=== PATIENT | male | born 1945 | race Caucasian/White ===

== ENCOUNTER 2016-06-29 09:06 | Emergency (ER) | payer OTHER ==
--- NOTE | 2016-06-29 09:14 | PDOC ---
History of Present Illness - General History Source: Patient Exam Limitations: No Limitations - History of Present Illness Initial Comments: 06/29/16 09:36 The patient is an 80 year old male with a significant past medical history of DM and hypertension, who presents to the ER s/p syncope earlier today. Patient reports he was at [employer] today and passed out. EMS was alerted at that time. As per EMS, patients glucose level was 55. Patient was given oral glucose and D10 55 cc. At the time of arrival to the ER, patient had a glucose level of 134. On interview, patient reports he is feeling better and would like to go home. Denies head or neck trauma Denies nausea, vomiting, diarrhea Denies fever, chills, or cough. <Karyn Britt - Last Filed: 06/29/16 09:54> <Eris Samaniego - Last Filed: 06/29/16 10:30> - General Stated Complaint: LOW BLOOD SUGAR Time Seen by Provider: 06/29/16 09:13 Past History <Karyn Britt - Last Filed: 06/29/16 09:54> - Past Medical History Diabetes: Yes HTN: Yes - Psycho/Social/Smoking Cessation Hx Anxiety: No Suicidal Ideation: No Smoking History: Never smoked Have you smoked in the past 12 months: No Hx Alcohol Use: No Drug/Substance Use Hx: No Substance Use Type: None <Eris Samaniego - Last Filed: 06/29/16 10:30> - Past Medical History Allergies/Adverse Reactions: Allergies Allergy/AdvReac Type Severity Reaction Status Date / Time Sulfa (Sulfonamide AdvReac Severe Vomiting Verified 06/29/16 09:25 Antibiotics) Home Medications: Ambulatory Orders Amlodipine/Valsartan [Amlodipine-Valsartan 5-160 mg] 1 tab PO DAILY 08/30/15 Atorvastatin Ca [Lipitor] 40 mg PO HS 08/30/15 Exenatide Microspheres [Bydureon Pen] 2 mg SQ WEEKLY 08/30/15 Insulin Aspart Prot/Insuln Asp [Novolog Mix 70-30 Vial] 26 unit SQ BID 08/30/15 Review of Systems - Review of Systems Able to Perform ROS?: Yes Comments:: 06/29/16 09:36 GENERAL/CONSTITUTIONAL: No fever or chills. No weakness. HEAD, EYES, EARS, NOSE AND THROAT: No change in vision. No ear pain or discharge. No sore throat. CARDIOVASCULAR: No chest pain or shortness of breath. RESPIRATORY: No cough, wheezing, or hemoptysis. GASTROINTESTINAL: No nausea, vomiting, diarrhea or constipation. GENITOURINARY: No dysuria, frequency, or change in urination. MUSCULOSKELETAL: No joint or muscle swelling or pain. No neck or back pain. SKIN: No rash NEUROLOGIC: No headache, vertigo, loss of consciousness, or change in strength/ sensation. ENDOCRINE: No increased thirst. No abnormal weight change. HEMATOLOGIC/LYMPHATIC: No anemia, easy bleeding, or history of blood clots. ALLERGIC/IMMUNOLOGIC: No hives or skin allergy. <Karyn Britt - Last Filed: 06/29/16 09:54> *Physical Exam - Vital Signs Last Vital Signs Temp Pulse Resp BP Pulse Ox 97.7 F 77 20 151/63 99 06/29/16 09:26 06/29/16 09:26 06/29/16 09:26 06/29/16 09:26 06/29/16 09:26 - Physical Exam Comments: GENERAL: Awake, alert, and fully oriented, in no acute distress HEAD: No signs of trauma EYES: PERRLA, EOMI, sclera anicteric, conjunctiva clear ENT: Auricles normal inspection, hearing grossly normal, nares patent, oropharynx clear without exudates. Moist mucosa NECK: Normal ROM, supple, no lymphadenopathy, JVD, or masses LUNGS: Breath sounds equal, clear to auscultation bilaterally. No wheezes, and no crackles HEART: Regular rate and rhythm, normal S1 and S2, no murmurs, rubs or gallops ABDOMEN: Soft, nontender, normoactive bowel sounds. No guarding, no rebound. No masses EXTREMITIES: Normal range of motion, no edema. No clubbing or cyanosis. No cords, erythema, or tenderness NEUROLOGICAL: Cranial nerves II through XII grossly intact. Normal speech, normal gait SKIN: Warm, Dry, normal turgor, no rashes or lesions noted. <Karyn Britt - Last Filed: 06/29/16 09:54> *DC/Admit/Observation/Transfer - Attestations Scribe Attestion: 06/29/16 09:37 Documentation prepared by Karyn Britt, acting as site medical director for Eris Samaniego DO. <ConnieKaryn waters - Last Filed: 06/29/16 09:54> - Discharge Dispostion Admit: No - Attestations Physician Attestion: 06/29/16 09:14 I, Dr. Eris Samaniego, attest that this document has been prepared under my direction and personally reviewed by me in its entirety. I further attest, that it accurately reflects all work, treatment, procedures and medical decision -making performed by me. <Eris Samaniego - Last Filed: 06/29/16 10:30> Diagnosis at time of Disposition: Hypoglycemia associated with diabetes, Syncope and collapse - Discharge Dispostion Disposition: HOME Condition at time of disposition: Good - Patient Instructions Printed Discharge Instructions: DI for Syncope in Adults (Fainting) Additional Instructions: Mr Elders- Please take good care. Follow up with your doctor this week. Return to us if any problems- Best- Dr. Eris Samaniego
[2016-06-29 09:29] VITALS: TEMP 97.7; BMI 28.1
[2016-06-29 10:36] VITALS: BP 120/68; PULSE 82
== END 2016-06-29 10:36 | disposition home or self-care (01) ==
LOC: JER 09:06
DX: E11.65 Type 2 diabetes mellitus with hyperglycemia (principal); E16.2 Hypoglycemia, unspecified; I10 Essential (primary) hypertension
CPT/HCPCS: 99284-25

== ENCOUNTER 2016-11-24 13:53 | Emergency (ER) | payer OTHER ==
[2016-11-24 14:02] VITALS: BP 136/74; PULSE 86; TEMP 97.5; BMI 28.8
--- NOTE | 2016-11-24 14:31 | PDOC ---
History of Present Illness - General History Source: Patient Exam Limitations: No Limitations - History of Present Illness Initial Comments: 11/24/16 15:42 The patient is a 71 year old male, with a significant past medical history of hypertension, hyperlipidemia, and IDDM, who presents to the emergency department complaining of RLQ pain for approximately 2 days. The patient reports his pain began after he ate peanuts 4 days ago. Patient reports the pain is constant and radiates to his right side. Patient reports associated chills, but denies any fever, headache, or dizziness. Patient reports his pain is exacerbated with movement or when bending over. He denies any nausea, vomiting, diarrhea, or constipation, melena, or hematochezia. Patient admits his diabetes is poorly controlled. He reports increased urinary frequency, but reports denies any difficulty starting a urinary stream, dysuria, hematuria, or urgency. Patient reports presenting to his PCP Dr. Farris earlier today, who suspects the patient has a possible appendicitis. Patient reports increased weight gain over the past couple of months. Patient denies any recent trauma, strenuous activity, recent travel, or sick contacts. Allergies: Sulfa Past Surgical History: None reported. Social History: Non smoker. No ETOH or recreational drug use. PCP: Dr. Farris <Edelmira Crandall - Last Filed: 11/24/16 19:19> <Lily Salgado - Last Filed: 11/24/16 19:49> - General Chief Complaint: Pain Stated Complaint: PAIN (PCP SENT) Past History <Edelmira Crandall - Last Filed: 11/24/16 19:19> - Past Medical History Diabetes: Yes HTN: Yes Hypercholesterolemia: Yes - Psycho/Social/Smoking Cessation Hx Anxiety: No Suicidal Ideation: No Smoking History: Never smoked Have you smoked in the past 12 months: No Information on smoking cessation initiated: No Hx Alcohol Use: No Drug/Substance Use Hx: No Substance Use Type: None <Lily Salgado - Last Filed: 11/24/16 19:49> - Past Medical History Allergies/Adverse Reactions: Allergies Allergy/AdvReac Type Severity Reaction Status Date / Time Sulfa (Sulfonamide AdvReac Severe Vomiting Verified 11/24/16 14:02 Antibiotics) Home Medications: Ambulatory Orders Amlodipine/Valsartan [Amlodipine-Valsartan 5-160 mg] 1 tab PO DAILY 08/30/15 Atorvastatin Ca [Lipitor] 40 mg PO HS 08/30/15 Insulin Glargine,Hum.rec.anlog [Lantus (nf)] 32 units SQ HS 11/24/16 Levofloxacin [Levaquin] 750 mg PO DAILY #7 tab 11/24/16 Sitagliptin Phos/Metformin HCl [Janumet 50-1,000 mg Tablet] 1 each PO DAILY 01/30 Review of Systems - Review of Systems Able to Perform ROS?: Yes Comments:: 11/24/16 15:42 GENERAL/CONSTITUTIONAL: Yes: +chills. No fever. No weakness. HEAD, EYES, EARS, NOSE AND THROAT: No change in vision. No ear pain or discharge. No sore throat. CARDIOVASCULAR: No chest pain or shortness of breath. RESPIRATORY: No cough, wheezing, or hemoptysis. GASTROINTESTINAL: Yes: +RLQ abdominal pain radiating to his right side. No nausea, vomiting, diarrhea or constipation. GENITOURINARY: Yes: +frequency. No dysuria or change in urination. MUSCULOSKELETAL: No joint or muscle swelling or pain. No neck or back pain. SKIN: No rash NEUROLOGIC: No headache, vertigo, loss of consciousness, or change in strength/ sensation. ENDOCRINE: No increased thirst. No abnormal weight change. HEMATOLOGIC/LYMPHATIC: No anemia, easy bleeding, or history of blood clots. ALLERGIC/IMMUNOLOGIC: No hives or skin allergy. <Edelmira Crandall - Last Filed: 11/24/16 19:19> *Physical Exam - Vital Signs Last Vital Signs Temp Pulse Resp BP Pulse Ox 97.5 F L 86 18 136/74 100 11/24/16 13:59 11/24/16 13:59 11/24/16 13:59 11/24/16 13:59 11/24/16 13:59 - Physical Exam Comments: 11/24/16 15:43 GENERAL: Awake, alert, and fully oriented, in no acute distress HEAD: No signs of trauma EYES: PERRLA, EOMI, sclera anicteric, conjunctiva clear ENT: Auricles normal inspection, hearing grossly normal, nares patent, oropharynx clear without exudates. Moist mucosa NECK: Normal ROM, supple, no lymphadenopathy, JVD, or masses LUNGS: Breath sounds equal, clear to auscultation bilaterally. No wheezes, and no crackles HEART: Regular rate and rhythm, normal S1 and S2, no murmurs, rubs or gallops ABDOMEN: Soft, nontender, normoactive bowel sounds. No guarding, no rebound. No masses EXTREMITIES: RLQ and right sided tenderness to palpation, but no guarding or rebound. Normal range of motion, no edema. No clubbing or cyanosis. No cords, erythema, or tenderness BACK: No CVA tenderness. NEUROLOGICAL: Cranial nerves II through XII grossly intact. Normal speech, normal gait SKIN: Warm, Dry, normal turgor, no rashes or lesions noted. <Edelmira Crandall - Last Filed: 11/24/16 19:19> - Vital Signs Last Vital Signs Temp Pulse Resp BP Pulse Ox 97.5 F L 86 18 136/74 100 11/24/16 13:59 11/24/16 13:59 11/24/16 13:59 11/24/16 13:59 11/24/16 13:59 <Lily Salgado - Last Filed: 11/24/16 19:49> ED Treatment Course - LABORATORY CBC & Chemistry Diagram: 11/24/16 15:40 11/24/16 15:40 - RADIOLOGY Radiograph Interpretation: 11/24/16 19:19 EXAM: CT Abdomen and Pelvis INTERPRETED BY: Dr. Tanner REVIEWED BY: Dr. Salgado IMPRESSION: No definite CT findings of acute pathology are identified with additional attention to the appendix. Slightly increased mesenteric density is noted centrally in association with several mildly prominent mesenteric lymph nodes. While this appearance is most commonly of no clinical significance correlation with 3 month follow-up CT or MRI is essential to document stability and lack of developing pathology. - Medications Given in the ED: ED Medications Discontinued Medications Generic Name Dose Route Start Last Admin Trade Name Freq PRN Reason Stop Dose Admin Morphine Sulfate 4 mg 11/24/16 15:06 11/24/16 15:39 Morphine Injection - IVPUSH 11/24/16 15:07 4 mg ONCE ONE Administration Sodium Chloride 1,000 ml 11/24/16 15:06 11/24/16 15:39 Normal Saline - IV 11/24/16 15:07 1,000 ml ONCE ONE Administration <Edelmira Crandall - Last Filed: 11/24/16 19:19> - LABORATORY CBC & Chemistry Diagram: 11/24/16 15:40 11/24/16 15:40 <Lily Salgado - Last Filed: 11/24/16 19:49> Medical Decision Making - Medical Decision Making 11/24/16 19:42 a/p: 71yo male with RLQ pain -concern for poss uti - dysuria and urinary freq -concern for poss appendicitis -will check labs, ct abd/pelvis -ivf hydration -pain control 11/24/16 19:43 discussed imaging results with the patient and ct results -pt requesting to eat -pt states pain improved. 11/24/16 19:46 case discussed with PMD who requests levaquin for UTI. will change abx. <Lily Salgado - Last Filed: 11/24/16 19:49> *DC/Admit/Observation/Transfer - Attestations Scribe Attestion: 11/24/16 15:44 Documentation prepared by Edelmira Crandall, acting as medical collections specialist for Lily Salgado DO. <Edelmira Crandall - Last Filed: 11/24/16 19:19> - Discharge Dispostion Admit: No - Attestations Physician Attestion: 11/24/16 19:42 I, Dr. Lily Salgado DO, attest that this document has been prepared under my direction and personally reviewed by me in its entirety. I further attest, that it accurately reflects all work, treatment, procedures and medical decision -making performed by me. <Lily Salgado - Last Filed: 11/24/16 19:49> Diagnosis at time of Disposition: Abdominal pain, UTI (urinary tract infection) - Discharge Dispostion Disposition: HOME Condition at time of disposition: Stable - Prescriptions Prescriptions: Levofloxacin [Levaquin] 750 mg PO DAILY #7 tab - Patient Instructions Printed Discharge Instructions: DI for Urinary Tract Infection (UTI), DI for Abdominal Pain-Adult Additional Instructions: Please take all meds as prescribed. Please follow up with your PMD in 2-3 days. Please return to the ED with any further concerns.
[2016-11-24] MEDS ORDERED: SODIUM CHLORIDE 0.9% 1000 ML INFUS.BAG IV ONE (15:06)
[2016-11-24] MEDS ORDERED: morphine CARPU-JECT 4 MG/1 ML DISP.SYRIN IVPUSH ONE (15:06)
[2016-11-24] MEDS ORDERED: morphine CARPU-JECT 4 MG/1 ML DISP.SYRIN ONE (15:24)
[2016-11-24 15:56] LABS: BASOPHIL 0.7 % (0-2.0); MCH 30.8 pg (25.7-33.7); MCHC 34.5 g/dl (32.0-35.9); MEAN CELL VOLUME 89.1 fl (80-96); MEAN PLT VOLUME 9.3 fl (7.5-11.1); NEUTROPHILS 68.6 % (42.8-82.8); PLATELET COUNT 232 K/MM3 (134-434); RDW 12.8 % (11.9-15.9); URINE APPEARANCE SLCLOUDY; URINE BILIRUBIN NEGATIVE (NEGATIVE); URINE BLOOD NEGATIVE (NEGATIVE); URINE COLOR YELLOW; URINE GLUCOSE (UA) 3+ (NEGATIVE); URINE KETONE NEGATIVE (NEGATIVE); URINE NITRITE POSITIVE (NEGATIVE); URINE PROTEIN NEGATIVE (NEGATIVE); URINE UROBILINOGEN NEGATIVE mg/dL (0.2-1.0); WHITE BLOOD COUNT 10.4 K/mm3 (4.0-10.0)
[2016-11-24 16:00] LABS: URINE HYALINE CAST 1 /lpf; URINE MUCUS RARE; URINE RBC 2 /hpf (0-3); URINE WBC 7 /hpf (3-5)
[2016-11-24 16:07] LABS: ALBUMIN 3.9 g/dl (3.4-5.0); ALK PHOS 102 U/L (45-117); ANION GAP 9 (8-16); BILIRUBIN,TOTAL 0.5 mg/dL (0.2-1.0); CALCIUM 9.4 mg/dL (8.5-10.1); CO2 27 mmol/L (21-32); CREATININE 1.4 mg/dL (0.7-1.3); GLUCOSE,RANDOM 291 mg/dL (74-106); MAGNESIUM 2.1 mg/dL (1.8-2.4); SGOT/AST 12 U/L (15-37); SGPT/ALT 15 U/L (12-78); TOT PROT 7.3 g/dl (6.4-8.2)
[2016-11-24 16:25] LABS: INR 0.95 (0.82-1.09); PROTHROMBIN TIME (PATIENT) 10.4 SEC (9.98-11.88)
[2016-11-24 16:28] LABS: ACTIVATED PTT 28.2 SECONDS (26.9-34.4)
[2016-11-24] MEDS ORDERED: cefTRIAXone 1 GM/50 ML BAG (PRE-DOCKED) IVPB ONE (19:20)
[2016-11-24] MEDS ORDERED: CEFTRIAXONE 50 ML ONE (19:25)
== END 2016-11-24 20:07 | disposition home or self-care (01) ==
LOC: JER 13:53
PROC: 3E03329 Introduction of Other Anti-infective into Peripheral Vein, Percutaneous Approach (ICD-10-PCS; principal; 2016-11-24)
PROC: 3E033NZ Introduction of Analgesics, Hypnotics, Sedatives into Peripheral Vein, Percutaneous Approach (ICD-10-PCS; 2016-11-24)
DX: N39.0 Urinary tract infection, site not specified (principal); I10 Essential (primary) hypertension; E78.00 Pure hypercholesterolemia, unspecified; E11.9 Type 2 diabetes mellitus without complications; Z79.4 Long term (current) use of insulin; Z79.84 Long term (current) use of oral hypoglycemic drugs
CPT/HCPCS: 36415; 74176-TC; 80053; 81003; 81015; 83690; 83735; 85025; 85610; 85730; 96374; 96375; 99284-25

== ENCOUNTER 2017-06-08 13:10 | Inpatient (IN) | payer OTHER ==
[2017-06-08 13:16] VITALS: BMI 30.4
--- NOTE | 2017-06-08 17:26 | PDOC ---
Attending Attestation - Resident Resident Name: Henrry Moreira - ED Attending Attestation I have performed the following: I have examined & evaluated the patient, The case was reviewed & discussed with the resident, I agree w/resident's findings & plan, Exceptions are as noted - HPI HPI: 06/08/17 17:25 71 yo male sent in by his foundation director for admission for right big toe infection. PCP is Dr Jenn Farris , Dr Meng Greene is his foundation director - Physicial Exam PE: 06/08/17 17:26 71 yo male p/w infected rt big toe. He stubbed it in the shower head ncat eyes nathaly eomi neck no bruits,supple lungs cta b/l cvs [id number] abd nontender,soft ext right big toe erythematous, tender with minimal purulence neuro -axox3, ambulatory skin - moist mucus membranes,no cellulitis psych -appropriate affect 06/08/17 17:50 - Medical Decision Making 06/09/17 01:52 pt admitted to med.surg for IV antibiotics vanco and zosyn for infected diabetic toe
[2017-06-08] MEDS ORDERED: VANCOMYCIN 1,000 MG in DEXTROSE 5%-WATER - 250 ML IVPB ONE (17:56)
[2017-06-08] MEDS ORDERED: PIPERACIL/TAZOB 3.375 GM 3.375 GM/50 ML PREMIX IVPB ONE (17:57)
[2017-06-08 18:15] LABS: BASO % 0.5 % (0-2.0); EOS % 1.2 % (0-4.5); HEMATOCRIT 41.5 % (35.4-49); HEMOGLOBIN 14.2 GM/dL (11.7-16.9); LYMPH % 17.2 % (8-40); MCH 30.6 pg (25.7-33.7); MCHC 34.1 g/dl (32.0-35.9); MEAN CELL VOLUME 89.7 fl (80-96); MEAN PLT VOLUME 8.6 fl (7.5-11.1); NEUT % 72.1 % (42.8-82.8); PLATELET COUNT 259 K/MM3 (134-434); RBC 4.63 M/mm3 (4.00-5.60); RDW 13.9 % (11.9-15.9); WHITE BLOOD COUNT 8.4 K/mm3 (4.0-10.0)
--- NOTE | 2017-06-08 18:17 | PDOC ---
History of Present Illness - General Chief Complaint: Wound Stated Complaint: ADMISSION PCP SENT Time Seen by Provider: 06/08/17 17:25 History Source: Patient Exam Limitations: No Limitations - History of Present Illness Initial Comments: 06/08/17 18:15 Patient is a 71M with history of HTN, HLD, IDDM here today complaining of a wound to his right great toe worsening over the past two weeks. He states that he saw a quality assurance/r&d lab technician Dr Greene who referred him for admission for IV antibiotics. He denies fevers, chills, nausea, vomiting. He denies chest pain, shortness of breath. He states his wound after hitting his toe twice in the bathroom. Past History - Past Medical History Allergies/Adverse Reactions: Allergies Allergy/AdvReac Type Severity Reaction Status Date / Time Sulfa (Sulfonamide AdvReac Severe Vomiting Verified 06/08/17 13:13 Antibiotics) Home Medications: Ambulatory Orders Atorvastatin Ca [Lipitor] 20 mg PO HS 08/30/15 Sitagliptin Phos/Metformin HCl [Janumet 50-1,000 mg Tablet] 1 each PO DAILY 01/30 Amlodipine/Valsartan/Hcthiazid [Ikazv-Kvmof-Oilr 10-160-12.5MG] 1 each PO DAILY 06/08/17 Insulin Aspart [Novolog] 0 unit SQ ASDIR 06/08/17 Tramadol HCl 50 mg PO BID 06/08/17 COPD: No Diabetes: Yes HTN: Yes Hypercholesterolemia: Yes - Suicide/Smoking/Psychosocial Hx Smoking History: Never smoked Have you smoked in the past 12 months: No Information on smoking cessation initiated: No Hx Alcohol Use: No Drug/Substance Use Hx: No Substance Use Type: None Review of Systems - Review of Systems Comments:: 06/08/17 19:09 GENERAL/CONSTITUTIONAL: No fever or chills. No weakness. HEAD, EYES, EARS, NOSE AND THROAT: No change in vision. No sore throat. CARDIOVASCULAR: No chest pain or shortness of breath RESPIRATORY: No cough, wheezing, or hemoptysis. GASTROINTESTINAL: No nausea, vomiting, diarrhea or constipation. GENITOURINARY: No dysuria, frequency, or change in urination. MUSCULOSKELETAL: Positive for pain in right great toe. No neck or back pain. SKIN: No rash NEUROLOGIC: No headache, vertigo, loss of consciousness, or change in strength/ sensation. ENDOCRINE: No increased thirst. No abnormal weight change HEMATOLOGIC/LYMPHATIC: No anemia, easy bleeding, or history of blood clots. ALLERGIC/IMMUNOLOGIC: No hives or skin allergy. *Physical Exam - Vital Signs Last Vital Signs Temp Pulse Resp BP Pulse Ox 97.9 F 82 18 138/66 100 06/08/17 13:13 06/08/17 13:13 06/08/17 13:13 06/08/17 13:13 06/08/17 13:13 - Physical Exam Comments: 06/08/17 19:09 GENERAL: Awake, alert, and fully oriented, in no acute distress R FOOT: Swelling and erythema with pus discharge along anterior aspect of great toe. No streaking cellulitis. HEAD: No signs of trauma, normocephalic, atraumatic EYES: PERRLA, EOMI, sclera anicteric, conjunctiva clear ENT: Auricles normal inspection, hearing grossly normal, nares patent, oropharynx clear without exudates. Moist mucosa NECK: Normal ROM, supple, no lymphadenopathy, JVD, or masses LUNGS: No distress, speaks full sentences, clear to auscultation bilaterally HEART: Regular rate and rhythm, normal S1 and S2, no murmurs, rubs or gallops, peripheral pulses normal and equal bilaterally. ABDOMEN: Soft, nontender, normoactive bowel sounds. No guarding, no rebound. No masses EXTREMITIES: Normal inspection, Normal range of motion, no edema. No clubbing or cyanosis. NEUROLOGICAL: Cranial nerves II through XII grossly intact. Normal speech, no focal sensorimotor deficits SKIN: Warm, Dry, normal turgor, no rashes or lesions noted. ED Treatment Course - LABORATORY CBC & Chemistry Diagram: 06/08/17 17:40 06/08/17 17:40 - RADIOLOGY Radiology Studies Ordered: Category Date Time Status TOE(S) RIGHT [RAD] Stat Radiology 06/08/17 17:27 Ordered Medical Decision Making - Medical Decision Making 06/08/17 19:10 71M here today with diabetic wound. Vital signs stable and normal. Will draw cbc , cmp, blood culture, pt/inr, esr, crp. Will evaluate with x-ray. Differential diagonsis includes osteomyelitis, cellulitis. 06/08/17 23:29 Laboratory Tests 06/08/17 06/08/17 17:40 17:40 WBC 8.4 Hgb 14.2 Hct 41.5 Plt Count 259 ESR 28 H Random Glucose 302 H* C-Reactive Protein 1.5 H CBC normal. ESR/CRP elevated. X-ray shows possible osteomyelitis. Admitted to hospitalist. *DC/Admit/Observation/Transfer Diagnosis at time of Disposition: Osteomyelitis - Discharge Dispostion Condition at time of disposition: Stable Admit: Yes - Referrals - Patient Instructions - Post Discharge Activity
[2017-06-08 18:25] LABS: INR 0.97 (0.82-1.09)
[2017-06-08] MEDS ORDERED: VANCOMYCIN 1 GRAM (PRE-DOCKED) 1,000 MG/250 ML BAG IVPB ONE (18:25)
[2017-06-08] MEDS ORDERED: PIPERACILLIN/TAZOB 3.375 GM 3.375 GM/50 ML BAG IVPB ONE (18:26)
[2017-06-08 19:19] LABS: ERYTHROCYTE SEDIMENTATION RATE 28 mm/hr (0-20)
[2017-06-08 20:22] LABS: ALBUMIN 3.8 g/dl (3.4-5.0); ANION GAP 10 (8-16); BILIRUBIN,TOTAL 0.4 mg/dL (0.2-1.0); BLOOD UREA NITROGEN 27 mg/dL (7-18); CALCIUM 9.3 mg/dL (8.5-10.1); CHLORIDE 102 mmol/L (98-107); CO2 27 mmol/L (21-32); CREATININE 1.3 mg/dL (0.7-1.3); SGOT/AST 14 U/L (15-37); SGPT/ALT 22 U/L (12-78); SODIUM 139 mmol/L (136-145); TOT PROT 7.4 g/dl (6.4-8.2)
[2017-06-08 20:23] LABS: ALK PHOS 118 U/L (45-117)
[2017-06-08 20:27] LABS: GLUCOSE,RANDOM 302 mg/dL (74-106)
--- NOTE | 2017-06-08 21:54 | HP ---
Admitting History and Physical - Primary Care Physician PCP: Shaun Taylor - Admission Chief Complaint: R toe infection History of Present Illness: 71M with history of HTN, HLD, IDDM here today complaining of a wound to his right great toe worsening over the past two weeks. He states that he saw a network architect manager Dr Greene who referred him for admission for IV antibiotics. He denies fevers, chills, nausea, vomiting. He denies chest pain, shortness of breath. He states his wound after hitting his toe twice in the bathroom. - Past Medical History Cardiovascular: Yes: HTN, Hyperlipdemia Endocrine: Yes: Diabetes Mellitus - Smoking History Smoking history: Never smoked Have you smoked in the past 12 months: No - Alcohol/Substance Use Hx Alcohol Use: No Home Medications - Allergies Allergies/Adverse Reactions: Allergies Allergy/AdvReac Type Severity Reaction Status Date / Time Sulfa (Sulfonamide AdvReac Severe Vomiting Verified 06/08/17 13:13 Antibiotics) - Home Medications Home Medications: Ambulatory Orders Atorvastatin Ca [Lipitor] 20 mg PO HS 08/30/15 Sitagliptin Phos/Metformin HCl [Janumet 50-1,000 mg Tablet] 1 each PO DAILY 01/30 Amlodipine/Valsartan/Hcthiazid [Rtvaz-Jbxkj-Mopv 10-160-12.5MG] 1 each PO DAILY 06/08/17 Insulin Aspart [Novolog] 0 unit SQ ASDIR 06/08/17 Tramadol HCl 50 mg PO BID 06/08/17 Physical Examination Vital Signs: Vital Signs Temperature 98.0 F 06/08/17 18:00 Pulse Rate 81 06/08/17 18:57 Respiratory Rate 18 06/08/17 18:57 Blood Pressure 149/76 06/08/17 18:57 O2 Sat by Pulse Oximetry (%) 100 06/08/17 18:57 Constitutional: Yes: No Distress HENT: Yes: Atraumatic Neck: Yes: Supple Cardiovascular: Yes: Regular Rate and Rhythm Respiratory: Yes: Rhonchi Gastrointestinal: Yes: Normal Bowel Sounds Extremities: Yes: Other (R toe lacerated/cellulitis?) Neurological: Yes: Alert, Oriented Labs: CBC, BMP 06/08/17 17:40 06/08/17 17:40 Problem List - Problems (1) Cellulitis Assessment/Plan: on iv abx Code(s): L03.90 - CELLULITIS, UNSPECIFIED (2) Diabetes Assessment/Plan: bgms oral meds insulin coverage prn Code(s): E11.9 - TYPE 2 DIABETES MELLITUS WITHOUT COMPLICATIONS (3) Laceration of toe, right Assessment/Plan: will get podiatry involve Code(s): S91.119A - LACERATION W/O FB OF UNSP TOE W/O DAMAGE TO NAIL, INIT (4) HTN (hypertension) Assessment/Plan: on meds stable Code(s): I10 - ESSENTIAL (PRIMARY) HYPERTENSION Assessment/Plan Laboratory Tests 06/08/17 06/08/17 06/08/17 17:40 17:40 17:40 WBC 8.4 RBC 4.63 Hgb 14.2 Hct 41.5 MCV 89.7 MCH 30.6 MCHC 34.1 RDW 13.9 Plt Count 259 MPV 8.6 Neutrophils % 72.1 Lymphocytes % 17.2 Monocytes % 9.0 Eosinophils % 1.2 Basophils % 0.5 ESR 28 H PT with INR 11.00 INR 0.97 Sodium 139 Potassium 5.0 Chloride 102 Carbon Dioxide 27 Anion Gap 10 BUN 27 H Creatinine 1.3 Creat Clearance w eGFR 54.42 POC Glucometer Random Glucose 302 H* Calcium 9.3 Total Bilirubin 0.4 AST 14 L ALT 22 D Alkaline Phosphatase 118 H C-Reactive Protein 1.5 H Total Protein 7.4 Albumin 3.8 06/08/17 06/09/17 06/09/17 23:19 06:10 06:10 WBC 14.2 H D RBC 4.74 Hgb 14.2 Hct 42.6 MCV 89.7 MCH 29.9 MCHC 33.3 RDW 13.8 Plt Count 274 MPV 8.9 Neutrophils % 78.5 Lymphocytes % 13.5 D Monocytes % 6.7 Eosinophils % 0.8 Basophils % 0.5 ESR PT with INR INR Sodium 139 Potassium 4.5 Chloride 104 Carbon Dioxide 27 Anion Gap 8 BUN 26 H Creatinine 1.2 Creat Clearance w eGFR 59.68 POC Glucometer [id number] Random Glucose 117 H D Calcium 9.1 Total Bilirubin 0.4 AST 14 L ALT 20 Alkaline Phosphatase 119 H C-Reactive Protein Total Protein 7.4 Albumin 3.6 06/09/17 06/09/17 07:31 10:41 WBC RBC Hgb Hct MCV MCH MCHC RDW Plt Count MPV Neutrophils % Lymphocytes % Monocytes % Eosinophils % Basophils % ESR PT with INR INR Sodium Potassium Chloride Carbon Dioxide Anion Gap BUN Creatinine Creat Clearance w eGFR POC Glucometer 142.78112 [phone] Random Glucose Calcium Total Bilirubin AST ALT Alkaline Phosphatase C-Reactive Protein Total Protein Albumin Active Medications Generic Name Dose Route Start Last Admin Trade Name Lebronq PRN Reason Stop Dose Admin Amlodipine Besylate 10 mg 06/09/17 10:00 06/09/17 10:32 Norvasc - PO 10 mg DAILY JASMINE Administration Atorvastatin Calcium 20 mg 06/08/17 22:00 06/08/17 23:21 Lipitor - PO 20 mg HS JASMINE Administration Heparin Sodium (Porcine) 5,000 unit 06/08/17 22:00 06/09/17 10:32 Heparin - SQ 5,000 unit BID JASMINE Administration Hydrochlorothiazide 12.5 mg 06/09/17 10:00 06/09/17 10:32 Hctz - PO 12.5 mg DAILY JASMINE Administration Ampicillin Sodium/Sulbactam 100 mls @ 200 mls/hr 06/09/17 02:00 06/09/17 10: 32 Sodium 3 gm/ Sodium Chloride IVPB 200 mls/hr Q8H-IV JASMINE Administration Vancomycin HCl 1,250 mg/ 250 mls @ 166.667 mls/hr 06/09/17 16:00 Dextrose IVPB DAILY@1600 [facility] Protocol Insulin Aspart 1 vial 06/08/17 22:00 06/09/17 11:35 Novolog Vial Sliding Scale - SQ Not Given ACHS [facility] Protocol Metformin HCl 1,000 mg 06/09/17 07:00 06/09/17 07:42 Glucophage - PO 1,000 mg ACBK JASMINE Administration Sitagliptin Phosphate 50 mg 06/09/17 07:00 06/09/17 07:42 Januvia - PO 50 mg DAILY@0700 JASMINE Administration Tramadol HCl 50 mg 06/08/17 22:00 06/09/17 10:47 Ultram - PO 50 mg BID JASMINE Administration Valsartan 160 mg 06/09/17 10:00 06/09/17 10:32 Diovan - PO 160 mg DAILY JASMINE Administration
[2017-06-08] MEDS ORDERED: HEPARIN NA (PORCINE) 5,000 UNITS/ML 1ML VIAL ONE (23:04)
[2017-06-08] MEDS ORDERED: ATORVASTATIN CA 40 MG TABLET (FP) ONE (23:04)
[2017-06-08] MEDS ORDERED: traMADol HCL 50 MG TABLET ONE (23:04)
[2017-06-08] MEDS: traMADol HCL 50 MG TABLET PO SCH (23:21)
[2017-06-08] MEDS: HEPARIN NA (PORCINE) 5,000 UNITS/ML 1ML VIAL SQ SCH (23:21)
[2017-06-08] MEDS: ATORVASTATIN CA 20 MG TABLET (FP) PO SCH (23:21)
[2017-06-08] MEDS ORDERED: INSULIN (NOVOLOG) ASPART 100 UNITS/ML 10ML VIAL ONE (23:45)
[2017-06-08] MEDS: INSULIN SLIDING SCALE (NOVOLOG) 1 VIAL SQ SCH (23:50)
[2017-06-09] MEDS: AMPICILLIN NA/SULBACTAM NA 3 GM in SODIUM CHLORIDE 100 ML IVPB SCH ×3 (02:33→18:48)
[2017-06-09 07:30] LABS: BASO % 0.5 % (0-2.0); EOS % 0.8 % (0-4.5); HEMATOCRIT 42.6 % (35.4-49); HEMOGLOBIN 14.2 GM/dL (11.7-16.9); LYMPH % 13.5 % (8-40); MCH 29.9 pg (25.7-33.7); MCHC 33.3 g/dl (32.0-35.9); MEAN CELL VOLUME 89.7 fl (80-96); MEAN PLT VOLUME 8.9 fl (7.5-11.1); MONO % 6.7 % (3.8-10.2); NEUT % 78.5 % (42.8-82.8); PLATELET COUNT 274 K/MM3 (134-434); RBC 4.74 M/mm3 (4.00-5.60); RDW 13.8 % (11.9-15.9); WHITE BLOOD COUNT 14.2 K/mm3 (4.0-10.0)
[2017-06-09] MEDS: sitaGLIPtin PHOSPHATE 50 MG TABLET PO SCH (07:42)
[2017-06-09] MEDS: metFORMIN HCL 500 MG TABLET (FP) PO SCH (07:42)
[2017-06-09] MEDS: INSULIN SLIDING SCALE (NOVOLOG) 1 VIAL SQ SCH ×4 (07:43→21:44)
[2017-06-09 07:54] LABS: CHLORIDE 104 mmol/L (98-107); POTASSIUM 4.5 mmol/L (3.5-5.1); SODIUM 139 mmol/L (136-145)
[2017-06-09 08:03] LABS: ALBUMIN 3.6 g/dl (3.4-5.0); ALK PHOS 119 U/L (45-117); ANION GAP 8 (8-16); BILIRUBIN,TOTAL 0.4 mg/dL (0.2-1.0); BLOOD UREA NITROGEN 26 mg/dL (7-18); CALCIUM 9.1 mg/dL (8.5-10.1); CO2 27 mmol/L (21-32); CREATININE 1.2 mg/dL (0.7-1.3); GLUCOSE,RANDOM 117 mg/dL (74-106); SGOT/AST 14 U/L (15-37); SGPT/ALT 20 U/L (12-78); TOT PROT 7.4 g/dl (6.4-8.2)
[2017-06-09] MEDS ORDERED: PATIENT'S OWN MEDICATION (NON-FORMULARY) (Amlodipine/Valsartan/Hcthiazid [Amlod-Valsa-Hctz PO SCH (10:00)
[2017-06-09] MEDS ORDERED: PATIENT'S OWN MEDICATION (NON-FORMULARY) (Sitagliptin Phos/Metformin Hcl [Janumet 50-1,000 PO SCH (10:00)
[2017-06-09] MEDS: HYDROCHLOROTHIAZIDE 12.5 MG CAPSULE (FP) PO SCH (10:32)
[2017-06-09] MEDS: HEPARIN NA (PORCINE) 5,000 UNITS/ML 1ML VIAL SQ SCH ×2 (10:32→21:45)
[2017-06-09] MEDS: amLODIPine BESYLATE 10 MG TABLET (FP) PO SCH (10:32)
[2017-06-09] MEDS: VALSARTAN 160 MG TABLET (UD) PO SCH (10:32)
[2017-06-09] MEDS ORDERED: HEPARIN NA (PORCINE) 5,000 UNITS/ML 1ML VIAL ONE (10:33)
[2017-06-09] MEDS ORDERED: traMADol HCL 50 MG TABLET ONE (10:33)
[2017-06-09] MEDS: traMADol HCL 50 MG TABLET PO SCH ×2 (10:47→21:45)
--- NOTE | 2017-06-09 14:46 | CON.ID ---
Consult Consult Specialty:: infectious diseases Reason for Consultation:: cellulitits of the rt toe - History of Present Illness Chief Complaint: injury to the rt toe. cellulitis of the toe History of Present Illness: 71M with history of HTN, HLD, IDDM here today complaining of a wound to his right great toe worsening over the past two weeks. He states that he saw a auto body repairman Dr Greene who referred him for admission for IV antibiotics. He denies fevers, chills, nausea, vomiting. He denies chest pain, shortness of breath. He states his wound after hitting his toe twice in the bathroom. patient mentions that his toe got hit after taking the shower currently looking at the toe it looks like it is split at the nail bed and i think the injury has gone upto the bone patient is no acute distress and no active bleeding noted patient is a diabetic - History Source History Provided By: Patient Limitations to Obtaining History: No Limitations - Past Medical History Cardio/Vascular: Yes: HTN, Hyperlipdemia Endocrine: Yes: Diabetes Mellitus - Alcohol/Substance Use Hx Alcohol Use: No - Smoking History Smoking history: Never smoked Have you smoked in the past 12 months: No Home Medications - Allergies Allergies/Adverse Reactions: Allergies Allergy/AdvReac Type Severity Reaction Status Date / Time Sulfa (Sulfonamide AdvReac Severe Vomiting Verified 06/08/17 13:13 Antibiotics) - Home Medications Home Medications: Ambulatory Orders Atorvastatin Ca [Lipitor] 20 mg PO HS 08/30/15 Sitagliptin Phos/Metformin HCl [Janumet 50-1,000 mg Tablet] 1 each PO DAILY 01/30 Amlodipine/Valsartan/Hcthiazid [Hclug-Vjcoe-Lcxn 10-160-12.5MG] 1 each PO DAILY 06/08/17 Insulin Aspart [Novolog] 0 unit SQ ASDIR 06/08/17 Tramadol HCl 50 mg PO BID 06/08/17 Review of Systems - Review of Systems Constitutional: reports: No Symptoms Eyes: reports: No Symptoms HENT: reports: No Symptoms Neck: reports: No Symptoms Cardiovascular: reports: No Symptoms Respiratory: reports: No Symptoms Gastrointestinal: reports: No Symptoms Genitourinary: reports: No Symptoms Musculoskeletal: reports: No Symptoms Integumentary: reports: Erythema, Lesions, Wound Neurological: reports: No Symptoms Endocrine: reports: No Symptoms Hematology/Lymphatic: reports: No Symptoms Psychiatric: reports: No Symptoms Physical Exam Vital Signs: Vital Signs Temperature 98.2 F 06/09/17 07:45 Pulse Rate 70 06/09/17 07:45 Respiratory Rate 18 06/09/17 07:45 Blood Pressure 138/79 06/09/17 07:45 O2 Sat by Pulse Oximetry (%) 99 06/09/17 07:50 Constitutional: Yes: Well Nourished, No Distress, Calm HENT: Yes: Atraumatic, Normocephalic Neck: Yes: Supple Cardiovascular: Yes: Regular Rate and Rhythm Respiratory: Yes: Regular, CTA Bilaterally Gastrointestinal: Yes: Normal Bowel Sounds, Soft Musculoskeletal: Yes: WNL Extremities: Yes: Erythema, Other Integumentary: Yes: Erythema Wound/Incision: Yes: Clean/Dry, Other (patient has split from his rt nail bed) Neurological: Yes: Alert, Oriented Psychiatric: Yes: Alert, Oriented Labs: CBC, BMP 06/09/17 06:10 06/09/17 06:10 Imaging - Results Chest X-ray: Report Reviewed, Image Reviewed X-ray: Report Reviewed, Image Reviewed Assessment/Plan after looking at the xray and the wound and the depth of the wound i am concerned about osteo and also i am concerned if the toe can be saved spoke with podiatry who is going to ahve look at the patient osteo of the rt toe split injury of the toe from the nail bed rt cellulittis of the foot uncontrolled dm plan broad spectrum abx probably will need surgery from podiatry await for podiatry to make final decision rest as per primary team
--- NOTE | 2017-06-09 17:02 | EKG ---
Test Reason : Blood Pressure : / mmHG Vent. Rate : 075 BPM Atrial Rate : 075 BPM P-R Int : 148 ms QRS Dur : 096 ms QT Int : 378 ms P-R-T Axes : 019 -55 032 degrees QTc Int : 422 ms NORMAL SINUS RHYTHM LEFT AXIS DEVIATION ABNORMAL ECG WHEN COMPARED WITH ECG OF 30-AUG-2015 12:41, NO SIGNIFICANT CHANGE WAS FOUND Confirmed by MD Fall Edward ([id number]) on 06/09/2017 5:02:28 PM Referred By: Confirmed By:Phil Fall MD
--- NOTE | 2017-06-09 17:14 | CONSULT ---
Consult - text type - Consultation Consultation Note: Patient seen in bed. Lacerated right big toe apparently. Was being treated outpatient. Then re-injured area 3 days ago. Sent to ER by POD. nvsgi, +cellulitis, -drainge, -mal odor, +bone visible through wound, +om on xray, +dislocated IPJ on xray, wbc=14.2 lacerated toe right om? MRI. Will follow. Possible debridement re-attachment in OR will continue to evaluate.
--- NOTE | 2017-06-09 17:21 | PN ---
Progress Note, Physician History of Present Illness: doing well - Current Medication List Current Medications: Active Medications Amlodipine Besylate (Norvasc -) 10 mg PO DAILY [facility] Last Admin: 06/09/17 10:32 Dose: 10 mg Atorvastatin Calcium (Lipitor -) 20 mg PO HS [facility] Last Admin: 06/08/17 23:21 Dose: 20 mg Heparin Sodium (Porcine) (Heparin -) 5,000 unit SQ BID [facility] Last Admin: 06/09/17 10:32 Dose: 5,000 unit Hydrochlorothiazide (Hctz -) 12.5 mg PO DAILY [facility] Last Admin: 06/09/17 10:32 Dose: 12.5 mg Ampicillin Sodium/Sulbactam (Sodium 3 gm/ Sodium Chloride) 100 mls @ 200 mls/ hr IVPB Q8H-IV [facility] Last Admin: 06/09/17 10:32 Dose: 200 mls/hr Vancomycin HCl 1,250 mg/ (Dextrose) 250 mls @ 166.667 mls/hr IVPB DAILY@1600 [facility] PRN Reason: Protocol Insulin Aspart (Novolog Vial Sliding Scale -) 1 vial SQ ACHS [facility] PRN Reason: Protocol Last Admin: 06/09/17 11:35 Dose: Not Given Metformin HCl (Glucophage -) 1,000 mg PO ACBK [facility] Last Admin: 06/09/17 07:42 Dose: 1,000 mg Sitagliptin Phosphate (Januvia -) 50 mg PO DAILY@0700 [facility] Last Admin: 06/09/17 07:42 Dose: 50 mg Tramadol HCl (Ultram -) 50 mg PO BID [facility] Last Admin: 06/09/17 10:47 Dose: 50 mg Valsartan (Diovan -) 160 mg PO DAILY [facility] Last Admin: 06/09/17 10:32 Dose: 160 mg - Objective Vital Signs: Vital Signs Temperature 98.2 F 06/09/17 07:45 Pulse Rate 70 06/09/17 07:45 Respiratory Rate 18 06/09/17 07:45 Blood Pressure 138/79 06/09/17 07:45 O2 Sat by Pulse Oximetry (%) 99 06/09/17 07:50 Constitutional: Yes: No Distress HENT: Yes: Atraumatic Neck: Yes: Supple Cardiovascular: Yes: Regular Rate and Rhythm Respiratory: Yes: CTA Bilaterally Gastrointestinal: Yes: Normal Bowel Sounds Extremities: Yes: Other (R foot in dressing) Edema: Yes Edema: RLE: Trace (R foot) Peripheral Pulses WNL: Yes Neurological: Yes: Alert, Oriented Labs: CBC, BMP 06/09/17 06:10 06/09/17 06:10 INR, PTT INR 0.97 (0.82-1.09) 06/08/17 17:40 Problem List - Problems (1) Cellulitis Assessment/Plan: on iv abx id on board Code(s): L03.90 - CELLULITIS, UNSPECIFIED (2) Diabetes Assessment/Plan: bgms oral meds insulin coverage prn Code(s): E11.9 - TYPE 2 DIABETES MELLITUS WITHOUT COMPLICATIONS (3) HTN (hypertension) Assessment/Plan: on meds stable Code(s): I10 - ESSENTIAL (PRIMARY) HYPERTENSION (4) Laceration of toe, right Assessment/Plan: will get podiatry involve Code(s): S91.119A - LACERATION W/O FB OF UNSP TOE W/O DAMAGE TO NAIL, INIT
[2017-06-09] MEDS: VANCOMYCIN 1,250 MG in DEXTROSE 5%-WATER - 250 ML IVPB SCH (19:32)
[2017-06-09] MEDS ORDERED: INSULIN (NOVOLOG) ASPART 100 UNITS/ML 10ML VIAL ONE (21:29)
[2017-06-09] MEDS: ATORVASTATIN CA 20 MG TABLET (FP) PO SCH (21:45)
[2017-06-10] MEDS ORDERED: PT OWN MED DRAWER 7, Y5N ONE ×5 (01:59→17:48)
[2017-06-10] MEDS: AMPICILLIN NA/SULBACTAM NA 3 GM in SODIUM CHLORIDE 100 ML IVPB SCH ×3 (02:02→17:51)
[2017-06-10] MEDS: INSULIN SLIDING SCALE (NOVOLOG) 1 VIAL SQ SCH ×4 (06:14→22:46)
[2017-06-10] MEDS: metFORMIN HCL 500 MG TABLET (FP) PO SCH (06:15)
[2017-06-10] MEDS: sitaGLIPtin PHOSPHATE 50 MG TABLET PO SCH (06:15)
[2017-06-10] MEDS: traMADol HCL 50 MG TABLET PO SCH ×2 (10:33→22:47)
[2017-06-10] MEDS: HEPARIN NA (PORCINE) 5,000 UNITS/ML 1ML VIAL SQ SCH ×2 (10:34→22:47)
[2017-06-10] MEDS: HYDROCHLOROTHIAZIDE 12.5 MG CAPSULE (FP) PO SCH (10:34)
[2017-06-10] MEDS: VALSARTAN 160 MG TABLET (UD) PO SCH (10:34)
[2017-06-10] MEDS: amLODIPine BESYLATE 10 MG TABLET (FP) PO SCH (10:35)
--- NOTE | 2017-06-10 11:58 | PN ---
Progress Note, Physician History of Present Illness: patient stable doing well no issues podiatry note noted - Current Medication List Current Medications: Active Medications Amlodipine Besylate (Norvasc -) 10 mg PO DAILY [facility] Last Admin: 06/10/17 10:35 Dose: 10 mg Atorvastatin Calcium (Lipitor -) 20 mg PO HS [facility] Last Admin: 06/09/17 21:45 Dose: 20 mg Heparin Sodium (Porcine) (Heparin -) 5,000 unit SQ BID [facility] Last Admin: 06/10/17 10:34 Dose: 5,000 unit Hydrochlorothiazide (Hctz -) 12.5 mg PO DAILY [facility] Last Admin: 06/10/17 10:34 Dose: 12.5 mg Ampicillin Sodium/Sulbactam (Sodium 3 gm/ Sodium Chloride) 100 mls @ 200 mls/ hr IVPB Q8H-IV [facility] Last Admin: 06/10/17 10:56 Dose: 200 mls/hr Vancomycin HCl 1,250 mg/ (Dextrose) 250 mls @ 166.667 mls/hr IVPB DAILY@1600 [facility] PRN Reason: Protocol Last Admin: 06/09/17 19:32 Dose: 166.667 mls/hr Insulin Aspart (Novolog Vial Sliding Scale -) 1 vial SQ ACHS [facility] PRN Reason: Protocol Last Admin: 06/10/17 06:14 Dose: 6 units Metformin HCl (Glucophage -) 1,000 mg PO ACBK [facility] Last Admin: 06/10/17 06:15 Dose: 1,000 mg Sitagliptin Phosphate (Januvia -) 50 mg PO DAILY@0700 [facility] Last Admin: 06/10/17 06:15 Dose: 50 mg Tramadol HCl (Ultram -) 50 mg PO BID [facility] Last Admin: 06/10/17 10:33 Dose: 50 mg Valsartan (Diovan -) 160 mg PO DAILY [facility] Last Admin: 06/10/17 10:34 Dose: 160 mg - Objective Vital Signs: Vital Signs Temperature 98.1 F 06/10/17 06:00 Pulse Rate 71 06/10/17 06:00 Respiratory Rate 18 06/10/17 06:00 Blood Pressure 124/71 06/10/17 06:00 O2 Sat by Pulse Oximetry (%) 96 06/09/17 21:00 Constitutional: Yes: No Distress, Calm Cardiovascular: Yes: Regular Rate and Rhythm Respiratory: Yes: Regular, CTA Bilaterally Gastrointestinal: Yes: Normal Bowel Sounds, Soft Musculoskeletal: Yes: WNL Extremities: Yes: Other Wound/Incision: Yes: Dressing Dry and Intact Neurological: Yes: Alert, Oriented Psychiatric: Yes: Alert, Oriented Labs: CBC, BMP 06/09/17 06:10 06/09/17 06:10 INR, PTT INR 0.97 (0.82-1.09) 06/08/17 17:40 Assessment/Plan after looking at the xray and the wound and the depth of the wound i am concerned about osteo and also i am concerned if the toe can be saved spoke with podiatry who is going to have look at the patient osteo of the rt toe split injury of the toe from the nail bed rt cellulittis of the foot uncontrolled dm plan broad spectrum abx awaiting for all cx report patient to get mri continue wound care rest as per primary team
--- NOTE | 2017-06-10 15:30 | PN ---
Progress Note, Physician History of Present Illness: doing well - Current Medication List Current Medications: Active Medications Amlodipine Besylate (Norvasc -) 10 mg PO DAILY [facility] Last Admin: 06/10/17 10:35 Dose: 10 mg Atorvastatin Calcium (Lipitor -) 20 mg PO HS [facility] Last Admin: 06/09/17 21:45 Dose: 20 mg Heparin Sodium (Porcine) (Heparin -) 5,000 unit SQ BID [facility] Last Admin: 06/10/17 10:34 Dose: 5,000 unit Hydrochlorothiazide (Hctz -) 12.5 mg PO DAILY [facility] Last Admin: 06/10/17 10:34 Dose: 12.5 mg Ampicillin Sodium/Sulbactam (Sodium 3 gm/ Sodium Chloride) 100 mls @ 200 mls/ hr IVPB Q8H-IV [facility] Last Admin: 06/10/17 10:56 Dose: 200 mls/hr Vancomycin HCl 1,250 mg/ (Dextrose) 250 mls @ 166.667 mls/hr IVPB DAILY@1600 [facility] PRN Reason: Protocol Last Admin: 06/09/17 19:32 Dose: 166.667 mls/hr Insulin Aspart (Novolog Vial Sliding Scale -) 1 vial SQ ACHS [facility] PRN Reason: Protocol Last Admin: 06/10/17 12:15 Dose: 4 units Metformin HCl (Glucophage -) 1,000 mg PO ACBK [facility] Last Admin: 06/10/17 06:15 Dose: 1,000 mg Sitagliptin Phosphate (Januvia -) 50 mg PO DAILY@0700 [facility] Last Admin: 06/10/17 06:15 Dose: 50 mg Tramadol HCl (Ultram -) 50 mg PO BID [facility] Last Admin: 06/10/17 10:33 Dose: 50 mg Valsartan (Diovan -) 160 mg PO DAILY [facility] Last Admin: 06/10/17 10:34 Dose: 160 mg - Objective Vital Signs: Vital Signs Temperature 98.1 F 06/10/17 14:16 Pulse Rate 69 06/10/17 14:16 Respiratory Rate 20 06/10/17 14:16 Blood Pressure 118/61 06/10/17 14:16 O2 Sat by Pulse Oximetry (%) 96 06/09/17 21:00 Constitutional: Yes: No Distress HENT: Yes: Atraumatic Neck: Yes: Supple Cardiovascular: Yes: Regular Rate and Rhythm Respiratory: Yes: CTA Bilaterally Gastrointestinal: Yes: Normal Bowel Sounds Extremities: Yes: Other (R foot in dressing) Edema: RLE: 1+ (foot) Peripheral Pulses WNL: Yes Neurological: Yes: Alert, Oriented Labs: CBC, BMP 06/09/17 06:10 06/09/17 06:10 INR, PTT INR 0.97 (0.82-1.09) 06/08/17 17:40 Problem List - Problems (1) Cellulitis Assessment/Plan: on iv abx id on board Code(s): L03.90 - CELLULITIS, UNSPECIFIED (2) Diabetes Assessment/Plan: bgms oral meds insulin coverage prn Code(s): E11.9 - TYPE 2 DIABETES MELLITUS WITHOUT COMPLICATIONS (3) Laceration of toe, right Assessment/Plan: will get podiatry involvefor foot mri Code(s): S91.119A - LACERATION W/O FB OF UNSP TOE W/O DAMAGE TO NAIL, INIT (4) HTN (hypertension) Assessment/Plan: on meds stable Code(s): I10 - ESSENTIAL (PRIMARY) HYPERTENSION
[2017-06-10] MEDS: VANCOMYCIN 1,250 MG in DEXTROSE 5%-WATER - 250 ML IVPB SCH (15:54)
[2017-06-10] MEDS: ATORVASTATIN CA 20 MG TABLET (FP) PO SCH (22:47)
--- NOTE | 2017-06-10 23:35 | PN ---
Progress Note (short form) - Note Progress Note: Patient seen in bed this morning. FUV right big toe. nvsgi, dressing intact, awaiting mri result, wbc=14.2 yesterday lacerated toe right om? MRI. Will follow. Possible debridement re-attachment in OR will continue to evaluate. kelsi sandoval consult. cbc with diff in am. [id number]. continue betadine dressing change.
[2017-06-11] MEDS ORDERED: PT OWN MED DRAWER 7, Y5N ONE ×4 (01:12→17:54)
[2017-06-11] MEDS: AMPICILLIN NA/SULBACTAM NA 3 GM in SODIUM CHLORIDE 100 ML IVPB SCH ×3 (02:07→18:04)
[2017-06-11] MEDS: sitaGLIPtin PHOSPHATE 50 MG TABLET PO SCH (06:24)
[2017-06-11] MEDS: metFORMIN HCL 500 MG TABLET (FP) PO SCH (06:24)
[2017-06-11] MEDS: INSULIN SLIDING SCALE (NOVOLOG) 1 VIAL SQ SCH ×4 (06:25→21:17)
[2017-06-11 07:48] LABS: BASO % 0.6 % (0-2.0); EOS % 1.7 % (0-4.5); HEMATOCRIT 40.8 % (35.4-49); HEMOGLOBIN 13.8 GM/dL (11.7-16.9); LYMPH % 22.1 % (8-40); MCHC 33.7 g/dl (32.0-35.9); MEAN CELL VOLUME 88.9 fl (80-96); MEAN PLT VOLUME 8.6 fl (7.5-11.1); MONO % 8.3 % (3.8-10.2); NEUT % 67.3 % (42.8-82.8); PLATELET COUNT 264 K/MM3 (134-434); RBC 4.59 M/mm3 (4.00-5.60); RDW 13.7 % (11.9-15.9); WHITE BLOOD COUNT 9.5 K/mm3 (4.0-10.0)
[2017-06-11] MEDS: amLODIPine BESYLATE 10 MG TABLET (FP) PO SCH (09:28)
[2017-06-11] MEDS: traMADol HCL 50 MG TABLET PO SCH ×2 (09:28→21:18)
[2017-06-11] MEDS: HYDROCHLOROTHIAZIDE 12.5 MG CAPSULE (FP) PO SCH (09:28)
[2017-06-11] MEDS: VALSARTAN 160 MG TABLET (UD) PO SCH (09:28)
[2017-06-11] MEDS: HEPARIN NA (PORCINE) 5,000 UNITS/ML 1ML VIAL SQ SCH ×2 (09:29→21:17)
--- NOTE | 2017-06-11 11:59 | PN ---
Progress Note (short form) - Note Progress Note: Patient seen in bed this morning. FUV right big toe. nvsgi, dressing intact, awaiting mri result, wbc=9.5 lacerated toe right om? MRI done result pending. Will follow. Possible debridement re-attachment in OR will continue to evaluate. continue betadine dressing change. Canot close with infected wound. Recommend home IVABX follow up in wound care if OM confirmed.
[2017-06-11] MEDS ORDERED: INSULIN (NOVOLOG) ASPART 100 UNITS/ML 10ML VIAL ONE (12:14)
--- NOTE | 2017-06-11 14:46 | PN ---
Progress Note, Physician History of Present Illness: patient stable doing well no issues podiatry note noted plan from podiatry is to wait couple of weeks for the toe to put together - Current Medication List Current Medications: Active Medications Amlodipine Besylate (Norvasc -) 10 mg PO DAILY [facility] Last Admin: 06/11/17 09:28 Dose: 10 mg Atorvastatin Calcium (Lipitor -) 20 mg PO HS [facility] Last Admin: 06/10/17 22:47 Dose: 20 mg Heparin Sodium (Porcine) (Heparin -) 5,000 unit SQ BID [facility] Last Admin: 06/11/17 09:29 Dose: 5,000 unit Hydrochlorothiazide (Hctz -) 12.5 mg PO DAILY [facility] Last Admin: 06/11/17 09:28 Dose: 12.5 mg Ampicillin Sodium/Sulbactam (Sodium 3 gm/ Sodium Chloride) 100 mls @ 200 mls/ hr IVPB Q8H-IV [facility] Last Admin: 06/11/17 11:57 Dose: 200 mls/hr Vancomycin HCl 1,250 mg/ (Dextrose) 250 mls @ 166.667 mls/hr IVPB DAILY@1600 [facility] PRN Reason: Protocol Last Admin: 06/10/17 15:54 Dose: 166.667 mls/hr Insulin Aspart (Novolog Vial Sliding Scale -) 1 vial SQ ACHS [facility] PRN Reason: Protocol Last Admin: 06/11/17 12:29 Dose: 4 units Metformin HCl (Glucophage -) 1,000 mg PO ACBK [facility] Last Admin: 06/11/17 06:24 Dose: 1,000 mg Sitagliptin Phosphate (Januvia -) 50 mg PO DAILY@0700 [facility] Last Admin: 06/11/17 06:24 Dose: 50 mg Tramadol HCl (Ultram -) 50 mg PO BID [facility] Last Admin: 06/11/17 09:28 Dose: 50 mg Valsartan (Diovan -) 160 mg PO DAILY [facility] Last Admin: 06/11/17 09:28 Dose: 160 mg - Objective Vital Signs: Vital Signs Temperature 97.3 F L 06/11/17 09:00 Pulse Rate 72 06/11/17 09:00 Respiratory Rate 18 06/11/17 09:00 Blood Pressure 132/59 06/11/17 09:00 O2 Sat by Pulse Oximetry (%) 97 03/29/18 09:00 Constitutional: Yes: No Distress, Calm Cardiovascular: Yes: Regular Rate and Rhythm Respiratory: Yes: Regular, CTA Bilaterally Gastrointestinal: Yes: Normal Bowel Sounds, Soft Musculoskeletal: Yes: WNL Extremities: Yes: Other Integumentary: Yes: Other Wound/Incision: Yes: Dressing Dry and Intact Neurological: Yes: Alert, Oriented Psychiatric: Yes: Alert, Oriented Labs: CBC, BMP 06/11/17 07:25 06/09/17 06:10 INR, PTT INR 0.97 (0.82-1.09) 06/08/17 17:40 Assessment/Plan osteo of the rt toe split injury of the toe from the nail bed rt cellulittis of the foot uncontrolled dm plan cx result noted mri result noted mri seen osteo will continue abx will have to make decision about abx
--- NOTE | 2017-06-11 15:36 | PN ---
Progress Note (short form) - Note Progress Note: Vascular Surgery Pt seen and examined. Wound on right great toe. Pt has palpable pulses -- DP and PT MRI is done. In the setting of a infectious process, pt could have osteo. Podiatry and ID on the case . From a vascular standpoint, no need for any intervention. Circulation is intact. Ander Ramirez DO
[2017-06-11] MEDS: VANCOMYCIN 1,250 MG in DEXTROSE 5%-WATER - 250 ML IVPB SCH (15:55)
[2017-06-11] MEDS ORDERED: PICC LINE 8 ML FLUSH PROTOCOL IVPUSH PRN (18:14)
--- NOTE | 2017-06-11 18:17 | PN ---
Progress Note, Physician History of Present Illness: doing well - Current Medication List Current Medications: Active Medications Amlodipine Besylate (Norvasc -) 10 mg PO DAILY [facility] Last Admin: 06/11/17 09:28 Dose: 10 mg Atorvastatin Calcium (Lipitor -) 20 mg PO HS [facility] Last Admin: 06/10/17 22:47 Dose: 20 mg Heparin Sodium (Porcine) (Heparin -) 5,000 unit SQ BID [facility] Last Admin: 06/11/17 09:29 Dose: 5,000 unit Hydrochlorothiazide (Hctz -) 12.5 mg PO DAILY [facility] Last Admin: 06/11/17 09:28 Dose: 12.5 mg IV Flush (Picc Line Flush) 8 ml IVPUSH PRN PRN PRN Reason: Protocol Ampicillin Sodium/Sulbactam (Sodium 3 gm/ Sodium Chloride) 100 mls @ 200 mls/ hr IVPB Q8H-IV [facility] Last Admin: 06/11/17 18:04 Dose: 200 mls/hr Vancomycin HCl 1,250 mg/ (Dextrose) 250 mls @ 166.667 mls/hr IVPB DAILY@1600 [facility] PRN Reason: Protocol Last Admin: 06/11/17 15:55 Dose: 166.667 mls/hr Insulin Aspart (Novolog Vial Sliding Scale -) 1 vial SQ ACHS [facility] PRN Reason: Protocol Last Admin: 06/11/17 16:02 Dose: 6 units Metformin HCl (Glucophage -) 1,000 mg PO ACBK [facility] Last Admin: 06/11/17 06:24 Dose: 1,000 mg Sitagliptin Phosphate (Januvia -) 50 mg PO DAILY@0700 [facility] Last Admin: 06/11/17 06:24 Dose: 50 mg Tramadol HCl (Ultram -) 50 mg PO BID [facility] Last Admin: 06/11/17 09:28 Dose: 50 mg Valsartan (Diovan -) 160 mg PO DAILY [facility] Last Admin: 06/11/17 09:28 Dose: 160 mg - Objective Vital Signs: Vital Signs Temperature 98.1 F 06/11/17 14:35 Pulse Rate 69 06/11/17 14:35 Respiratory Rate 20 06/11/17 14:35 Blood Pressure 130/71 06/11/17 14:35 O2 Sat by Pulse Oximetry (%) 97 06/11/17 09:00 Constitutional: Yes: No Distress HENT: Yes: Atraumatic Neck: Yes: Supple Cardiovascular: Yes: Regular Rate and Rhythm Respiratory: Yes: CTA Bilaterally Extremities: Yes: Other (R foot/toe in dressing) Edema: Yes Peripheral Pulses WNL: Yes Neurological: Yes: Alert, Oriented Labs: CBC, BMP 06/11/17 07:25 06/09/17 06:10 INR, PTT INR 0.97 (0.82-1.09) 06/08/17 17:40 Problem List - Problems (1) Cellulitis Assessment/Plan: on iv abx will put a picc line in id to decide on abx based on cx report Code(s): L03.90 - CELLULITIS, UNSPECIFIED (2) Diabetes Assessment/Plan: bgms oral meds insulin coverage prn Code(s): E11.9 - TYPE 2 DIABETES MELLITUS WITHOUT COMPLICATIONS (3) Laceration of toe, right Code(s): S91.119A - LACERATION W/O FB OF UNSP TOE W/O DAMAGE TO NAIL, INIT (4) HTN (hypertension) Code(s): I10 - ESSENTIAL (PRIMARY) HYPERTENSION
[2017-06-11] MEDS: ATORVASTATIN CA 20 MG TABLET (FP) PO SCH (21:17)
[2017-06-12] MEDS: AMPICILLIN NA/SULBACTAM NA 3 GM in SODIUM CHLORIDE 100 ML IVPB SCH ×2 (01:41→11:08)
[2017-06-12] MEDS: INSULIN SLIDING SCALE (NOVOLOG) 1 VIAL SQ SCH ×3 (06:27→17:08)
[2017-06-12] MEDS: sitaGLIPtin PHOSPHATE 50 MG TABLET PO SCH (06:28)
[2017-06-12] MEDS: metFORMIN HCL 500 MG TABLET (FP) PO SCH (06:32)
[2017-06-12 07:57] LABS: BASO % 0.5 % (0-2.0); EOS % 1.3 % (0-4.5); HEMOGLOBIN 14.4 GM/dL (11.7-16.9); MCH 30.1 pg (25.7-33.7); MCHC 33.5 g/dl (32.0-35.9); MEAN CELL VOLUME 89.8 fl (80-96); MEAN PLT VOLUME 9.2 fl (7.5-11.1); MONO % 8.6 % (3.8-10.2); NEUT % 68.6 % (42.8-82.8); PLATELET COUNT 287 K/MM3 (134-434); RBC 4.79 M/mm3 (4.00-5.60); RDW 13.7 % (11.9-15.9)
[2017-06-12 08:22] LABS: ALBUMIN 3.5 g/dl (3.4-5.0); ALK PHOS 120 U/L (45-117); ANION GAP 5 (8-16); BILIRUBIN,TOTAL 0.4 mg/dL (0.2-1.0); BLOOD UREA NITROGEN 28 mg/dL (7-18); CALCIUM 8.9 mg/dL (8.5-10.1); CHLORIDE 104 mmol/L (98-107); CO2 29 mmol/L (21-32); CREATININE 1.2 mg/dL (0.7-1.3); GLUCOSE,RANDOM 159 mg/dL (74-106); POTASSIUM 4.9 mmol/L (3.5-5.1); SGOT/AST 15 U/L (15-37); SGPT/ALT 19 U/L (12-78); SODIUM 138 mmol/L (136-145); TOT PROT 7.2 g/dl (6.4-8.2)
[2017-06-12] MEDS: traMADol HCL 50 MG TABLET PO SCH (10:00)
[2017-06-12] MEDS: HYDROCHLOROTHIAZIDE 12.5 MG CAPSULE (FP) PO SCH (10:00)
[2017-06-12] MEDS: amLODIPine BESYLATE 10 MG TABLET (FP) PO SCH (10:00)
[2017-06-12] MEDS: VALSARTAN 160 MG TABLET (UD) PO SCH (10:03)
[2017-06-12] MEDS: HEPARIN NA (PORCINE) 5,000 UNITS/ML 1ML VIAL SQ SCH (11:00)
--- NOTE | 2017-06-12 14:11 | PN ---
Progress Note, Physician History of Present Illness: doing well no issues decision to treat osteo initially before podiatry puts the toe together - Current Medication List Current Medications: Active Medications Amlodipine Besylate (Norvasc -) 10 mg PO DAILY [facility] Last Admin: 06/12/17 10:00 Dose: 10 mg Atorvastatin Calcium (Lipitor -) 20 mg PO HS [facility] Last Admin: 06/11/17 21:17 Dose: 20 mg Heparin Sodium (Porcine) (Heparin -) 5,000 unit SQ BID [facility] Last Admin: 06/12/17 11:00 Dose: Not Given Hydrochlorothiazide (Hctz -) 12.5 mg PO DAILY [facility] Last Admin: 06/12/17 10:00 Dose: 12.5 mg IV Flush (Picc Line Flush) 8 ml IVPUSH PRN PRN PRN Reason: Protocol Insulin Aspart (Novolog Vial Sliding Scale -) 1 vial SQ ACHS [facility] PRN Reason: Protocol Last Admin: 06/12/17 12:23 Dose: 4 units Metformin HCl (Glucophage -) 1,000 mg PO ACBK [facility] Last Admin: 06/12/17 06:32 Dose: 1,000 mg Sitagliptin Phosphate (Januvia -) 50 mg PO DAILY@0700 [facility] Last Admin: 06/12/17 06:28 Dose: 50 mg Tramadol HCl (Ultram -) 50 mg PO BID [facility] Last Admin: 06/12/17 10:00 Dose: 50 mg Valsartan (Diovan -) 160 mg PO DAILY [facility] Last Admin: 06/12/17 10:03 Dose: 160 mg - Objective Vital Signs: Vital Signs Temperature 97.8 F 06/12/17 10:00 Pulse Rate 66 06/12/17 10:00 Respiratory Rate 20 06/12/17 10:00 Blood Pressure 127/68 06/12/17 10:00 O2 Sat by Pulse Oximetry (%) 94 L 06/12/17 09:00 Constitutional: Yes: No Distress, Calm Cardiovascular: Yes: Regular Rate and Rhythm Respiratory: Yes: Regular, CTA Bilaterally Gastrointestinal: Yes: Normal Bowel Sounds, Soft Musculoskeletal: Yes: WNL Extremities: Yes: Other Wound/Incision: Yes: Dressing Dry and Intact Neurological: Yes: Alert, Oriented Psychiatric: Yes: Alert, Oriented Labs: CBC, BMP 06/12/17 07:00 06/12/17 07:00 INR, PTT INR 0.97 (0.82-1.09) 06/08/17 17:40 Assessment/Plan osteo of the rt toe split injury of the toe from the nail bed rt cellulittis of the foot uncontrolled dm after looking at the complete picture plan zosyn 3.375 every 8 hourly follow cbc bmp esr crp weekly wound care rest as per podiatry
--- NOTE | 2017-06-12 15:35 | DS ---
Physical Examination Vital Signs: Vital Signs Temperature 98.0 F 06/12/17 15:21 Pulse Rate 70 06/12/17 15:21 Respiratory Rate 20 06/12/17 15:21 Blood Pressure 137/61 06/12/17 15:21 O2 Sat by Pulse Oximetry (%) 94 L 06/12/17 09:00 Constitutional: Yes: No Distress HENT: Yes: Atraumatic Neck: Yes: Supple Cardiovascular: Yes: Regular Rate and Rhythm Respiratory: Yes: CTA Bilaterally Gastrointestinal: Yes: Normal Bowel Sounds Extremities: Yes: Other (R toe cellulitis) Edema: RLE: 1+ (r foot) Peripheral Pulses WNL: Yes Neurological: Yes: Alert, Oriented Labs: CBC, BMP 06/12/17 07:00 06/12/17 07:00 Discharge Summary Reason For Visit: OSTEOMYELITITS Current Active Problems Cellulitis (Acute) Diabetes (Acute) HTN (hypertension) (Acute) Laceration of toe, right (Acute) Osteomyelitis (Acute) Condition: Stable - Instructions Referrals: Jenn Farris MD [Primary Care Provider] - - Home Medications Comprehensive Discharge Medication List: Ambulatory Orders Atorvastatin Ca [Lipitor] 20 mg PO HS 08/30/15 Sitagliptin Phos/Metformin HCl [Janumet 50-1,000 mg Tablet] 1 each PO DAILY 01/30 Amlodipine/Valsartan/Hcthiazid [Bbdhg-Auile-Xpnh 10-160-12.5MG] 1 each PO DAILY 06/08/17 Insulin Aspart [Novolog] 0 unit SQ ASDIR 06/08/17 Tramadol HCl 50 mg PO BID 06/08/17 dc home on iv [id number] d/w id see id note
[2017-06-12] MEDS ORDERED: VANCOMYCIN 1,250 MG in DEXTROSE 5%-WATER - 250 ML IVPB ONE (16:00)
[2017-06-12] MEDS ORDERED: PIPERACILLIN/TAZOB 3.375 GM 3.375 GM in DEXTROSE 5%-WATER - 50 ML IVPB SCH (18:00)
[2017-06-12 19:14] VITALS: BP 147/75; PULSE 68; TEMP 97.8
[2017-06-13] MEDS ORDERED: PIPERACILLIN/TAZOB 3.375 GM 3.375 GM in DEXTROSE 5%-WATER - 50 ML IVPB SCH (02:00)
== END 2017-06-12 19:50 | disposition home or self-care (01) | DRG 638 ==
LOC: JER 13:10 → JERBED 20:32 → J5S 06-09 15:42
PROVIDERS: ADMIT Internal Medicine; ATTEND Internal Medicine
PROC: 02HV33Z Insertion of Infusion Device into Superior Vena Cava, Percutaneous Approach (ICD-10-PCS; principal; 2017-06-12)
PROC: B518ZZA Fluoroscopy of Superior Vena Cava, Guidance (ICD-10-PCS; 2017-06-12)
DX: E11.621 Type 2 diabetes mellitus with foot ulcer (principal); M86.9 Osteomyelitis, unspecified; L03.115 Cellulitis of right lower limb; E11.65 Type 2 diabetes mellitus with hyperglycemia; S91.211A Laceration without foreign body of right great toe with damage to nail, initial encounter; E11.69 Type 2 diabetes mellitus with other specified complication; I10 Essential (primary) hypertension; Z79.4 Long term (current) use of insulin; E78.00 Pure hypercholesterolemia, unspecified; W22.09XA Striking against other stationary object, initial encounter; Y93.E1 Activity, personal bathing and showering; Y92.012 Bathroom of single-family (private) house as the place of occurrence of the external cause; Y99.8 Other external cause status; Z79.84 Long term (current) use of oral hypoglycemic drugs
CPT/HCPCS: 36415; 36569; 71046-TC-FY; 73660-TC-FY; 73721-RT-TC; 77001-TC-FY; 80053; 82962; 83036; 85025; 85610; 85651; 86140; 87040; 87070; 87186; 87205; 93005; 93010; 99285-25; C1751; J1644

== ENCOUNTER 2017-07-07 16:00 | Observation (INO) | payer OTHER ==
[2017-07-07 16:33] LABS: URINE APPEARANCE CLEAR; URINE BILIRUBIN NEGATIVE (<2.0 mg/dL); URINE BLOOD 1+ (NEGATIVE); URINE COLOR LTYELLOW; URINE GLUCOSE (UA) 3+ (NEGATIVE); URINE KETONE NEGATIVE (NEGATIVE); URINE LEUK ESTERASE NEGATIVE (NEGATIVE); URINE NITRITE NEGATIVE (NEGATIVE)
[2017-07-07 16:36] LABS: URINE PROTEIN 1+ (NEGATIVE)
[2017-07-07 17:02] LABS: BASO % 0.3 % (0-2.0); HEMATOCRIT 36.2 % (35.4-49); HEMOGLOBIN 12.5 GM/dL (11.7-16.9); LYMPH % 5.8 % (8-40); MCH 30.5 pg (25.7-33.7); MCHC 34.6 g/dl (32.0-35.9); MEAN CELL VOLUME 88.1 fl (80-96); MEAN PLT VOLUME 9.5 fl (7.5-11.1); MONO % 7.9 % (3.8-10.2); PLATELET COUNT 179 K/MM3 (134-434); RBC 4.11 M/mm3 (4.00-5.60); RDW 13.9 % (11.9-15.9); WHITE BLOOD COUNT 5.5 K/mm3 (4.0-10.0)
[2017-07-07 17:20] LABS: URINE MUCUS RARE
--- NOTE | 2017-07-07 17:21 | PDOC ---
History of Present Illness - General Chief Complaint: Altered Mental Status Stated Complaint: HYPERTENSIVE Time Seen by Provider: 07/07/17 16:31 - History of Present Illness Initial Comments: 71M with history of HTN, HLD, IDDM, currently being treated via PICC line for right first toe osteomyelitis (with IV Zosyn Q8H started 06/12/17) here today after an episode of altered mental stats earlier in the day in the setting of elevated blood glucose to 600. Patient states he ate a piece of chocolate cake around noon and around 14:00 felt a little disoriented when his picc nurse was visiting and actually fell over toward her but did not lose consciousness, fall , or hit his head. He states he recalls the events and feels a little bit better now but gets very dizzy when he stands up. He did not take any coverage insulin because he states he was very busy at the time. He is upset that he is in the hospital because is birthday is tomorrow. He denies fevers, chills, nausea, vomiting. He denies chest pain, shortness of breath. 07/07/17 17:41 Past History - Past Medical History Allergies/Adverse Reactions: Allergies Allergy/AdvReac Type Severity Reaction Status Date / Time Sulfa (Sulfonamide AdvReac Severe Vomiting Verified 06/08/17 13:13 Antibiotics) Home Medications: Ambulatory Orders Atorvastatin Ca [Lipitor] 20 mg PO HS 08/30/15 Sitagliptin Phos/Metformin HCl [Janumet 50-1,000 mg Tablet] 1 each PO DAILY 01/30 Insulin Aspart [Novolog] 0 unit SQ ASDIR 06/08/17 Tramadol HCl 50 mg PO BID 06/08/17 Amlodipine Besylate [Norvasc -] 10 mg PO DAILY #30 tablet 06/12/17 Hydrochlorothiazide [Hctz -] 12.5 mg PO DAILY #30 cap 06/12/17 Piperacillin/Tazob 3.375 gm [Zosyn -] 3.375 gm IVPB Q8H-IV vial 06/12/17 Valsartan [Diovan] 160 mg PO DAILY #30 tablet 06/12/17 metFORMIN HCL [Glucophage -] 1,000 mg PO ACBK #60 tablet 06/12/17 COPD: No Diabetes: Yes HTN: Yes Hypercholesterolemia: Yes - Suicide/Smoking/Psychosocial Hx Smoking History: Never smoked Have you smoked in the past 12 months: No Hx Alcohol Use: No Drug/Substance Use Hx: No Substance Use Type: None Hx Substance Use Treatment: No Review of Systems - Review of Systems Constitutional: No: Chills, Diaphoresis, Fever HEENTM: No: Blurred Vision, Tearing Respiratory: No: Cough, Orthopnea, Shortness of Breath Cardiac (ROS): No: Chest Pain, Edema, Irregular Heart Rate ABD/GI: No: Constipated, Diarrhea, Nausea, Poor Appetite, Vomiting : No: Dysuria, Discharge, Incontinence Musculoskeletal: Yes: Joint Pain, Muscle Weakness. No: Muscle Pain Integumentary: Yes: Erythema, Lesions, Lumps. No: Bruising, Rash Neurological: No: Headache, Numbness, Paresthesia Psychiatric: No: Anxiety, Depression Hematologic/Lymphatic: No: Anemia, Blood Clots, Easy Bleeding *Physical Exam - Vital Signs Last Vital Signs Temp Pulse Resp BP Pulse Ox 100.2 F H 81 20 152/78 96 07/07/17 16:07 07/07/17 16:07 07/07/17 16:07 07/07/17 16:07 07/07/17 16:07 - Physical Exam General Appearance: Yes: Nourished, Appropriately Dressed. No: Apparent Distress HEENT: positive: EOMI, ELEUTERIO, Normal ENT Inspection, Normal Voice Neck: positive: Trachea midline, Normal Thyroid, Supple. negative: Tender, Rigid Respiratory/Chest: positive: Lungs Clear, Normal Breath Sounds, Accessory Muscle Use. negative: Chest Tender, Respiratory Distress Cardiovascular: positive: Regular Rhythm, Regular Rate Gastrointestinal/Abdominal: positive: Normal Bowel Sounds, Flat, Soft, Hernia ( large reducible ventral hernia). negative: Tender Musculoskeletal: negative: Normal Inspection (RIght first tow swollen but appears to be healign well without obvious drianage.), CVA Tenderness Extremity: positive: Normal Capillary Refill, Normal Inspection, Normal Range of Motion. negative: Tender Integumentary: positive: Dry, Warm. negative: Normal Color (Light non pruritic patechial rash in bilateral lower extremities) Neurologic: positive: Fully Oriented, Alert, Normal Mood/Affect, Normal Response , Motor Strength 5/5, Other (Slightly ataxic gait) ED Treatment Course - LABORATORY CBC & Chemistry Diagram: 07/07/17 16:20 07/07/17 16:20 - ADDITIONAL ORDERS Additional order review: Laboratory Results 07/07/17 16:20 Urine Color Ltyellow Urine Appearance Clear Urine pH 5.0 Ur Specific [place] 1.027 Urine Protein 1+ H Urine Glucose (UA) 3+ H Urine Ketones Negative Urine Blood 1+ H Urine Nitrite Negative Urine Bilirubin Negative Urine Urobilinogen 2.0 Ur Leukocyte Esterase Negative Urine WBC (Auto) <1 Urine RBC (Auto) 2 Urine Mucus Rare 07/07/17 16:20 RBC 4.11 MCV 88.1 MCHC 34.6 RDW 13.9 MPV 9.5 Neutrophils % 81.0 Lymphocytes % 5.8 L D Monocytes % 7.9 Eosinophils % 5.0 H D Basophils % 0.3 Medical Decision Making - Medical Decision Making 71 year old male being treated for osteomyletis presenting with an episode of altered mental status in the setting of hyperglycemia and slight fever. Head CT negative. Given 10 units regular insulin. UA non infected and CXR non infected. Blood cultures drawn and pending 07/07/17 19:04 Will admit to med surg under Dr. Perez for further workup. Gave [address] Gama and cultures will be drawn off of the PICC line. 07/07/17 19:44 *DC/Admit/Observation/Transfer Diagnosis at time of Disposition: Altered mental status, unspecified Qualifiers: Altered mental status type: delirium Qualified Code(s): R41.0 - Disorientation , unspecified - Discharge Dispostion Condition at time of disposition: Stable Admit: Yes - Referrals - Patient Instructions - Post Discharge Activity
[2017-07-07 17:32] LABS: ANION GAP 5 (8-16); BLOOD UREA NITROGEN 29 mg/dL (7-18); CALCIUM 8.4 mg/dL (8.5-10.1); CHLORIDE 96 mmol/L (98-107); CO2 29 mmol/L (21-32); POTASSIUM 4.1 mmol/L (3.5-5.1); SGOT/AST 43 U/L (15-37); SGPT/ALT 47 U/L (12-78); SODIUM 130 mmol/L (136-145)
[2017-07-07 17:39] LABS: ALK PHOS 448 U/L (45-117); BILIRUBIN,TOTAL 0.7 mg/dL (0.2-1.0); CREATININE 1.5 mg/dL (0.7-1.3); TOT PROT 6.5 g/dl (6.4-8.2)
[2017-07-07 17:45] LABS: GLUCOSE,RANDOM 500 mg/dL (74-106)
[2017-07-07] MEDS ORDERED: INSULIN REGULAR HUMAN 100 UNITS/ML *VIAL SQ ONE (17:48)
[2017-07-07] MEDS ORDERED: SODIUM CHLORIDE 0.9% 500 ML INFUS.BAG IV ONE (17:50)
--- NOTE | 2017-07-07 17:51 | PDOC ---
Attending Attestation - Resident Resident Name: Veto Adames - ED Attending Attestation I have performed the following: I have examined & evaluated the patient, The case was reviewed & discussed with the resident, I agree w/resident's findings & plan, Exceptions are as noted - HPI HPI: 07/07/17 17:49 71-year-old male had an episode of nonsensical speech earlier this afternoon. He is insulin-dependent diabetic admits to not taking his insulin but eating cake Past medical history significant of osteomyelitis and he has a PICC line for his IV antibiotic administration - Physicial Exam PE: 07/07/17 18:09 wnwd 71 yo male head ncat neck supple cvs [id number] lungs cta b/l Right arm has a intact PICC line Abdomen soft, no rebound or guarding Extremities he is moving all extremities with some mild assistance he walked to the bathroom. . - Medical Decision Making 07/07/17 18:16 acetone NEGATIVE, ct scan head pending- plan admit TIA
[2017-07-07] MEDS ORDERED: INSULIN REGULAR HUMAN 100 UNITS/ML *VIAL ONE (18:18)
--- NOTE | 2017-07-07 19:05 | PN ---
Teaching Attending Note Name of Resident: Miriam Storm ATTENDING PHYSICIAN STATEMENT I saw and evaluated the patient. I reviewed the resident's note and discussed the case with the resident. I agree with the resident's findings and plan as documented. SUBJECTIVE: 71 M with hx. of Osteomyelitis (IV Zosyn), HTN, IDDM, who presents with AMS. States he ate a piece of chocolate cake and was disoriented. States he fell forward. Notes he did not loose consciousness. States he did not take his Insulin. States when he fell as he was standing he had dizziness. No chest pain or pressure. No shortness of breath. No N, V, D. States he is not good about taking his insulin bc he is "too busy." OBJECTIVE: Physical: VS: Vital Signs Period Temp Pulse Resp BP Sys/Ferreira Pulse Ox Last 24 Hr 100.2 F 81 20 152/78 96 GEN: NAD, Resting in bed, AA0X3 HEENT: NCAT, PERRL, Throat without erythema or exudates CARD: RRR S1, S2 RESP: CTAB ABD: BSx4, NTD to palpation EXT: - C/C/E CBCD WBC 5.5 K/mm3 (4.0-10.0) D 07/07/17 16:20 RBC 4.11 M/mm3 (4.00-5.60) 07/07/17 16:20 Hgb 12.5 GM/dL (11.7-16.9) D 07/07/17 16:20 Hct 36.2 % (35.4-49) D 07/07/17 16:20 MCV 88.1 fl (80-96) 07/07/17 16:20 MCHC 34.6 g/dl (32.0-35.9) 07/07/17 16:20 RDW 13.9 % (11.9-15.9) 07/07/17 16:20 Plt Count 179 K/MM3 (134-434) D 07/07/17 16:20 MPV 9.5 fl (7.5-11.1) 07/07/17 16:20 CMP Sodium 130 mmol/L (136-145) L 07/07/17 16:20 Potassium 4.1 mmol/L (3.5-5.1) 07/07/17 16:20 Chloride 96 mmol/L (98-107) L 07/07/17 16:20 Carbon Dioxide 29 mmol/L (21-32) 07/07/17 16:20 Anion Gap 5 (8-16) L 07/07/17 16:20 BUN 29 mg/dL (7-18) H 07/07/17 16:20 Creatinine 1.5 mg/dL (0.7-1.3) H D 07/07/17 16:20 Creat Clearance w eGFR 46.13 (>60) 07/07/17 16:20 Random Glucose 500 mg/dL (74-106) H* D 07/07/17 16:20 Calcium 8.4 mg/dL (8.5-10.1) L 07/07/17 16:20 Total Bilirubin 0.7 mg/dL (0.2-1.0) D 07/07/17 16:20 AST 43 U/L (15-37) H D 07/07/17 16:20 ALT 47 U/L (12-78) D 07/07/17 16:20 Alkaline Phosphatase 448 U/L (45-117) H D 07/07/17 16:20 Total Protein 6.5 g/dl (6.4-8.2) 07/07/17 16:20 Albumin 3.0 g/dl (3.4-5.0) L 07/07/17 16:20 CT HEAD: Moderate Atrophy Urine Test Results Urine Color Ltyellow 07/07/17 16:20 Urine Appearance Clear 07/07/17 16:20 Urine pH 5.0 (5.0-8.0) 07/07/17 16:20 Ur Specific [place] 1.027 (1.001-1.035) 07/07/17 16:20 Urine Protein 1+ (NEGATIVE) H 07/07/17 16:20 Urine Glucose (UA) 3+ (NEGATIVE) H 07/07/17 16:20 Urine Ketones Negative (NEGATIVE) 07/07/17 16:20 Urine Blood 1+ (NEGATIVE) H 07/07/17 16:20 Urine Nitrite Negative (NEGATIVE) 07/07/17 16:20 Urine Bilirubin Negative (<2.0 mg/dL) 07/07/17 16:20 Ur Leukocyte Esterase Negative (NEGATIVE) 07/07/17 16:20 Urine Mucus Rare 07/07/17 16:20 CXR: No Acute Process Home Medications Medication Instructions Recorded Atorvastatin Ca [Lipitor] 20 mg PO HS 08/30/15 Sitagliptin Phos/Metformin HCl 1 each PO DAILY 11/24/16 [Janumet 50-1,000 mg Tablet] Insulin Aspart [Novolog] 0 unit SQ ASDIR 06/08/17 Tramadol HCl 50 mg PO BID 06/08/17 Amlodipine Besylate [Norvasc -] 10 mg PO DAILY #30 tablet 06/12/17 Hydrochlorothiazide [Hctz -] 12.5 mg PO DAILY #30 cap 06/12/17 Piperacillin/Tazob 3.375 gm [Zosyn 3.375 gm IVPB Q8H-IV vial 06/12/17 -] Valsartan [Diovan] 160 mg PO DAILY #30 tablet 06/12/17 metFORMIN HCL [Glucophage -] 1,000 mg PO ACBK #60 tablet 06/12/17 ASSESSMENT AND PLAN: 71 M with hx. of Osteomyelitis (IV Zosyn), HTN, IDDM, who presents with AMS, found to be hyperglycemic 1.) Pre-Syncope - Orthostatic VS - Echo/Carotid - CT HEAD negative - Check Lipid Panel - TSh 2.) Uncontrolled DM - Fs - RAISS - HgbA1c - Hold Metformin 3.) Osteomyelitis - Zosyn 4.) Hyponatremia - Check urine osm/S Osm 5.) HTN - Hold ARB 6.) ARF on CKD - U lytes - Hold Arb - UA, Ucx 7.) Dvt Ppx - SCDS
[2017-07-07] MEDS ORDERED: VANCOMYCIN 1,000 MG in DEXTROSE 5%-WATER - 250 ML IVPB ONE (19:34)
[2017-07-07] MEDS ORDERED: VANCOMYCIN 1 GRAM (PRE-DOCKED) 1,000 MG/250 ML BAG IVPB ONE (19:49)
--- NOTE | 2017-07-07 20:04 | MSN ---
Admitting History and Physical - Primary Care Physician PCP: Dr. Jenn Farris - Admission Chief Complaint: fall History of Present Illness: Esteban Albarran is a 71 year old male with a PMHx of IDDM, and recently diagnosed osteomyelitis in the R toe which the patient is being treated for with Zosyn through a PICC line who presented to the ED after a witnessed fall. The patient had picked up a chocolate cake for a democrat and was given a large slice and had not taken insulin that day. The patient then had his home nurse who administers the antibiotic have the patient stand up and noted that the patient was weak and unsteady on his feet and had fallen on top of the home nurse hitting his head on a wall on the way down. The nurse had then checked his blood sugars and noted that they were >600 and that the patient had elevated blood pressures. Patient stated that he felt that he was dizzy and that this is a chronic issue that he has. Patient denied chest pain, palpitations, blurry vision, focal weakness before he fell. The nurse had then told the patient to go to the ED. In the ED, the patient was noted to have blood sugars at 500, elevated BUN and CRE from baseline, temp 100.2. The patient was given 10 units of Novolog and IV saline. Repeat fingerstick showed blood sugar 262. Head CT scan negative for any acute intracranial pathology. Patient was seen and examined at the bedside. Currently the patient denies cp, sob, abd pain, headache, n/v/c/d, dizziness, weakness, numbness, tingling, headache, toe pain. History Source: Patient Limitations to Obtaining History: No Limitations - Past Medical History Cardiovascular: Yes: HTN, Hyperlipdemia Endocrine: Yes: Diabetes Mellitus - Smoking History Smoking history: Never smoked Have you smoked in the past 12 months: No - Alcohol/Substance Use Hx Alcohol Use: No Home Medications - Allergies Allergies/Adverse Reactions: Allergies Allergy/AdvReac Type Severity Reaction Status Date / Time Sulfa (Sulfonamide Allergy Severe Vomiting Verified 07/07/17 20:17 Antibiotics) - Home Medications Home Medications: Ambulatory Orders Atorvastatin Ca [Lipitor] 20 mg PO HS 08/30/15 Sitagliptin Phos/Metformin HCl [Janumet 50-1,000 mg Tablet] 1 each PO DAILY 01/30 Insulin Aspart [Novolog] 0 unit SQ ASDIR 06/08/17 Amlodipine Besylate [Norvasc -] 10 mg PO DAILY #30 tablet 06/12/17 Piperacillin/Tazob 3.375 gm [Zosyn -] 3.375 gm IVPB Q8H-IV vial 06/12/17 Valsartan [Diovan] 160 mg PO DAILY #30 tablet 06/12/17 Review of Systems - Review of Systems Constitutional: reports: No Symptoms Eyes: reports: No Symptoms HENT: reports: No Symptoms Neck: reports: No Symptoms Cardiovascular: reports: No Symptoms Respiratory: reports: No Symptoms Gastrointestinal: reports: No Symptoms Genitourinary: reports: No Symptoms Musculoskeletal: reports: No Symptoms Integumentary: reports: No Symptoms Neurological: reports: No Symptoms Endocrine: reports: No Symptoms Hematology/Lymphatic: reports: No Symptoms Psychiatric: reports: No Symptoms Physical Examination Vital Signs: Vital Signs Temperature 100.2 F H 07/07/17 16:07 Pulse Rate 81 07/07/17 16:07 Respiratory Rate 20 07/07/17 16:07 Blood Pressure 152/78 07/07/17 16:07 O2 Sat by Pulse Oximetry (%) 96 07/07/17 16:07 Constitutional: Yes: Well Nourished, Mild Distress (wants to go home) Eyes: Yes: WNL, Conjunctiva Clear, EOM Intact, PERRL HENT: Yes: WNL, Atraumatic, Normocephalic Neck: Yes: WNL, Supple, Trachea Midline Cardiovascular: Yes: WNL, Regular Rate and Rhythm, S1, S2 Respiratory: Yes: WNL, Regular, CTA Bilaterally Gastrointestinal: Yes: WNL, Normal Bowel Sounds, Soft. No: Tenderness Musculoskeletal: Yes: WNL Extremities: Yes: WNL Edema: No Peripheral Pulses WNL: Yes Peripheral Pulses: Left Radial: 2+, Right Radial: 2+, Left Doralis Pedis: 2+, Right Dorsalis Pedis: 2+ Integumentary: Yes: Petechiae (bilaterally) Wound/Incision: Yes: Clean/Dry, Well Approximated Neurological: Yes: WNL, Alert, Oriented (AOx3), Cran Nerves II-XII Intact. No: Facial Droop, Loss of Sensation, Numbness, Tingling ...Motor Strength: WNL (5/5 muscle strength bilaterally upper and lower extremeties) Psychiatric: Yes: WNL, Alert, Oriented Labs: CBC, BMP 07/07/17 16:20 07/07/17 16:20 Imaging - Results Cat Scan: Report Reviewed, Image Reviewed Problem List - Problems (1) Diabetes Code(s): E11.9 - TYPE 2 DIABETES MELLITUS WITHOUT COMPLICATIONS (2) HTN (hypertension) Code(s): I10 - ESSENTIAL (PRIMARY) HYPERTENSION (3) Osteomyelitis Code(s): M86.9 - OSTEOMYELITIS, UNSPECIFIED (4) Syncope Code(s): R55 - SYNCOPE AND COLLAPSE Qualifiers: Syncope type: unspecified Qualified Code(s): R55 - Syncope and collapse Assessment/Plan Patient is a 71y/o male with a PMHx of IDDM, HTN, HLD, recently diagnosed osteomyeltitis currently treated with Zosyn who presented after a fall and was discovered with hyperglycemia. Pre-syncope - likely secondary to hyperglycemia vs. chronic vertigo-like symptoms - CT scan negative for any acute pathology - Blood sugar 500, patient given Novolog 10 units, repeat blood sugar 262 - Echo and carotids - pre-syncope workup/orthostatics - neuro checks q2h - TSH, Vit B12, folate, magnesium, phosphorus - f/u BMP, CBC - IV NS at 100cc/hr Osteomyelitis - patient with PICC line receives Zosyn tid - temp 100.2, continue to monitor temp. No acute signs of infection - continue Zosyn - addition of vancomycin 1g - ESR/CRP/lactic acid - ID Consult, Dr. Gama, recs appreciated Bilateral petechiae - possible reaction to Zosyn - platelet count within normal limits - patient not bothered, will not work up IDDM - ISS - finger sticks HTN - amlodipine 10mg daily - HCTZ 12.5mg daily HLD - Lipitor 10mg daily F/E/N - diabetic diet - IV NS at 100cc/hr - electrolytes within normal limits - replete as necessary DVT PPx - heparin 5000 subq tid Disposition - observation admission
--- NOTE | 2017-07-07 20:10 | HP ---
CHIEF COMPLAINT: Pre-syncope PCP: Jenn Farris MD HISTORY OF PRESENT ILLNESS: 71yo M with PMHx of Uncontrolled IDDM, recent osteo (on Zosyn via PICC) presented to the ER after a pre-syncopal episode. During the day, the patient did not take his insulin, and ate many sweets for his upcoming birthday. When his infusion nurse came to administer his antibiotics, she found his BGM elevated to 600s. He then arose from chair, felt dizzy, fell and hit his head. He did not lose conscious. This dizziness upon positional changes is chronic, but infusion nurse was worried about it in setting of high sugars, so she sent him to the ER. He denies headache, focal neuro deficits, fevers, chills, CP, SOB. In the ER, the patient was stable, found to have Tm 100.2. Labs were notable for glucose of 500 w/o gap. Head CT was wnl. Novolog 10u was given which brought down sugar to 262. Recent Travel: Denies PAST MEDICAL HISTORY: IDDM, HTN, HLD Ostoemyelitis PAST SURGICAL HISTORY: Not endorsed Social History: Smoking: Denies Alcohol: Denies Drugs: Denies Allergies: Sulfa (Sulfonamide Antibiotics) Adverse Reaction (Severe, Verified 19:59) Vomiting HOME MEDICATIONS: Home Medications Medication Instructions Recorded Atorvastatin Ca [Lipitor] 20 mg PO HS 08/30/15 Sitagliptin Phos/Metformin HCl 1 each PO DAILY 11/24/16 [Janumet 50-1,000 mg Tablet] Insulin Aspart [Novolog] 0 unit SQ ASDIR 06/08/17 Tramadol HCl 50 mg PO BID 06/08/17 Amlodipine Besylate [Norvasc -] 10 mg PO DAILY #30 tablet 06/12/17 Hydrochlorothiazide [Hctz -] 12.5 mg PO DAILY #30 cap 06/12/17 Piperacillin/Tazob 3.375 gm [Zosyn 3.375 gm IVPB Q8H-IV vial 06/12/17 -] Valsartan [Diovan] 160 mg PO DAILY #30 tablet 06/12/17 metFORMIN HCL [Glucophage -] 1,000 mg PO ACBK #60 tablet 06/12/17 REVIEW OF SYSTEMS CONSTITUTIONAL: Absent: fever, chills, diaphoresis, generalized weakness, malaise, loss of appetite, weight change HEENT: Absent: rhinorrhea, nasal congestion, throat pain, throat swelling, difficulty swallowing, mouth swelling, ear pain, eye pain, visual changes CARDIOVASCULAR: Absent: chest pain, syncope, palpitations, irregular heart rate , lightheadedness, peripheral edema RESPIRATORY: Absent: cough, shortness of breath, dyspnea with exertion, orthopnea, wheezing, stridor, hemoptysis GASTROINTESTINAL:Absent: abdominal pain, abdominal distension, nausea, vomiting , diarrhea, constipation, melena, hematochezia GENITOURINARY: Absent: dysuria, frequency, urgency, hesitancy, hematuria, flank pain, genital pain MUSCULOSKELETAL: Absent: myalgia, arthralgia, joint swelling, back pain, neck pain SKIN: Absent: rash, itching, pallor HEMATOLOGIC/IMMUNOLOGIC: Absent: easy bleeding, easy bruising, lymphadenopathy, frequent infections ENDOCRINE:Absent: unexplained weight gain, unexplained weight loss, heat intolerance, cold intolerance NEUROLOGIC: Absent: headache, focal weakness or paresthesias, dizziness, unsteady gait, seizure, mental status changes, bladder or bowel incontinence PSYCHIATRIC: Absent: anxiety, depression, suicidal or homicidal ideation, hallucinations. PHYSICAL EXAMINATION Vital Signs Period Temp Pulse Resp BP Sys/Ferreira Pulse Ox Last 24 Hr 100.2 F 81 20 152/78 96 GEN: Alert and oriented to person, place, time, but not to preside, NAD, Lying comfortably HEENT: PERRLA, EOMi, no JVD CV: S1, S2, RRR LUNG: CTABL ABD: Soft, NT, ND MSK: No edema, bilateral small non-blanching petechiae. R big toe does not appear infected, minimal erythema, nontender NEURO: Full neurological exam performed. CN 2-12 intact, no msk or sensation deicits, no cerebellar deficits, no facial droop ASSESSMENT/PLAN: 71yo M with PMHx of Uncontrolled IDDM, recent osteo (on Zosyn via PICC) presented to the ER after a pre-syncopal episode. # Pre-syncope -- Likely secondary to dehydration vs hyperglycemia in the setting of uncontrolled DM. Pt is noncompliant w/ insulin. Obtain orthostatics. Will start IVNS 100cc/hr. Due to risk factors, will order pre-syncopal/TIA workup protocol including carotid u/s, echo, tsh, folate, b12. # Elevated Cr -- Could be from gradually progressive diabetic nephropathy, but will hold ARB and hydrate incase this is acute rise. Will monitor. # Elevated temp -- Tm 100.2. No signs of infection. Toe and PICC site look c/d/i. Will get Bcx, Ucx, and lactic acid. Obtain culture from PICC line. Dr. Gama consulted in the ER, added Vanc to regimen # Uncontrolled IDDM -- Hyperglycemic on arrival w/o gap. Improved w/ novolog. Noncompliant with insulin due to busy life. Counseled on importance of sugar control. Last A1C was around 9. Will order A1c for tmrw. Continue BGMs and ISS ACHS. Hold PO meds # BLLE Petechiae -- Could be a reaction to Zosyn. PLT count wnl. Patient not bothered by it. Will not workup # Elevated ALP -- Isolated, LFTs are otherwise unremarkable. Trend but will not workup further # Hx of Osteo -- E. faecalis, on Zosyn via PICC. Added Vanc as per Dr Gama reccs # Hx of HTN -- Slightly elevated likely from medication noncompliance. Continue home meds. 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 - New Patient This patient is new to me today: Yes Date on this admission: 07/08/17 - Critical Care Critical Care patient: No Hospitalist Screening - Colonoscopy Questionnaire Colonoscopy Questionnaire: Colonoscopy Questionnaire - Patient: 50 - 75 years old and never had a screening colonoscopy: Unknown History of colon or rectal polyps, or CA: Unknown History of IBD, Crohn's disease or UC: Unknown History of abdominal radiation therapy as a child: Unknown - Relative: 1 with colon or rectal CA, or polyps at age 60 or younger: Unknown Colon or rectal CA diagnosed at age 45 or younger: Unknown Multiple relatives with colon or rectal CA: Unknown - Outcome: Screening Result: Negative Screen
[2017-07-07] MEDS: SODIUM CHLORIDE 1,000 ML IV SCH (20:46)
[2017-07-07] MEDS ORDERED: ATORVASTATIN CA 40 MG TABLET (FP) ONE (23:27)
[2017-07-07] MEDS: ATORVASTATIN CA 20 MG TABLET (FP) PO SCH (23:33)
[2017-07-07] MEDS ORDERED: INSULIN (NOVOLOG) ASPART 100 UNITS/ML 10ML VIAL ONE (23:35)
[2017-07-07] MEDS: INSULIN SLIDING SCALE (NOVOLOG) 1 VIAL SQ SCH (23:39)
[2017-07-08] MEDS ORDERED: PIPERACILLIN/TAZOB 3.375 GM 3.375 GM in DEXTROSE 5%-WATER - 50 ML IVPB ONE (02:00)
[2017-07-08] MEDS ORDERED: [UNRECOGNIZED DRUG - OTHER] IVPB SCH (02:00)
[2017-07-08] MEDS ORDERED: PIPERACILLIN/TAZOBACTAM 3.375 GM VIAL IVPB SCH (02:00)
[2017-07-08] MEDS ORDERED: DEXTROSE 5%-WATER - 50 ML IVPB ONE (02:42)
[2017-07-08] MEDS ORDERED: PIPERACILLIN/TAZOBACTAM 3.375 GM VIAL IVPB ONE (02:42)
[2017-07-08 03:09] VITALS: BMI 29.2
[2017-07-08] MEDS: NYSTATIN POWDER 100,000 UNITS/GM - 15 GM TOPICAL POWDER TP SCH ×2 (04:30→10:46)
[2017-07-08] MEDS ORDERED: HEPARIN NA (PORCINE) 5,000 UNITS/ML 1ML VIAL SQ SCH (06:00)
[2017-07-08] MEDS: INSULIN SLIDING SCALE (NOVOLOG) 1 VIAL SQ SCH ×4 (06:33→21:17)
[2017-07-08 06:34] LABS: HEMATOCRIT 36.6 % (35.4-49); HEMOGLOBIN 12.7 GM/dL (11.7-16.9); MCH 30.6 pg (25.7-33.7); MCHC 34.8 g/dl (32.0-35.9); MEAN CELL VOLUME 88.1 fl (80-96); MEAN PLT VOLUME 9.3 fl (7.5-11.1); PLATELET COUNT 191 K/MM3 (134-434); RBC 4.15 M/mm3 (4.00-5.60); RDW 14.2 % (11.9-15.9); WHITE BLOOD COUNT 6.4 K/mm3 (4.0-10.0)
[2017-07-08 06:57] LABS: ANION GAP 5 (8-16); BLOOD UREA NITROGEN 24 mg/dL (7-18); CALCIUM 8.2 mg/dL (8.5-10.1); CHLORIDE 102 mmol/L (98-107); CO2 30 mmol/L (21-32); CREATININE 1.3 mg/dL (0.7-1.3); GLUCOSE,RANDOM 241 mg/dL (74-106); MAGNESIUM 2.2 mg/dL (1.8-2.4); PHOSPHOROUS 3.3 mg/dL (2.5-4.9); POTASSIUM 4.1 mmol/L (3.5-5.1); SODIUM 137 mmol/L (136-145)
--- NOTE | 2017-07-08 07:56 | PN ---
Teaching Attending Note Name of Resident: Nohelia Veloz ATTENDING PHYSICIAN STATEMENT I saw and evaluated the patient. I reviewed the resident's note and discussed the case with the resident. I agree with the resident's findings and plan as documented with exceptions below. SUBJECTIVE: patient seen and examined. no complaints. No new left foot pain, fevers or chills. OBJECTIVE: Vital Signs Period Temp Pulse Resp BP Sys/Ferreira Pulse Ox Last 24 Hr 98 F-100.2 F 60-81 18-22 129-152/60-78 95-98 Intake & Output 07/05/17 07/06/17 07/07/17 07/08/17 23:59 23:59 23:59 23:59 Intake Total 506 Output Total 300 Balance 206 Weight 190 lb 192 lb 8 oz General: sitting in chair in no acute distress Chest: CTAB, no rales or wheezing Abdomen: Soft, NT, ND, positive bowel sounds Extremities: left great toe with smooth indurated swelling with minimal overlying erythema and clean healing, no bleeding or discharge noted Home Medication List Medication Instructions Recorded Confirmed Type Atorvastatin Ca [Lipitor] 20 mg PO HS 08/30/15 07/07/17 History Sitagliptin Phos/Metformin HCl 1 each PO DAILY 11/24/16 07/07/17 History [Janumet 50-1,000 mg Tablet] Insulin Aspart [Novolog] 0 unit SQ ASDIR 06/08/17 07/07/17 History Active Medications Generic Name Dose Route Start Last Admin Trade Name Freq PRN Reason Stop Dose Admin Amlodipine Besylate 10 mg 07/08/17 10:00 Norvasc - PO DAILY JASMINE Atorvastatin Calcium 20 mg 07/07/17 22:00 07/07/17 23:33 Lipitor - PO 20 mg HS JASMINE Administration Hydrochlorothiazide 12.5 mg 07/08/17 10:00 Hctz - PO DAILY JASMINE Vancomycin HCl 1,000 mg/ 250 mls @ 200 mls/hr 07/08/17 10:00 Dextrose IVPB Q24H JASMINE Protocol Sodium Chloride 1,000 mls @ 100 mls/hr 07/07/17 20:30 07/07/17 20:46 Normal Saline - IV 100 mls/hr ASDIR JASMINE Administration Insulin Aspart 1 vial 07/07/17 22:00 07/08/17 06:33 Novolog Vial Sliding Scale - SQ 4 unit ACHS JASMINE Administration Protocol Nystatin 1 applic 04/25/18 04:00 07/08/17 04:30 Nystop Powder - TP 1 applic DAILY JASMINE Administration Piperacillin Sod/Tazobactam Sod 3.375 gm 07/08/17 02:00 Zosyn - IVPB Q8H-IV JASMINE ASSESSMENT AND PLAN: 71 yom with pMHx of uncontrolled DM (?non compliance). recent Right first toe osteomyelitis discharged on 06/12/2017 on 5 weeks of zosyn admitted with severe hyperglycemia in the setting of dietary and likely medication non compliance. -Severe hyperglycemia, liekly dietary and medication non compliance, r/o worsening infectious process given low grade temp and higher CRP. -Right first toe Osteomyelitis, wound cx with E. fecalis -Hyponatremia, likely combination of pseudohyponatremia and hypovolumia from osmotic diuresis -Dizziness/presyncope suspect from severe hyperglycemia with dehydration, with underlying diabetic neuropathy Plan: Blood sugars improved. Dietary/medication compliance counseling. Zosyn. ID consulted, vancomycin added, follow up recs. Blood cx sent, neg so far. Na improved. Continue gentle hydration. Carotid duplex noted, outpatient monitoring. Follow up 2D echo. Episode not suspicious for cardiac or neuro etiology. Confirm home meds, reports premeal Novolog TID, resume accordingly. Reports well controlled prior to admission, with non compliance yesterday as was stressed, also with his birthday approaching ate chocolate cake with no insulin , likely etiology of his hyperglycemia. DVTPPX dispo in 24 hours pending improvement in blood sugars, ID input and clinical course. Plan discussed with patient in detail, all questions answered.
[2017-07-08] MEDS ORDERED: VANCOMYCIN 1,000 MG in DEXTROSE 5%-WATER - 250 ML IVPB SCH (10:00)
[2017-07-08] MEDS: HYDROCHLOROTHIAZIDE 12.5 MG CAPSULE (FP) PO SCH (10:44)
[2017-07-08] MEDS: amLODIPine BESYLATE 10 MG TABLET (FP) PO SCH (10:44)
--- NOTE | 2017-07-08 12:07 | EKG ---
Test Reason : Blood Pressure : / mmHG Vent. Rate : 079 BPM Atrial Rate : 079 BPM P-R Int : 136 ms QRS Dur : 088 ms QT Int : 370 ms P-R-T Axes : 013 -57 018 degrees QTc Int : 424 ms NORMAL SINUS RHYTHM LEFT AXIS DEVIATION ABNORMAL ECG WHEN COMPARED WITH ECG OF 08-JUN-2017 16:47, NO SIGNIFICANT CHANGE WAS FOUND Confirmed by TIA FITCH MD ([id number]) on 07/08/2017 12:06:32 PM Referred By: Confirmed By:TIA FITCH MD
--- NOTE | 2017-07-08 14:59 | CON.ID ---
Consult Consult Specialty:: infectious diseases Reason for Consultation:: fever,sepsis, - History of Present Illness Chief Complaint: weakness lethargy History of Present Illness: 71 M with hx. of Osteomyelitis (IV Zosyn), HTN, IDDM, who is known to me admitted to the hospital because the patient presented with AMS. According to the patient he was non compliant with his medications and was eating sweet cake and then became disoriented. States he fell forward.knew he was falling and had no loos of consciousness. States he did not take his Insulin. has no other symptoms currently he feels very groggy and very weak and says that he has no strength at all awake but some slurred speech when patient came to the hospital he was having very high blood sugars patient also spiked a fever and all his cx have been send he is already on zosyn and was given one dose of vanco - History Source History Provided By: Patient, Medical Record Limitations to Obtaining History: Poor Historian - Past Medical History Cardio/Vascular: Yes: HTN, Hyperlipdemia Endocrine: Yes: Diabetes Mellitus - Alcohol/Substance Use Hx Alcohol Use: No - Smoking History Smoking history: Never smoked Have you smoked in the past 12 months: No Home Medications - Allergies Allergies/Adverse Reactions: Allergies Allergy/AdvReac Type Severity Reaction Status Date / Time Sulfa (Sulfonamide Allergy Severe Vomiting Verified 07/07/17 20:17 Antibiotics) - Home Medications Home Medications: Ambulatory Orders Atorvastatin Ca [Lipitor] 20 mg PO HS 08/30/15 Sitagliptin Phos/Metformin HCl [Janumet 50-1,000 mg Tablet] 1 each PO DAILY 01/30 Insulin Aspart [Novolog] 0 unit SQ ASDIR 06/08/17 Amlodipine Besylate [Norvasc -] 10 mg PO DAILY #30 tablet 06/12/17 Piperacillin/Tazob 3.375 gm [Zosyn -] 3.375 gm IVPB Q8H-IV vial 06/12/17 Valsartan [Diovan] 160 mg PO DAILY #30 tablet 06/12/17 Glipizide [Glipizide ER] 5 mg PO TID 07/08/17 Hydrochlorothiazide [Hctz -] 12.5 mg PO DAILY 07/08/17 Review of Systems - Review of Systems Constitutional: reports: Weakness, Other Eyes: reports: No Symptoms HENT: reports: No Symptoms Neck: reports: No Symptoms Cardiovascular: reports: No Symptoms Respiratory: reports: No Symptoms Gastrointestinal: reports: No Symptoms Genitourinary: reports: No Symptoms Musculoskeletal: reports: No Symptoms Integumentary: reports: No Symptoms Neurological: reports: Dizziness, Unsteady Gait, Other (ams) Endocrine: reports: No Symptoms Psychiatric: reports: No Symptoms Physical Exam Vital Signs: Vital Signs Temperature 99.6 F 07/08/17 13:53 Pulse Rate 76 07/08/17 13:53 Respiratory Rate 18 07/08/17 13:53 Blood Pressure 129/58 07/08/17 13:53 O2 Sat by Pulse Oximetry (%) 98 07/08/17 09:00 Constitutional: Yes: No Distress, Calm Eyes: Yes: Conjunctiva Clear Cardiovascular: Yes: Regular Rate and Rhythm Respiratory: Yes: Regular, CTA Bilaterally Gastrointestinal: Yes: Normal Bowel Sounds, Soft Musculoskeletal: Yes: Other Extremities: Yes: Other (patients wound is healing well) Integumentary: Yes: Other (toe healing well) Wound/Incision: Yes: Open to air, Other (healing still gap is present between the nail bed) Neurological: Yes: Alert, Oriented Psychiatric: Yes: Alert, Oriented Labs: CBC, BMP 07/08/17 05:55 07/08/17 05:55 Imaging - Results Chest X-ray: Report Reviewed, Image Reviewed Ultrasound: Report Reviewed, Image Reviewed Assessment/Plan patient still very weak and drowsy lab work and reports noted all his cx are pending less likely that patient could have infection but cannot say with certainty as he is very immunocompromised fever uncontrolled dm osteo of the foot weakness plan no vanco continue zosyn await for cx report if the cx are negative patient can go back with zosyn for the amount of duration he needs to ahve it
--- NOTE | 2017-07-08 15:29 | PN ---
Physical Exam: SUBJECTIVE: Patient seen and examined. No fever, chills, n/v. No foot pain. OBJECTIVE: Vital Signs Period Temp Pulse Resp BP Sys/Ferreira Pulse Ox Last 24 Hr 98 F-100.2 F 60-81 18-22 126-152/31-78 95-98 General: sitting in chair, nad, aaox3 Lungs: CTAB Heart: RRR, normal s1/s2 Abd: soft, ntnd, +bowel sounds Extr: R great toe with minimal swelling and erythema, no ttp, no discharge CBC, BMP 07/08/17 05:55 07/08/17 05:55 Hepatic Panel Total Bilirubin 0.7 mg/dL (0.2-1.0) D 07/07/17 16:20 AST 43 U/L (15-37) H D 07/07/17 16:20 ALT 47 U/L (12-78) D 07/07/17 16:20 Alkaline Phosphatase 448 U/L (45-117) H D 07/07/17 16:20 Albumin 3.0 g/dl (3.4-5.0) L 07/07/17 16:20 07/07/17 07/07/17 07/08/17 20:59 20:59 05:55 ESR 34 H Hemoglobin A1c % 9.4 H D C-Reactive Protein 2.3 H Microbiology 07/07/17 17:45 Blood - Peripheral Venous Blood Culture - Preliminary NO GROWTH OBTAINED AFTER 24 HOURS, INCUBATION TO CONTINUE FOR 4 DAYS. 07/07/17 18:25 Blood - Peripheral Venous Blood Culture - Preliminary NO GROWTH OBTAINED AFTER 24 HOURS, INCUBATION TO CONTINUE FOR 4 DAYS. Active Medications Amlodipine Besylate (Norvasc -) 10 mg PO DAILY [facility] Last Admin: 07/08/17 10:44 Dose: 10 mg Atorvastatin Calcium (Lipitor -) 20 mg PO HS [facility] Last Admin: 07/07/17 23:33 Dose: 20 mg Hydrochlorothiazide (Hctz -) 12.5 mg PO DAILY [facility] Last Admin: 07/08/17 10:44 Dose: 12.5 mg Vancomycin HCl 1,000 mg/ (Dextrose) 250 mls @ 200 mls/hr IVPB Q24H [facility] PRN Reason: Protocol Sodium Chloride (Normal Saline -) 1,000 mls @ 100 mls/hr IV ASDIR [facility] Last Admin: 07/07/17 20:46 Dose: 100 mls/hr Insulin Aspart (Novolog Vial Sliding Scale -) 1 vial SQ ACHS JASMINE PRN Reason: Protocol Last Admin: 07/08/17 17:37 Dose: 8 unit Insulin Aspart (Novolog) 10 units SQ TIDAC [facility] Last Admin: 07/08/17 17:37 Dose: 10 units Nystatin (Nystop Powder -) 1 applic TP DAILY [facility] Last Admin: 07/08/17 10:46 Dose: Not Given Piperacillin Sod/Tazobactam Sod (Zosyn -) 3.375 gm IVPB Q8H-IV JASMINE ASSESSMENT/PLAN: 71yo M with PMHx of poorly controlled IDDM, HTN, HLD, and recently diagnosed osteomyelitis (on Zosyn via PICC) who presented to ED after a pre-syncopal episode. #Pre-syncope likely 2/2 volume depletion worsened by hyperglycemia -pre-syncopal/TIA: carotid showed possibly hemodynamically significant stenosis ; pt to f/u as OP; ECHO completed, pending interpretation #hyperglycemia likely 2/2 eating birthday cake/non-compliance with insulin -BGM/ISS ACHS + premeal Novolog 10U TIDAC -Alc 9/4% #HTN - c/w home Norvasc/HCTZ #HLD - Continue statin # FEN/PPX NS 100cc/hr diabetic diet SCDs # Dispo - m/s observation, anticipate d/c tomorrow pending blood cultures/ clinical course FULL code Visit type - Emergency Visit Emergency Visit: No - New Patient This patient is new to me today: Yes Date on this admission: 07/08/17 - Critical Care Critical Care patient: No
[2017-07-08] MEDS ORDERED: Insulin (LOG) Aspart 100 UNITS/ML VIAL SQ SCH (16:30)
[2017-07-08] MEDS: SODIUM CHLORIDE 1,000 ML IV SCH (21:15)
[2017-07-08] MEDS: ATORVASTATIN CA 20 MG TABLET (FP) PO SCH (21:17)
[2017-07-09 06:29] LABS: BASO % 0.4 % (0-2.0); EOS % 9.8 % (0-4.5); HEMATOCRIT 34.5 % (35.4-49); HEMOGLOBIN 12.2 GM/dL (11.7-16.9); LYMPH % 15.9 % (8-40); MCH 31.3 pg (25.7-33.7); MCHC 35.4 g/dl (32.0-35.9); MEAN CELL VOLUME 88.5 fl (80-96); MEAN PLT VOLUME 9.5 fl (7.5-11.1); MONO % 12.6 % (3.8-10.2); NEUT % 61.3 % (42.8-82.8); PLATELET COUNT 223 K/MM3 (134-434); RBC 3.91 M/mm3 (4.00-5.60); RDW 14.1 % (11.9-15.9); WHITE BLOOD COUNT 5.9 K/mm3 (4.0-10.0)
[2017-07-09 06:48] LABS: ANION GAP 6 (8-16); BLOOD UREA NITROGEN 20 mg/dL (7-18); CALCIUM 7.8 mg/dL (8.5-10.1); CHLORIDE 106 mmol/L (98-107); CO2 29 mmol/L (21-32); GLUCOSE,RANDOM 216 mg/dL (74-106); POTASSIUM 4.6 mmol/L (3.5-5.1); SODIUM 141 mmol/L (136-145)
[2017-07-09] MEDS: INSULIN SLIDING SCALE (NOVOLOG) 1 VIAL SQ SCH ×2 (06:51→12:04)
[2017-07-09] MEDS: INSULIN (NOVOLOG) ASPART 100 UNITS/ML 10ML VIAL SQ SCH ×2 (06:54→12:04)
[2017-07-09 07:40] VITALS: TEMP 98.1
--- NOTE | 2017-07-09 08:13 | PN ---
Teaching Attending Note Name of Resident: Nohelia Veloz ATTENDING PHYSICIAN STATEMENT I saw and evaluated the patient. I reviewed the resident's note and discussed the case with the resident. I agree with the resident's findings and plan as documented with exceptions below. SUBJECTIVE: Patient seen and examined. diarrhea last night, none since AM. NO no other complaints. Denies fevers, chills or new foot symptoms. OBJECTIVE: Vital Signs Period Temp Pulse Resp BP Sys/Ferreira Pulse Ox Last 24 Hr 98.1 F-99.8 F 66-76 18-20 126-152/31-97 98-100 Intake & Output 07/06/17 07/07/17 07/08/17 07/09/17 23:59 23:59 23:59 23:59 Intake Total 2346 1200 Output Total 1650 300 Balance 696 900 Weight 190 lb 192 lb 8 oz General: sitting in chair in no acute distress Home Medication List Medication Instructions Recorded Confirmed Type Atorvastatin Ca [Lipitor] 20 mg PO HS 08/30/15 07/07/17 History Sitagliptin Phos/Metformin HCl 1 each PO DAILY 11/24/16 07/07/17 History [Janumet 50-1,000 mg Tablet] Insulin Aspart [Novolog] 0 unit SQ ASDIR 06/08/17 07/07/17 History Glipizide [Glipizide ER] 5 mg PO TID 07/08/17 07/08/17 History Hydrochlorothiazide [Hctz -] 12.5 mg PO DAILY 07/08/17 07/08/17 History Active Medications Generic Name Dose Route Start Last Admin Trade Name Freq PRN Reason Stop Dose Admin Amlodipine Besylate 10 mg 07/08/17 10:00 07/08/17 10:44 Norvasc - PO 10 mg DAILY JASMINE Administration Atorvastatin Calcium 20 mg 07/07/17 22:00 07/08/17 21:17 Lipitor - PO 20 mg HS JASMINE Administration Hydrochlorothiazide 12.5 mg 07/08/17 10:00 07/08/17 10:44 Hctz - PO 12.5 mg DAILY JASMINE Administration Vancomycin HCl 1,000 mg/ 250 mls @ 200 mls/hr 07/08/17 10:00 Dextrose IVPB Q24H JASMINE Protocol Sodium Chloride 1,000 mls @ 100 mls/hr 07/07/17 20:30 07/08/17 21:15 Normal Saline - IV 100 mls/hr ASDIR JASMINE Administration Insulin Aspart 1 vial 07/07/17 22:00 07/09/17 06:51 Novolog Vial Sliding Scale - SQ 4 unit ACHS JASMINE Administration Protocol Insulin Aspart 10 units 07/09/17 07:00 07/09/17 06:54 Novolog Vial SQ 10 units TIDAC JASMINE Administration Nystatin 1 applic 07/08/17 04:00 07/08/17 10:46 Nystop Powder - TP Not Given [facility]ILY [facility] Piperacillin Sod/Tazobactam Sod 3.375 gm 07/08/17 02:00 Zosyn - IVPB Q8H-IV JASMINE Laboratory Results - last 24 hr 07/08/17 07/09/17 07/09/17 05:55 05:45 05:45 WBC 5.9 RBC 3.91 L Hgb 12.2 Hct 34.5 L MCV 88.5 MCH 31.3 MCHC 35.4 RDW 14.1 Plt Count 223 MPV 9.5 Neutrophils % 61.3 D Lymphocytes % 15.9 D Monocytes % 12.6 H Eosinophils % 9.8 H D Basophils % 0.4 Sodium 141 Potassium 4.6 Chloride 106 Carbon Dioxide 29 Anion Gap 6 L BUN 20 H Creatinine 1.0 D Random Glucose 216 H Hemoglobin A1c % 9.4 H D Calcium 7.8 L Microbiology 07/07/17 20:59 Blood - Picc Line Blood Culture - Preliminary NO GROWTH OBTAINED AFTER 24 HOURS, INCUBATION TO CONTINUE FOR 4 DAYS. 07/07/17 20:59 Blood - Picc Line Blood Culture - Preliminary NO GROWTH OBTAINED AFTER 24 HOURS, INCUBATION TO CONTINUE FOR 4 DAYS. 07/07/17 17:45 Blood - Peripheral Venous Blood Culture - Preliminary NO GROWTH OBTAINED AFTER 24 HOURS, INCUBATION TO CONTINUE FOR 4 DAYS. 07/07/17 18:25 Blood - Peripheral Venous Blood Culture - Preliminary NO GROWTH OBTAINED AFTER 24 HOURS, INCUBATION TO CONTINUE FOR 4 DAYS. ASSESSMENT AND PLAN: 71 yom with pMHx of uncontrolled DM (?non compliance). recent Right first toe osteomyelitis discharged on 06/12/2017 on 5 weeks of zosyn admitted with severe hyperglycemia in the setting of dietary and likely medication non compliance. -Severe hyperglycemia, liekly dietary and medication non compliance, r/o worsening infectious process given low grade temp and higher CRP. -Right first toe Osteomyelitis, wound cx with E. fecalis -Hyponatremia, likely combination of pseudohyponatremia and hypovolumia from osmotic diuresis -Dizziness/presyncope suspect from severe hyperglycemia with dehydration, with underlying diabetic neuropathy -Diarrhea Plan: Blood sugars improved. Dietary/medication compliance counseling. ID input noted, blood cultures from Periphery/PICC neg so far, outpatient wound care/ID follow up. Diarrhea with self improvement, low suspicion for C difficile, however given on antibiotics, check Stool c difficile if more episodes. Nutriton consult for dietary education. Na improved. Carotid duplex noted, outpatient monitoring. 2D echo results reivewed.. Episode not suspicious for cardiac or neuro etiology. Stressed on continuing with home novolog regimen. Has appt with endocrine outpatient, encourage compliance. DVTPPX dispo d/c home in 24 hours pending improvement in diarrhea with outpatient ID, wound care and endocrine follow up. Plan discussed with patient in detail, all questions answered.
[2017-07-09 08:28] VITALS: PULSE 62
[2017-07-09] MEDS: amLODIPine BESYLATE 10 MG TABLET (FP) PO SCH (11:12)
[2017-07-09] MEDS: HYDROCHLOROTHIAZIDE 12.5 MG CAPSULE (FP) PO SCH (11:13)
[2017-07-09] MEDS: SODIUM CHLORIDE 1,000 ML IV SCH (11:28)
[2017-07-09] MEDS ORDERED: SODIUM CHLORIDE 1,000 ML IV SCH (14:05)
--- NOTE | 2017-07-09 14:32 | DS ---
Physical Exam: SUBJECTIVE: Patient seen and examined. non-bloody watery diarrhea last night. No fever, chills, abdominal pain, CP. No pain in R toe. Eating and voiding well. OBJECTIVE: Vital Signs Period Temp Pulse Resp BP Sys/Ferreira Pulse Ox Last 24 Hr 98.1 F-99.2 F 62-76 18-22 129-152/42-97 96-100 General: sitting in chair, nad, aaox3 Lungs: CTAB Heart: RRR, normal s1/s2 Abd: soft, ntnd, +bowel sounds Extr: R great toe with minimal swelling and erythema, no ttp, no discharge CBC, BMP 07/09/17 05:45 07/09/17 05:45 07/07/17 07/07/17 07/08/17 20:59 20:59 05:55 ESR 34 H Hemoglobin A1c % 9.4 H D C-Reactive Protein 2.3 H Microbiology 07/09/17 11:15 Stool Clostridium difficile Antigen (PRINCESS) - NEG 07/09/17 11:15 Stool Clostridium difficile Toxin Assay - NEG 07/07/17 20:59 Blood - Picc Line Blood Culture - Preliminary NO GROWTH OBTAINED AFTER 24 HOURS, INCUBATION TO CONTINUE FOR 4 DAYS. 07/07/17 20:59 Blood - Picc Line Blood Culture - Preliminary NO GROWTH OBTAINED AFTER 24 HOURS, INCUBATION TO CONTINUE FOR 4 DAYS. 07/07/17 17:45 Blood - Peripheral Venous Blood Culture - Preliminary NO GROWTH OBTAINED AFTER 24 HOURS, INCUBATION TO CONTINUE FOR 4 DAYS. 07/07/17 18:25 Blood - Peripheral Venous Blood Culture - Preliminary NO GROWTH OBTAINED AFTER 24 HOURS, INCUBATION TO CONTINUE FOR 4 DAYS. Active Medications Amlodipine Besylate (Norvasc -) 10 mg PO DAILY [facility] Atorvastatin Calcium (Lipitor -) 20 mg PO HS [facility] Hydrochlorothiazide (Hctz -) 12.5 mg PO DAILY [facility] Sodium Chloride (Normal Saline -) 1,000 mls @ 100 mls/hr IV ASDIR JASMINE Vancomycin HCl 1,000 mg/ (Dextrose) 250 mls @ 200 mls/hr IVPB Q24H JASMINE PRN Reason: Protocol Insulin Aspart (Novolog Vial) 10 units SQ TIDAC JASMINE Last Admin: 07/09/17 12:04 Dose: 10 units Insulin Aspart (Novolog Vial Sliding Scale -) 1 vial SQ ACHS JASIMNE PRN Reason: Protocol Nystatin (Nystop Powder -) 1 applic TP DAILY [facility] Piperacillin Sod/Tazobactam Sod (Zosyn -) 3.375 gm IVPB Q8H-IV JASMINE HOSPITAL COURSE: Date of Admission:07/07/17 Date of Discharge: 07/09/17 Pre-Hospital Course: 71yo M with PMHx of poorly controlled IDDM, recent osteomyelitis (on Zosyn via PICC) who presented to the ED after a pre-syncopal episode. During the day, the patient did not take his insulin, and ate many sweets for his upcoming birthday. When his infusion nurse came to administer his antibiotics, she found his BGM elevated to 600s. He then arose from chair, felt dizzy, fell and hit his head. He did not lose conscious. This dizziness upon positional changes is chronic, but infusion nurse was worried about it in the setting of high sugars, and she sent him to the ED. He denies headache, focal neuro deficits, fevers, chills, CP, SOB. In the ED, the patient was hemodynamically stable, and found to have Tmax 100.2. Labs were notable for glucose of 500 w/o anion gap. Head CT was wnl. Novolog 10u was given which brought down sugar to 262. 1x dose of Vancomycin was given. Subsequent Hospital Course: The patient was observed overnight to monitor for any further signs of infection given low grade temperature on admission and elevated CRP/ESR. ID was consulted (Dr. Gama). Zosyn IV treatment for R great toe Osteomyelitis was continued (06/08 wound culture E. faecalis). Blood cultures drawn peripherally and from PICC were NGx24H. Patient remained afebrile with no signs/symptoms of new infectious process. Patient had non-bloody, watery diarrhea last night. C diff studies were sent, and were negative. The patient's severe hyperglycemia was likely due to dietary and medication non- compliance (Hgb A1c 9.4%). His blood sugars improved with ISS ACHS and premeal 10U Novolog. Dietary and medication compliance counseling were provided. Patient was seen by Supervisor [employer] Testing to review diabetic diet and education pamphlet with sample diet and snacks was also provided. Patient's dizziness and presyncope symptoms likely due to severe hyperglycemia and secondary dehydration. Low suspicion for cardiac or neurological etiology of event. 2D ECHO (07/08/17) was performed that showed: poor LV compliance, normal LV size/function/LVEF, no WMA, mild MR/TR/AR. Carotid duplex revealed bilateral intimal thickening with small plaques with borderline hemodynamically significant stenosis. Patient counseled and agreed to out patient follow-up. Patient's blood pressure was well-controlled on home regiment. Consults: ID: Dr. Gama IMAGING: EXAM#: TYPE/EXAM: RESULT: [id number] RAD/CHEST X-RAY PORTABLE* Chest portable one view CLINICAL INFORMATION: dyspnea No discrete infiltrate or pleural effusion is noted. There is no evidence of pneumothorax. The heart, carlene and mediastinum demonstrate no obvious abnormality. In comparison to a prior radiographic study of 06/08/2017 there as interval insertion of a right upper extremity PICC line with the catheter tip within the expected location of the mid to lower superior vena cava. IMPRESSION: No radiographic evidence of acute pathology. EXAM#: TYPE/EXAM: RESULT: [id number] CT/HEAD CT (STROKE) Unresponsive CT scan of the brain. A noncontrast CT scan of the brain was performed. Compared to prior CT scan of the head dated 2015 There is moderate volume loss and ventricular dilatation. Moderate chronic microvascular ischemic changes are present No mass lesion, gross acute infarct or intracranial hemorrhage are identified. Visualized paranasal sinuses and mastoid air cells are well aerated. Calcification of the cavernous carotid arteries are noted. The calvarium is intact . Impression: Moderate atrophy. No gross evidence of a focal intracranial lesion or hemorrhage is seen. Correlate clinically to determine further evaluation and follow-up. EXAM#: TYPE/EXAM: RESULT: [id number] US/CAROTID COLOR FLOW DOPP US Rule out carotid stenosis Bilateral carotid Doppler ultrasound Grayscale, pulsed Doppler and color Doppler interrogation of both carotid and both vertebral arteries was performed. The right common carotid, internal and external external carotid artery were identified with a peak systolic velocity of 103, 133 and 114 cm/sec , respectively. The left common carotid, internal and external carotid artery were identified with a peak systolic velocity of 94, 130 and 108 cm/sec, respectively. Flow in the physiologic direction was documented in both vertebral arteries. Impression: Intimal thickening in the distal right common carotid artery and multiple small plaques at the bifurcation and bulb with borderline hemodynamically significant stenosis. There is also intimal thickening and small plaques in the left bulb/proximal internal carotid artery with borderline hemodynamically significant stenosis. Correlate clinically and correlation with MRA of the neck would be helpful for further evaluation. Minutes to complete discharge: 45 Discharge Summary Reason For Visit: ALTERED MANTAL STATUS Current Active Problems Altered mental status, unspecified (Acute) Condition: Stable - Instructions Diet, Activity, Other Instructions: You were observed in the hospital after hitting your head and having high blood sugars. Imaging of your head showed no bleed or fracture. Ultrasound of your carotid arteries showed some narrowing, and it is important that you follow-up with your primary care physician to discuss this finding. You were having diarrhea so we tested your stool for an infection called C. difficile, which you do NOT have. However you are at risk for the same and advise to follow up with your doctor or come to ED if diarrhea continues or worsens. Drink plenty of fluids Recommendations: -Follow a low carbohydrate and low sugar diet. You were seen by a Supervisor Paper Testing to help you with suggestions on what to eat. You were also given handouts on foods to eat. -Continue caring for your PICC line as previously directed. Visiting Nurse services will continue coming to your home. Medications: -No new medications were started. Continue taking your regular home medications , including Zosyn IV antibiotic, as directed. Continue your home insulin regimen as prior and check blood sugars before meals and at bedtime and maintain a diary. Call your doctor if > 75 or persistently > 200 or any reading > 350 noted. Follow-ups: -Make an appointment to see your primary care physician in 1 week for post- hospitalization evaluation. Discuss with your doctor the narrowing of your carotid arteries. Your doctor may need to have additional imaging of your arteries called an MRA and a referral to a Vascular surgeon. -It is important that you see an Sodium Methylate Operator. A referral to Dr. Jackson is provided. Make an appointment to see him in 1-2 weeks to discuss control of your sugars and help with your diet. -Make an appointment to see Dr. Gama, your Infectious Disease doctor, in 1 week. -Continue to see your rehab tech at [facility] weekly. -Your blood cultures were sent from PICC line and regular. Results are negative at 48 hours, however the results are finalized till 5 days. Please follow up with your doctor Dr. Gama early next week to discuss. You will be notified of abnormal findings and please ensure that we have a reachable phone number and contact information on you. Please return to the Emergency Department if you have fever, chills, worsening pain in your toe, blood sugar above 400, or any new or concerning symptoms. Referrals: Ibrahima Gama MD [Staff Physician] - Jenn Farris MD [Primary Care Provider] - 1 Week Ravindra Jackson MD [Staff Physician] - 1 Week Disposition: VNS/HOME HEALTH CARE - Home Medications Comprehensive Discharge Medication List: Ambulatory Orders Atorvastatin Ca [Lipitor] 20 mg PO HS 08/30/15 Insulin Aspart [Novolog] 0 unit SQ ASDIR 06/08/17 Amlodipine Besylate [Norvasc -] 10 mg PO DAILY #30 tablet 06/12/17 Piperacillin/Tazob 3.375 gm [Zosyn -] 3.375 gm IVPB Q8H-IV vial 06/12/17 Valsartan [Diovan] 160 mg PO DAILY #30 tablet 06/12/17 Hydrochlorothiazide [Hctz -] 12.5 mg PO DAILY 07/08/17 This patient is new to me today: No Emergency Visit: No Critical Care patient: No - Discharge Referral Referred to [facility] No
--- NOTE | 2017-07-09 15:14 | PN ---
Progress Note, Physician History of Present Illness: patient doing well no complaints says he is feeling much better - Current Medication List Current Medications: Active Medications Amlodipine Besylate (Norvasc -) 10 mg PO DAILY JASMINE Atorvastatin Calcium (Lipitor -) 20 mg PO HS JASMINE Hydrochlorothiazide (Hctz -) 12.5 mg PO DAILY [facility]INE Sodium Chloride (Normal Saline -) 1,000 mls @ 100 mls/hr IV ASDIR JASMINE Vancomycin HCl 1,000 mg/ (Dextrose) 250 mls @ 200 mls/hr IVPB Q24H JASMINE PRN Reason: Protocol Insulin Aspart (Novolog Vial) 10 units SQ TIDAC JASMINE Last Admin: 07/09/17 12:04 Dose: 10 units Insulin Aspart (Novolog Vial Sliding Scale -) 1 vial SQ ACHS JASMINE PRN Reason: Protocol Nystatin (Nystop Powder -) 1 applic TP DAILY [facility]INE Piperacillin Sod/Tazobactam Sod (Zosyn -) 3.375 gm IVPB Q8H-IV JASMINE - Objective Vital Signs: Vital Signs Temperature 98.1 F 07/09/17 06:00 Pulse Rate 62 07/09/17 08:27 Respiratory Rate 22 07/09/17 08:27 Blood Pressure 143/71 07/09/17 08:27 O2 Sat by Pulse Oximetry (%) 96 07/09/17 08:28 Constitutional: Yes: No Distress, Calm Cardiovascular: Yes: Regular Rate and Rhythm Respiratory: Yes: Regular, CTA Bilaterally Gastrointestinal: Yes: Normal Bowel Sounds, Soft Musculoskeletal: Yes: WNL Extremities: Yes: Other Wound/Incision: Yes: Clean/Dry Neurological: Yes: Alert, Oriented Psychiatric: Yes: Alert, Oriented Labs: CBC, BMP 07/09/17 05:45 07/09/17 05:45 Assessment/Plan fever uncontrolled dm osteo of the foot weakness all cx reports noted negative plan continue current mgmt rest as per the team
[2017-07-09] MEDS ORDERED: INSULIN SLIDING SCALE (NOVOLOG) 1 VIAL SQ SCH (16:30)
[2017-07-09 17:07] VITALS: BP 126/84
[2017-07-09] MEDS ORDERED: PIPERACILLIN/TAZOBACTAM 3.375 GM VIAL IVPB SCH (18:00)
[2017-07-09] MEDS ORDERED: ATORVASTATIN CA 20 MG TABLET (FP) PO SCH (22:00)
[2017-07-10] MEDS ORDERED: NYSTATIN POWDER 100,000 UNITS/GM - 15 GM TOPICAL POWDER TP SCH (10:00)
[2017-07-10] MEDS ORDERED: VANCOMYCIN 1,000 MG in DEXTROSE 5%-WATER - 250 ML IVPB SCH (10:00)
[2017-07-10] MEDS ORDERED: amLODIPine BESYLATE 10 MG TABLET (FP) PO SCH (10:00)
[2017-07-10] MEDS ORDERED: HYDROCHLOROTHIAZIDE 12.5 MG CAPSULE (FP) PO SCH (10:00)
== END 2017-07-09 17:11 | disposition home health service (06) ==
LOC: JER 16:00 → JERBED 20:11 → J2W 07-08 02:35
PROVIDERS: ADMIT Internal Medicine; ATTEND Hospitalist
PROC: 3E03329 Introduction of Other Anti-infective into Peripheral Vein, Percutaneous Approach (ICD-10-PCS; principal; 2017-07-07)
PROC: 3E0337Z Introduction of Electrolytic and Water Balance Substance into Peripheral Vein, Percutaneous Approach (ICD-10-PCS; 2017-07-07)
PROC: 3E013VG Introduction of Insulin into Subcutaneous Tissue, Percutaneous Approach (ICD-10-PCS; 2017-07-07)
DX: R41.82 Altered mental status, unspecified (principal); R55 Syncope and collapse; I10 Essential (primary) hypertension; E78.5 Hyperlipidemia, unspecified; E11.65 Type 2 diabetes mellitus with hyperglycemia; M86.9 Osteomyelitis, unspecified; E87.1 Hypo-osmolality and hyponatremia; R79.89 Other specified abnormal findings of blood chemistry; R50.9 Fever, unspecified; R23.3 Spontaneous ecchymoses; R74.8 Abnormal levels of other serum enzymes; Z79.4 Long term (current) use of insulin; Z88.2 Allergy status to sulfonamides; Z79.84 Long term (current) use of oral hypoglycemic drugs; Z95.828 Presence of other vascular implants and grafts
CPT/HCPCS: 36415; 70450-TC; 71045-TC-FY; 80048; 80053; 81003; 81015; 82009; 82436; 82570; 82607; 82746; 82962; 83036; 83605; 83735; 83930; 83935; 84100; 84133; 84300; 84443; 85025; 85027; 85651; 86140; 87040; 87324; 87449; 93005; 93010; 93306-TC; 93880-TC; 96365; 96367; 96372; 99282-25; G0378; J7030

== ENCOUNTER 2017-07-10 15:15 | Inpatient (IN) | payer OTHER ==
--- NOTE | 2017-07-10 15:54 | PDOC ---
History of Present Illness - General Chief Complaint: SIRS, Suspected/Possible Stated Complaint: Diarrhea Time Seen by Provider: 07/10/17 15:52 History Source: Patient - History of Present Illness Initial Comments: 07/10/17 16:13 Patient is a 72 year old male with a PMH of IDDM, HTN and osteomyelitis ( discharged from our facility yesterday 07/09) presents to our ED with c/o diarrhea. Hina notes 5 episodes of NB stools since discharge from our facility yesterday. Denies abdominal pain, dysuria/hematuria. Patient tolerating PO intake and notes last BM immediately prior to admission. Notes he has been celebrating his birthday today and yesterday with consumption of sugary foods. Patient denies chest pain, headache or dizziness. Patient denies fever, chills, abdominal pain, nausea or vomiting. Patient denies increased urinary frequency, urgency. Patient denies sick contacts or recent travel. As per EMR patient discharged from our facility yesterday (07/09) with a diagnosis of osteomyelitis and is recieving broad spectrum abx coverage (Zoysyn + Vanc) through his PICC line. Past History - Past Medical History Allergies/Adverse Reactions: Allergies Allergy/AdvReac Type Severity Reaction Status Date / Time Sulfa (Sulfonamide Allergy Severe Vomiting Verified 07/10/17 15:43 Antibiotics) piperacillin [From Zosyn] Allergy Intermediate Itching Verified 07/11/17 00:36 tazobactam [From Zosyn] Allergy Intermediate Itching Verified 07/11/17 00:36 Home Medications: Ambulatory Orders Atorvastatin Ca [Lipitor] 20 mg PO HS 08/30/15 Insulin Aspart [Novolog] 0 unit SQ ASDIR 06/08/17 Amlodipine Besylate [Norvasc -] 10 mg PO DAILY #30 tablet 06/12/17 Piperacillin/Tazob 3.375 gm [Zosyn -] 3.375 gm IVPB Q8H-IV vial 06/12/17 Valsartan [Diovan] 160 mg PO DAILY #30 tablet 06/12/17 Hydrochlorothiazide [Hctz -] 12.5 mg PO DAILY 07/08/17 Sitagliptin Phos/Metformin HCl [Janumet 50-1,000 mg Tablet] 1 each PO AM COPD: No Diabetes: Yes HTN: Yes Hypercholesterolemia: Yes - Suicide/Smoking/Psychosocial Hx Smoking History: Never smoked Have you smoked in the past 12 months: No Information on smoking cessation initiated: No Hx Alcohol Use: No Drug/Substance Use Hx: No Substance Use Type: None Hx Substance Use Treatment: No Review of Systems - Review of Systems Constitutional: Yes: Fever. No: Chills Respiratory: No: Shortness of Breath, Wheezing Cardiac (ROS): No: Chest Pain, Lightheadedness, Palpitations, Syncope ABD/GI: Yes: Diarrhea. No: Constipated, Nausea, Vomiting : No: Burning, Dysuria *Physical Exam - Vital Signs Last Vital Signs Temp Pulse Resp BP Pulse Ox 101.1 F H 58 L 18 139/64 94 L 07/10/17 15:38 07/10/17 15:38 07/10/17 15:38 07/10/17 15:38 07/10/17 15:38 - Physical Exam Comments: 07/11/17 21:02 General: alert, moving all 4 extremities HEENT: EOMI, PEERLA, no pharyngeal/tonsilar erythema Eyes: Pupils equal reactive round, extraocular movement intact Cardiac: Regular rate and rhythm, no murmurs, no rubs, no gallops Lungs: Clear to auscultation bilateral, good air movement bilaterally Abdomen: Soft, normal bowel sounds, nontender to palpation Extremities: +RUE PICC line in place- C/D/I; 2+ dorsalis pedis pulses ED Treatment Course - LABORATORY CBC & Chemistry Diagram: 07/11/17 06:30 07/11/17 06:30 Medical Decision Making - Medical Decision Making 07/10/17 16:22 72 year old male with a PMH of poorly controlled IDDM and current treatment for osteomyelitis presents with fever + diarrhea. As patient febrile (101.3) + hypoxic @ presentation, sepsis protocol initiated. Will also CT abdomen as patient has equivocal abdominal exam and given patient's poorly controlled DM, unreliable abdominal exam. CBC significant for WBC 11.3 Redose Zoysn x1 c/w current osteomyelitis abx regimen. Patient admitted to hospitalist medicine service for further evaluation - CT abdomen pending. Will continue to monitor while in ED. *DC/Admit/Observation/Transfer Diagnosis at time of Disposition: Diarrhea - Referrals - Patient Instructions - Post Discharge Activity
[2017-07-10] MEDS ORDERED: ACETAMINOPHEN 1000 MG/100 ML VIAL (NON FORMULARY) IVPB ONE ×2 (16:04→17:16)
[2017-07-10] MEDS ORDERED: SODIUM CHLORIDE 0.9% 500 ML INFUS.BAG IV ONE (16:04)
[2017-07-10] MEDS ORDERED: ACETAMINOPHEN 325 MG TABLET (FP) ONE (16:52)
[2017-07-10] MEDS: SODIUM CHLORIDE 0.9% 1000 ML INFUS.BAG IV ONE ×2 (17:21→20:16)
[2017-07-10 17:23] LABS: BASO % 0.4 % (0-2.0); EOS % 3.6 % (0-4.5); HEMATOCRIT 36.7 % (35.4-49); HEMOGLOBIN 12.5 GM/dL (11.7-16.9); LYMPH % 1.2 % (8-40); MCH 30.3 pg (25.7-33.7); MEAN PLT VOLUME 8.7 fl (7.5-11.1); MONO % 6.9 % (3.8-10.2); NEUT % 87.9 % (42.8-82.8); PLATELET COUNT 271 K/MM3 (134-434); RBC 4.13 M/mm3 (4.00-5.60); RDW 13.9 % (11.9-15.9); WHITE BLOOD COUNT 11.3 K/mm3 (4.0-10.0)
[2017-07-10 17:39] LABS: VENOUS PC02 48.7 mmHg (38-52); VENOUS PH 7.32 (7.32-7.42); VENOUS PO2 25.2 mmHg (28-48)
--- NOTE | 2017-07-10 17:52 | PDOC ---
Attending Attestation - HPI HPI: 07/10/17 18:28 The patient is a 72 year old male with history of hypertension, DM, right toe osteomyelitis with PICC line in place on Zosyn and Vancomycin, recently admitted to [facility] for hyperglycemia, discharged yesterday, who returns to the hospital today for new complaints of fever, right sided abdominal pain, and diarrhea. No vomiting. No chest pain or shortness of breath. No urinary complaints. - Physicial Exam PE: 07/10/17 18:33 Vitals: Triage vital signs reviewed General Appearance: No acute distress, well nourished, well developed Head: Atraumatic Eyes: Pupils equal reactive round, extraocular movement intact Neck: Supple; No nuchal rigidity Chest Wall: Nontender Cardiac: Regular rate and rhythm, no murmurs, no rubs, no gallops Lungs: Clear to auscultation bilateral, good air movement bilaterally Abdomen: +Diffuse right sided abdominal tenderness to palpation. Soft, normal bowel sounds, nontender to palpation Extremities: +RUE PICC line in place. Full range of motion to all extremities, no cyanosis, clubbing, or edema Skin: Warm and dry, no rashes or lesions, no rash, no petechiae Psych: Normal mood, normal affect - Medical Decision Making 07/10/17 18:34 Documentation prepared by Ida Heath, acting as medical claims specialist for Lencho Laurent MD. <Ida Heath - Last Filed: 07/10/17 19:06> - Resident Resident Name: DonnyYuli - ED Attending Attestation I have performed the following: I have examined & evaluated the patient, The case was reviewed & discussed with the resident, I agree w/resident's findings & plan, Exceptions are as noted - Medical Decision Making Patient discharged from hospital yesterday. Returns today with new fever or new right-sided abdominal pain Also complaining of diarrhea. Given recent antibiotics C. difficile cultures ordered low suspicion given that his cultures yesterday were negative but given symptomatology we'll try to send again Labs notable for elevated white blood cell count elevated creatinine and slightly elevated lactic. IV fluids have been ordered Patient already on vancomycin and Zosyn for osteomyelitis. Will Redose zosyn Now. CT abdomen and Xray pending. Hospitalist to F/U results. Will admit to medicine for further management <Lencho Laurent - Last Filed: 07/10/17 19:59> Heart Score/ECG Review - ECG Impressions Comment:: EKG performed at 1750 5 PM. Demonstrates sinus rhythm at 87 bpm. Pardeep axis deviation. No ST elevations. No T-wave inversions. Interpreted by me. <Lencho Laurent - Last Filed: 07/10/17 19:59>
[2017-07-10 17:58] LABS: INR 1.04 (0.82-1.09); PROTHROMBIN TIME (PATIENT) 11.8 SEC (9.7-13.0)
[2017-07-10 18:01] LABS: ACTIVATED PTT 25.9 SECONDS (26.9-34.4)
[2017-07-10 18:26] LABS: ANION GAP 11 (8-16); BLOOD UREA NITROGEN 27 mg/dL (7-18); CALCIUM 8.7 mg/dL (8.5-10.1); CHLORIDE 105 mmol/L (98-107); CO2 24 mmol/L (21-32); CREATININE 1.4 mg/dL (0.7-1.3); GLUCOSE,RANDOM 198 mg/dL (74-106); POTASSIUM 4.7 mmol/L (3.5-5.1); SODIUM 140 mmol/L (136-145); TOT PROT 6.4 g/dl (6.4-8.2)
[2017-07-10 18:27] LABS: ALBUMIN 3.1 g/dl (3.4-5.0); ALK PHOS 393 U/L (45-117); BILIRUBIN,TOTAL 0.8 mg/dL (0.2-1.0); SGOT/AST 27 U/L (15-37); SGPT/ALT 34 U/L (12-78)
[2017-07-10] MEDS ORDERED: PIPERACILLIN/TAZOB 3.375 GM 3.375 GM in DEXTROSE 5%-WATER - 50 ML IVPB ONE (19:08)
--- NOTE | 2017-07-10 19:20 | HP ---
CHIEF COMPLAINT: " Diarrhoea and vomiting " PCP: Jenn Farris MD HISTORY OF PRESENT ILLNESS: Patient is a 71-year-old male presented to the ED with the chief complaint of " Diarrhoea and vomiting " x 1 day. Patient was discharged from [facility] on 07/09/17 after being treated for pre-syncope, Right great toe osteo (06/08 wound culture E. faecalis) (Has a PICC line, getting Zosyn since 06/12/17). He mentions that he felt well after leaving the hospital but started having loose watery stool since today, 2 episodes, non bloody associated with 2 episodes of NBNB vomiting. His son got worried, called 911 and brought to the ED for further evaluation. Denies chest pain, sob, cough, palpitation, abdominal pain, headache, loc, trauma. Bladder habit normal. Sleep/Appetite normal yesterday. ER course was notable for: (1) Temp: 101.3F; Leukocytosis 11.3; Lactic acid 2.7; creatinine 1.4 (Baseline 1 ) (2) Abdomen/pelvis CT: pending read (3) IV Nacl 1L; Tylenol Recent Travel: None PAST MEDICAL HISTORY: IDDM, HTN, HLD, Right great toe Ostoemyelitis (currently being treated with zosyn thro a PICC line) PAST SURGICAL HISTORY: None Social History: Smoking: Denies Alcohol: Denies Drugs: Denies Family History: Non contributory Allergies Sulfa (Sulfonamide Antibiotics) Allergy (Severe, Verified 07/10/17 15:43) Vomiting HOME MEDICATIONS: Home Medications Medication Instructions Recorded Atorvastatin Ca [Lipitor] 20 mg PO HS 08/30/15 Insulin Aspart [Novolog] 0 unit SQ ASDIR 06/08/17 Amlodipine Besylate [Norvasc -] 10 mg PO DAILY #30 tablet 06/12/17 Piperacillin/Tazob 3.375 gm [Zosyn 3.375 gm IVPB Q8H-IV vial 06/12/17 -] Valsartan [Diovan] 160 mg PO DAILY #30 tablet 06/12/17 Hydrochlorothiazide [Hctz -] 12.5 mg PO DAILY 07/08/17 REVIEW OF SYSTEMS CONSTITUTIONAL: Absent: fever, chills, diaphoresis, generalized weakness, malaise, loss of appetite, weight change HEENT: Absent: rhinorrhea, nasal congestion, throat pain, throat swelling, difficulty swallowing, mouth swelling, ear pain, eye pain, visual changes CARDIOVASCULAR: Absent: chest pain, syncope, palpitations, irregular heart rate, lightheadedness , peripheral edema RESPIRATORY: Absent: cough, shortness of breath, dyspnea with exertion, orthopnea, wheezing, stridor, hemoptysis GASTROINTESTINAL: Present: nausea, vomiting, diarrhea Absent: abdominal pain, abdominal distension, constipation, melena, hematochezia GENITOURINARY: Absent: dysuria, frequency, urgency, hesitancy, hematuria, flank pain, genital pain MUSCULOSKELETAL: Absent: myalgia, arthralgia, joint swelling, back pain, neck pain SKIN: Absent: rash, itching, pallor HEMATOLOGIC/IMMUNOLOGIC: Absent: easy bleeding, easy bruising, lymphadenopathy, frequent infections ENDOCRINE: Absent: unexplained weight gain, unexplained weight loss, heat intolerance, cold intolerance NEUROLOGIC: Absent: headache, focal weakness or paresthesias, dizziness, unsteady gait, seizure, mental status changes, bladder or bowel incontinence PSYCHIATRIC: Absent: anxiety, depression, suicidal or homicidal ideation, hallucinations. PHYSICAL EXAMINATION Vital Signs - 24 hr 07/10/17 07/10/17 15:38 17:26 Temperature 101.1 F H 101.3 F H Pulse Rate 58 L 76 Respiratory 18 20 Rate Blood Pressure 139/64 118/57 O2 Sat by Pulse 94 L 97 Oximetry (%) GENERAL: Elderly patient, lying comfortably in bed, Awake, alert, and fully oriented, in no acute distress. HEAD: Normal with no signs of trauma. EYES: EOM intact, no pallor or icterus. EARS, NOSE, THROAT: Ears normal. Moist mucous membranes. NECK: Supple. LUNGS: B/L Breath sounds equal, clear to auscultation bilaterally. No wheezes, and no crackles. No accessory muscle use. HEART: Regular rate and rhythm, normal S1 and S2 without murmur. ABDOMEN: Soft, tenderness in the LLQ , not distended, normoactive bowel sounds, no guarding, no rebound, no masses. No hepatomegaly or splenomegaly. MUSCULOSKELETAL: Normal range of motion at all joints. No bony deformities or tenderness. No CVA tenderness. UPPER EXTREMITIES: 2+ pulses, warm, well-perfused. No cyanosis. No clubbing. No peripheral edema. LEFT LOWER EXTREMITY: 2+ pulses, warm, well-perfused. No calf tenderness. No peripheral edema. RIGHT LOWER EXTREMITY: Right toe- swollen, tender, erythema +, 2+ pulses, warm , well-perfused. No calf tenderness. No peripheral edema. NEUROLOGICAL: No facial droop, Power 5/5 in all extremities, Normal speech. Normal gait. PSYCHIATRIC: Cooperative. Good eye contact. Appropriate mood and affect. SKIN: Warm, dry, normal turgor, no rashes or lesions noted, normal capillary refill. Laboratory Results - last 24 hr 07/10/17 07/10/17 07/10/17 16:45 16:45 16:45 WBC 11.3 H D RBC 4.13 Hgb 12.5 Hct 36.7 MCV 89.0 MCH 30.3 MCHC 34.0 RDW 13.9 Plt Count 271 D MPV 8.7 Neutrophils % 87.9 H D Lymphocytes % 1.2 L D Monocytes % 6.9 Eosinophils % 3.6 Basophils % 0.4 PT with INR 11.80 INR 1.04 PTT (Actin FS) 25.9 L VBG pH 7.32 POC VBG pCO2 48.7 POC VBG pO2 25.2 L Mixed VBG HCO3 24.2 Sodium Potassium Chloride Carbon Dioxide Anion Gap BUN Creatinine Creat Clearance w eGFR Random Glucose Lactic Acid Calcium Total Bilirubin AST ALT Alkaline Phosphatase Troponin I Total Protein Albumin 07/10/17 07/10/17 07/10/17 16:45 16:45 16:45 WBC RBC Hgb Hct MCV MCH MCHC RDW Plt Count MPV Neutrophils % Lymphocytes % Monocytes % Eosinophils % Basophils % PT with INR INR PTT (Actin FS) VBG pH POC VBG pCO2 POC VBG pO2 Mixed VBG HCO3 Sodium 140 Potassium 4.7 Chloride 105 Carbon Dioxide 24 Anion Gap 11 BUN 27 H D Creatinine 1.4 H D Creat Clearance w eGFR 49.82 Random Glucose 198 H Lactic Acid 2.7 H* Calcium 8.7 Total Bilirubin 0.8 AST 27 D ALT 34 D Alkaline Phosphatase 393 H Troponin I < 0.02 Total Protein 6.4 Albumin 3.1 L ASSESSMENT/PLAN: Patient is a 71-year-old male presented to the ED with the chief complaint of Diarrhoea. # Sepsis likely from osteomyelitis (06/08 wound culture E. faecalis) vs questionable C. diff c/o diarrhoea x 1 day, still has diarrhoea: loose watery, fowl smelling stool. C. diff 07/09/17 was negative On admission, patient had Temp: 101.3F; Leukocytosis 11.3; Lactic acid 2.7 Admit in Med-Surg/Inpatient Continue IV Zosyn 3.75 mg Q8H through PICC line Dr. Gama consult placed Since patient was on abx, will resend C. diff and other stool studies. Will trend Lactic acid # Acute Kidney Injury likey secondary to dehydration creatinine 1.4 (Baseline 1) IV NS @ 100mls/hr Avoid nephrotoxic drugs Will send Urine electrolytes # Uncontrolled DM A1c: 9.4 (07/01) Continue ISS, monitor Finger stick glucose If it is not controlled with ISS, will add novolog 5 U TID Diabetic diet # Hypertension-controlled Continue Amlodipine 10 mg PO Daily; Valsartan 160 mg PO Daily; HCTZ 12.5 mg PO Daily # Hyperlipidemia Continue Atorvastatin 20mg PO HS # FEN Continue IV NS @ 75 mls/hr Electrolytes: Creat-1.4; Lactic acid 2.7 Diabetic diet # Prophylaxis FoR DVT: On Heparin 5000 IU sq TID For GI: Not indicated # Code Status: Full Code # Dispo: Admitted in Med-Surg/Inpatient. Duration of stay unknown. Illness, Investigation and Plan of care explained to the patient. He verbalized understanding. Case seen and discussed with Dr. Cristina. Visit type - Emergency Visit Emergency Visit: Yes ED Registration Date: 07/10/17 Care time: The patient presented to the Emergency Department on the above date and was hospitalized for further evaluation of their emergent condition. - New Patient This patient is new to me today: Yes Date on this admission: 07/10/17 - Critical Care Critical Care patient: No Hospitalist Screening - Colonoscopy Questionnaire Colonoscopy Questionnaire: Colonoscopy Questionnaire - Patient: 50 - 75 years old and never had a screening colonoscopy: Unknown History of colon or rectal polyps, or CA: Unknown History of IBD, Crohn's disease or UC: Unknown History of abdominal radiation therapy as a child: Unknown - Relative: 1 with colon or rectal CA, or polyps at age 60 or younger: Unknown Colon or rectal CA diagnosed at age 45 or younger: Unknown Multiple relatives with colon or rectal CA: Unknown - Outcome: Screening Result: Negative Screen
[2017-07-10] MEDS ORDERED: PIPERACILLIN/TAZOB 3.375 GM 3.375 GM/50 ML BAG IVPB ONE (20:23)
--- NOTE | 2017-07-10 20:49 | PN ---
Teaching Attending Note Name of Resident: Belia York ATTENDING PHYSICIAN STATEMENT I saw and evaluated the patient. I reviewed the resident's note and discussed the case with the resident. I agree with the resident's findings and plan as documented. SUBJECTIVE: PAtient return to hospital c/o diarrhea and abdominal pain after discharge. Patient was admitted and treated for osteomyelitis and sent home on Zosyn with PICC line, patient states that he had some prickly sensation while taking the medication at home but denied having rash or pruiritus. Stool described as wattery. OBJECTIVE: GEN: moderate distress, restless HEENT: NC, PERRLA, EOMI, MMM LUNGS: CTA ABD: soft, NT, BS+ Ext: right arm picc line, nl rom, no edema Skin: neck, upper thighs and arms with erythema, no wheals CBCD WBC 11.3 K/mm3 (4.0-10.0) H D 07/10/17 16:45 RBC 4.13 M/mm3 (4.00-5.60) 07/10/17 16:45 Hgb 12.5 GM/dL (11.7-16.9) 07/10/17 16:45 Hct 36.7 % (35.4-49) 07/10/17 16:45 MCV 89.0 fl (80-96) 07/10/17 16:45 MCHC 34.0 g/dl (32.0-35.9) 07/10/17 16:45 RDW 13.9 % (11.9-15.9) 07/10/17 16:45 Plt Count 271 K/MM3 (134-434) D 07/10/17 16:45 MPV 8.7 fl (7.5-11.1) 07/10/17 16:45 CMP Sodium 140 mmol/L (136-145) 07/10/17 16:45 Potassium 4.7 mmol/L (3.5-5.1) 07/10/17 16:45 Chloride 105 mmol/L (98-107) 07/10/17 16:45 Carbon Dioxide 24 mmol/L (21-32) 07/10/17 16:45 Anion Gap 11 (8-16) 07/10/17 16:45 BUN 27 mg/dL (7-18) H D 07/10/17 16:45 Creatinine 1.4 mg/dL (0.7-1.3) H D 07/10/17 16:45 Creat Clearance w eGFR 49.82 (>60) 07/10/17 16:45 Random Glucose 198 mg/dL (74-106) H 07/10/17 16:45 Calcium 8.7 mg/dL (8.5-10.1) 07/10/17 16:45 Total Bilirubin 0.8 mg/dL (0.2-1.0) 07/10/17 16:45 AST 27 U/L (15-37) D 07/10/17 16:45 ALT 34 U/L (12-78) D 07/10/17 16:45 Alkaline Phosphatase 393 U/L (45-117) H 07/10/17 16:45 Total Protein 6.4 g/dl (6.4-8.2) 07/10/17 16:45 Albumin 3.1 g/dl (3.4-5.0) L 07/10/17 16:45 CARDIAC ENZYMES Troponin I < 0.02 ng/ml (0.00-0.05) 07/10/17 16:45 ASSESSMENT AND PLAN: Diarrhea most likely secondary to antibiotic use, c diff unlikely as patient only had 2 bowel movements and was recently evaluated for C Diff and ruled out 2 days prior. Follow stool studies. No contact isolation deemed necessary at this time. Osteomyelitis continue zosyn but then stopped for allergic reaction and treated with solumedrol, benadryl and calamine lotion . PICC line flushed and separate IV line started. ID consult for antibiotic recommendations. AMBER stage 1 IVF and repeat BMP in am. Patient give ativan for restlessness.
[2017-07-10] MEDS: INSULIN SLIDING SCALE (NOVOLOG) 1 VIAL SQ SCH (23:50)
[2017-07-10] MEDS: ATORVASTATIN CA 40 MG TABLET (FP) PO SCH (23:50)
[2017-07-10] MEDS: SODIUM CHLORIDE 1,000 ML IV SCH (23:51)
--- NOTE | 2017-07-11 00:16 | HOSP ---
Subjective - Review of Symptoms Subjective: Was paged to the bedside by the nurse for patient itching and development of a rash. On arrival, the patient appeared to be extremely fidgety, complaining of itching "all over my body." The patient's vitals at this time were stable: BP 139/55 HR 97 saturation 100%. No stridor, no shortness of breath, no tongue swelling, no face swelling. There was a diffuse, erythematous, maculopapular rash over the patients arms, legs and the back of his neck. -25mg Benadryl administered without relief -60mg solu-medrol and 150mg zantac administered. 00:56: patient continues to itch. BP in 150's. No wheezing no stridor. Gave additional 25mg benadryl 01:15: itching subsiding, but patient continues to complain of "pins and needles " as well as restlessness 02:00: itching resumes patient still restless. Pt assessed at bedside w/ Dr. Cristina. Patient agitated, restless. -ordered another 50mg bendryl IV -ordered topical calamine lotion -ordered 1mg IV lorazapam Physical Examination Vital Signs: Vital Signs Temperature 98.1 F 07/10/17 20:36 Pulse Rate 62 07/10/17 20:36 Respiratory Rate 20 07/10/17 20:36 Blood Pressure 120/60 07/10/17 20:36 O2 Sat by Pulse Oximetry (%) 100 07/10/17 20:36 Constitutional: Yes: Well Nourished, Anxious HENT: Yes: Atraumatic, Normocephalic Cardiovascular: Yes: Regular Rate and Rhythm, S1, S2 Respiratory: Yes: Regular, CTA Bilaterally Gastrointestinal: Yes: Normal Bowel Sounds, Soft Integumentary: Yes: Rash (erythematous, maculopapular rash over all 4 extermities, the trunk and the back of the patient's neck) Labs: CBC, BMP 07/10/17 16:45 07/10/17 16:45 Visit type - Emergency Visit Emergency Visit: Yes ED Registration Date: 07/10/17 Care time: The patient presented to the Emergency Department on the above date and was hospitalized for further evaluation of their emergent condition. - New Patient This patient is new to me today: Yes Date on this admission: 07/11/17 - Critical Care Critical Care patient: No
[2017-07-11] MEDS ORDERED: methylPREDNISolone NA SUCC 125 MG/2 ML VIAL ONE (00:20)
[2017-07-11] MEDS ORDERED: RANITIDINE HCL 150 MG TABLET (FP) PO ONE (00:25)
[2017-07-11] MEDS ORDERED: predniSONE 20 MG TABLET (UD) PO ONE (00:25)
[2017-07-11] MEDS ORDERED: methylPREDNISolone NA SUCC 40 MG/1 ML VIAL IVPUSH ONE (00:30)
[2017-07-11] MEDS ORDERED: CALAMINE 8% TOPICAL LOTION 177 ML BOTTLE TP PRN (02:06)
[2017-07-11] MEDS ORDERED: PIPERACILLIN/TAZOB 3.375 GM 3.375 GM in DEXTROSE 5%-WATER - 50 ML IVPB ONE (03:00)
[2017-07-11 04:34] VITALS: BMI 29.5
[2017-07-11] MEDS: HEPARIN NA (PORCINE) 5,000 UNITS/ML 1ML VIAL SQ SCH ×3 (06:26→21:03)
[2017-07-11] MEDS: INSULIN SLIDING SCALE (NOVOLOG) 1 VIAL SQ SCH ×4 (06:26→21:03)
[2017-07-11 07:30] LABS: BASO % 0.3 % (0-2.0); EOS % 1.3 % (0-4.5); HEMATOCRIT 34.1 % (35.4-49); HEMOGLOBIN 11.7 GM/dL (11.7-16.9); LYMPH % 4.3 % (8-40); MCH 30.5 pg (25.7-33.7); MCHC 34.2 g/dl (32.0-35.9); MEAN CELL VOLUME 89.3 fl (80-96); MEAN PLT VOLUME 9.2 fl (7.5-11.1); MONO % 2.6 % (3.8-10.2); NEUT % 91.5 % (42.8-82.8); PLATELET COUNT 287 K/MM3 (134-434); RBC 3.83 M/mm3 (4.00-5.60); RDW 14.1 % (11.9-15.9); WHITE BLOOD COUNT 9.7 K/mm3 (4.0-10.0)
--- NOTE | 2017-07-11 07:56 | PN ---
Physical Exam: 24H Events: O/N: Rash during Zosyn infusion last night with puritic rash s/p Benadryl 25mg IVP x2 + Solumedrol 60mg IV + Ativan 1mg IVP SUBJECTIVE: Patient seen and examined. Denies any current itching, tongue swelling; no abdominal pain, denies fever, chills, n/v, CP, GAFFNEY, dizziness. 1xBM loose BM yesterday. OBJECTIVE: Vital Signs Period Temp Pulse Resp BP Sys/Ferreira Pulse Ox Last 24 Hr 97.3 F-101.3 F 58-76 18-20 118-139/57-65 94-100 General: groggy, but aaox3, nad HEENT: sclera anicteric, conjuctiva clear, mmm Heart: rrr, normal s1/s2 Lungs: CTAB Abd: soft, obese, ntnd Ext: b/l petechial rash over lower extremities and anterior trunk, unchanged from prior admission; L toe healing well; no erythema or ttp CBC, BMP 07/11/17 06:30 07/11/17 06:30 Hepatic Panel Total Bilirubin 0.6 mg/dL (0.2-1.0) D 07/11/17 06:30 AST 20 U/L (15-37) D 07/11/17 06:30 ALT 27 U/L (12-78) D 07/11/17 06:30 Alkaline Phosphatase 313 U/L (45-117) H D 07/11/17 06:30 Albumin 2.8 g/dl (3.4-5.0) L 07/11/17 06:30 Microbiology 07/10/17 23:25 Stool Clostridium difficile Antigen (PRINCESS) - NEG 07/10/17 23:25 Stool Clostridium difficile Toxin Assay - NEG 07/09/17 11:15 Stool Clostridium difficile Antigen (PRINCESS) - NEG 07/09/17 11:15 Stool Clostridium difficile Toxin Assay - NEG 07/07/17 20:59 Blood - Picc Line Blood Culture - Preliminary NO GROWTH OBTAINED AFTER 72 HOURS, INCUBATION TO CONTINUE FOR 2 DAYS. 07/07/17 20:59 Blood - Picc Line Blood Culture - Preliminary NO GROWTH OBTAINED AFTER 72 HOURS, INCUBATION TO CONTINUE FOR 2 DAYS. 07/07/17 18:25 Blood - Peripheral Venous Blood Culture - Preliminary NO GROWTH OBTAINED AFTER 72 HOURS, INCUBATION TO CONTINUE FOR 2 DAYS. 07/07/17 17:45 Blood - Peripheral Venous Blood Culture - Preliminary NO GROWTH OBTAINED AFTER 72 HOURS, INCUBATION TO CONTINUE FOR 2 DAYS. Active Medications Amlodipine Besylate (Norvasc -) 10 mg PO DAILY [facility] Last Admin: 07/11/17 09:50 Dose: 10 mg Atorvastatin Calcium (Lipitor -) 20 mg PO HS [facility] Last Admin: 07/10/17 23:50 Dose: 20 mg Calamine (Calamine 8% Topical Lotion -) 1 applic TP TID PRN PRN Reason: FOR ITCHING Diphenhydramine HCl (Benadryl Injection -) 50 mg IVPB Q6H PRN PRN Reason: FOR ITCHING Heparin Sodium (Porcine) (Heparin -) 5,000 unit SQ TID [facility] Last Admin: 07/11/17 06:26 Dose: 5,000 unit Sodium Chloride (Normal Saline -) 1,000 mls @ 75 mls/hr IV ASDIR [facility] Last Admin: 07/10/17 23:51 Dose: 75 mls/hr Insulin Aspart (Novolog Vial Sliding Scale -) 1 vial SQ ACHS [facility] PRN Reason: Protocol Last Admin: 07/11/17 06:26 Dose: 4 units Insulin Aspart (Novolog Vial) 10 units SQ TIDAC [facility] PRN Reason: Protocol ASSESSMENT/PLAN: 71yo man with PMH of poorly controlled IDDM (A1c 9.4%), HTN, HLD, and recently diagnosed with osteomyelitis (wound cx E. faecalis), on Zosyn via PICC who was last here for elevated BGM and temperature from 07/07- who presents again with Tmax 101.3 and watery, non-bloody diarrhea and overnight event of possible Zosyn allergic reaction. #watery, non-bloody diarrhea with fever (Tmax 101.3), C diff neg (07/09 and 07/10) , toe healing well, Blood and PICC cultures NGTD, symptomatology may be non- infectious ? 2/2 Zosyn allergic reaction -will hold Zosyn for now and d/w ID -f/u stool studies sent #AMBER, likely 2/2 dehydration (Cr 1.4 today) -Hold Valsartan 160 mg PO Daily and HCTZ 12.5 mg PO -IVF NS@75cc/hr -f/u Urine lytes to calculate FeNa #IDDM - BGM/ISS + Levemir 10U TIDAC #HTN- c/w home amlodipine 10 mg PO Daily; hold valsartan/hctz #HLD - c/w lipitor 20mg PO HS #FEN NS@75cc lytes wnl DM diet #PPX DVT: Hep TID #DISPO: M/S FULL code d/w Dr. Kirsten Veloz MD PGY1 - Internal Medicine Visit type - Emergency Visit Emergency Visit: No - New Patient This patient is new to me today: Yes Date on this admission: 07/11/17 - Critical Care Critical Care patient: No
[2017-07-11 08:51] LABS: CHLORIDE 105 mmol/L (98-107); POTASSIUM 4.8 mmol/L (3.5-5.1); SODIUM 139 mmol/L (136-145)
[2017-07-11 09:18] LABS: ALBUMIN 2.8 g/dl (3.4-5.0); ALK PHOS 313 U/L (45-117); ANION GAP 12 (8-16); BILIRUBIN,TOTAL 0.6 mg/dL (0.2-1.0); BLOOD UREA NITROGEN 29 mg/dL (7-18); CALCIUM 8.4 mg/dL (8.5-10.1); CO2 22 mmol/L (21-32); CREATININE 1.4 mg/dL (0.7-1.3); GLUCOSE,RANDOM 291 mg/dL (74-106); MAGNESIUM 2.1 mg/dL (1.8-2.4); PHOSPHOROUS 3.4 mg/dL (2.5-4.9); SGOT/AST 20 U/L (15-37); SGPT/ALT 27 U/L (12-78); TOT PROT 5.8 g/dl (6.4-8.2)
[2017-07-11] MEDS: amLODIPine BESYLATE 10 MG TABLET (FP) PO SCH (09:50)
[2017-07-11] MEDS ORDERED: HYDROCHLOROTHIAZIDE 12.5 MG CAPSULE (FP) PO SCH (10:00)
[2017-07-11] MEDS ORDERED: VALSARTAN 160 MG TABLET (UD) PO SCH (10:00)
--- NOTE | 2017-07-11 11:23 | PN ---
Teaching Attending Note Name of Resident: Nohelia Veloz ATTENDING PHYSICIAN STATEMENT I saw and evaluated the patient. I reviewed the resident's note and discussed the case with the resident. I agree with the resident's findings and plan as documented with exceptions below. SUBJECTIVE: Patient seen and examined. denies any itching, rash much better. No nausea, vomiting or abdominal pain. Denies diarrhea this AM. OBJECTIVE: Vital Signs Period Temp Pulse Resp BP Sys/Ferreira Pulse Ox Last 24 Hr 97.3 F-101.3 F 58-76 18-20 118-139/57-65 94-100 Intake & Output 07/08/17 07/09/17 07/10/17 07/11/17 23:59 23:59 23:59 23:59 Intake Total 1000 450 Balance 1000 450 Weight 194 lb 6.4 oz General: lying in bed in no acute distress Skin: mild petechial rash generalized over extremities/trunck, no erythema or maculopapular character noted on exam, non pruritic currently (much improved per patient) Abdomen: soft, NT, ND, positive bowel sounds Extremities: no edema, left toe healing well, findings unchanged from recent exam Home Medication List Medication Instructions Recorded Confirmed Type Atorvastatin Ca [Lipitor] 20 mg PO HS 08/30/15 07/11/17 History Insulin Aspart [Novolog] 0 unit SQ ASDIR 06/08/17 07/11/17 History Hydrochlorothiazide [Hctz -] 12.5 mg PO DAILY 07/08/17 07/11/17 History Sitagliptin Phos/Metformin HCl 1 each PO AM 07/11/17 07/11/17 History [Janumet 50-1,000 mg Tablet] Active Medications Generic Name Dose Route Start Last Admin Trade Name Freq PRN Reason Stop Dose Admin Amlodipine Besylate 10 mg 07/11/17 10:00 07/11/17 09:50 Norvasc - PO 10 mg DAILY JASMINE Administration Atorvastatin Calcium 20 mg 07/10/17 22:00 07/10/17 23:50 Lipitor - PO 20 mg HS JASMINE Administration Calamine 1 applic 07/11/17 02:06 Calamine 8% Topical Lotion - TP TID PRN FOR ITCHING Diphenhydramine HCl 50 mg 07/11/17 02:05 Benadryl Injection - IVPB Q6H PRN FOR ITCHING Heparin Sodium (Porcine) 5,000 unit 07/11/17 06:00 07/11/17 06:26 Heparin - SQ 5,000 unit TID JASMINE Administration Hydrochlorothiazide 12.5 mg 07/11/17 10:00 07/11/17 09:50 Hctz - PO 12.5 mg DAILY JASMINE Administration Sodium Chloride 1,000 mls @ 75 mls/hr 07/10/17 19:30 07/10/17 23:51 Normal Saline - IV 75 mls/hr ASDIR JASMINE Administration Insulin Aspart 1 vial 07/10/17 22:00 07/11/17 06:26 Novolog Vial Sliding Scale - SQ 4 units ACHS JASMINE Administration Protocol Insulin Aspart 10 units 07/11/17 11:15 Novolog Vial SQ TIDAC [facility] Protocol Valsartan 160 mg 07/11/17 10:00 07/11/17 09:50 Diovan - PO 160 mg DAILY JASMINE Administration Laboratory Results - last 24 hr 07/10/17 07/10/17 07/10/17 16:45 16:45 16:45 WBC 11.3 H D RBC 4.13 Hgb 12.5 Hct 36.7 MCV 89.0 MCH 30.3 MCHC 34.0 RDW 13.9 Plt Count 271 D MPV 8.7 Neutrophils % 87.9 H D Lymphocytes % 1.2 L D Monocytes % 6.9 Eosinophils % 3.6 Basophils % 0.4 PT with INR 11.80 INR 1.04 PTT (Actin FS) 25.9 L VBG pH 7.32 POC VBG pCO2 48.7 POC VBG pO2 25.2 L Mixed VBG HCO3 24.2 Sodium Potassium Chloride Carbon Dioxide Anion Gap BUN Creatinine Creat Clearance w eGFR POC Glucometer Random Glucose Lactic Acid Calcium Phosphorus Magnesium Total Bilirubin AST ALT Alkaline Phosphatase Troponin I Total Protein Albumin Acetone, Qual 07/10/17 07/10/17 07/10/17 16:45 16:45 16:45 WBC RBC Hgb Hct MCV MCH MCHC RDW Plt Count MPV Neutrophils % Lymphocytes % Monocytes % Eosinophils % Basophils % PT with INR INR PTT (Actin FS) VBG pH POC VBG pCO2 POC VBG pO2 Mixed VBG HCO3 Sodium 140 Potassium 4.7 Chloride 105 Carbon Dioxide 24 Anion Gap 11 BUN 27 H D Creatinine 1.4 H D Creat Clearance w eGFR 49.82 POC Glucometer Random Glucose 198 H Lactic Acid 2.7 H* Calcium 8.7 Phosphorus Magnesium Total Bilirubin 0.8 AST 27 D ALT 34 D Alkaline Phosphatase 393 H Troponin I < 0.02 Total Protein 6.4 Albumin 3.1 L Acetone, Qual 07/10/17 07/10/17 07/10/17 16:45 20:30 23:36 WBC RBC Hgb Hct MCV MCH MCHC RDW Plt Count MPV Neutrophils % Lymphocytes % Monocytes % Eosinophils % Basophils % PT with INR INR PTT (Actin FS) VBG pH POC VBG pCO2 POC VBG pO2 Mixed VBG HCO3 Sodium Potassium Chloride Carbon Dioxide Anion Gap BUN Creatinine Creat Clearance w eGFR POC Glucometer 269 Random Glucose Lactic Acid 1.4 Calcium Phosphorus Magnesium Total Bilirubin AST ALT Alkaline Phosphatase Troponin I Total Protein Albumin Acetone, Qual Positive small 1+ 07/11/17 07/11/17 07/11/17 05:45 06:30 06:30 WBC 9.7 RBC 3.83 L Hgb 11.7 Hct 34.1 L MCV 89.3 MCH 30.5 MCHC 34.2 RDW 14.1 Plt Count 287 MPV 9.2 Neutrophils % 91.5 H Lymphocytes % 4.3 L D Monocytes % 2.6 L Eosinophils % 1.3 Basophils % 0.3 PT with INR INR PTT (Actin FS) VBG pH POC VBG pCO2 POC VBG pO2 Mixed VBG HCO3 Sodium 139 Potassium 4.8 Chloride 105 Carbon Dioxide 22 Anion Gap 12 BUN 29 H Creatinine 1.4 H Creat Clearance w eGFR 49.82 POC Glucometer 244 Random Glucose 291 H D Lactic Acid Calcium 8.4 L Phosphorus 3.4 Magnesium 2.1 Total Bilirubin 0.6 D AST 20 D ALT 27 D Alkaline Phosphatase 313 H D Troponin I Total Protein 5.8 L Albumin 2.8 L Acetone, Qual 07/11/17 10:40 WBC RBC Hgb Hct MCV MCH MCHC RDW Plt Count MPV Neutrophils % Lymphocytes % Monocytes % Eosinophils % Basophils % PT with INR INR PTT (Actin FS) VBG pH POC VBG pCO2 POC VBG pO2 Mixed VBG HCO3 Sodium Potassium Chloride Carbon Dioxide Anion Gap BUN Creatinine Creat Clearance w eGFR POC Glucometer 377 Random Glucose Lactic Acid Calcium Phosphorus Magnesium Total Bilirubin AST ALT Alkaline Phosphatase Troponin I Total Protein Albumin Acetone, Qual Microbiology 07/10/17 23:25 Stool Clostridium difficile Antigen (PRINCESS) - Final 07/10/17 23:25 Stool Clostridium difficile Toxin Assay - Final CT A/P results reviewed ASSESSMENT AND PLAN: 72 yom with PMHx of IDDM, left toe osteomyelitis on zosyn, (d/twan on 5 weeks course on 06/11/2017), recently admitted with hyperglycemia/diarrhea, neg Stool C difficile readmitted with ongoing diarrhea, found with fevers, also overnight concerns of ?allergic reaction to zosyn. -SIRS, ?drug reaction, vs diarrhea from viral gastroenteritis -?Allergic reaction to zosyn. -Left great toe osteomylitis s/p PICC -IDDM PLan: Discussed with Dr. Kaufman, will follow up for antibiotics recs, ?Daptomycin. No further high grade fevers. blood cx from 07/11 and from 07/07 (PICC and periphery) neg so far. No new wound concerns. CT A/P non concerning. Stool C difficile recently neg, no concerning diarrhea to give sample, making it less likely. PO as tolerated. Hold off on additional antibiotics for now. Resume premeal novolog at 10 units TID, ISS, diabetic diet. Diabetic education provided on recent admit. Dispo planning in 24-48 hours pending ID input, clinical improvement. Plan discussed with patient in detail, all questions answered.
--- NOTE | 2017-07-11 11:32 | EKG ---
Test Reason : Blood Pressure : / mmHG Vent. Rate : 087 BPM Atrial Rate : 087 BPM P-R Int : 136 ms QRS Dur : 090 ms QT Int : 352 ms P-R-T Axes : 052 -59 015 degrees QTc Int : 423 ms SINUS RHYTHM WITH PREMATURE ATRIAL COMPLEXES LEFT AXIS DEVIATION INFERIOR INFARCT , AGE UNDETERMINED ABNORMAL ECG WHEN COMPARED WITH ECG OF 07-JUL-2017 16:17, PREMATURE ATRIAL COMPLEXES ARE NOW PRESENT INFERIOR INFARCT IS NOW PRESENT Confirmed by MARTÍN CONNER MD ([id number]) on 07/11/2017 11:31:39 AM Referred By: Confirmed By:MARTÍN CONNER MD
[2017-07-11] MEDS: INSULIN (NOVOLOG) ASPART 100 UNITS/ML 10ML VIAL SQ SCH ×2 (12:16→17:18)
--- NOTE | 2017-07-11 12:28 | CON.ID ---
Consult - History of Present Illness History of Present Illness: Asked to evaluate this 72 y.o. male with PMH of HTN, uncontrolled IDDM who was diagnosed with Rt 1st toe OM and discharged on Zosyn on previous admission. Pt now presents with c/o diarrhea (multiple loose stools) without abdominal pain and noted to have fever of 101.3F and elevated lactate level. Given dose of Zosyn in ER but developed a generalized erythematous rash with pruritis last night. Pt currently without c/o diarrhea or abd pain. Has no other specific complaints. Denies dysuria, shortness of breath/cough, chest pain, foot pain. - History Source History Provided By: Patient Limitations to Obtaining History: No Limitations - Past Medical History Cardio/Vascular: Yes: HTN, Hyperlipdemia Infectious Disease: Yes: Other (Rt toe OM) Endocrine: Yes: Diabetes Mellitus - Alcohol/Substance Use Hx Alcohol Use: No - Smoking History Smoking history: Never smoked Have you smoked in the past 12 months: No Home Medications - Allergies Allergies/Adverse Reactions: Allergies Allergy/AdvReac Type Severity Reaction Status Date / Time Sulfa (Sulfonamide Allergy Severe Vomiting Verified 07/10/17 15:43 Antibiotics) piperacillin [From Zosyn] Allergy Intermediate Itching Verified 07/11/17 00:36 tazobactam [From Zosyn] Allergy Intermediate Itching Verified 07/11/17 00:36 - Home Medications Home Medications: Ambulatory Orders Atorvastatin Ca [Lipitor] 20 mg PO HS 08/30/15 Insulin Aspart [Novolog] 0 unit SQ ASDIR 06/08/17 Amlodipine Besylate [Norvasc -] 10 mg PO DAILY #30 tablet 06/12/17 Piperacillin/Tazob 3.375 gm [Zosyn -] 3.375 gm IVPB Q8H-IV vial 06/12/17 Valsartan [Diovan] 160 mg PO DAILY #30 tablet 06/12/17 Hydrochlorothiazide [Hctz -] 12.5 mg PO DAILY 07/08/17 Sitagliptin Phos/Metformin HCl [Janumet 50-1,000 mg Tablet] 1 each PO AM Review of Systems - Review of Systems Constitutional: denies: No Symptoms, Chills, Diaphoresis, Fever, Lethargy, Loss of Appetite, Malaise, Night Sweats, Unintentional Wgt. Loss, Weakness, Other Eyes: denies: No Symptoms, Blind Spots, Blurred Vision, Double Vision, Eye Pain , Floaters, Photophobia, Recent Change in Vision, Other HENT: denies: No Symptoms, Difficult Swallowing, Ear Discharge, Ear Pain, Epistaxis, Gingival Bleeding, Hearing Loss, Mouth Swelling, Nasal Congestion, Ocular Prosthesis, Throat Pain, Toothache, Ringing in Ears, Other Neck: denies: No Symptoms, Decreased ROM, Lumps, Pain on Movement, Stiffness, Swollen Glands, Tenderness, Other Cardiovascular: denies: No Symptoms, Chest Pain, Edema, Palpitations, Shortness of Breath, Other Respiratory: denies: No Symptoms, Cough, Exercise Intolerance, Hemoptysis, Orthopnea, PND, Snoring, SOB, SOB on Exertion, Wheezing, Other Gastrointestinal: reports: Diarrhea (no loose stools today) Genitourinary: reports: No Symptoms Musculoskeletal: reports: No Symptoms. denies: Back Pain, Crepitus, Decreased ROM, Extremity Pain, Joint Pain, Joint Swelling, Muscle Pain, Muscle Cramps, Muscle Weakness, Other Integumentary: reports: No Symptoms, Rash (generalized erythematous maculopapular - faint currently) Neurological: reports: No Symptoms. denies: Change in LOC, Change in Speech, Confusion, Dizziness, Headache, Incoordination, Numbness, Parasthesia, Pre- Existing Deficit, Seizure, Syncope, Tremors, Unsteady Gait, Weakness, Other Endocrine: reports: No Symptoms. denies: Excessive Sweating, Flushing, Increased Hunger, Increased Thirst, Intolerance to Cold, Intolerance to Heat, Unexplained Weight Gain, Unexplained Weight Loss, Other Hematology/Lymphatic: reports: No Symptoms. denies: Easily Bruised, Excessive Bleeding, Swollen Glands, Other Psychiatric: denies: No Symptoms, Altered Sleep Pattern, Anxiety, Depression, Hallucinations, Panic, Paranoia, Suicidal, Other Physical Exam Vital Signs: Vital Signs Temperature 97.5 F L 07/11/17 06:00 Pulse Rate 69 07/11/17 06:00 Respiratory Rate 20 07/11/17 06:00 Blood Pressure 128/65 07/11/17 06:00 O2 Sat by Pulse Oximetry (%) 97 07/10/17 23:15 Constitutional: Yes: No Distress, Calm HENT: Yes: Atraumatic Neck: Yes: WNL Cardiovascular: Yes: Regular Rate and Rhythm Respiratory: Yes: CTA Bilaterally Gastrointestinal: Yes: Normal Bowel Sounds, Soft Renal/: Yes: WNL Musculoskeletal: Yes: Other (Rt 1st toe erythema, mild edema, no tenderness, no fluctuance/drainage) Edema: Yes Integumentary: Yes: Rash (mild generalized erythema) Neurological: Yes: Alert, Oriented Psychiatric: Yes: Alert Labs: CBC, BMP 07/11/17 06:30 07/11/17 06:30 Microbiology 07/10/17 23:25 Stool Clostridium difficile Antigen (PRINCESS) - Final 07/10/17 23:25 Stool Clostridium difficile Toxin Assay - Final Blood/ urine cultures pending Lactate: 2.7 --> 1.4 Imaging - Results Cat Scan: Report Reviewed Problem List - Problems (1) Diarrhea Code(s): R19.7 - DIARRHEA, UNSPECIFIED (2) Diabetes Code(s): E11.9 - TYPE 2 DIABETES MELLITUS WITHOUT COMPLICATIONS (3) HTN (hypertension) Code(s): I10 - ESSENTIAL (PRIMARY) HYPERTENSION (4) Osteomyelitis Code(s): M86.9 - OSTEOMYELITIS, UNSPECIFIED Assessment/Plan 72 y.o. male with history of uncontrolled IDDM, HTN, and Rt 1st toe OM receiving Zosyn at home presenting with c/o diarrhea, fever, elevated lactate. Developed generalized rash last night Rt 1st Toe OM (enterococcus isolated on previous admission) -- Vancomycin PRINCESS high Rash - possible delayed reaction to Zosyn, improving Diarrhea - resolved, CDT (-) Fever - resolved, wbc now normal Uncontrolled IDDM suggest Daptomycin IV for now, will clarify duration of tx needed check ck level f/u blood/urine culture results needs tight glycemic control continue monitor temps/vitals Thank you
[2017-07-11 14:24] LABS: URINE APPEARANCE CLEAR; URINE BILIRUBIN NEGATIVE (<2.0 mg/dL); URINE COLOR LTYELLOW; URINE GLUCOSE (UA) 3+ (NEGATIVE); URINE KETONE 1+ (NEGATIVE); URINE LEUK ESTERASE NEGATIVE (NEGATIVE); URINE NITRITE NEGATIVE (NEGATIVE); URINE PROTEIN NEGATIVE (NEGATIVE); URINE UROBILINOGEN NEGATIVE mg/dL (0.2-1.0)
[2017-07-11] MEDS: DAPTOMYCIN 500 MG in SODIUM CHLORIDE 50 ML IVPB SCH (17:12)
[2017-07-11] MEDS ORDERED: INSULIN (NOVOLOG) ASPART 100 UNITS/ML 10ML VIAL ONE ×2 (17:50→20:38)
[2017-07-11] MEDS ORDERED: PT OWN MED DRAWER 7, Y5N ONE (17:50)
[2017-07-11] MEDS: MAG HYDROX/AL HYDROX/SIMETH 30 ML UNIT-DOSE CUP PO PRN (18:03)
[2017-07-11] MEDS: ATORVASTATIN CA 40 MG TABLET (FP) PO SCH (21:03)
[2017-07-11] MEDS: SODIUM CHLORIDE 1,000 ML IV SCH (21:03)
[2017-07-11] MEDS: HYDROCORTISONE 1% TOPICAL CREAM 30 GM TUBE TP PRN (21:06)
[2017-07-11] MEDS ORDERED: MELATONIN 5 MG TABLETS PO ONE (21:29)
[2017-07-12] MEDS: INSULIN (NOVOLOG) ASPART 100 UNITS/ML 10ML VIAL SQ SCH ×3 (06:31→18:19)
[2017-07-12] MEDS: INSULIN SLIDING SCALE (NOVOLOG) 1 VIAL SQ SCH ×4 (06:31→21:44)
[2017-07-12] MEDS: HEPARIN NA (PORCINE) 5,000 UNITS/ML 1ML VIAL SQ SCH ×3 (06:31→21:36)
[2017-07-12 07:47] LABS: BASO % 0.3 % (0-2.0); EOS % 3.5 % (0-4.5); HEMATOCRIT 32.3 % (35.4-49); HEMOGLOBIN 11.1 GM/dL (11.7-16.9); LYMPH % 13.9 % (8-40); MCH 30.6 pg (25.7-33.7); MCHC 34.3 g/dl (32.0-35.9); MEAN CELL VOLUME 89.1 fl (80-96); MEAN PLT VOLUME 9.1 fl (7.5-11.1); MONO % 12.7 % (3.8-10.2); NEUT % 69.6 % (42.8-82.8); PLATELET COUNT 313 K/MM3 (134-434); RBC 3.63 M/mm3 (4.00-5.60); RDW 14.2 % (11.9-15.9); WHITE BLOOD COUNT 9.8 K/mm3 (4.0-10.0)
[2017-07-12 08:37] LABS: CHLORIDE 108 mmol/L (98-107); POTASSIUM 4.7 mmol/L (3.5-5.1); SODIUM 140 mmol/L (136-145)
[2017-07-12 08:47] LABS: ANION GAP 7 (8-16); BLOOD UREA NITROGEN 28 mg/dL (7-18); CO2 25 mmol/L (21-32); CREATININE 1.3 mg/dL (0.7-1.3); GLUCOSE,RANDOM 265 mg/dL (74-106)
[2017-07-12] MEDS ORDERED: PT OWN MED DRAWER 7, Y5N ONE (09:49)
[2017-07-12] MEDS: amLODIPine BESYLATE 10 MG TABLET (FP) PO SCH (10:11)
[2017-07-12] MEDS: DAPTOMYCIN 500 MG in SODIUM CHLORIDE 50 ML IVPB SCH (11:00)
--- NOTE | 2017-07-12 13:48 | PN ---
Teaching Attending Note Name of Resident: Comfort Curtis SUBJECTIVE: patient seen and examined. No complaints, diarrhea improved. No new itching or rash, fevers or chills. OBJECTIVE: Vital Signs Period Temp Pulse Resp BP Sys/Ferreira Pulse Ox Last 24 Hr 97.5 F-98.4 F 64-78 18-20 130-142/58-72 98-98 Intake & Output 07/09/17 07/10/17 07/11/17 07/12/17 23:59 23:59 23:59 23:59 Intake Total 1000 930 525 Output Total 800 Balance 1000 930 -275 Weight 194 lb 6.4 oz General: lying in bed in no acute distress Chest: CTAB, no rales or wheezing abdomen:soft, NT throughout, ND Extremities: no edema or rash, faint petechiae, non pruritic, unchanged, right great toe with swelling over distal half, non warm, non tender, no active bleed or discharge Home Medication List Medication Instructions Recorded Confirmed Type Atorvastatin Ca [Lipitor] 20 mg PO HS 08/30/15 07/11/17 History Insulin Aspart [Novolog] 0 unit SQ ASDIR 06/08/17 07/11/17 History Hydrochlorothiazide [Hctz -] 12.5 mg PO DAILY 07/08/17 07/11/17 History Sitagliptin Phos/Metformin HCl 1 each PO AM 07/11/17 07/11/17 History [Janumet 50-1,000 mg Tablet] Active Medications Generic Name Dose Route Start Last Admin Trade Name Freq PRN Reason Stop Dose Admin Al Hydroxide/Mg Hydroxide 30 ml 07/11/17 17:55 07/11/17 18:03 Mylanta Oral Suspension - PO 30 ml Q6H PRN Administration DYSPEPSIA Amlodipine Besylate 10 mg 07/11/17 10:00 07/12/17 10:11 Norvasc - PO 10 mg DAILY JASMINE Administration Atorvastatin Calcium 20 mg 07/10/17 22:00 07/11/17 21:03 Lipitor - PO 20 mg HS JASMINE Administration Calamine 1 applic 07/11/17 02:06 Calamine 8% Topical Lotion - TP TID PRN FOR ITCHING Diphenhydramine HCl 50 mg 07/11/17 02:05 Benadryl Injection - IVPB Q6H PRN FOR ITCHING Heparin Sodium (Porcine) 5,000 unit 07/11/17 06:00 07/12/17 06:31 Heparin - SQ 5,000 unit TID JASMINE Administration Hydrocortisone 1 applic 07/11/17 17:56 07/11/17 21:06 Hytone 1% Cream - TP 1 applic DAILY PRN Administration FOR ITCHING Sodium Chloride 1,000 mls @ 75 mls/hr 07/10/17 19:30 07/11/17 21:03 Normal Saline - IV 75 mls/hr ASDIR JASMINE Administration Daptomycin 500 mg/ Sodium 50 mls @ 50 mls/hr 07/11/17 12:45 07/12/17 11:00 Chloride IVPB 50 mls/hr DAILY JASMINE Administration Protocol Insulin Aspart 1 vial 07/10/17 22:00 07/12/17 12:00 Novolog Vial Sliding Scale - SQ 6 units ACHS COUNT INCLUDES THE [facility] Administration Protocol Insulin Aspart 10 units 07/11/17 11:15 07/12/17 12:00 Novolog Vial SQ 10 units TIDAC COUNT INCLUDES THE [facility] Administration Protocol Laboratory Results - last 24 hr 07/11/17 07/11/17 07/11/17 13:25 13:25 13:25 WBC RBC Hgb Hct MCV MCH MCHC RDW Plt Count MPV Neutrophils % Lymphocytes % Monocytes % Eosinophils % Basophils % Sodium Potassium Chloride Carbon Dioxide Anion Gap BUN Creatinine POC Glucometer Random Glucose Calcium Creatine Kinase Urine Color Ltyellow Urine Appearance Clear Urine pH 5.0 Ur Specific [place] 1.022 Urine Protein Negative Urine Glucose (UA) 3+ H Urine Ketones 1+ H Urine Blood Negative Urine Nitrite Negative Urine Bilirubin Negative Urine Urobilinogen Negative Ur Leukocyte Esterase Negative Ur Random Sodium 58 Ur Random Potassium 20.9 Ur Random Chloride 55 Urine Creatinine 69.4 07/11/17 07/11/17 07/12/17 17:02 20:36 06:08 WBC RBC Hgb Hct MCV MCH MCHC RDW Plt Count MPV Neutrophils % Lymphocytes % Monocytes % Eosinophils % Basophils % Sodium Potassium Chloride Carbon Dioxide Anion Gap BUN Creatinine POC Glucometer 389 212 262 Random Glucose Calcium Creatine Kinase Urine Color Urine Appearance Urine pH Ur Specific [place] Urine Protein Urine Glucose (UA) Urine Ketones Urine Blood Urine Nitrite Urine Bilirubin Urine Urobilinogen Ur Leukocyte Esterase Ur Random Sodium Ur Random Potassium Ur Random Chloride Urine Creatinine 07/12/17 07/12/17 07/12/17 06:25 06:25 06:25 WBC 9.8 RBC 3.63 L Hgb 11.1 L Hct 32.3 L MCV 89.1 MCH 30.6 MCHC 34.3 RDW 14.2 Plt Count 313 MPV 9.1 Neutrophils % 69.6 D Lymphocytes % 13.9 D Monocytes % 12.7 H D Eosinophils % 3.5 D Basophils % 0.3 Sodium 140 Potassium 4.7 Chloride 108 H Carbon Dioxide 25 Anion Gap 7 L BUN 28 H Creatinine 1.3 POC Glucometer Random Glucose 265 H Calcium 8.0 L Creatine Kinase 72 Cancelled Urine Color Urine Appearance Urine pH Ur Specific [place] Urine Protein Urine Glucose (UA) Urine Ketones Urine Blood Urine Nitrite Urine Bilirubin Urine Urobilinogen Ur Leukocyte Esterase Ur Random Sodium Ur Random Potassium Ur Random Chloride Urine Creatinine 07/12/17 12:20 WBC RBC Hgb Hct MCV MCH MCHC RDW Plt Count MPV Neutrophils % Lymphocytes % Monocytes % Eosinophils % Basophils % Sodium Potassium Chloride Carbon Dioxide Anion Gap BUN Creatinine POC Glucometer 282 Random Glucose Calcium Creatine Kinase Urine Color Urine Appearance Urine pH Ur Specific [place] Urine Protein Urine Glucose (UA) Urine Ketones Urine Blood Urine Nitrite Urine Bilirubin Urine Urobilinogen Ur Leukocyte Esterase Ur Random Sodium Ur Random Potassium Ur Random Chloride Urine Creatinine Microbiology 07/10/17 16:45 Blood - Peripheral Venous Blood Culture - Preliminary NO GROWTH OBTAINED AFTER 24 HOURS, INCUBATION TO CONTINUE FOR 4 DAYS. 07/10/17 16:45 Blood - Peripheral Venous Blood Culture - Preliminary NO GROWTH OBTAINED AFTER 24 HOURS, INCUBATION TO CONTINUE FOR 4 DAYS. 07/10/17 23:25 Stool Clostridium difficile Antigen (PRINCESS) - Final 07/10/17 23:25 Stool Clostridium difficile Toxin Assay - Final ASSESSMENT AND PLAN: 72 yom with PMHx of IDDM, left toe osteomyelitis on zosyn, (d/twan on 5 weeks course on 06/11/2017), recently admitted with hyperglycemia/diarrhea, neg Stool C difficile readmitted with ongoing diarrhea, found with fevers, also overnight concerns of ?allergic reaction to zosyn. -SIRS, ?drug reaction, vs diarrhea from viral gastroenteritis -?Allergic reaction to zosyn. -Left great toe osteomylitis s/p PICC -IDDM PLan: Daptomycin day 2, Plan for 5 weeks of antibiotics from 06/11 per ID notes from recent admission. CPK WNL. Hold statin while on daptomycin. No further high grade fevers. blood cx from 07/11 and from 07/07 (PICC and periphery) neg so far. No new wound concerns. CT A/P non concerning. Stool C difficile recently neg, no concerning diarrhea to give sample, making it less likely. PO as tolerated. Hold off on additional antibiotics for now. Increase premeal novolog to 12 units TID, ISS, diabetic diet. Diabetic education provided on recent admit. Dispo planning in 24 hours on IV daptomycin, disposition arrangements. Discuss with CM in AM Plan discussed with patient in detail, all questions answered.
--- NOTE | 2017-07-12 14:09 | PN ---
Progress Note, Physician History of Present Illness: Pt states he feels better today. Had one soft BM this am but no abd pain/n/v. Mild LE rash but no pruritis. No new complaints. - Current Medication List Current Medications: Active Medications Al Hydroxide/Mg Hydroxide (Mylanta Oral Suspension -) 30 ml PO Q6H PRN PRN Reason: DYSPEPSIA Last Admin: 07/11/17 18:03 Dose: 30 ml Amlodipine Besylate (Norvasc -) 10 mg PO DAILY JASMINE Last Admin: 07/12/17 10:11 Dose: 10 mg Atorvastatin Calcium (Lipitor -) 20 mg PO HS JASMINE Last Admin: 07/11/17 21:03 Dose: 20 mg Calamine (Calamine 8% Topical Lotion -) 1 applic TP TID PRN PRN Reason: FOR ITCHING Diphenhydramine HCl (Benadryl Injection -) 50 mg IVPB Q6H PRN PRN Reason: FOR ITCHING Heparin Sodium (Porcine) (Heparin -) 5,000 unit SQ TID JASMINE Last Admin: 07/12/17 06:31 Dose: 5,000 unit Hydrocortisone (Hytone 1% Cream -) 1 applic TP DAILY PRN PRN Reason: FOR ITCHING Last Admin: 07/11/17 21:06 Dose: 1 applic Sodium Chloride (Normal Saline -) 1,000 mls @ 75 mls/hr IV ASDIR JASMINE Last Admin: 07/11/17 21:03 Dose: 75 mls/hr Daptomycin 500 mg/ Sodium (Chloride) 50 mls @ 50 mls/hr IVPB DAILY JASMINE PRN Reason: Protocol Last Admin: 07/12/17 11:00 Dose: 50 mls/hr Insulin Aspart (Novolog Vial Sliding Scale -) 1 vial SQ ACHS JASMINE PRN Reason: Protocol Last Admin: 07/12/17 12:00 Dose: 6 units Insulin Aspart (Novolog Vial) 12 units SQ TIDAC JASMINE PRN Reason: Protocol - Objective Vital Signs: Vital Signs Temperature 98 F 07/12/17 09:12 Pulse Rate 64 07/12/17 09:12 Respiratory Rate 20 07/12/17 09:12 Blood Pressure 130/59 07/12/17 09:12 O2 Sat by Pulse Oximetry (%) 98 07/12/17 09:00 Constitutional: Yes: No Distress, Calm Cardiovascular: Yes: Regular Rate and Rhythm Respiratory: Yes: Regular Gastrointestinal: Yes: Normal Bowel Sounds, Soft Genitourinary: Yes: WNL Extremities: Yes: Erythema (Rt 1st toe erythema, no open/draining ulcer) Neurological: Yes: Alert, Oriented Labs: CBC, BMP 07/12/17 06:25 07/12/17 06:25 INR, PTT INR 1.04 (0.82-1.09) 07/10/17 16:45 Problem List - Problems (1) Diarrhea Code(s): R19.7 - DIARRHEA, UNSPECIFIED (2) Diabetes Code(s): E11.9 - TYPE 2 DIABETES MELLITUS WITHOUT COMPLICATIONS (3) HTN (hypertension) Code(s): I10 - ESSENTIAL (PRIMARY) HYPERTENSION (4) Osteomyelitis Code(s): M86.9 - OSTEOMYELITIS, UNSPECIFIED Assessment/Plan 72 y.o. male with history of uncontrolled IDDM, HTN, and Rt 1st toe OM receiving Zosyn who presented with c/o diarrhea, fever, elevated lactate. Developed generalized rash last night in ER. Rt 1st Toe OM (enterococcus isolated on previous admission) Rash -? reaction to Zosyn, improving Diarrhea - resolved, CDT (-) Fever - resolved Leukocytosis - resolved Uncontrolled IDDM suggest Daptomycin IV for now ck level normal blood culture no growth so far needs tight glycemic control continue monitor temps/vitals
[2017-07-12] MEDS: MAG HYDROX/AL HYDROX/SIMETH 30 ML UNIT-DOSE CUP PO PRN (18:18)
[2017-07-12] MEDS: PANTOPRAZOLE 40 MG TABLET (FP) PO SCH (18:19)
[2017-07-12] MEDS ORDERED: MELATONIN 5 MG TABLETS PO ONE (20:29)
[2017-07-12] MEDS: ATORVASTATIN CA 40 MG TABLET (FP) PO SCH (21:36)
[2017-07-12] MEDS: SODIUM CHLORIDE 1,000 ML IV SCH (21:37)
[2017-07-13] MEDS: HYDROCORTISONE 1% TOPICAL CREAM 30 GM TUBE TP PRN (02:09)
[2017-07-13] MEDS: MAG HYDROX/AL HYDROX/SIMETH 30 ML UNIT-DOSE CUP PO PRN (02:09)
[2017-07-13] MEDS: INSULIN (NOVOLOG) ASPART 100 UNITS/ML 10ML VIAL SQ SCH ×3 (06:41→16:53)
[2017-07-13] MEDS: INSULIN SLIDING SCALE (NOVOLOG) 1 VIAL SQ SCH ×4 (06:42→22:04)
[2017-07-13] MEDS: HEPARIN NA (PORCINE) 5,000 UNITS/ML 1ML VIAL SQ SCH ×3 (06:42→22:03)
[2017-07-13 07:18] LABS: ANION GAP 5 (8-16); BLOOD UREA NITROGEN 25 mg/dL (7-18); CALCIUM 7.9 mg/dL (8.5-10.1); CHLORIDE 108 mmol/L (98-107); CO2 28 mmol/L (21-32); CREATININE 1.1 mg/dL (0.7-1.3); GLUCOSE,RANDOM 235 mg/dL (74-106); POTASSIUM 5.2 mmol/L (3.5-5.1); SODIUM 141 mmol/L (136-145)
[2017-07-13] MEDS ORDERED: SODIUM CHLORIDE 500 ML IV STA (07:25)
--- NOTE | 2017-07-13 08:03 | PN ---
Teaching Attending Note Name of Resident: Nohelia Veloz ATTENDING PHYSICIAN STATEMENT I saw and evaluated the patient. I reviewed the resident's note and discussed the case with the resident. I agree with the resident's findings and plan as documented with exceptions below. SUBJECTIVE: patient seen and examined. diarrhea pressent, but improving. no new fevers/ chills, nausea, vomiting or abdominal pain. tolerating diet well. OBJECTIVE: Vital Signs Period Temp Pulse Resp BP Sys/Ferreira Pulse Ox Last 24 Hr 98 F-98.4 F 64-71 18-20 130-152/59-80 98-98 Intake & Output 07/10/17 07/11/17 07/12/17 07/13/17 23:59 23:59 23:59 23:59 Intake Total 7237 191 7748 Output Total 1350 Balance 1000 930 -320 Weight 194 lb 6.4 oz General: sitting in chair in no acute distress Abdomen; soft, NT throughout, ND, positive bowel sounds extremities: great toe findings unchanged, no new concerns Home Medication List Medication Instructions Recorded Confirmed Type Atorvastatin Ca [Lipitor] 20 mg PO HS 08/30/15 07/11/17 History Insulin Aspart [Novolog] 0 unit SQ ASDIR 06/08/17 07/11/17 History Hydrochlorothiazide [Hctz -] 12.5 mg PO DAILY 07/08/17 07/11/17 History Sitagliptin Phos/Metformin HCl 1 each PO AM 07/11/17 07/11/17 History [Janumet 50-1,000 mg Tablet] Active Medications Generic Name Dose Route Start Last Admin Trade Name Freq PRN Reason Stop Dose Admin Al Hydroxide/Mg Hydroxide 30 ml 07/11/17 17:55 07/13/17 02:09 Mylanta Oral Suspension - PO 30 ml Q6H PRN Administration DYSPEPSIA Amlodipine Besylate 10 mg 07/11/17 10:00 07/12/17 10:11 Norvasc - PO 10 mg DAILY JASMINE Administration Atorvastatin Calcium 20 mg 07/10/17 22:00 07/12/17 21:36 Lipitor - PO 20 mg HS JASMINE Administration Calamine 1 applic 07/11/17 02:06 Calamine 8% Topical Lotion - TP TID PRN FOR ITCHING Diphenhydramine HCl 50 mg 07/11/17 02:05 Benadryl Injection - IVPB Q6H PRN FOR ITCHING Heparin Sodium (Porcine) 5,000 unit 07/11/17 06:00 07/13/17 06:42 Heparin - SQ 5,000 unit TID JASMINE Administration Hydrocortisone 1 applic 07/11/17 17:56 07/13/17 02:09 Hytone 1% Cream - TP 1 applic DAILY PRN Administration FOR ITCHING Sodium Chloride 1,000 mls @ 75 mls/hr 07/10/17 19:30 07/12/17 21:37 Normal Saline - IV 75 mls/hr ASDIR JASMINE Administration Daptomycin 500 mg/ Sodium 50 mls @ 50 mls/hr 07/11/17 12:45 07/12/17 11:00 Chloride IVPB 50 mls/hr DAILY JASMINE Administration Protocol Sodium Chloride 500 mls @ 500 mls/hr 07/13/17 07:25 Normal Saline - IV 07/13/17 08:24 ASDIR STA Insulin Aspart 1 vial 07/10/17 22:00 07/13/17 06:42 Novolog Vial Sliding Scale - SQ 4 units ACHS [facility] Administration Protocol Insulin Aspart 12 units 07/12/17 13:48 07/13/17 06:41 Novolog Vial SQ 12 units TIDAC [facility] Administration Protocol Pantoprazole Sodium 40 mg 07/12/17 17:00 07/12/17 18:19 Protonix - PO Not Given DAILY [facility] Laboratory Results - last 24 hr 07/12/17 07/12/17 07/12/17 06:25 06:25 06:25 WBC 9.8 RBC 3.63 L Hgb 11.1 L Hct 32.3 L MCV 89.1 MCH 30.6 MCHC 34.3 RDW 14.2 Plt Count 313 MPV 9.1 Neutrophils % 69.6 D Lymphocytes % 13.9 D Monocytes % 12.7 H D Eosinophils % 3.5 D Basophils % 0.3 Sodium 140 Potassium 4.7 Chloride 108 H Carbon Dioxide 25 Anion Gap 7 L BUN 28 H Creatinine 1.3 POC Glucometer Random Glucose 265 H Calcium 8.0 L Creatine Kinase 72 Cancelled 07/12/17 07/12/17 07/12/17 12:20 16:32 21:40 WBC RBC Hgb Hct MCV MCH MCHC RDW Plt Count MPV Neutrophils % Lymphocytes % Monocytes % Eosinophils % Basophils % Sodium Potassium Chloride Carbon Dioxide Anion Gap BUN Creatinine POC Glucometer 282 213 229 Random Glucose Calcium Creatine Kinase 07/13/17 07/13/17 06:02 06:26 WBC RBC Hgb Hct MCV MCH MCHC RDW Plt Count MPV Neutrophils % Lymphocytes % Monocytes % Eosinophils % Basophils % Sodium 141 Potassium 5.2 H Chloride 108 H Carbon Dioxide 28 Anion Gap 5 L BUN 25 H Creatinine 1.1 POC Glucometer 221 Random Glucose 235 H Calcium 7.9 L Creatine Kinase Microbiology 07/10/17 16:45 Blood - Peripheral Venous Blood Culture - Preliminary NO GROWTH OBTAINED AFTER 48 HOURS, INCUBATION TO CONTINUE FOR 3 DAYS. 07/10/17 16:45 Blood - Peripheral Venous Blood Culture - Preliminary NO GROWTH OBTAINED AFTER 48 HOURS, INCUBATION TO CONTINUE FOR 3 DAYS. 07/10/17 23:25 Stool Clostridium difficile Antigen (PRINCESS) - Final 07/10/17 23:25 Stool Clostridium difficile Toxin Assay - Final ASSESSMENT AND PLAN: 72 yom with PMHx of IDDM, left toe osteomyelitis on zosyn, (d/twan on 5 weeks course on 06/11/2017), recently admitted with hyperglycemia/diarrhea, neg Stool C difficile readmitted with ongoing diarrhea, found with fevers, also overnight concerns of ?allergic reaction to zosyn. -SIRS, ?drug reaction, vs diarrhea from viral gastroenteritis -?Delayed Allergic reaction to zosyn. -Mild Hyperkalemia -Left great toe osteomylitis s/p PICC -IDDM PLan: Daptomycin day 4, Plan for total 5 weeks of antibiotics, last day 07/16. Discuss with social work for approval for Dapto on d/c. Stool Salmonella/Shigella cultures positive, follow up final results. However fever/symptoms have improved, discussed with Dr. Gama, unlikely to need additional antibiotics. No further high grade fevers. blood cx from 07/11 and from 07/07 (PICC and periphery) neg so far. No new wound concerns. CT A/P non concerning. Stool C difficile recently neg, no concerning diarrhea to give sample, making it less likely. PO as tolerated. IVF 500 ml x 1, low k diet. Repeat K normal, Aggressively treat blood sugars, incease levemir to 15 units TID, resume home regimen on dc ISS, diabetic diet. Diabetic education provided on recent admit. Dispo planning in 24 hours on IV daptomycin pending stool cultures and ID input Plan discussed with patient in detail, all questions answered.
--- NOTE | 2017-07-13 08:36 | PN ---
Physical Exam: SUBJECTIVE: Patient seen and examined. 1x large volume non-bloody, watery diarrhea; denies fever, chills, abdominal pain/cramps, nausea or vomiting. Eating and voiding well. OBJECTIVE: Vital Signs Period Temp Pulse Resp BP Sys/Ferreira Pulse Ox Last 24 Hr 98 F-98.4 F 64-71 18-20 130-152/59-80 98-98 General: sitting in chair, nad HEENT: sclera anicteric, conjuctiva clear, mmm Heart: rrr, normal s1/s2 Lungs: CTAB Abd: soft, ntnd, +positive bowel sounds, no rebound tenderness or guarding Ext: b/l petechial rash over lower extremities and anterior trunk, unchanged from prior admission; L toe healing well; no erythema or ttp 07/12/17 06:25 07/13/17 11:19 Sodium 141 mmol/L (136-145) 07/13/17 06:26 Potassium 4.9 mmol/L (3.5-5.1) 07/13/17 11:19 Chloride 108 mmol/L (98-107) H 07/13/17 06:26 Carbon Dioxide 28 mmol/L (21-32) 07/13/17 06:26 Anion Gap 5 (8-16) L 07/13/17 06:26 BUN 25 mg/dL (7-18) H 07/13/17 06:26 Creatinine 1.1 mg/dL (0.7-1.3) 07/13/17 06:26 Creat Clearance w eGFR 49.82 (>60) 07/11/17 06:30 POC Glucometer 262 UNITS (80-120) 07/13/17 11:44 Random Glucose 235 mg/dL (74-106) H 07/13/17 06:26 Lactic Acid 1.4 mmol/L (0.0-2.0) 07/10/17 20:30 Calcium 7.9 mg/dL (8.5-10.1) L 07/13/17 06:26 Phosphorus 3.4 mg/dL (2.5-4.9) 07/11/17 06:30 Magnesium 2.1 mg/dL (1.8-2.4) 07/11/17 06:30 Total Bilirubin 0.6 mg/dL (0.2-1.0) D 07/11/17 06:30 AST 20 U/L (15-37) D 07/11/17 06:30 ALT 27 U/L (12-78) D 07/11/17 06:30 Alkaline Phosphatase 313 U/L (45-117) H D 07/11/17 06:30 Creatine Kinase 72 IU/L (39-308) 07/12/17 06:25 Troponin I < 0.02 ng/ml (0.00-0.05) 07/10/17 16:45 Total Protein 5.8 g/dl (6.4-8.2) L 07/11/17 06:30 Albumin 2.8 g/dl (3.4-5.0) L 07/11/17 06:30 Microbiology 07/12/17 08:00 Stool Salmonella/Shigella Culture - Preliminary Pending Organism 07/12/17 08:00 Stool Yersinia Culture - Preliminary NO ENTERIC PATHOGENS, 24 HOURS, ON PRIMARY PLATES 07/12/17 08:00 Stool Vibrio Culture - Final NO GROWTH OF VIBRIO SPECIES OBTAINED 07/12/17 08:00 Stool Escherichia coli 0157 Culture - Final NO GROWTH OF E COLI 0157 OBTAINED 07/10/17 16:45 Blood - Peripheral Venous Blood Culture - Preliminary NO GROWTH OBTAINED AFTER 48 HOURS, INCUBATION TO CONTINUE FOR 3 DAYS. 07/10/17 16:45 Blood - Peripheral Venous Blood Culture - Preliminary NO GROWTH OBTAINED AFTER 48 HOURS, INCUBATION TO CONTINUE FOR 3 DAYS. 07/10/17 23:25 Stool Clostridium difficile Antigen (PRINCESS) - NEG 07/10/17 23:25 Stool Clostridium difficile Toxin Assay - NEG Active Medications Al Hydroxide/Mg Hydroxide (Mylanta Oral Suspension -) 30 ml PO Q6H PRN PRN Reason: DYSPEPSIA Last Admin: 07/13/17 02:09 Dose: 30 ml Amlodipine Besylate (Norvasc -) 10 mg PO DAILY [facility] Last Admin: 07/13/17 10:23 Dose: 10 mg Atorvastatin Calcium (Lipitor -) 20 mg PO HS [facility] Last Admin: 07/12/17 21:36 Dose: 20 mg Calamine (Calamine 8% Topical Lotion -) 1 applic TP TID PRN PRN Reason: FOR ITCHING Diphenhydramine HCl (Benadryl Injection -) 50 mg IVPB Q6H PRN PRN Reason: FOR ITCHING Heparin Sodium (Porcine) (Heparin -) 5,000 unit SQ TID [facility] Last Admin: 07/13/17 14:01 Dose: 5,000 unit Hydrocortisone (Hytone 1% Cream -) 1 applic TP DAILY PRN PRN Reason: FOR ITCHING Last Admin: 07/13/17 02:09 Dose: 1 applic Sodium Chloride (Normal Saline -) 1,000 mls @ 75 mls/hr IV ASDIR [facility] Last Admin: 07/12/17 21:37 Dose: 75 mls/hr Daptomycin 500 mg/ Sodium (Chloride) 50 mls @ 50 mls/hr IVPB DAILY [facility] PRN Reason: Protocol Last Admin: 07/13/17 10:24 Dose: 50 mls/hr Insulin Aspart (Novolog Vial Sliding Scale -) 1 vial SQ ACHS JASMINE PRN Reason: Protocol Last Admin: 07/13/17 12:05 Dose: 6 units Insulin Aspart (Novolog Vial) 15 units SQ TIDAC [facility] PRN Reason: Protocol Pantoprazole Sodium (Protonix -) 40 mg PO DAILY [facility] Last Admin: 07/13/17 10:23 Dose: 40 mg ASSESSMENT/PLAN: 71yo man with PMH of poorly controlled IDDM (A1c 9.4%), HTN, HLD, and recently diagnosed with osteomyelitis (wound cx E. faecalis), on Zosyn via PICC x 5weeks (to be completed 07/17), who was last here for elevated BGM and temperature from 07/07- who presents again with Tmax 101.3 and watery, non-bloody diarrhea and overnight event of possible Zosyn allergic reaction. #watery, non-bloody diarrhea with fever (Tmax 101.3), C diff neg (07/09 and 07/10) , Blood and PICC cultures NGTD -Stool studies 07/12 -> Preliminary [place]/Shigella Positive -will d/w ID, consider levaquin treatment? #R toe osteomyelitis, toe healing well, 06/08 wound culture E. Faecalis, s/p Zosyn 06/12 - 07/10 -Zosyn d/c due to allergic reaction -Per ID, started on Daptomycin IV, Day 3/7; (5wks IV abx completed on 07/17) #IDDM -BGM/ISS ACHS -Increase pre-prandial Novolog to 15U TIDAC #HTN- c/w home amlodipine 10 mg PO Daily, Valsartan 160mg daily, HCTZ 12.5mg daily #HLD - HOLD home lipitor 20mg PO HS while on Daptomycin #FEN NS@75cc Repeat K wnl DM and Low K diet #PPX DVT: Hep TID #DISPO: M/S FULL code d/w Dr. Kirsten Veloz MD PGY1 - Internal Medicine Visit type - Emergency Visit Emergency Visit: No - New Patient This patient is new to me today: No - Critical Care Critical Care patient: No
[2017-07-13] MEDS ORDERED: PT OWN MED DRAWER 7, Y5N ONE (08:52)
[2017-07-13] MEDS: PANTOPRAZOLE 40 MG TABLET (FP) PO SCH (10:23)
[2017-07-13] MEDS: amLODIPine BESYLATE 10 MG TABLET (FP) PO SCH (10:23)
[2017-07-13] MEDS: DAPTOMYCIN 500 MG in SODIUM CHLORIDE 50 ML IVPB SCH (10:24)
[2017-07-13] MEDS ORDERED: INSULIN (NOVOLOG) ASPART 100 UNITS/ML 10ML VIAL ONE ×2 (12:01→18:09)
--- NOTE | 2017-07-13 13:49 | PN ---
Progress Note, Physician History of Present Illness: feeling better no complaints - Current Medication List Current Medications: Active Medications Al Hydroxide/Mg Hydroxide (Mylanta Oral Suspension -) 30 ml PO Q6H PRN PRN Reason: DYSPEPSIA Last Admin: 07/13/17 02:09 Dose: 30 ml Amlodipine Besylate (Norvasc -) 10 mg PO DAILY [facility] Last Admin: 07/13/17 10:23 Dose: 10 mg Atorvastatin Calcium (Lipitor -) 20 mg PO HS [facility] Last Admin: 07/12/17 21:36 Dose: 20 mg Calamine (Calamine 8% Topical Lotion -) 1 applic TP TID PRN PRN Reason: FOR ITCHING Diphenhydramine HCl (Benadryl Injection -) 50 mg IVPB Q6H PRN PRN Reason: FOR ITCHING Heparin Sodium (Porcine) (Heparin -) 5,000 unit SQ TID [facility] Last Admin: 07/13/17 06:42 Dose: 5,000 unit Hydrocortisone (Hytone 1% Cream -) 1 applic TP DAILY PRN PRN Reason: FOR ITCHING Last Admin: 07/13/17 02:09 Dose: 1 applic Sodium Chloride (Normal Saline -) 1,000 mls @ 75 mls/hr IV ASDIR [facility] Last Admin: 07/12/17 21:37 Dose: 75 mls/hr Daptomycin 500 mg/ Sodium (Chloride) 50 mls @ 50 mls/hr IVPB DAILY [facility] PRN Reason: Protocol Last Admin: 07/13/17 10:24 Dose: 50 mls/hr Insulin Aspart (Novolog Vial Sliding Scale -) 1 vial SQ ACHS [facility] PRN Reason: Protocol Last Admin: 07/13/17 12:05 Dose: 6 units Insulin Aspart (Novolog Vial) 15 units SQ TIDAC [facility] PRN Reason: Protocol Pantoprazole Sodium (Protonix -) 40 mg PO DAILY [facility] Last Admin: 07/13/17 10:23 Dose: 40 mg - Objective Vital Signs: Vital Signs Temperature 98.6 F 07/13/17 10:00 Pulse Rate 78 07/13/17 10:00 Respiratory Rate 20 07/13/17 10:00 Blood Pressure 144/70 07/13/17 10:00 O2 Sat by Pulse Oximetry (%) 97 07/13/17 09:00 Constitutional: Yes: No Distress, Calm Cardiovascular: Yes: Regular Rate and Rhythm Respiratory: Yes: Regular, CTA Bilaterally Gastrointestinal: Yes: Normal Bowel Sounds, Soft Musculoskeletal: Yes: WNL Extremities: Yes: Other Wound/Incision: Yes: Clean/Dry, Other (wound healing well) Neurological: Yes: Alert, Oriented Psychiatric: Yes: Alert, Oriented Labs: CBC, BMP 07/12/17 06:25 07/13/17 11:19 INR, PTT INR 1.04 (0.82-1.09) 07/10/17 16:45 Assessment/Plan Problem List - Problems (1) Diarrhea Code(s): R19.7 - DIARRHEA, UNSPECIFIED (2) Diabetes Code(s): E11.9 - TYPE 2 DIABETES MELLITUS WITHOUT COMPLICATIONS (3) HTN (hypertension) Code(s): I10 - ESSENTIAL (PRIMARY) HYPERTENSION (4) Osteomyelitis Code(s): M86.9 - OSTEOMYELITIS, UNSPECIFIED patient has nearly completed his abx course he needs 3 more days of abx to complete the course plan continue current mgmt patient close to completing his treatment make sure he completes the treatment wound healing well
[2017-07-13] MEDS ORDERED: MELATONIN 5 MG TABLETS PO PRN (16:59)
[2017-07-13] MEDS: SODIUM CHLORIDE 1,000 ML IV SCH (20:00)
[2017-07-14] MEDS: SODIUM CHLORIDE 1,000 ML IV SCH (00:07)
[2017-07-14] MEDS: INSULIN (NOVOLOG) ASPART 100 UNITS/ML 10ML VIAL SQ SCH ×2 (06:36→11:09)
[2017-07-14] MEDS: INSULIN SLIDING SCALE (NOVOLOG) 1 VIAL SQ SCH ×3 (06:36→17:01)
[2017-07-14] MEDS: HEPARIN NA (PORCINE) 5,000 UNITS/ML 1ML VIAL SQ SCH ×2 (06:37→15:26)
--- NOTE | 2017-07-14 07:31 | PN ---
Physical Exam: SUBJECTIVE: Patient seen and examined. Feels well, eager to go home. No episodes of fever or diarrhea x 24H. Denies any n/v/abdominal pain/CP. Eating and voiding well. OBJECTIVE: Vital Signs Period Temp Pulse Resp BP Sys/Ferreira Pulse Ox Last 24 Hr 97.6 F-98.6 F 63-78 16-20 141-153/60-72 97-98 General: sitting in chair, nad HEENT: sclera anicteric, conjuctiva clear, mmm Heart: rrr, normal s1/s2 Lungs: CTAB Abd: soft, ntnd, +positive bowel sounds, no rebound tenderness or guarding Ext: b/l petechial rash over lower extremities: unchanged, L toe healing well, no erythema or ttp CBC, BMP 07/14/17 06:00 07/14/17 06:00 Hepatic Panel Total Bilirubin 0.6 mg/dL (0.2-1.0) 07/14/17 06:00 AST 15 U/L (15-37) D 07/14/17 06:00 ALT 26 U/L (12-78) 07/14/17 06:00 Alkaline Phosphatase 283 U/L (45-117) H 07/14/17 06:00 Albumin 3.0 g/dl (3.4-5.0) L 07/14/17 06:00 Microbiology 07/10/17 16:45 Blood - Peripheral Venous Blood Culture - Preliminary NO GROWTH OBTAINED AFTER 72 HOURS, INCUBATION TO CONTINUE FOR 2 DAYS. 07/10/17 16:45 Blood - Peripheral Venous Blood Culture - Preliminary NO GROWTH OBTAINED AFTER 72 HOURS, INCUBATION TO CONTINUE FOR 2 DAYS. 07/12/17 08:00 Stool Salmonella/Shigella Culture - Preliminary Pending Organism 07/12/17 08:00 Stool Yersinia Culture - Preliminary NO ENTERIC PATHOGENS, 24 HOURS, ON PRIMARY PLATES 07/12/17 08:00 Stool Vibrio Culture - Final NO GROWTH OF VIBRIO SPECIES OBTAINED 07/12/17 08:00 Stool Escherichia coli 0157 Culture - Final NO GROWTH OF E COLI 0157 OBTAINED 07/10/17 23:25 Stool Clostridium difficile Antigen (PRINCESS) - Final 07/10/17 23:25 Stool Clostridium difficile Toxin Assay - Final Active Medications Al Hydroxide/Mg Hydroxide (Mylanta Oral Suspension -) 30 ml PO Q6H PRN PRN Reason: DYSPEPSIA Last Admin: 07/13/17 02:09 Dose: 30 ml Amlodipine Besylate (Norvasc -) 10 mg PO DAILY [facility] Last Admin: 07/14/17 09:34 Dose: 10 mg Calamine (Calamine 8% Topical Lotion -) 1 applic TP TID PRN PRN Reason: FOR ITCHING Diphenhydramine HCl (Benadryl Injection -) 50 mg IVPB Q6H PRN PRN Reason: FOR ITCHING Heparin Sodium (Porcine) (Heparin -) 5,000 unit SQ TID [facility] Last Admin: 07/14/17 06:37 Dose: 5,000 unit Hydrochlorothiazide (Hctz -) 12.5 mg PO DAILY [facility] [place] Last Admin: 07/14/17 09:34 Dose: 12.5 mg Hydrocortisone (Hytone 1% Cream -) 1 applic TP DAILY PRN PRN Reason: FOR ITCHING Last Admin: 07/13/17 02:09 Dose: 1 applic Sodium Chloride (Normal Saline -) 1,000 mls @ 75 mls/hr IV ASDIR [facility] [place] Last Admin: 07/14/17 00:07 Dose: 75 mls/hr Daptomycin 500 mg/ Sodium (Chloride) 50 mls @ 50 mls/hr IVPB DAILY [facility] PRN Reason: Protocol Last Admin: 07/14/17 11:03 Dose: 50 mls/hr Insulin Aspart (Novolog Vial Sliding Scale -) 1 vial SQ ACHS JASMINE PRN Reason: Protocol Last Admin: 07/14/17 11:09 Dose: 2 units Insulin Aspart (Novolog Vial) 15 units SQ TIDAC [facility] PRN Reason: Protocol Last Admin: 07/14/17 11:09 Dose: 15 units Melatonin (Melatonin) 5 mg PO HS PRN PRN Reason: INSOMNIA Pantoprazole Sodium (Protonix -) 40 mg PO DAILY [facility] [place] Last Admin: 07/14/17 09:34 Dose: 40 mg Valsartan (Diovan -) 160 mg PO DAILY [facility] [place] Last Admin: 07/14/17 09:34 Dose: 160 mg ASSESSMENT/PLAN: 71yo man with PMH of poorly controlled IDDM (A1c 9.4%), HTN, HLD, and recently diagnosed with osteomyelitis (wound cx E. faecalis), on Zosyn via PICC x 5weeks (to be completed 07/17), who was last here for elevated BGM and temperature from 07/07- who presents again with Tmax 101.3 and watery, non-bloody diarrhea and overnight event of possible Zosyn allergic reaction. #watery, non-bloody diarrhea with fever (Tmax 101.3), C diff neg (07/09 and 07/10) , Blood and PICC cultures NGTD -Stool studies 07/12 -> pending Shigella r/o and Campylobacter; per Micro final cx results tomorrow -will d/w ID, consider levaquin treatment? #R toe osteomyelitis, toe healing well, 06/08 wound culture E. Faecalis, s/p Zosyn 06/12 - 07/10 -Zosyn d/c due to allergic reaction -Per ID, started on Daptomycin IV, Day 06/20; (5wks IV abx completed on 07/17) #IDDM -BGM/ISS ACHS -Increase pre-prandial Novolog to 20U TIDAC #HTN- c/w home amlodipine 10 mg PO Daily, Valsartan 160mg daily, HCTZ 12.5mg daily #HLD - HOLD home lipitor 20mg PO HS while on Daptomycin #FEN NS@75cc/hr hyperKalemia noted DM and Low K diet #PPX DVT: Hep TID #DISPO: M/S, discharge home, currently has PICC, may need additional days of IV Abx FULL code d/w Dr. Rajinder Veloz MD PGY1 - Internal Medicine
[2017-07-14 07:38] LABS: BASO % 0.5 % (0-2.0); HEMATOCRIT 34.8 % (35.4-49); HEMOGLOBIN 11.8 GM/dL (11.7-16.9); LYMPH % 19.5 % (8-40); MCH 30.2 pg (25.7-33.7); MCHC 33.9 g/dl (32.0-35.9); MEAN CELL VOLUME 89.3 fl (80-96); MONO % 13.7 % (3.8-10.2); NEUT % 56.3 % (42.8-82.8); PLATELET COUNT 426 K/MM3 (134-434); RDW 14.2 % (11.9-15.9); WHITE BLOOD COUNT 8.8 K/mm3 (4.0-10.0)
[2017-07-14 07:47] LABS: ANION GAP 8 (8-16); BLOOD UREA NITROGEN 18 mg/dL (7-18); CALCIUM 8.9 mg/dL (8.5-10.1); CHLORIDE 106 mmol/L (98-107); CO2 26 mmol/L (21-32); CREATININE 1.1 mg/dL (0.7-1.3); GLUCOSE,RANDOM 233 mg/dL (74-106); POTASSIUM 5.4 mmol/L (3.5-5.1); SGOT/AST 15 U/L (15-37); SGPT/ALT 26 U/L (12-78); SODIUM 140 mmol/L (136-145)
[2017-07-14 07:49] LABS: ALK PHOS 283 U/L (45-117); BILIRUBIN,TOTAL 0.6 mg/dL (0.2-1.0); TOT PROT 6.1 g/dl (6.4-8.2)
[2017-07-14] MEDS: PANTOPRAZOLE 40 MG TABLET (FP) PO SCH (09:34)
[2017-07-14] MEDS: amLODIPine BESYLATE 10 MG TABLET (FP) PO SCH (09:34)
[2017-07-14] MEDS: DAPTOMYCIN 500 MG in SODIUM CHLORIDE 50 ML IVPB SCH ×2 (09:35→11:03)
[2017-07-14] MEDS ORDERED: HYDROCHLOROTHIAZIDE 12.5 MG CAPSULE (FP) PO SCH (10:00)
[2017-07-14] MEDS ORDERED: VALSARTAN 160 MG TABLET (UD) PO SCH (10:00)
[2017-07-14] MEDS ORDERED: SODIUM CHLORIDE 0.9% 500 ML INFUS.BAG IV ONE (11:21)
[2017-07-14] MEDS ORDERED: INSULIN (NOVOLOG) ASPART 100 UNITS/ML 10ML VIAL SQ SCH (11:22)
[2017-07-14 15:14] VITALS: BP 138/60; PULSE 94; TEMP 98.4
--- NOTE | 2017-07-14 15:47 | PN ---
Teaching Attending Note Name of Resident: Nohelia Veloz ATTENDING PHYSICIAN STATEMENT I saw and evaluated the patient. I reviewed the resident's note and discussed the case with the resident. I agree with the resident's findings and plan as documented. SUBJECTIVE: Patient has no complaints. Diarrhea has resolved. He wants to go home. OBJECTIVE: Vital Signs Period Temp Pulse Resp BP Sys/Ferreira Pulse Ox Last 24 Hr 97.6 F-98.6 F 61-94 16-19 138-155/59-72 98-98 HEART: S1S2, RRR LUNGS: Clear ABDOMEN: Soft, non-tender, non-distended, normal BS EXTREMITIES: No edema Laboratory Results - last 24 hr 07/13/17 07/13/17 07/14/17 16:23 22:03 06:00 WBC 8.8 RBC 3.90 L Hgb 11.8 Hct 34.8 L MCV 89.3 MCH 30.2 MCHC 33.9 RDW 14.2 Plt Count 426 D MPV 9.0 Neutrophils % 56.3 Lymphocytes % 19.5 D Monocytes % 13.7 H Eosinophils % 10.0 H D Basophils % 0.5 Sodium Potassium Chloride Carbon Dioxide Anion Gap BUN Creatinine Creat Clearance w eGFR POC Glucometer 229 186 Random Glucose Calcium Total Bilirubin AST ALT Alkaline Phosphatase Total Protein Albumin 07/14/17 07/14/17 07/14/17 06:00 06:03 11:06 WBC RBC Hgb Hct MCV MCH MCHC RDW Plt Count MPV Neutrophils % Lymphocytes % Monocytes % Eosinophils % Basophils % Sodium 140 Potassium 5.4 H Chloride 106 Carbon Dioxide 26 Anion Gap 8 BUN 18 D Creatinine 1.1 Creat Clearance w eGFR > 60 POC Glucometer 204 190 Random Glucose 233 H Calcium 8.9 Total Bilirubin 0.6 AST 15 D ALT 26 Alkaline Phosphatase 283 H Total Protein 6.1 L Albumin 3.0 L Current Medications Generic Name Dose Route Start Last Admin Trade Name Freq PRN Reason Stop Dose Admin Al Hydroxide/Mg Hydroxide 30 ml 07/11/17 17:55 07/13/17 02:09 Mylanta Oral Suspension - PO 30 ml Q6H PRN Administration DYSPEPSIA Amlodipine Besylate 10 mg 07/11/17 10:00 07/14/17 09:34 Norvasc - PO 10 mg DAILY JASMINE Administration Calamine 1 applic 07/11/17 02:06 Calamine 8% Topical Lotion - TP TID PRN FOR ITCHING Diphenhydramine HCl 50 mg 07/11/17 02:05 Benadryl Injection - IVPB Q6H PRN FOR ITCHING Heparin Sodium (Porcine) 5,000 unit 07/11/17 06:00 07/14/17 15:26 Heparin - SQ 5,000 unit TID JASMINE Administration Hydrochlorothiazide 12.5 mg 07/14/17 10:00 07/14/17 09:34 Hctz - PO 12.5 mg DAILY JASMINE Administration Hydrocortisone 1 applic 07/11/17 17:56 07/13/17 02:09 Hytone 1% Cream - TP 1 applic DAILY PRN Administration FOR ITCHING Sodium Chloride 1,000 mls @ 75 mls/hr 07/10/17 19:30 07/14/17 00:07 Normal Saline - IV 75 mls/hr ASDIR JASMINE Administration Daptomycin 500 mg/ Sodium 50 mls @ 50 mls/hr 07/11/17 12:45 07/14/17 11:03 Chloride IVPB 50 mls/hr DAILY JASMINE Administration Protocol Insulin Aspart 1 vial 07/10/17 22:00 07/14/17 11:09 Novolog Vial Sliding Scale - SQ 2 units ACHS JASMINE Administration Protocol Insulin Aspart 20 units 07/14/17 11:22 Novolog Vial SQ TIDAC JASMINE Protocol Melatonin 5 mg 07/13/17 16:59 Melatonin PO HS PRN INSOMNIA Pantoprazole Sodium 40 mg 07/12/17 17:00 07/14/17 09:34 Protonix - PO 40 mg DAILY JASMINE Administration Valsartan 160 mg 07/14/17 10:00 07/14/17 09:34 Diovan - PO 160 mg DAILY JASMINE Administration ASSESSMENT AND PLAN: This is a 72 year old man with a history of HTN, hyperlipidemia, IDDM, osteomyelitis who presented to the ED with diarrhea. 1. Osteomyelitis of left 1st toe - Currently on Daptomycin after allergic reaction to Zosyn - Complete 5 weeks total of antibiotics 2. Diarrhea - Resolved - Stool negative for C. difficile - Stool culture negative 3. Hyperkalemia - IV fluid - Monitor electrolytes 4. IDDM - Continue pre-meal Novolog + sliding scale 5. HTN - Continue Norvasc, Diovan, HCTZ 6. Hyperlipidemia 7. Disposition - Ok for discharge home to complete Daptomycin via PICC once authorization obtained
--- NOTE | 2017-07-14 15:58 | PN ---
Progress Note, Physician History of Present Illness: patient stable no new issues wants to go home - Current Medication List Current Medications: Active Medications Al Hydroxide/Mg Hydroxide (Mylanta Oral Suspension -) 30 ml PO Q6H PRN PRN Reason: DYSPEPSIA Last Admin: 07/13/17 02:09 Dose: 30 ml Amlodipine Besylate (Norvasc -) 10 mg PO DAILY [facility] Last Admin: 07/14/17 09:34 Dose: 10 mg Calamine (Calamine 8% Topical Lotion -) 1 applic TP TID PRN PRN Reason: FOR ITCHING Diphenhydramine HCl (Benadryl Injection -) 50 mg IVPB Q6H PRN PRN Reason: FOR ITCHING Heparin Sodium (Porcine) (Heparin -) 5,000 unit SQ TID [facility] Last Admin: 07/14/17 15:26 Dose: 5,000 unit Hydrochlorothiazide (Hctz -) 12.5 mg PO DAILY [facility] Last Admin: 07/14/17 09:34 Dose: 12.5 mg Hydrocortisone (Hytone 1% Cream -) 1 applic TP DAILY PRN PRN Reason: FOR ITCHING Last Admin: 07/13/17 02:09 Dose: 1 applic Sodium Chloride (Normal Saline -) 1,000 mls @ 75 mls/hr IV ASDIR [facility] Last Admin: 07/14/17 00:07 Dose: 75 mls/hr Daptomycin 500 mg/ Sodium (Chloride) 50 mls @ 50 mls/hr IVPB DAILY [facility] PRN Reason: Protocol Last Admin: 07/14/17 11:03 Dose: 50 mls/hr Insulin Aspart (Novolog Vial Sliding Scale -) 1 vial SQ ACHS [facility] PRN Reason: Protocol Last Admin: 07/14/17 11:09 Dose: 2 units Insulin Aspart (Novolog Vial) 20 units SQ TIDAC [facility] PRN Reason: Protocol Melatonin (Melatonin) 5 mg PO HS PRN PRN Reason: INSOMNIA Pantoprazole Sodium (Protonix -) 40 mg PO DAILY [facility] Last Admin: 07/14/17 09:34 Dose: 40 mg Valsartan (Diovan -) 160 mg PO DAILY [facility] Last Admin: 07/14/17 09:34 Dose: 160 mg - Objective Vital Signs: Vital Signs Temperature 98.4 F 07/14/17 15:13 Pulse Rate 94 H 07/14/17 15:13 Respiratory Rate 18 05/01/18 15:13 Blood Pressure 138/60 07/14/17 15:13 O2 Sat by Pulse Oximetry (%) 98 07/14/17 08:36 Constitutional: Yes: No Distress, Calm Cardiovascular: Yes: Regular Rate and Rhythm Respiratory: Yes: Regular, CTA Bilaterally Gastrointestinal: Yes: Normal Bowel Sounds, Soft Musculoskeletal: Yes: WNL Extremities: Yes: Other Neurological: Yes: Alert, Oriented Psychiatric: Yes: Alert, Oriented Labs: CBC, BMP 07/14/17 06:00 INR, PTT INR 1.04 (0.82-1.09) 07/10/17 16:45 Assessment/Plan Problem List - Problems (1) Diarrhea Code(s): R19.7 - DIARRHEA, UNSPECIFIED (2) Diabetes Code(s): E11.9 - TYPE 2 DIABETES MELLITUS WITHOUT COMPLICATIONS (3) HTN (hypertension) Code(s): I10 - ESSENTIAL (PRIMARY) HYPERTENSION (4) Osteomyelitis Code(s): M86.9 - OSTEOMYELITIS, UNSPECIFIED patient has nearly completed his abx course he needs 3 more days of abx to complete the course plan patient can be discharged and complete 3 days of abx at home he needs to follow with the pupil personnel services director wound care rest as per the team
--- NOTE | 2017-07-14 16:38 | DS ---
Physical Exam: SUBJECTIVE: Patient seen and examined. Feels well, eager to go home. No episodes of fever or diarrhea x 24H. Denies any n/v/abdominal pain/CP. Eating and voiding well. OBJECTIVE: Vital Signs Period Temp Pulse Resp BP Sys/Ferreira Pulse Ox Last 24 Hr 97.6 F-98.6 F 61-94 16-19 138-155/59-72 98-98 PHYSICAL EXAM General: sitting in chair, nad HEENT: sclera anicteric, conjuctiva clear, mmm Heart: rrr, normal s1/s2 Lungs: CTAB Abd: soft, ntnd, +positive bowel sounds, no rebound tenderness or guarding Ext: wwp, no edema CBC, BMP 07/14/17 06:00 07/14/17 15:15 07/14/17 06:00 Sodium 140 Potassium 5.4 H Chloride 106 Carbon Dioxide 26 BUN 18 D Creatinine 1.1 Random Glucose 233 H Microbiology 07/10/17 16:45 Blood - Peripheral Venous Blood Culture - Final NO GROWTH AFTER 5 DAYS INCUBATION 07/10/17 16:45 Blood - Peripheral Venous Blood Culture - Final NO GROWTH AFTER 5 DAYS INCUBATION 07/12/17 08:00 Stool Salmonella/Shigella Culture - Final NO GROWTH OF SALMONELLA OR SHIGELLA SPECIES OBTAINED 07/12/17 08:00 Stool Campylobacter Culture - Final NO GROWTH OF CAMPYLOBACTER SPECIES OBTAINED 07/12/17 08:00 Stool Yersinia Culture - Final NO GROWTH OF YERSINIA SPECIES OBTAINED 07/12/17 08:00 Stool Vibrio Culture - Final NO GROWTH OF VIBRIO SPECIES OBTAINED 07/12/17 08:00 Stool Escherichia coli 0157 Culture - Final NO GROWTH OF E COLI 0157 OBTAINED 07/10/17 23:25 Stool Clostridium difficile Antigen (PRINCESS) -NEG 07/10/17 23:25 Stool Clostridium difficile Toxin Assay - NEG Active Medications Al Hydroxide/Mg Hydroxide (Mylanta Oral Suspension -) 30 ml PO Q6H PRN PRN Reason: DYSPEPSIA Last Admin: 07/13/17 02:09 Dose: 30 ml Amlodipine Besylate (Norvasc -) 10 mg PO DAILY JASMINE Last Admin: 07/14/17 09:34 Dose: 10 mg Calamine (Calamine 8% Topical Lotion -) 1 applic TP TID PRN PRN Reason: FOR ITCHING Diphenhydramine HCl (Benadryl Injection -) 50 mg IVPB Q6H PRN PRN Reason: FOR ITCHING Heparin Sodium (Porcine) (Heparin -) 5,000 unit SQ TID [facility] Last Admin: 07/14/17 06:37 Dose: 5,000 unit Hydrochlorothiazide (Hctz -) 12.5 mg PO DAILY [facility] Last Admin: 07/14/17 09:34 Dose: 12.5 mg Hydrocortisone (Hytone 1% Cream -) 1 applic TP DAILY PRN PRN Reason: FOR ITCHING Last Admin: 07/13/17 02:09 Dose: 1 applic Sodium Chloride (Normal Saline -) 1,000 mls @ 75 mls/hr IV ASDIR JASMINE Last Admin: 07/14/17 00:07 Dose: 75 mls/hr Daptomycin 500 mg/ Sodium (Chloride) 50 mls @ 50 mls/hr IVPB DAILY JASMINE PRN Reason: Protocol Last Admin: 07/14/17 11:03 Dose: 50 mls/hr Insulin Aspart (Novolog Vial Sliding Scale -) 1 vial SQ ACHS JASMINE PRN Reason: Protocol Last Admin: 07/14/17 11:09 Dose: 2 units Insulin Aspart (Novolog Vial) 15 units SQ TIDAC JASMINE PRN Reason: Protocol Last Admin: 07/14/17 11:09 Dose: 15 units Melatonin (Melatonin) 5 mg PO HS PRN PRN Reason: INSOMNIA Pantoprazole Sodium (Protonix -) 40 mg PO DAILY [facility] Last Admin: 07/14/17 09:34 Dose: 40 mg Valsartan (Diovan -) 160 mg PO DAILY [facility] Last Admin: 07/14/17 09:34 Dose: 160 mg HOSPITAL COURSE: Date of Admission:07/10/17 Date of Discharge: 07/14/17 Pre-Hospital Admission: 71yo man with PMH of poorly controlled IDDM (recent A1c 9.4%), HTN, HLD, and recently diagnosed R toe osteomyeletis (wound cx E. faecalis), on Zosyn via PICC x 5weeks (to be completed 07/17), who was last here for elevated BGM and temperature from 07/07-07/09 who presents again with Tmax 101.3 and watery, non- bloody diarrhea for the past day. Pt reports that he felt well after leaving the hospital, but had two episodes of loose non-bloody watery stool and two episodes of NBNB emesis. His son called 911 and and pt was brought to the ED for further evaluation. Patient currently denies any chest pain, sob, cough, palpitation, abdominal pain. ER course was notable for: (1) Temp: 101.3F; Leukocytosis 11.3; Lactic acid 2.7; creatinine 1.4 (Baseline 1 ) (2) Abdomen/pelvis CT: taken, read pending (3) IVF - NS x 1L Subsequent Hospital Course: #watery, non-bloody diarrhea with fever (Tmax 101.3), resolved. Etiology possibly 2/2 Zosyn drug reaction vs viral gastroenteritis. CT A/P was non- concerning. -C diff neg (07/09 and 07/10) -Blood and PICC cultures negative -Stool studies were all negative (see Micro above) #R toe osteomyelitis, toe healing well, 06/08 wound culture E. Faecalis, s/p Zosyn 06/12 - 07/10 -Zosyn was discontinued due to observed allergic reaction (pruritic rash) during infusion in the evening of 07/10. He was treated with Benadryl 25mg IVP x2 + Solumedrol 60mg IV + Ativan 1mg IVP with no further rash or symptoms. -Per ID, Zosyn was switched to Daptomycin 500mg IV daily to complete total of 5 weeks IV antibiotic treatment. Patient was discharged with 3 more days of IV antibiotics. Infusion company was notified prior to discharge with instructions to remove PICC line after final dose on 07/17. #IDDM -Patient was placed on Novolog sliding scale. His pre-meal Novolog was increased to 20U TIDAC with improved blood sugar control. Patient was counseled during last admission regarding diet and lifestyle changes to improve his BGM. Patient verbalized understanding and desire to "eat better". #HTN -Blood pressure was controlled with home Amlodipine 10 mg PO Daily, Valsartan 160mg daily, and HCTZ 12.5mg daily #HLD -Patient's Lipitor 20mg PO HS was held while he was receiving Daptomycin. Patient was instructed to resume Lipitor after completion of antibiotics. #Hyperkalemia -Patient was noted to have elevated K to 5.4. No EKG changed noted. He was given IVF and started on a low K diet. Repeat K prior to discharge was wnl. Consults: ID: Dr. Gama, Dr. Shae Guo Imaging: EXAM#: TYPE/EXAM: RESULT: [id number] CT/ABDOMEN PELVIS CT W/O CONTR Abdomen and pelvis CT (without contrast) Clinical information: right abdominal pain with diarrhea Multiplanar imaging was performed. As requested no intravenous or enteric contrast was administered. No evidence of pneumoperitoneum, free intraperitoneal fluid or bowel obstruction. The appendix appears unremarkable. Colonic diverticulosis is noted without CT evidence of acute diverticulitis. No obvious acute colitis is seen. Mild to moderate colitis may not be demonstrable on CT. As noted on a prior CT exam of 11/24/2016 there is stable mildly increased mesenteric density centrally in association with several slightly prominent stable mesenteric lymph nodes. This appearance is usually of no clinical significance. Interval development of a trace right pleural effusion is seen. There has also been interval development of a very small focus of increased opacity within the posterior basal segment of the right lower lobe adjacent the costophrenic sulcus which may be on the basis of atelectasis and/or infiltrate. The liver, spleen, pancreas, gallbladder, adrenal glands and kidneys demonstrate no obvious noncontrast pathology. Incidental small stable right renal cortical cyst. There is no aortic aneurysm. No gross small bowel pathology is seen for Mild to moderate prostate enlargement. No obvious CT evidence of acute colitis. The visualized osseous structures demonstrate no obvious CT evidence of acute abnormality. Impression: Within the abdomen and pelvis no definite CT findings of acute pathology are identified. In comparison to a prior CT exam of 11/24/2016 interval development of a trace right pleural effusion is seen. There has also been development of a small opacity within the right basilar region posteriorly which may be on the basis of atelectasis and/or infiltrate. The appendix demonstrates no discrete abnormality colonic diverticulosis. No obvious CT evidence of enterocolitis. EXAM#: TYPE/EXAM: RESULT: [id number] RAD/CHEST X-RAY PORTABLE* Chest: Shortness of breath. Sepsis. Since 07/07/2017, again noted is a weak inspiration with prominent mediastinum, sclerotic knob and right line. There are some new central congestive changes. Follow-up recommended Impression : New congestive changes Minutes to complete discharge: 45 Discharge Summary Reason For Visit: SEPSIS Current Active Problems Diarrhea (Acute) Condition: Stable - Instructions Diet, Activity, Other Instructions: You were admitted to the hospital for low grade temperatures and diarrhea. Studies of your stool were negative for infection, including C. dificile. You were observed to have an allergic reaction to Zosyn (also called Piperacillin- tazobactam) that you were one for your foot infection. Your antibiotic was switched to Daptomycin. Recommendations: -Follow a low carbohydrate and low sugar diet. You should also follow a low Potassium diet. Refer to the handout that you were given on your last admission. -Continue caring for your PICC line as previously directed. Visiting Nurse services will continue coming to your home. -The infusion company will deliver the new antibiotic (Daptomycin) to your home tomorrow. Medications: -You have 3 more days of IV antibiotics. Your first dose of Daptomycin will be tomorrow and your last dose will on Thursday, 07/17. The infusion company will then remove your PICC line. If there is any problems with the antibiotic or PICC line , have the infusion company contact Dr. Gama ([phone]). -Stop taking your daily Lipitor while you are on Daptomycin. Taking these medications together can affect your liver. Resume Lipitor 20mg daily at bedtime on Thursday, 07/18. -Continue your home insulin regimen as prior and check blood sugars before meals and at bedtime and maintain a diary. Call your doctor if less than 75 or persistently > 200 or any reading > 350 noted. Follow-ups: -Make an appointment to see your primary care physician in 1 week for post- hospitalization evaluation. You can make appointment to see Dr. Hanson/Dr. Leggett at the [facility]. 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 Your doctor may order additional imaging of your arteries called an MRA and a referral to a Vascular surgeon. -It is important that you see an Test Director. A referral to Dr. Jackson is provided. Make an appointment to see him in 1-2 weeks to discuss control of your sugars and help with your diet. -Make an appointment to see Dr. Gama, your Infectious Disease doctor, within 1 week. -Continue to see your group manager at the [facility] weekly. - Please return to the Emergency Department if you have fever, chills, worsening pain in your toe, blood sugar above 400, or any new or concerning symptoms. Referrals: Kimo Hanson MD [Staff Physician] - Leatha Leggett RES [Resident] - Ibrahima Gama MD [Staff Physician] - Jose L Solares MD [Staff Physician] - Jenn Farris MD [Primary Care Provider] - Ravindra Jackson MD [Staff Physician] - Disposition: VNS/HOME HEALTH CARE - Home Medications Comprehensive Discharge Medication List: Ambulatory Orders Insulin Aspart [Novolog] 0 unit SQ ASDIR 06/08/17 Amlodipine Besylate [Norvasc -] 10 mg PO DAILY #30 tablet 06/12/17 Valsartan [Diovan] 160 mg PO DAILY #30 tablet 06/12/17 Hydrochlorothiazide [Hctz -] 12.5 mg PO DAILY 07/08/17 Atorvastatin Calcium [Lipitor] 20 mg PO HS #30 tablet 07/14/17 Daptomycin 500 mg IV DAILY #3 vial 07/14/17 This patient is new to me today: No Emergency Visit: No Critical Care patient: No - Discharge Referral Referred to [facility] No
== END 2017-07-14 18:16 | disposition home health service (06) | DRG 607 ==
LOC: JER 15:15 → JERBED 18:52 → J4S 23:18
PROVIDERS: ADMIT Internal Medicine; ATTEND Internal Medicine
DX: L27.0 Generalized skin eruption due to drugs and medicaments taken internally (principal); N17.9 Acute kidney failure, unspecified; R65.10 Systemic inflammatory response syndrome (SIRS) of non-infectious origin without acute organ dysfunction; M86.671 Other chronic osteomyelitis, right ankle and foot; T36.0X5A Adverse effect of penicillins, initial encounter; R19.7 Diarrhea, unspecified; I10 Essential (primary) hypertension; E11.65 Type 2 diabetes mellitus with hyperglycemia; D72.829 Elevated white blood cell count, unspecified; E78.5 Hyperlipidemia, unspecified; E86.0 Dehydration; R50.9 Fever, unspecified; E87.5 Hyperkalemia; Z79.4 Long term (current) use of insulin
CPT/HCPCS: 36415; 70450-TC; 71045-TC-FY; 74176-TC; 80048; 80053; 81003; 81015; 82009; 82436; 82550; 82570; 82607; 82746; 82803; 82962; 83036; 83605; 83735; 83930; 83935; 84100; 84132; 84133; 84300; 84443; 84484; 85025; 85027; 85610; 85651; 85730; 86140; 87040; 87045; 87046; 87086; 87177; 87186; 87209; 87324; 87449; 93005; 93010; 93306-TC; 93880-TC; 96365; 96367; 96372; 99282-25; 99284-25; G0378; J0131; J0878; J1644; J7030

== ENCOUNTER 2017-12-16 01:12 | Inpatient (IN) | payer OTHER ==
--- NOTE | 2017-12-16 01:46 | PDOC ---
History of Present Illness - General Chief Complaint: Nausea/Vomiting Stated Complaint: NAUSEA VOMITING Time Seen by Provider: 12/16/17 01:41 - History of Present Illness Initial Comments: 12/16/17 01:44 72 yo M with h/o HTN, DM, who p/w vomiting. Patient reports acute onset of non bilious, non bloody emesis x 6 beginning at 6:00 PM (12/15/17), with no identifiable triggers or alleviators. Also endorses 2 loose, watery stools yesterday evening beginning at 08:00 PM (12/15/17). 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 No abdominal pain. No OTC symptom control. No recent traveling, sick contacts, or change in diet. Patient denies N/V, F/C, orthopnea, PND, leg swelling, palpitations, cough, CP, SOB, urinary complaints, abdominal pain, hematuria, constipation, lightheadedness, weakness, sensory changes. PMHx: as noted above. Denies h/o abdominal surgery. ROS: as noted SHx: Denies Etoh, tobacco, IVDA Allergies: PCN, Zosyn Past History - Past Medical History Allergies/Adverse Reactions: Allergies Allergy/AdvReac Type Severity Reaction Status Date / Time Sulfa (Sulfonamide Allergy Severe Vomiting Verified 12/16/17 01:34 Antibiotics) piperacillin [From Zosyn] AdvReac Intermediate Itching Verified 12/16/17 01:34 tazobactam [From Zosyn] AdvReac Intermediate Itching Verified 12/16/17 01:34 Home Medications: Ambulatory Orders Insulin Aspart [Novolog] 0 unit SQ ASDIR 06/08/17 Amlodipine Besylate [Norvasc -] 10 mg PO DAILY #30 tablet 06/12/17 Valsartan [Diovan] 160 mg PO DAILY #30 tablet 06/12/17 Hydrochlorothiazide [Hctz -] 12.5 mg PO DAILY 07/08/17 Atorvastatin Calcium [Lipitor] 20 mg PO HS #30 tablet 07/14/17 Daptomycin 500 mg IV DAILY #3 vial 07/14/17 COPD: No Diabetes: Yes HTN: Yes Hypercholesterolemia: Yes - Suicide/Smoking/Psychosocial Hx Smoking History: Never smoked Have you smoked in the past 12 months: No Information on smoking cessation initiated: No Hx Alcohol Use: No Drug/Substance Use Hx: No Substance Use Type: None Hx Substance Use Treatment: No Review of Systems - Review of Systems Comments:: 12/16/17 01:44 GENERAL/CONSTITUTIONAL: No fever or chills. No weakness. HEAD, EYES, EARS, NOSE AND THROAT: No change in vision. No ear pain or discharge. No sore throat. CARDIOVASCULAR: No chest pain or shortness of breath RESPIRATORY: No cough, wheezing, or hemoptysis. GASTROINTESTINAL:+ nausea, vomiting, diarrhea. No constipation. GENITOURINARY: No dysuria, frequency, or change in urination. MUSCULOSKELETAL: No joint or muscle swelling or pain. No neck or back pain. SKIN: No rash NEUROLOGIC: No headache, vertigo, loss of consciousness, or change in strength/ sensation. ENDOCRINE: No increased thirst. No abnormal weight change HEMATOLOGIC/LYMPHATIC: No anemia, easy bleeding, or history of blood clots. ALLERGIC/IMMUNOLOGIC: No hives or skin allergy. *Physical Exam - Vital Signs Last Vital Signs Temp Pulse Resp BP Pulse Ox 97.7 F 87 20 133/67 97 12/16/17 01:35 12/16/17 01:35 12/16/17 01:35 12/16/17 01:35 12/16/17 01:35 - Physical Exam Comments: 12/16/17 01:45 GENERAL: Awake, alert, and fully oriented, in no acute distress HEAD: No signs of trauma, normocephalic, atraumatic EYES: PERRLA, EOMI, sclera anicteric, conjunctiva clear ENT: Hearing grossly normal, nares patent, oropharynx clear without exudates. Moist mucosa NECK: Normal ROM, supple, no lymphadenopathy, JVD, or masses LUNGS: No distress, speaks full sentences, clear to auscultation bilaterally HEART: Regular rate and rhythm, normal S1 and S2, no murmurs, rubs or gallops, peripheral pulses normal and equal bilaterally. ABDOMEN: + Protuberant. Soft, nontender, NDS, normoactive bowel sounds. No guarding, no rebound, no rigidity. No masses. Neg CVA ttp. EXTREMITIES : Normal inspection, Normal range of motion, no edema. No clubbing or cyanosis. SKIN: Warm, Dry, normal turgor, no rashes or lesions noted ED Treatment Course - LABORATORY CBC & Chemistry Diagram: 12/16/17 02:50 12/16/17 02:50 Medical Decision Making - Medical Decision Making 12/16/17 02:34 72 yo M with h/o HTN, DM, BIBA with vomiting, and syncope. VSS, AF. Neg abdominal ttp. Probable gastroenteritis, vs. gastritis. Will consider biliary disease, pancreatitis, diverticulitis, colitis, appendicitis. Low suspicion AAA , Ao dissection, mesenteric ischemia,nephrolithiais, cystitis. CTH r/o hemorrhage, hemaotma, skull fracture. Will assess for VBI, hypoglycemia, hypovolemia, cardiac dysarrtyhmias, electrolyte abnml, metabolic and toxic derangements, acid-base disturbances, and infection. ED Course: CBC,CMP, Lipase, UA EKG, CTH NS, Zofran 12/16/17 04:31 CTH: Unremarkable 12/16/17 04:33 WBC: 13.8 12/16/17 04:33 CMP: Unremarkable Lipase: Neg 12/16/17 04:54 EKG: NSR, with LAD, and absent PAUL, STD. Normal axis and interval duration. 12/16/17 05:41 Patient admitted to observation Dr. Gilman for syncope and collapse. *DC/Admit/Observation/Transfer Diagnosis at time of Disposition: Nausea & vomiting Qualifiers: Vomiting type: unspecified Vomiting Intractability: non-intractable Qualified Code(s): R11.2 - Nausea with vomiting, unspecified Syncopal episodes Qualifiers: Syncope type: unspecified Qualified Code(s): R55 - Syncope and collapse - Discharge Dispostion Condition at time of disposition: Stable Decision to Admit order: Yes - Referrals Referrals: Jenn Farris MD [Primary Care Provider] - - Patient Instructions Printed Discharge Instructions: DI for Vomiting -- Adult Additional Instructions: Please return to the emergency department with any new or worsening symptoms or concerns. Please follow up with your primary care physician within 72 hours. - Post Discharge Activity - Attestations Physician Attestion: 12/16/17 04:36 I attest to the information provided in this note.
[2017-12-16] MEDS ORDERED: ONDANSETRON 4 MG/2 ML VIAL IVPUSH ONE (02:30)
[2017-12-16] MEDS ORDERED: SODIUM CHLORIDE 1,000 ML IV STA (02:30)
[2017-12-16] MEDS ORDERED: ONDANSETRON 4 MG/2 ML VIAL ONE ×2 (02:34→05:25)
[2017-12-16 03:25] LABS: BASO % 0.5 % (0-2.0); EOS % 0.3 % (0-4.5); HEMATOCRIT 44.4 % (35.4-49); HEMOGLOBIN 14.7 GM/dL (11.7-16.9); LYMPH % 2.3 % (8-40); MCH 29.8 pg (25.7-33.7); MEAN CELL VOLUME 90.2 fl (80-96); MEAN PLT VOLUME 9.4 fl (7.5-11.1); MONO % 5.1 % (3.8-10.2); NEUT % 91.8 % (42.8-82.8); PLATELET COUNT 234 K/MM3 (134-434); RBC 4.92 M/mm3 (4.00-5.60); RDW 13.3 % (11.9-15.9); WHITE BLOOD COUNT 13.8 K/mm3 (4.0-10.0)
[2017-12-16 04:06] LABS: LIPASE 78 U/L (73-393)
[2017-12-16 04:08] LABS: ALBUMIN 3.5 g/dl (3.4-5.0); ALK PHOS 109 U/L (45-117); ANION GAP 8 MMOL/L (8-16); BILIRUBIN,TOTAL 0.8 mg/dL (0.2-1); BLOOD UREA NITROGEN 34 mg/dL (7-18); CALCIUM 8.2 mg/dL (8.5-10.1); CHLORIDE 109 mmol/L (98-107); CO2 23 mmol/L (21-32); CREATININE 1.3 mg/dL (0.55-1.3); GLUCOSE,RANDOM 287 mg/dL (74-106); POTASSIUM 4.8 mmol/L (3.5-5.1); SGOT/AST 22 U/L (15-37); SGPT/ALT 26 U/L (13-61); SODIUM 139 mmol/L (136-145); TOT PROT 6.8 g/dl (6.4-8.2)
[2017-12-16 04:36] LABS: PLATELET ESTIMATE ADEQUATE
--- NOTE | 2017-12-16 04:55 | PDOC ---
Attending Attestation - Resident Resident Name: Young Duque - ED Attending Attestation I have performed the following: I have examined & evaluated the patient, The case was reviewed & discussed with the resident, I agree w/resident's findings & plan, Exceptions are as noted - HPI HPI: 12/16/17 06:20 The patient is a 72-year-old male, with a past medical history of HTN and DM, who presents to the ED s/p 6 episodes of nausea and NBNB vomiting that began at 6PM yesterday. The patient denies any recent changes to his diet. He also reports experiencing 2 episodes of loose, watery stools yesterday at 8PM. Patient lost consciousness 30 minutes prior to arrival, but does not recall the duration of the episode as he states he last remembers lying flat on the bathroom floor prior to passing out. The patient denies any fever, chills, nausea, vomiting, diarrhea, or abdominal pain. Denies any chest pain or shortness of breath. Denies any urinary symptoms. Denies any recent travel. Allergies: Sulfa, piperacillin, and tazobactam. Social History: Surgical History: PCP: Dr. Farris - Physicial Exam PE: 12/16/17 05:38 agree with resident exam - Medical Decision Making 12/16/17 06:21 72yo M presents to the ED with multiple episodes of N/V and syncopal episode of unknown duration. Pt admitted for cardiac monitoring. Heart Score/ECG Review #1 12/16/17 05:39 Twelve-lead EKG was performed and reviewed by me. Normal sinus rhythm, rate 85. Left axis deviation. No ST elevations.
[2017-12-16] MEDS ORDERED: ONDANSETRON 4 MG/2 ML VIAL IVPB ONE (05:21)
--- NOTE | 2017-12-16 05:22 | PN ---
Teaching Attending Note Name of Resident: Adrian Encarnacion ATTENDING PHYSICIAN STATEMENT I saw and evaluated the patient. I reviewed the resident's note and discussed the case with the resident. I agree with the resident's findings and plan as documented. SUBJECTIVE: Patient is a 72 year old man with history of HTN, HLD, right great toe osteomyelitis and NIDDM who presents with vomiting. Patient reports acute onset of nonbilious, nonbloody emesis six times beginning at 6:00 PM (12/15/17), with no identifiable triggers or alleviators. Also had 2 watery stools yesterday evening beginning at 08:00 PM (12/15/17). 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 No OTC symptom control. No recent traveling, sick contacts, or change in diet. He denies orthopnea, PND, leg swelling, palpitations or hematuria. OBJECTIVE: Alert Vital Signs Period Temp Pulse Resp BP Sys/Ferreira Pulse Ox Last 24 Hr 97.7 F 87 20 133/67 97 HEENT: No Jaundice, eye redness or discharge, PERRLA, EOMI. Normocephalic, atraumatic. External ears are normal and hearing is grossly intact. No nasal discharge. Neck: Supple, nontender. No palpable adenopathy or thyromegaly. No JVD Chest: Good effort. Clear to auscultation and percussion. Heart: Regular. No S3, rub or murmur Abdomen: Not distended, soft, nontender and no HSM. No rebound or guarding. Normoactive bowel sounds. Ext: Peripheral pulses intact. No leg edema. Skin: Warm and dry. No petechiae, rash or ecchymosis. Neuro: Alert. Oriented x3. CN 2-12 grossly intact. Sensation grossly intact in all four extremities and DTR are symmetric. Home Medications Medication Instructions Recorded Insulin Aspart [Novolog] 0 unit SQ ASDIR 06/08/17 Amlodipine Besylate [Norvasc -] 10 mg PO DAILY #30 tablet 06/12/17 Valsartan [Diovan] 160 mg PO DAILY #30 tablet 06/12/17 Hydrochlorothiazide [Hctz -] 12.5 mg PO DAILY 07/08/17 Atorvastatin Calcium [Lipitor] 20 mg PO HS #30 tablet 07/14/17 Daptomycin 500 mg IV DAILY #3 vial 07/14/17 Abnormal Lab Results 12/16/17 12/16/17 02:50 02:50 WBC 13.8 H Absolute Neuts (auto) 12.7 H Neutrophils % 91.8 H D Neutrophils % (Manual) 85.0 H Lymphocytes % 2.3 L D Lymphocytes % (Manual) 6.0 L Chloride 109 H BUN 34 H Random Glucose 287 H Calcium 8.2 L ASSESSMENT AND PLAN: 1. Syncope/Gastroenteritis - Head CT scan is negative and he has no changes on EKG. Syncope may be vasovagal due to vomiting. Viral gastroenteritis may explain his GI symptoms, but will get a CT abd/pelvis and continue IV NS at 75 ml/hour, IV Flagyl and Cipro. Admit as Obs to telemetry. Consult GI and ID 2. DM - For now, we will hold the home diabetes drugs and implement sliding scale insulin regimen. Provide comprehensive diabetes care with patient teaching and counseling about the importance of euglycemia, eye care and foot care. 3. DVT prophylaxis - Lovenox 40 mg SQ q 24 hours. 4. Advance directives - Full code
--- NOTE | 2017-12-16 06:44 | HP ---
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 early this am c/o nausea, vomiting, and syncope. Pt woke up at around 8 AM yesterday morning and immediately began experiencing vertiginous symptoms. Pt sat down and drank hot tea but states this did not relieve his symptoms. Pt then had 3 episodes of vomiting beginning around 4 PM yesterday while at home in bed. Pt then went to the bathroom to vomit once more but lost consciousness in the bathroom. Pt recalls having lost control of his bowels while in the bathroom when EMS arrived. Endorses chills and lightheadedness. Denies any head injury, shortness of breath, change in vision, or chest pain. 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 RX: MILD: ERYTHEMA,ITCHING, NAUSEA. MODERATE: URTICARIA. BENADRYL 25 MG IV GIVEN tazobactam [From Zosyn] Adverse Reaction (Intermediate, Verified 12/16/17 01:34) Itching 07/11/17 SUSPECTED ADR TO ZOSYN. RX: MILD:ITCHING,ERYTHEMA,NAUSEA. MODERATE: URTICARIA. BENADRYL 25 MG IV GIVEN HOME MEDICATIONS: Home Medications Medication Instructions Recorded Insulin Aspart [Novolog] 0 unit SQ ASDIR 06/08/17 Amlodipine Besylate [Norvasc -] 10 mg PO DAILY #30 tablet 06/12/17 Valsartan [Diovan] 160 mg PO DAILY #30 tablet 06/12/17 Hydrochlorothiazide [Hctz -] 12.5 mg PO DAILY 07/08/17 Atorvastatin Calcium [Lipitor] 20 mg PO HS #30 tablet 07/14/17 Daptomycin 500 mg IV DAILY #3 vial 07/14/17 REVIEW OF SYSTEMS CONSTITUTIONAL: PRESENT: chills, generalized weakness, malaise HEENT: Absent: rhinorrhea, nasal congestion, throat pain, throat swelling, difficulty swallowing, mouth swelling, ear pain, eye pain, visual changes CARDIOVASCULAR: PRESENT: lightheadedness RESPIRATORY: Absent: cough, shortness of breath, dyspnea with exertion, orthopnea, wheezing, stridor, hemoptysis GASTROINTESTINAL: PRESENT: nausea, vomiting, diarrhea GENITOURINARY: Absent: dysuria, frequency, urgency, hesitancy, hematuria, flank pain, genital pain MUSCULOSKELETAL: Absent: myalgia, arthralgia, joint swelling, back pain, neck pain SKIN: Absent: rash, itching, pallor HEMATOLOGIC/IMMUNOLOGIC: Absent: easy bleeding, easy bruising, lymphadenopathy, frequent infections ENDOCRINE: Absent: unexplained weight gain, unexplained weight loss, heat intolerance, cold intolerance NEUROLOGIC: Absent: headache, focal weakness or paresthesias, dizziness, unsteady gait, seizure, mental status changes, bladder or bowel incontinence PSYCHIATRIC: Absent: anxiety, depression, suicidal or homicidal ideation, hallucinations. PHYSICAL EXAMINATION Vital Signs - 24 hr 12/16/17 01:35 Temperature 97.7 F Pulse Rate 87 Respiratory 20 Rate Blood Pressure 133/67 O2 Sat by Pulse 97 Oximetry (%) GENERAL: aaoX3, NAD HEAD: NC/At, no signs of trauma EYES: EOMI, PERRLA, No scleral icterus EARS, NOSE, THROAT: Dry mucous membranes NECK: Supple LUNGS: CTA B/L. No wheezing, rhonchi, or rales. HEART: RRR No MRG S1 S2 ABDOMEN: Hypoactive bowel sounds, no guarding or rigidity, no hsm, nondistended , nontender MUSCULOSKELETAL: Full ROM throughout UPPER EXTREMITIES: No CEE LOWER EXTREMITIES: No breaks or wounds on feet b/l. DP 2+ b/l. NEUROLOGICAL: CN 2-12 intact throughout PSYCHIATRIC: Cooperative. Good eye contact. Appropriate mood and affect. SKIN: No rashes or lesions appreciated Laboratory Results - last 24 hr 12/16/17 12/16/17 12/16/17 02:50 02:50 02:50 WBC 13.8 H RBC 4.92 Hgb 14.7 Hct 44.4 D MCV 90.2 MCH 29.8 MCHC 33.0 RDW 13.3 Plt Count 234 D MPV 9.4 Absolute Neuts (auto) 12.7 H Neutrophils % 91.8 H D Neutrophils % (Manual) 85.0 H Band Neutrophils % 5.0 Lymphocytes % 2.3 L D Lymphocytes % (Manual) 6.0 L Monocytes % 5.1 Monocytes % (Manual) 4 Eosinophils % 0.3 D Basophils % 0.5 Nucleated RBC % 0 Platelet Estimate Adequate Sodium 139 Potassium 4.8 Chloride 109 H Carbon Dioxide 23 Anion Gap 8 BUN 34 H Creatinine 1.3 Creat Clearance w eGFR 54.26 Random Glucose 287 H Calcium 8.2 L Total Bilirubin 0.8 AST 22 ALT 26 Alkaline Phosphatase 109 Total Protein 6.8 Albumin 3.5 Lipase 78 Alcohol, Quantitative < 3.0 ASSESSMENT/PLAN: 72 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 early this am c/o nausea, vomiting, and syncope. #Syncope 2/2 gastroenteritis, vasovagal response? - CT Head Negative - WBC 13.8 - CT ABD/Pelvis to r/o possible colitis - I.V Cipro/Flagyl -IV NS at 75 ml/hour -Urinalysis STAT # DM -Random glucose 287 -Blood sugar ACHS -Start Insulin Sliding Scale FEN NS@ 75 ml/hr Monitor Electrolytes Diabetic Diet DVT ppx: Lovenox 40 mg sq Daily Dispo: Observation Visit type - Emergency Visit Emergency Visit: Yes ED Registration Date: 12/16/17 Care time: The patient presented to the Emergency Department on the above date and was hospitalized for further evaluation of their emergent condition. - New Patient This patient is new to me today: Yes Date on this admission: 12/16/17 - Critical Care Critical Care patient: No
[2017-12-16] MEDS ORDERED: INSULIN SLIDING SCALE (NOVOLOG) 1 VIAL SQ SCH (07:00)
[2017-12-16] MEDS: SODIUM CHLORIDE 1,000 ML IV SCH ×2 (07:07→09:55)
[2017-12-16] MEDS ORDERED: INSULIN REGULAR HUMAN 100 UNITS/ML *VIAL ONE (07:09)
[2017-12-16 08:29] LABS: BASO % 0.1 % (0-2.0); EOS % 0.1 % (0-4.5); HEMATOCRIT 41.7 % (35.4-49); HEMOGLOBIN 13.7 GM/dL (11.7-16.9); LYMPH % 1.8 % (8-40); MCH 29.4 pg (25.7-33.7); MCHC 32.8 g/dl (32.0-35.9); MEAN CELL VOLUME 89.9 fl (80-96); MEAN PLT VOLUME 8.6 fl (7.5-11.1); MONO % 5.1 % (3.8-10.2); NEUT % 92.9 % (42.8-82.8); PLATELET COUNT 212 K/MM3 (134-434); RBC 4.64 M/mm3 (4.00-5.60); RDW 13.6 % (11.9-15.9); WHITE BLOOD COUNT 11.7 K/mm3 (4.0-10.0)
[2017-12-16 08:49] LABS: INR 0.99 (0.83-1.09); PROTHROMBIN TIME (PATIENT) 11.7 SEC (9.7-13.0)
[2017-12-16 08:52] LABS: ACTIVATED PTT 25.2 SECONDS (25.2-36.5)
[2017-12-16 08:54] LABS: ANION GAP 9 MMOL/L (8-16); BLOOD UREA NITROGEN 36 mg/dL (7-18); CALCIUM 7.9 mg/dL (8.5-10.1); CHLORIDE 109 mmol/L (98-107); CO2 24 mmol/L (21-32); CREATININE 1.5 mg/dL (0.55-1.3); MAGNESIUM 2.1 mg/dL (1.8-2.4); PHOSPHOROUS 3.2 mg/dL (2.5-4.9); POTASSIUM 4.3 mmol/L (3.5-5.1); SODIUM 142 mmol/L (136-145)
[2017-12-16 09:12] LABS: GLUCOSE,RANDOM 304 mg/dL (74-106)
[2017-12-16 09:46] LABS: PLATELET ESTIMATE ADEQUATE
[2017-12-16] MEDS ORDERED: CIPROFLOXACIN 400 MG/D5W 400 MG/200 ML IVPB IVPB SCH (10:00)
[2017-12-16] MEDS ORDERED: ENOXAPARIN NA (PORCINE) 40 MG/0.4 ML DISP.SYRIN SQ SCH (10:00)
--- NOTE | 2017-12-16 11:55 | EKG ---
Test Reason : Blood Pressure : / mmHG Vent. Rate : 085 BPM Atrial Rate : 085 BPM P-R Int : 152 ms QRS Dur : 090 ms QT Int : 384 ms P-R-T Axes : 009 -49 018 degrees QTc Int : 456 ms NORMAL SINUS RHYTHM LEFT AXIS DEVIATION NONSPECIFIC ST ABNORMALITY ABNORMAL ECG WHEN COMPARED WITH ECG OF 10-JUL-2017 17:55, PREMATURE ATRIAL COMPLEXES ARE NO LONGER PRESENT CRITERIA FOR INFERIOR INFARCT ARE NO LONGER PRESENT Confirmed by CONSTANTINE MANZANO, TIA ([id number]) on 12/16/2017 11:54:27 AM Referred By: Confirmed By:TIA FITCH MD
[2017-12-16] MEDS: INSULIN SLIDING SCALE (NOVOLOG) 1 VIAL SQ SCH ×3 (12:41→22:02)
[2017-12-16] MEDS ORDERED: PANTOPRAZOLE 40 MG TABLET (FP) PO SCH (13:45)
[2017-12-16] MEDS ORDERED: HEPARIN NA (PORCINE) 5,000 UNITS/ML 1ML VIAL SQ SCH (14:00)
--- NOTE | 2017-12-16 14:51 | FALL ---
Fall Exam - Event Witnessed fall: No Location of Fall: Bathroom Fall from: standing - Pre-Fall Mental Status: Alert, Oriented, Cooperative Current Medications: Current Medications Generic Name Dose Route Start Last Admin Trade Name Freq PRN Reason Stop Dose Admin Enoxaparin Sodium 40 mg 12/16/17 10:00 12/16/17 10:01 Lovenox - SQ 40 mg DAILY JASMINE Administration Levofloxacin 500 mg in 100 mls @ 100 mls/hr 12/16/17 10:00 12/16/17 10:01 Levaquin 500 Mg Premixed Ivpb - IVPB 100 mls/hr DAILY JASMINE Administration Metronidazole 500 mg in 100 mls @ 100 mls/hr 12/16/17 08:45 12/16/17 10:01 Flagyl 500mg Premixed Ivpb - IVPB 100 mls/hr Q8H-IV JASMINE Administration Sodium Chloride 1,000 mls @ 75 mls/hr 12/16/17 07:00 12/16/17 09:55 Normal Saline - IV 75 mls/hr ASDIR JASMINE Administration Insulin Aspart 1 vial 12/16/17 07:31 12/16/17 12:41 Novolog Vial Sliding Scale - SQ 12 units ACHS JASMINE Administration Protocol Pantoprazole Sodium 40 mg 12/16/17 13:45 Protonix - PO DAILY JASMINE Prochlorperazine Maleate 5 mg 12/16/17 13:31 Compazine - PO Q4H PRN NAUSEA AND/OR VOMITING - Post-Fall Patient Outcome: Laceration (Lip and Right eye) Exam Findings: A&Ox3. Face: Laceration over upper lip midline and over Right eye upper lid. Eyes: PERRL. Oropharynx: No evidence of bleed. Heart: RRR. Abdomen: +BS, Nontender, Soft. Extremities: No Edema. Neuro: Gross sensation intact, 5/5 Muscle strength to Hand hand sample maker, elbow flexion/extension, Hip flexion/ extension Treatment: None Vital Signs: Vital Signs Temperature 98.1 F 12/16/17 13:55 Pulse Rate 94 H 12/16/17 13:55 Respiratory Rate 17 12/16/17 13:55 Blood Pressure 149/65 12/16/17 13:55 O2 Sat by Pulse Oximetry (%) 98 12/16/17 08:23 Post Fall, 148/67, HR 90, RR 14 O2 sats 91% LOC Post-Fall: Awake, Alert, Oriented Identify factors for HIGH RISK for Head Injury: Known to have hit head
[2017-12-16] MEDS ORDERED: PT OWN MED DRAWER 7, Y5N ONE (15:44)
[2017-12-16] MEDS: PROCHLORPERAZINE MALEATE 5 MG TABLET PO PRN ×2 (15:45→19:04)
[2017-12-16] MEDS ORDERED: SODIUM CHLORIDE 1,000 ML IV SCH (17:07)
--- NOTE | 2017-12-16 18:15 | PN ---
Teaching Attending Note Name of Resident: Lakshmi Esparza ATTENDING PHYSICIAN STATEMENT I saw and evaluated the patient. I reviewed the resident's note and discussed the case with the resident. I agree with the resident's findings and plan as documented. SUBJECTIVE: No fever or chills, feels nauseous and has burning sensation in his stomach . vomited while I am in room . reports vertigo daily. denies any CP before his syncopal episode . reports that his vertigo was really different this time before his syncope. reports being treated with abx x 5 days for an infection in LL parotid gland. he denies any pain in ears . No GAFFNEY OBJECTIVE: vomiting. brown liquid. no blood . L parotid tender and enlarged . no erythema . no TTP over mastoids Cv: RRR, no MRG Lungs: CATB Ext: no edema NEuro: EOMI, round equal pupils, reactive to light . no facial droop. no nuystagmus . strength 5.5 in upper and lower extremities propximally and distally. sensation to light touch intact . Reflexes 2+ knee jerk and biceps b/ l. nose to finger nl ASSESSMENT AND PLAN: 72 y/o man with h/o HTN. HL, recent h/o R great toe OM , DM , and vertigo who presented after a syncopal episode 1- Syncope : likely due to orthostatic hypotension in setting of volume depletion vs vasovagal due to vomiting. he described different type of vertigo last night before syncope, posterior circulation stroke is less likely but can' t be br/o though - check orthostatic VS - fall precautions - MRI of brain - neuro checks 2- N/V : gastritis vs Abx side effects ( on abx as out pt ) . No CT evidence of obstruction - zofran did not work - use compazine - use PPI - check HP stool Ag - if no improvement, might need EGD 3- CT scan findings of air in sella and cavernous sinus. - check MRI - will examine ears when an Otoscope is available . - cont abx for parotitis 4- BRENDA : due to volume depletion : IVF hold valsartan and HCTZ 5- DM : SSI 6- HTN: - hold valsartanand HCTZ - start low dose norvasc in mean time 7- s/p fall today in hospital . fall w/u neg HLOC
--- NOTE | 2017-12-16 18:58 | PN ---
Physical Exam: SUBJECTIVE: Patient seen and examined this morning in the ED. Unable to remember the event however recalls dizziness prior to syncopal episode. Says he had a similar episode in the past but unclear of treatment. Mentions that this episode is different from his prior episodes of Vertigo, however he is unable to further explain how. Recently completed a 5 day course of antibiotics (Unclear which one, possibly augmentin, Pharmacy says his last abx was prescribed in early 2018) for an enlarged, tender parotid gland. Continues to feel Nauseous. Denies fevers, chills, chest pain, SOB. OBJECTIVE: Vital Signs Period Temp Pulse Resp BP Sys/Ferreira Pulse Ox Last 24 Hr 97.7 F-98.3 F 78-95 17-20 122-149/65-78 97-99 GENERAL: A&Ox3, NAD HEAD: NCAT EYES: PERRL, EOMI (Patient mentions hx of Glaucoma and Cataracts b/l) ENT: Oropharynx clear without exudates, MMM NECK: Supple, No JVD, ROM intact LUNGS: Breath sounds equal, CTA B/L, no wheezes. HEART: Regular rate and rhythm, S1, S2 without murmur. ABDOMEN: Soft, nontender, nondistended, + bowel sounds, no guarding EXTREMITIES: 2+ pulses, no edema. Large, nontender bruise present over the right elbow. NEUROLOGICAL: Cranial nerves II through XII grossly intact. Normal speech. C5- T1 and L4-S1 gross sensation intact throughout. 5/5 Muscle strength to handgrip , Elbow flexion/extension, Hip flexion/extension, dorsiflexion, platarflexion. Laboratory Results - last 24 hr 12/16/17 12/16/17 12/16/17 02:50 02:50 02:50 WBC 13.8 H RBC 4.92 Hgb 14.7 Hct 44.4 D MCV 90.2 MCH 29.8 MCHC 33.0 RDW 13.3 Plt Count 234 D MPV 9.4 Absolute Neuts (auto) 12.7 H Total Counted Neutrophils % 91.8 H D Neutrophils % (Manual) 85.0 H Band Neutrophils % 5.0 Lymphocytes % 2.3 L D Lymphocytes % (Manual) 6.0 L Monocytes % 5.1 Monocytes % (Manual) 4 Eosinophils % 0.3 D Basophils % 0.5 Nucleated RBC % 0 Platelet Estimate Adequate Platelet Comment PT with INR INR PTT (Actin FS) Sodium 139 Potassium 4.8 Chloride 109 H Carbon Dioxide 23 Anion Gap 8 BUN 34 H Creatinine 1.3 Creat Clearance w eGFR 54.26 POC Glucometer Random Glucose 287 H Calcium 8.2 L Phosphorus Magnesium Total Bilirubin 0.8 AST 22 ALT 26 Alkaline Phosphatase 109 Creatine Kinase Creatine Kinase Index CK-MB (CK-2) Troponin I Total Protein 6.8 Albumin 3.5 Lipase 78 Alcohol, Quantitative < 3.0 12/16/17 12/16/17 12/16/17 07:03 08:12 08:12 WBC 11.7 H RBC 4.64 Hgb 13.7 Hct 41.7 MCV 89.9 MCH 29.4 MCHC 32.8 RDW 13.6 Plt Count 212 MPV 8.6 Absolute Neuts (auto) 10.9 H Total Counted 100 Neutrophils % 92.9 H Neutrophils % (Manual) 84.0 H Band Neutrophils % 8.0 Lymphocytes % 1.8 L D Lymphocytes % (Manual) 5.0 L Monocytes % 5.1 Monocytes % (Manual) 3 L Eosinophils % 0.1 Basophils % 0.1 Nucleated RBC % 0 Platelet Estimate Adequate Platelet Comment No clumping noted PT with INR INR PTT (Actin FS) Sodium Potassium Chloride Carbon Dioxide Anion Gap BUN Creatinine Creat Clearance w eGFR POC Glucometer [phone] Random Glucose Calcium Phosphorus Magnesium Total Bilirubin AST ALT Alkaline Phosphatase Creatine Kinase 235 Creatine Kinase Index 1.5 CK-MB (CK-2) 3.7 H Troponin I < 0.02 Total Protein Albumin Lipase Alcohol, Quantitative 12/16/17 12/16/17 12/16/17 08:12 08:12 12:33 WBC RBC Hgb Hct MCV MCH MCHC RDW Plt Count MPV Absolute Neuts (auto) Total Counted Neutrophils % Neutrophils % (Manual) Band Neutrophils % Lymphocytes % Lymphocytes % (Manual) Monocytes % Monocytes % (Manual) Eosinophils % Basophils % Nucleated RBC % Platelet Estimate Platelet Comment PT with INR 11.70 INR 0.99 PTT (Actin FS) 25.2 Sodium 142 Potassium 4.3 Chloride 109 H Carbon Dioxide 24 Anion Gap 9 BUN 36 H Creatinine 1.5 H Creat Clearance w eGFR 46.00 POC Glucometer 434 Random Glucose 304 H* Calcium 7.9 L Phosphorus 3.2 Magnesium 2.1 Total Bilirubin AST ALT Alkaline Phosphatase Creatine Kinase Creatine Kinase Index CK-MB (CK-2) Troponin I Total Protein Albumin Lipase Alcohol, Quantitative Active Medications Enoxaparin Sodium (Lovenox -) 40 mg SQ DAILY [facility] Last Admin: 12/16/17 10:01 Dose: 40 mg Levofloxacin (Levaquin 500 Mg Premixed Ivpb -) 500 mg in 100 mls @ 100 mls/hr IVPB DAILY JASMINE Last Admin: 12/16/17 10:01 Dose: 100 mls/hr Metronidazole (Flagyl 500mg Premixed Ivpb -) 500 mg in 100 mls @ 100 mls/hr IVPB Q8H-IV JASMINE Last Admin: 12/16/17 17:22 Dose: 100 mls/hr Sodium Chloride (Normal Saline -) 1,000 mls @ 100 mls/hr IV ASDIR JASMINE Last Admin: 12/16/17 17:22 Dose: 100 mls/hr Insulin Aspart (Novolog Vial Sliding Scale -) 1 vial SQ ACHS [facility]; Protocol Last Admin: 12/16/17 17:20 Dose: 4 units Pantoprazole Sodium (Protonix -) 40 mg PO DAILY [facility] Last Admin: 12/16/17 14:45 Dose: 40 mg Prochlorperazine Maleate (Compazine -) 5 mg PO Q4H PRN PRN Reason: NAUSEA AND/OR VOMITING Last Admin: 12/16/17 15:45 Dose: 5 mg Sucralfate (Carafate Oral Suspension -) 1 gm PO BID [facility] IMAGING: -EKG: NORMAL SINUS RHYTHM, LEFT AXIS DEVIATION -CT Head without contrast: Moderate atrophy and periventricular chronic microvascular ischemic disease changes. Air pockets in the cavernous sinuses and the anterior aspect of the sella that may be iatrogenic, related to recent intravenous injection. No skull base fracture is identified. -CT Head without contrast (Post-Fall): No CT evidence of acute intracranial pathology. -CT A/P without contrast: No definite CT findings of acute pathology are identified. There is no obvious CT evidence of enterocolitis. Colonic diverticulosis is noted. As visualized on prior CT studies of 07/10/2017 and 11/24 there is mildly increased mesenteric density centrally which may be slightly increased on the current exam. Associated mildly enlarged mesenteric lymph nodes are again noted without obvious interval change. While this appearance is usually of no clinical significance correlation with 3 month follow-up CT is suggested to document stability and lack of developing pathology. ASSESSMENT/PLAN: 72 y/o M with a PMHx of HTN, DM, BPH, vertigo, and osteomyelitis of his R Toe in June 2017 presented to ED with nausea, vomiting, and syncope. 1. Syncope -Likely due to orthostatic hypotension given hx of Vomiting and Diarrhea -CT Head noted above -Orthostatics pending -MRI of brain ordered to r/o posterior stroke, and to possibly further investigate the air pockets identified on CT -Echo (07/08/17): LV EF is normal, LV Wall motion is normal, Mild MR and TR 2. Nausea, vomiting -Unclear etiology, possibly Gastritis -CT A/P: No definite CT findings of acute pathology are identified. There is no obvious CT evidence of enterocolitis. Colonic diverticulosis is noted. -IV NS @ 100 mls/hr -Started Protonix, Compazine, Carafate -H. Pylori stool Antigen pending 3. HTN -Restarted home dose Norvasc -will hold other home meds given hx of syncope 4. DM -Hba1c on 07/08/17 was 9.4% -BGMs ISS ACHS 5. Hx of Vertigo -Will hold home dose Meclizine -Continue to monitor 6. FEN -IV NS @ 100 ml/hr -lytes wnl -Diabetic Diet 7. PPx -Lovenox held given his recent fall; On SCDs currently Dispo: Obs-Med surg Visit type - Emergency Visit Emergency Visit: Yes ED Registration Date: 12/16/17 Care time: The patient presented to the Emergency Department on the above date and was hospitalized for further evaluation of their emergent condition. - New Patient This patient is new to me today: Yes Date on this admission: 12/16/17 - Critical Care Critical Care patient: No
[2017-12-16 19:01] VITALS: BMI 29.9
[2017-12-16 21:55] LABS: ANION GAP 5 MMOL/L (8-16); BLOOD UREA NITROGEN 32 mg/dL (7-18); CALCIUM 7.7 mg/dL (8.5-10.1); CHLORIDE 110 mmol/L (98-107); CO2 26 mmol/L (21-32); CREATININE 1.2 mg/dL (0.55-1.3); GLUCOSE,RANDOM 202 mg/dL (74-106); POTASSIUM 4.2 mmol/L (3.5-5.1); SODIUM 141 mmol/L (136-145)
[2017-12-16] MEDS ORDERED: SUCRALFATE 1 GM/10 ML UNIT DOSE CUPS PO SCH (22:00)
[2017-12-17] MEDS: PROCHLORPERAZINE MALEATE 5 MG TABLET PO PRN (04:17)
--- NOTE | 2017-12-17 04:24 | RAPID ---
Physical Examination Vital Signs: Vital Signs BP 156/76 HR 86 O2 93% Labs: CBC, BMP 12/16/17 08:12 12/16/17 21:00 Rapid Response - Rapid Response Assessment: Rapid response called. According to nurse, pt was seen sitting up in bed to vomit in asencio, but then fell back on bed with head hanging from the edge. He did not fall on ground or hit his head. Nurse also reported pt's eyes rolling during episode. Pt does not remember falling and denies any borges/d, neck pain, chest pain, shortness of breath, tongue biting, urinary/bowel incontinence. EKG ordered, transfer to tele for close monitoring.
[2017-12-17] MEDS ORDERED: SODIUM CHLORIDE 1,000 ML IV SCH (05:27)
[2017-12-17] MEDS ORDERED: PROCHLORPERAZINE MALEATE 5 MG TABLET PO PRN (05:27)
[2017-12-17] MEDS: INSULIN SLIDING SCALE (NOVOLOG) 1 VIAL SQ SCH ×4 (06:13→22:16)
[2017-12-17 07:00] LABS: BASO % 0.1 % (0-2.0); EOS % 0.1 % (0-4.5); HEMATOCRIT 39.8 % (35.4-49); HEMOGLOBIN 13.3 GM/dL (11.7-16.9); LYMPH % 7.5 % (8-40); MCH 29.9 pg (25.7-33.7); MCHC 33.3 g/dl (32.0-35.9); MEAN CELL VOLUME 89.9 fl (80-96); MEAN PLT VOLUME 8.9 fl (7.5-11.1); MONO % 10.1 % (3.8-10.2); NEUT % 82.2 % (42.8-82.8); PLATELET COUNT 189 K/MM3 (134-434); RBC 4.43 M/mm3 (4.00-5.60); RDW 13.3 % (11.9-15.9); WHITE BLOOD COUNT 9.8 K/mm3 (4.0-10.0)
[2017-12-17 07:08] LABS: ALBUMIN 2.9 g/dl (3.4-5.0); ALK PHOS 84 U/L (45-117); ANION GAP 7 MMOL/L (8-16); BILIRUBIN,TOTAL 0.5 mg/dL (0.2-1); BLOOD UREA NITROGEN 29 mg/dL (7-18); CALCIUM 7.5 mg/dL (8.5-10.1); CHLORIDE 110 mmol/L (98-107); CO2 25 mmol/L (21-32); CREATININE 1.2 mg/dL (0.55-1.3); GLUCOSE,RANDOM 262 mg/dL (74-106); MAGNESIUM 2.1 mg/dL (1.8-2.4); PHOSPHOROUS 1.6 mg/dL (2.5-4.9); POTASSIUM 4.1 mmol/L (3.5-5.1); SGOT/AST 18 U/L (15-37); SGPT/ALT 20 U/L (13-61); SODIUM 142 mmol/L (136-145); TOT PROT 5.9 g/dl (6.4-8.2)
[2017-12-17] MEDS ORDERED: ATROPINE SULFATE 1 MG/10 ML DISP.SYRIN ONE (08:29)
[2017-12-17] MEDS ORDERED: ATROPINE SO4 0.4 MG/1 ML VIAL IVPUSH ONE ×2 (08:30)
[2017-12-17] MEDS ORDERED: NAPH,MB-DB/K PH,MBDB POWDER PACKET PO ONE ×2 (08:43→12:00)
[2017-12-17] MEDS ORDERED: PT OWN MED DRAWER 7, Y5N ONE (09:39)
--- NOTE | 2017-12-17 09:39 | CON.CARD ---
Consult Consult Specialty:: Cardiology Referred by:: ICU Reason for Consultation:: bradycardia, syncope - History of Present Illness Chief Complaint: vomiting, syncope History of Present Illness: 72M h/o HTN, HLD, vertigo, DM p/w syncope. Has had vomiting and vertigo as well. On medications for nausea, CT scan showed air in sella/cavernous sinus MRI pending. Received IVF. Episode of syncope with vomiting overnight, transferred to tele. On tele noted to have episodes of sinus bradycardia as well as 2:1 block during nausea/retching episodes. Endorses prior history of syncope during an episode of nausea/vomiting/gastritis a couple ofyears ago. Otherwise no syncope, lightheadedness. History of vertigo that effects him almost daily. - Past Medical History Cardio/Vascular: Yes: HTN, Hyperlipdemia Infectious Disease: Yes: Other (Rt toe OM) Endocrine: Yes: Diabetes Mellitus - Alcohol/Substance Use Hx Alcohol Use: No - Smoking History Smoking history: Never smoked Have you smoked in the past 12 months: No Home Medications - Allergies Allergies/Adverse Reactions: Allergies Allergy/AdvReac Type Severity Reaction Status Date / Time Sulfa (Sulfonamide Allergy Severe Vomiting Verified 12/16/17 01:34 Antibiotics) piperacillin [From Zosyn] AdvReac Intermediate Itching Verified 12/16/17 01:34 tazobactam [From Zosyn] AdvReac Intermediate Itching Verified 12/16/17 01:34 - Home Medications Home Medications: Ambulatory Orders Amlodipine Besylate [Norvasc -] 10 mg PO DAILY #30 tablet 06/12/17 Valsartan [Diovan] 160 mg PO DAILY #30 tablet 06/12/17 Hydrochlorothiazide [Hctz -] 30 mg PO DAILY 07/08/17 Meclizine HCl 25 mg PO TID PRN 12/16/17 Family Disease History - Family Disease History Family History: Unremarkable Review of Systems - Review of Systems Constitutional: reports: Lethargy, Weakness Eyes: reports: No Symptoms HENT: reports: No Symptoms Neck: reports: No Symptoms Cardiovascular: reports: No Symptoms Respiratory: reports: No Symptoms Gastrointestinal: reports: Abdominal Pain, Nausea, Vomiting Genitourinary: reports: No Symptoms Musculoskeletal: reports: No Symptoms Integumentary: reports: No Symptoms Neurological: reports: Syncope Endocrine: reports: No Symptoms Hematology/Lymphatic: reports: No Symptoms Psychiatric: reports: No Symptoms Vital Signs: Vital Signs Temperature 98.5 F 12/17/17 06:51 Pulse Rate 76 12/17/17 08:51 Respiratory Rate 14 12/17/17 08:51 Blood Pressure 148/67 12/17/17 08:51 O2 Sat by Pulse Oximetry (%) 96 12/17/17 08:00 Constitutional: Yes: Diaphoresis, Mild Distress Eyes: Yes: Conjunctiva Clear, EOM Intact HENT: Yes: Atraumatic, Normocephalic Neck: Yes: Supple, Trachea Midline Respiratory: Yes: Regular, CTA Bilaterally Gastrointestinal: Yes: Normal Bowel Sounds, Soft Renal/: Yes: WNL Cardiovascular: Yes: Regular Rate and Rhythm JVD: No Heart Sounds: Yes: S1, S2 Musculoskeletal: Yes: WNL Extremities: Yes: WNL Edema: No Peripheral Pulses WNL: Yes Peripheral Pulses: 2+ Left Doralis Pedis, 2+ Right Dorsalis Pedis Integumentary: Yes: WNL Neurological: Yes: Alert, Oriented ...Motor Strength: WNL Psychiatric: Yes: Alert, Oriented - Other Data Labs, Other Data: CBC, BMP 12/17/17 06:10 12/17/17 06:10 INR, PTT INR 0.99 (0.83-1.09) 12/16/17 08:12 Troponin, BNP 12/17/17 06:10 Troponin I < 0.02 Troponin, BNP 12/17/17 06:10 Troponin I < 0.02 Assessment/Plan EKG: sinus, LAD, no ischemic changes tele; sinus bradycardia, 2:1 block 72M h/o HTN, HLD, vertigo, DM p/w syncope, nausea vomiting bradycardia, 2:1 block - likely in setting of increased vagal tone from nausea, abd pain, vomiting - continue monitoring on tele - prior episode of syncope with similar presentation of nausea, vomiting - avoid AV andre blocking agents - echo pending - discussed case with Dr. Jose Bacon, EP, [facility] [place], no indication for PPM at this point as in setting of increased vagal tone, outpatient monitoring with event monitor Syncope - history consistent with vasovagal in setting of nausea/vomiting/abd pain also dehydration - IVF and management of nausea/vomiting per primary team - echo, carotids pending - monitoring on tele as above, ant[place] episodes with inc vagal tone HTN - stable on norvasc DM - manage per primary team
[2017-12-17] MEDS: amLODIPine BESYLATE 10 MG TABLET (FP) PO SCH (09:45)
[2017-12-17] MEDS: SUCRALFATE 1 GM/10 ML UNIT DOSE CUPS PO SCH ×2 (09:45→22:16)
[2017-12-17] MEDS: LACTATED RINGERS SOLUTION 1,000 ML/1,000 ML INFUS.BAG IV SCH ×2 (09:49→19:53)
[2017-12-17] MEDS: PANTOPRAZOLE SODIUM 40 MG VIAL IVPUSH SCH (09:54)
[2017-12-17] MEDS: ENOXAPARIN NA (PORCINE) 40 MG/0.4 ML DISP.SYRIN SQ SCH (09:56)
[2017-12-17] MEDS ORDERED: amLODIPine BESYLATE 10 MG TABLET (FP) PO SCH (10:00)
[2017-12-17] MEDS ORDERED: amLODIPine BESYLATE 5 MG TABLET (FP) PO SCH (10:00)
--- NOTE | 2017-12-17 12:28 | PN ---
Teaching Attending Note Name of Resident: Lakshmi Esparza ATTENDING PHYSICIAN STATEMENT I saw and evaluated the patient. I reviewed the resident's note and discussed the case with the resident. I agree with the resident's findings and plan as documented. SUBJECTIVE: over night events notable for syncope in the setting of N/V. This am , he has no N/V. has no abd pain. no CP . denies any drug use at home OBJECTIVE: NAD, comfortable in bed Cv: RRR, no MRG Lungs: CTAB. Abd: soft, NT, ND, NL BS Ext: no edema. ASSESSMENT AND PLAN: 72 y/o man with h/o HTN. HL, recent h/o R great toe OM , DM , and vertigo who presented after a syncopal episode 1- Syncope: vasovagal vs due to bradycardia - cont to monitor on tele - unlikely stroke given all findings and nl neuro exam. vertigo probably felt different due to the vomiting and bradycardia 2- 2nd degree Av block: Mobitz II. tele strip reviewed. EKG is sinus rhythm with L axis deviation with no change form yesterday's. cause could be the increased vasovagal tone. Not on any AV andre blockers. - appreciate card help - NO need for a pacer - treat underlying nausea and vomiting - pacer pads on 3- N/V: possible gastritis. less likey due to Bradycardia. No CT scan evidence of obstruction - cont IVF, compazine and PPI - will get GI to evaluate for possible EGD - check HP stool Ag 3- CT scan findings of air in sella and cavernous sinus. - hold MRI for now due to the heart block and last night's event his pharmacy was called , he has not been prescribed abx recently 4- BRENDA : due to volume depletion:improved with IVF cont to hold valsartan and HCTZ 5- DM : SSI 6- HTN: - cont to hold valsartan and HCTZ - cont norvasc - if needed can resume valsartan HLOC
--- NOTE | 2017-12-17 12:40 | PN ---
Teaching Attending Note Name of Resident: Earl Finn ATTENDING PHYSICIAN STATEMENT I saw and evaluated the patient. I reviewed the resident's note and discussed the case with the resident. I agree with the resident's findings and plan as documented. SUBJECTIVE: Pt seen and examined in the ICU. Nauseous, had 2:1 block during retching. No shortness of breath or chest pain. OBJECTIVE: Vital Signs Period Temp Pulse Resp BP Sys/Ferreira Pulse Ox Last 24 Hr 97.8 F-98.8 F 9-94 14-20 104-161/52-96 96-99 Intake & Output 12/14/17 12/15/17 12/16/17 12/17/17 23:59 23:59 23:59 23:59 Intake Total 1000 0 Output Total 1000 200 Balance 0 -200 Weight 89.448 kg Gen: uncomfortable Heart: RRR Lung: decreased breath sounds at the bases Abd: soft, nontender Ext: no edema CBC, BMP 12/17/17 06:10 12/17/17 06:10 Active Medications Amlodipine Besylate (Norvasc -) 10 mg PO DAILY [facility] Last Admin: 12/17/17 09:45 Dose: 10 mg Chlorhexidine Gluconate (Hibiclens For Decolonization -) 1 applic TP HS [facility] Enoxaparin Sodium (Lovenox -) 40 mg SQ DAILY [facility] Last Admin: 12/17/17 09:56 Dose: 40 mg Lactated Ringer's (Lactated Ringers Solution) 1,000 ml in 1,000 mls @ 125 mls/ hr IV ASDIR [facility] Last Admin: 12/17/17 09:49 Dose: 125 mls/hr Insulin Aspart (Novolog Vial Sliding Scale -) 1 vial SQ ACHS [facility]; Protocol Last Admin: 12/17/17 06:13 Dose: 6 units Mupirocin (Bactroban Ointment (For Decolonization) -) 1 applic NS BID [facility] Stop: 12/22/17 09:59 Pantoprazole Sodium (Protonix Iv) 40 mg IVPUSH DAILY [facility] Last Admin: 12/17/17 09:54 Dose: 40 mg Prochlorperazine Maleate (Compazine -) 5 mg PO Q4H PRN PRN Reason: NAUSEA AND/OR VOMITING Sucralfate (Carafate Oral Suspension -) 1 gm PO BID [facility] Last Admin: 12/17/17 09:45 Dose: 1 gm ASSESSMENT AND PLAN: Syncope 2nd Degree AV Block Nausea/Vomiting Acute Kidney Injury improving HTN DM - antiemetics - IVF - monitor urine output, creatinine - DVT prophylaxis - telemetry monitoring
--- NOTE | 2017-12-17 13:10 | CONSULT ---
Consultation: REQUESTING PROVIDER: OZZIE VELASCO MD CONSULT REQUEST: We have been asked to medically evaluate this patient for sympotmatic AV andre blockade and bradycardia. HISTORY OF PRESENT ILLNESS: Patient is a 72 y/o M w/ PMHx DM, BPH, vertigo, osteomyelitis, presented to [facility] ED overnight w/ multiple episodes of nausea and vomiting complicated by syncope x 1 day. Additionally lost control of bowels during some syncopal events. Initially admitted to floors, continued to have 3 syncopal episodes w/ nausea and vomiting, diarrhea during the last episode. At that time, was observed to have Mobitz type II 2:1 blockade and was bradycardic to 30s-40s. Admitted to ICU for continuous monitoring and w/u. REVIEW OF SYSTEMS: As per HPI PHYSICAL EXAMINATION Vital Signs - 24 hr 12/16/17 12/16/17 12/16/17 13:55 14:50 14:51 Temperature 98.1 F 98.8 F 98.2 F Pulse Rate 94 H 88 83 Pulse Rate [ Sitting] Pulse Rate [ Standing] Pulse Rate [ Supine] Respiratory 17 20 19 Rate Blood Pressure 149/65 130/56 L 130/73 Blood Pressure [Sitting] Blood Pressure [Standing] Blood Pressure [Supine] O2 Sat by Pulse Oximetry (%) 12/16/17 12/16/17 12/16/17 16:00 16:43 16:50 Temperature Pulse Rate 83 Pulse Rate [ Sitting] Pulse Rate [ Standing] Pulse Rate [ Supine] Respiratory 19 19 Rate Blood Pressure 122/67 Blood Pressure [Sitting] Blood Pressure [Standing] Blood Pressure [Supine] O2 Sat by Pulse 99 99 Oximetry (%) 12/16/17 12/16/17 12/16/17 16:51 18:08 18:50 Temperature 97.8 F 98.8 F Pulse Rate 88 87 Pulse Rate [ 87 Sitting] Pulse Rate [ 88 Standing] Pulse Rate [ 83 Supine] Respiratory 19 18 Rate Blood Pressure 130/56 L 151/52 L Blood Pressure 117/84 [Sitting] Blood Pressure 104/61 [Standing] Blood Pressure 105/53 L [Supine] O2 Sat by Pulse Oximetry (%) 12/16/17 12/16/17 12/16/17 18:51 19:00 19:01 Temperature 97.8 F 97.8 F Pulse Rate 88 87 88 Pulse Rate [ Sitting] Pulse Rate [ Standing] Pulse Rate [ 88 Supine] Respiratory 19 19 Rate Blood Pressure 130/56 L 113/74 130/56 L Blood Pressure [Sitting] Blood Pressure [Standing] Blood Pressure 104/61 [Supine] O2 Sat by Pulse Oximetry (%) 12/16/17 12/16/17 12/17/17 20:51 22:51 00:00 Temperature 98.5 F 98.1 F Pulse Rate 78 76 Pulse Rate [ Sitting] Pulse Rate [ Standing] Pulse Rate [ Supine] Respiratory 18 18 Rate Blood Pressure 134/62 139/71 Blood Pressure [Sitting] Blood Pressure [Standing] Blood Pressure [Supine] O2 Sat by Pulse 99 Oximetry (%) 12/17/17 12/17/17 12/17/17 01:39 03:37 04:30 Temperature 98 F 98.4 F Pulse Rate 9 L 77 86 Pulse Rate [ Sitting] Pulse Rate [ Standing] Pulse Rate [ Supine] Respiratory 18 18 18 Rate Blood Pressure 135/63 137/76 156/76 Blood Pressure [Sitting] Blood Pressure [Standing] Blood Pressure [Supine] O2 Sat by Pulse Oximetry (%) 12/17/17 12/17/17 12/17/17 04:51 05:00 06:27 Temperature 98.5 F Pulse Rate 86 80 80 Pulse Rate [ Sitting] Pulse Rate [ Standing] Pulse Rate [ Supine] Respiratory 17 14 Rate Blood Pressure 156/76 152/66 160/73 Blood Pressure [Sitting] Blood Pressure [Standing] Blood Pressure [Supine] O2 Sat by Pulse Oximetry (%) 12/17/17 12/17/17 12/17/17 06:51 07:40 08:00 Temperature 98.5 F Pulse Rate 80 74 80 Pulse Rate [ Sitting] Pulse Rate [ Standing] Pulse Rate [ Supine] Respiratory 14 16 16 Rate Blood Pressure 160/73 161/63 146/67 Blood Pressure [Sitting] Blood Pressure [Standing] Blood Pressure [Supine] O2 Sat by Pulse 96 Oximetry (%) 12/17/17 12/17/17 08:51 10:00 Temperature 98.4 F Pulse Rate 76 79 Pulse Rate [ Sitting] Pulse Rate [ Standing] Pulse Rate [ Supine] Respiratory 14 16 Rate Blood Pressure 148/67 112/96 Blood Pressure [Sitting] Blood Pressure [Standing] Blood Pressure [Supine] O2 Sat by Pulse Oximetry (%) GENERAL: Awake, alert, and fully oriented, in no acute distress. HEAD: Normal with no signs of trauma. EYES: Pupils equal, round and reactive to light, extraocular movements intact, sclera anicteric, conjunctiva clear. No lid lag. EARS, NOSE, THROAT: Ears normal, nares patent, oropharynx clear without exudates. Moist mucous membranes. NECK: Normal range of motion, supple without lymphadenopathy, JVD, or masses. LUNGS: Breath sounds equal, clear to auscultation bilaterally. No wheezes, and no crackles. No accessory muscle use. HEART: Regular rate and rhythm, normal S1 and S2 without murmur, rub or gallop. ABDOMEN: Soft, nontender, not distended, normoactive bowel sounds, no guarding, no rebound, no masses. No hepatomegaly or splenomegaly. MUSCULOSKELETAL: Normal range of motion at all joints. No bony deformities or tenderness. No CVA tenderness. UPPER EXTREMITIES: 2+ pulses, warm, well-perfused. No cyanosis. No clubbing. Cap refill <2 seconds. No peripheral edema. LOWER EXTREMITIES: 2+ pulses, warm, well-perfused. No calf tenderness. No peripheral edema. NEUROLOGICAL: Cranial nerves II-XII intact. Normal speech. Normal gait. PSYCHIATRIC: Cooperative. Good eye contact. Appropriate mood and affect. SKIN: Warm, dry, normal turgor, no rashes or lesions noted. Laboratory Results - last 24 hr 12/16/17 12/16/17 12/16/17 12:33 13:55 17:18 WBC RBC Hgb Hct MCV MCH MCHC RDW Plt Count MPV Absolute Neuts (auto) Neutrophils % Lymphocytes % Monocytes % Eosinophils % Basophils % Nucleated RBC % Sodium Potassium Chloride Carbon Dioxide Anion Gap BUN Creatinine Creat Clearance w eGFR POC Glucometer 434 231 Random Glucose 294 H Calcium Phosphorus Magnesium Total Bilirubin AST ALT Alkaline Phosphatase Creatine Kinase Creatine Kinase Index CK-MB (CK-2) Troponin I Total Protein Albumin TSH 12/16/17 12/16/17 12/17/17 21:00 21:52 06:09 WBC RBC Hgb Hct MCV MCH MCHC RDW Plt Count MPV Absolute Neuts (auto) Neutrophils % Lymphocytes % Monocytes % Eosinophils % Basophils % Nucleated RBC % Sodium 141 Potassium 4.2 Chloride 110 H Carbon Dioxide 26 Anion Gap 5 L BUN 32 H Creatinine 1.2 Creat Clearance w eGFR 59.51 POC Glucometer [phone] Random Glucose 202 H Calcium 7.7 L Phosphorus Magnesium Total Bilirubin AST ALT Alkaline Phosphatase Creatine Kinase Creatine Kinase Index CK-MB (CK-2) Troponin I Total Protein Albumin TSH 12/17/17 12/17/17 06:10 06:10 WBC 9.8 RBC 4.43 Hgb 13.3 Hct 39.8 MCV 89.9 MCH 29.9 MCHC 33.3 RDW 13.3 Plt Count 189 MPV 8.9 Absolute Neuts (auto) 8.1 H Neutrophils % 82.2 Lymphocytes % 7.5 L D Monocytes % 10.1 D Eosinophils % 0.1 Basophils % 0.1 Nucleated RBC % 0 Sodium 142 Potassium 4.1 Chloride 110 H Carbon Dioxide 25 Anion Gap 7 L BUN 29 H Creatinine 1.2 Creat Clearance w eGFR 59.51 POC Glucometer Random Glucose 262 H Calcium 7.5 L Phosphorus 1.6 L Magnesium 2.1 Total Bilirubin 0.5 AST 18 ALT 20 Alkaline Phosphatase 84 Creatine Kinase 236 Creatine Kinase Index 1.3 CK-MB (CK-2) 3.1 Troponin I < 0.02 Total Protein 5.9 L Albumin 2.9 L TSH 0.93 D Active Medications Generic Name Dose Route Start Last Admin Trade Name Freq PRN Reason Stop Dose Admin Amlodipine Besylate 10 mg 12/17/17 10:00 12/17/17 09:45 Norvasc - PO 10 mg DAILY JASMINE Administration Chlorhexidine Gluconate 1 applic 12/17/17 22:00 Hibiclens For Decolonization - TP HS JASMINE Enoxaparin Sodium 40 mg 12/17/17 10:00 12/17/17 09:56 Lovenox - SQ 40 mg DAILY JASMINE Administration Lactated Ringer's 1,000 ml in 1,000 mls @ 125 mls/hr 12/17/17 09:30 12/17/17 09:49 Lactated Ringers Solution IV 125 mls/hr ASDIR JASMINE Administration Insulin Aspart 1 vial 12/17/17 07:00 12/17/17 06:13 Novolog Vial Sliding Scale - SQ 6 units ACHS JASMINE Administration Protocol Mupirocin 1 applic 12/17/17 10:00 Bactroban Ointment (For Decolonization) - NS 12/22/17 09:59 BID JASMINE Pantoprazole Sodium 40 mg 12/17/17 10:00 12/17/17 09:54 Protonix Iv IVPUSH 40 mg DAILY JASMINE Administration Prochlorperazine Maleate 5 mg 12/17/17 05:27 Compazine - PO Q4H PRN NAUSEA AND/OR VOMITING Sucralfate 1 gm 12/17/17 10:00 12/17/17 09:45 Carafate Oral Suspension - PO 1 gm BID JASMINE Administration ASSESSMENT/PLAN: 72 y/o M w/ PMHx DM, BPH, vertigo, osteomyelitis, admitted to ICU following acute onset of syncopal episodes accompanied by n/v/d and noted to have Mobitz II block and bradycardia at the time of episodes. #AV block/bradycardia -cardiology consulted -only has occurred alongside n/v, likely 2/2 to increased vagal tone -echo and carotid dopplers pending -no need for pacing at this time -holter monitor following d/c #n/v -compazine -protonix -LR IVF #AMBER -improving -monitor lytes, Cr #HTN -cont norvasc, hold other home meds #FEN -LR @ 125 -monitor BMP -NPO #PPx -DVT: lovenox -GI: protonix #Dispo: -Transfer to telemetry. -Thank you for this consultative opportunity. Visit type - Emergency Visit Emergency Visit: No - New Patient This patient is new to me today: Yes Date on this admission: 12/17/17 - Critical Care Critical Care patient: Yes Total Critical Care Time (in minutes): 40 Critical Care Statement: The care of this patient involved high complexity decision making to prevent further life threatening deterioration of the patient 's condition and/or to evaluate & treat vital organ system(s) failure or risk of failure.
[2017-12-17 14:14] LABS: ANION GAP 8 MMOL/L (8-16); BLOOD UREA NITROGEN 29 mg/dL (7-18); CALCIUM 7.7 mg/dL (8.5-10.1); CHLORIDE 110 mmol/L (98-107); CO2 25 mmol/L (21-32); CREATININE 1.1 mg/dL (0.55-1.3); GLUCOSE,RANDOM 247 mg/dL (74-106); MAGNESIUM 2.2 mg/dL (1.8-2.4); PHOSPHOROUS 2.6 mg/dL (2.5-4.9); POTASSIUM 4.8 mmol/L (3.5-5.1); SODIUM 142 mmol/L (136-145)
--- NOTE | 2017-12-17 15:36 | ECHO ---
Name: THAD MALDONADO Exam:Adult Echocardiogram Study Date: 12/17/2017 10:42 AM Age: 72 yrs Reason For Study: SYNCOPE Height: 68 in Weight: 197 lb BSA: 2.0 m2 MMode/2D Measurements & Calculations IVSd: 0.71 cm Ao root diam: 2.8 cm LVIDd: 4.5 cm LA dimension: 3.5 cm LVIDs: 3.0 cm LVPWd: 1.1 cm LVPWs: 1.4 cm EDV(Teich): 92.0 ml ESV(Teich): 35.5 ml Doppler Measurements & Calculations MV E max patricia: 82.4 cm/sec Ao V2 max: 127.6 cm/sec MV A max patricia: 80.9 cm/sec Ao max P.7 mmHg MV E/A: 1.0 MV dec time: 0.21 sec LV V1 max P.1 mmHg PA V2 max: 92.8 cm/sec LV V1 max: 101.2 cm/sec PA max P.5 mmHg Med Peak E' Patricia: 7.6 cm/sec Med E/e': 10.9 Lat Peak E' Patricia: 10.7 cm/sec Lat E/e': 7.7 Procedure A complete two-dimensional transthoracic echocardiogram was performed (2D, M-mode, Doppler and color flow Doppler). The study was technically adequate with some images being suboptimal in quality. The patien t was in normal sinus rhythm during the exam. Left Ventricle The left ventricular size, thickness and function are normal. Ejection Fraction = 55-60%. Regional wa ll motion abnormalities cannot be excluded due to limited visualization. Right Ventricle The right ventricle is not well visualized. The right ventricular systolic function is grossly normal . Atria The left atrial size is normal. Mitral Valve The mitral valve is normal. Tricuspid Valve The tricuspid valve is normal. There was insufficient TR detected to calculate RV systolic pressure. There is trace tricuspid regurgitation. Aortic Valve The aortic valve is normal in structure and function. Great Vessels The aortic root is normal size. Pericardium/Pleura There is no pericardial effusion. Interpretation Summary The left ventricular size, thickness and function are normal Ejection Fraction = 55-60%. Regional wall motion abnormalities cannot be excluded due to limited visualization. The right ventricular systolic function is grossly normal. MD Zulema Lopez 12/17/2017 03:35 PM
[2017-12-17] MEDS: MUPIROCIN 2% TOPICAL OINTMENT FOR DECOLONIZATION NS SCH ×2 (15:40→22:16)
--- NOTE | 2017-12-17 18:00 | CON.GI ---
Consult Consult Specialty:: GI Referred by:: covering for Dr Askew - History of Present Illness History of Present Illness: 72 y/o male was admitted with 3 day history of non-bloody diarrhea, nauea and vomiting and syncopal episode. On admission he had elft shift. He was started on antibiotics. Leukocytosis resolved. He has recurrent vomiting. There is no travel history and recent antibiotic use. - Past Medical History Cardio/Vascular: Yes: HTN, Hyperlipdemia Infectious Disease: Yes: Other (Rt toe OM) Endocrine: Yes: Diabetes Mellitus - Alcohol/Substance Use Hx Alcohol Use: No - Smoking History Smoking history: Never smoked Have you smoked in the past 12 months: No Home Medications - Allergies Allergies/Adverse Reactions: Allergies Allergy/AdvReac Type Severity Reaction Status Date / Time Sulfa (Sulfonamide Allergy Severe Vomiting Verified 12/16/17 01:34 Antibiotics) piperacillin [From Zosyn] AdvReac Intermediate Itching Verified 12/16/17 01:34 tazobactam [From Zosyn] AdvReac Intermediate Itching Verified 12/16/17 01:34 - Home Medications Home Medications: Ambulatory Orders Amlodipine Besylate [Norvasc -] 10 mg PO DAILY #30 tablet 06/12/17 Valsartan [Diovan] 160 mg PO DAILY #30 tablet 06/12/17 Hydrochlorothiazide [Hctz -] 30 mg PO DAILY 07/08/17 Meclizine HCl 25 mg PO TID PRN 12/16/17 Physical Exam-GI Vital Signs: Vital Signs Temperature 98.3 F 12/17/17 13:37 Pulse Rate 72 12/17/17 16:00 Respiratory Rate 16 12/17/17 16:00 Blood Pressure 122/62 12/17/17 16:00 O2 Sat by Pulse Oximetry (%) 96 12/17/17 08:00 Constitutional: Yes: Well Nourished Eyes: Yes: Conjunctiva Clear HENT: Yes: Atraumatic Neck: Yes: Supple Cardiovascular: Yes: Regular Rate and Rhythm Respiratory: Yes: CTA Bilaterally ...Palpate: Yes: Soft. No: Firm/Rigid, Guarding, Hepatomegaly, Mass, Pulsatile Mass, Splenomegaly, Tenderness Labs: CBC, BMP 12/17/17 06:10 12/17/17 13:16 INR, PTT INR 0.99 (0.83-1.09) 12/16/17 08:12 Problem List - Problems (1) Diarrhea Assessment/Plan: most likely infectious R> Ceftriaxone 1 gram for 3 days Flagyl 50o mg IVPB every 8 hours stool analysis pending continue IV hydration Code(s): R19.7 - DIARRHEA, UNSPECIFIED
--- NOTE | 2017-12-17 19:44 | PN ---
Physical Exam: SUBJECTIVE: Patient seen and examined this morning in the ICU. Rapid response was called overnight for syncopal episode after vomiting. Additionally had multiple runs of diarrhea and vomitted again once in the ICU. Denies fevers, chills, chest pain, SOB overnight. OBJECTIVE: Vital Signs Period Temp Pulse Resp BP Sys/Ferreira Pulse Ox Last 24 Hr 98 F-98.8 F 9-86 14-19 112-161/49-96 96-99 GENERAL: A&Ox3, NAD HEAD: NCAT FACE: Laceration over upper lip midline and over Right eye upper lid. EYES: PERRL, EOMI ENT: Oropharynx clear without exudates, MMM NECK: Supple, No JVD, ROM intact LUNGS: Breath sounds equal, CTA B/L, no wheezes. HEART: Regular rate and rhythm, S1, S2 without murmur. ABDOMEN: Soft, nontender, nondistended, + bowel sounds, no guarding EXTREMITIES: 2+ pulses, no edema. Large, nontender bruise present over the right elbow. NEUROLOGICAL: Cranial nerves II through XII grossly intact. Normal speech. C5- T1 and L4-S1 gross sensation intact throughout. 5/5 Muscle strength to handgrip , Elbow flexion/extension, Hip flexion/extension, dorsiflexion, platarflexion. Laboratory Results - last 24 hr 12/17/17 12/17/17 12/17/17 06:10 06:10 12:15 WBC 9.8 RBC 4.43 Hgb 13.3 Hct 39.8 MCV 89.9 MCH 29.9 MCHC 33.3 RDW 13.3 Plt Count 189 MPV 8.9 Absolute Neuts (auto) 8.1 H Neutrophils % 82.2 Lymphocytes % 7.5 L D Monocytes % 10.1 D Eosinophils % 0.1 Basophils % 0.1 Nucleated RBC % 0 Sodium 142 Potassium 4.1 Chloride 110 H Carbon Dioxide 25 Anion Gap 7 L BUN 29 H Creatinine 1.2 Creat Clearance w eGFR 59.51 POC Glucometer Random Glucose 262 H Calcium 7.5 L Phosphorus 1.6 L Magnesium 2.1 Total Bilirubin 0.5 AST 18 ALT 20 Alkaline Phosphatase 84 Creatine Kinase 236 Creatine Kinase Index 1.3 CK-MB (CK-2) 3.1 Troponin I < 0.02 Cancelled Total Protein 5.9 L Albumin 2.9 L TSH 0.93 D 12/17/17 12/17/17 12/17/17 12:15 12:35 13:16 WBC RBC Hgb Hct MCV MCH MCHC RDW Plt Count MPV Absolute Neuts (auto) Neutrophils % Lymphocytes % Monocytes % Eosinophils % Basophils % Nucleated RBC % Sodium 142 Cancelled Potassium 4.8 Cancelled Chloride 110 H Cancelled Carbon Dioxide 25 Cancelled Anion Gap 8 Cancelled BUN 29 H Cancelled Creatinine 1.1 Cancelled Creat Clearance w eGFR > 60 Cancelled POC Glucometer Random Glucose 247 H Cancelled Calcium 7.7 L Cancelled Phosphorus 2.6 Cancelled Magnesium 2.2 Total Bilirubin AST ALT Alkaline Phosphatase Creatine Kinase 200 Creatine Kinase Index 1.6 CK-MB (CK-2) 3.2 Troponin I < 0.02 Total Protein Albumin TSH Active Medications Amlodipine Besylate (Norvasc -) 10 mg PO DAILY [facility] Last Admin: 12/17/17 09:45 Dose: 10 mg Chlorhexidine Gluconate (Hibiclens For Decolonization -) 1 applic TP HS [facility] Enoxaparin Sodium (Lovenox -) 40 mg SQ DAILY [facility] Last Admin: 12/17/17 09:56 Dose: 40 mg Lactated Ringer's (Lactated Ringers Solution) 1,000 ml in 1,000 mls @ 125 mls/ hr IV ASDIR [facility] Last Admin: 12/17/17 09:49 Dose: 125 mls/hr Ceftriaxone Sodium 1 gm/ (Dextrose) 50 mls @ 100 mls/hr IVPB DAILY [facility]; Protocol Metronidazole (Flagyl 500mg Premixed Ivpb -) 500 mg in 100 mls @ 100 mls/hr IVPB Q8H-IV [facility] Last Admin: 12/17/17 18:25 Dose: 100 mls/hr Insulin Aspart (Novolog Vial Sliding Scale -) 1 vial SQ ACHS [facility]; Protocol Last Admin: 12/17/17 18:58 Dose: 2 unit Mupirocin (Bactroban Ointment (For Decolonization) -) 1 applic NS BID [facility] Stop: 12/22/17 09:59 Last Admin: 12/17/17 15:40 Dose: 1 applic Pantoprazole Sodium (Protonix Iv) 40 mg IVPUSH DAILY [facility] Last Admin: 12/17/17 09:54 Dose: 40 mg Prochlorperazine Maleate (Compazine -) 5 mg PO Q4H PRN PRN Reason: NAUSEA AND/OR VOMITING Sucralfate (Carafate Oral Suspension -) 1 gm PO BID [facility] Last Admin: 12/17/17 09:45 Dose: 1 gm IMAGING: -EKG: NORMAL SINUS RHYTHM, LEFT AXIS DEVIATION -CT Head without contrast: Moderate atrophy and periventricular chronic microvascular ischemic disease changes. Air pockets in the cavernous sinuses and the anterior aspect of the sella that may be iatrogenic, related to recent intravenous injection. No skull base fracture is identified. -CT Head without contrast (Post-Fall): No CT evidence of acute intracranial pathology. -CT A/P without contrast: No definite CT findings of acute pathology are identified. There is no obvious CT evidence of enterocolitis. Colonic diverticulosis is noted. As visualized on prior CT studies of 07/10/2017 and 11/24 there is mildly increased mesenteric density centrally which may be slightly increased on the current exam. Associated mildly enlarged mesenteric lymph nodes are again noted without obvious interval change. While this appearance is usually of no clinical significance correlation with 3 month follow-up CT is suggested to document stability and lack of developing pathology. -CXR: No acute disease. -ECHO: LV Size, thickness and function are normal. LV EF 55-60%, Regional wall motion abnormalities cannot be excluded due to limited visualization ASSESSMENT/PLAN: 72 y/o M with a PMHx of HTN, DM, BPH, vertigo, and osteomyelitis of his R Toe in June 2017 presented to ED with nausea, vomiting, and syncope. 1. Syncope -Likely due to Vasovagal vs orthostatic hypotension vs bradycardia -CT Head noted above -Orthostatics: Sitting 151/52, Supine 130/56, Standing 113/74 -MRI of brain ordered to r/o posterior stroke, and to possibly further investigate the air pockets identified on CT -Echo noted above -Carotid dopplers pending 2. Second degree AV Block: Mobitz type II -Tele strip showed episodes of 2:1 block, Sinus bradycardia -EKG: NSR, LAD -Cardiology (Dr. Lopez) Consulted, Appreciate rec's, No indication for permanent pacemaker in setting of increased vagal tone, outpatient monitoring with event monitor -Monitor on tele, Atropine vial placed at bedside, Transcutaneous pacer pads placed on patient -ECHO: LV Size, thickness and function are normal. LV EF 55-60%, Regional wall motion abnormalities cannot be excluded due to limited visualization -Trop <0.02 x2 -Lyme titers pending 3. Nausea, vomiting -Unclear etiology, possibly Gastritis -CT A/P: No definite CT findings of acute pathology are identified. There is no obvious CT evidence of enterocolitis. Colonic diverticulosis is noted. -IV LR @ 125 mls/hr -Started Protonix, Compazine, Carafate -H. Pylori stool Antigen pending -GI (Dr. Tellez) Consulted, Appreciate Rec's, Ceftriaxone 1gm x 3 days, Flagyl 500mg Q8H 4. HTN -Restarted home dose Norvasc -will hold other home meds given hx of syncope 5. DM -Hba1c on 07/08/17 was 9.4% -BGMs ISS ACHS 6. Hx of Vertigo -Will hold home dose Meclizine -Continue to monitor 7. FEN -IV LR @ 125 mls/hr -lytes wnl -Full liquid Diet 8. PPx -Lovenox held given his recent fall; On SCDs currently Dispo: Admit to tele Visit type - Emergency Visit Emergency Visit: Yes ED Registration Date: 12/17/17 Care time: The patient presented to the Emergency Department on the above date and was hospitalized for further evaluation of their emergent condition. - New Patient This patient is new to me today: No - Critical Care Critical Care patient: No
[2017-12-17] MEDS: ACETAMINOPHEN 325 MG TABLET (FP) PO PRN (19:52)
[2017-12-17] MEDS ORDERED: DEXTROSE 5%-WATER - 50 ML IVPB ONE (19:57)
[2017-12-17] MEDS ORDERED: cefTRIAXone SODIUM 1 GM VIAL ONE (19:57)
[2017-12-17] MEDS: CEFTRIAXONE 1 GM in DEXTROSE 5%-WATER - 50 ML IVPB SCH (19:59)
--- NOTE | 2017-12-17 21:53 | EKG ---
Test Reason : Blood Pressure : / mmHG Vent. Rate : 077 BPM Atrial Rate : 077 BPM P-R Int : 140 ms QRS Dur : 098 ms QT Int : 360 ms P-R-T Axes : 022 -48 012 degrees QTc Int : 407 ms POOR DATA QUALITY, INTERPRETATION MAY BE ADVERSELY AFFECTED NORMAL SINUS RHYTHM LEFT AXIS DEVIATION NONSPECIFIC ST AND T WAVE ABNORMALITY ABNORMAL ECG COMPARED TO EKG NO SIGNIFICANT CHANGE IS FOUND vs prior Confirmed by CRISTA MANZANO, GREY ([id number]) on 12/17/2017 9:52:44 PM Referred By: EDIL JOHNSTON DR Confirmed By:GREY TOBIN MD
--- NOTE | 2017-12-17 21:54 | EKG ---
Test Reason : Blood Pressure : / mmHG Vent. Rate : 083 BPM Atrial Rate : 083 BPM P-R Int : 142 ms QRS Dur : 096 ms QT Int : 372 ms P-R-T Axes : 053 -54 032 degrees QTc Int : 437 ms NORMAL SINUS RHYTHM LEFT AXIS DEVIATION PULMONARY DISEASE PATTERN NONSPECIFIC ST ABNORMALITY ABNORMAL ECG WHEN COMPARED WITH ECG OF 16-DEC-2017 02:33, NO SIGNIFICANT CHANGE WAS FOUND Confirmed by GREY TOBIN MD ([id number]) on 12/17/2017 9:53:56 PM Referred By: Confirmed By:GREY TOBIN MD
[2017-12-17] MEDS ORDERED: CHLORHEXIDINE GLUCONATE 4% CLEANSER FOR DECOLONIZATION TP SCH (22:00)
[2017-12-18] MEDS: INSULIN SLIDING SCALE (NOVOLOG) 1 VIAL SQ SCH ×4 (06:00→22:04)
[2017-12-18 06:03] LABS: HEMATOCRIT 35.4 % (35.4-49); HEMOGLOBIN 12.1 GM/dL (11.7-16.9); MCH 30.3 pg (25.7-33.7); MEAN PLT VOLUME 9.1 fl (7.5-11.1); PLATELET COUNT 203 K/MM3 (134-434); RBC 3.98 M/mm3 (4.00-5.60); RDW 13.5 % (11.9-15.9); WHITE BLOOD COUNT 8.7 K/mm3 (4.0-10.0)
[2017-12-18 06:16] LABS: ANION GAP 7 MMOL/L (8-16); BLOOD UREA NITROGEN 20 mg/dL (7-18); CALCIUM 7.7 mg/dL (8.5-10.1); CHLORIDE 112 mmol/L (98-107); CO2 25 mmol/L (21-32); CREATININE 0.9 mg/dL (0.55-1.3); GLUCOSE,RANDOM 221 mg/dL (74-106); PHOSPHOROUS 1.4 mg/dL (2.5-4.9); SODIUM 144 mmol/L (136-145)
[2017-12-18] MEDS ORDERED: PT OWN MED DRAWER 7, Y5N ONE (09:56)
--- NOTE | 2017-12-18 10:02 | PN ---
Progress Note (short form) - Note Progress Note: cc: vomiting, syncope s: feels better today, nausea resolved. no chest pain, palps, dizzy, lightheaded , syncope. Current Medications Acetaminophen (Tylenol -) 650 mg PO Q4H PRN PRN Reason: PAIN 1-3 Last Admin: 12/18/17 10:07 Dose: 650 mg Amlodipine Besylate (Norvasc -) 10 mg PO DAILY [facility] Last Admin: 12/18/17 10:06 Dose: 10 mg Chlorhexidine Gluconate (Hibiclens For Decolonization -) 1 applic TP HS [facility] Last Admin: 12/17/17 22:16 Dose: 1 applic Enoxaparin Sodium (Lovenox -) 40 mg SQ DAILY [facility] Last Admin: 12/18/17 10:06 Dose: 40 mg Lactated Ringer's (Lactated Ringers Solution) 1,000 ml in 1,000 mls @ 125 mls/ hr IV ASDIR [facility] Last Admin: 12/18/17 10:07 Dose: Not Given Ceftriaxone Sodium 1 gm/ (Dextrose) 50 mls @ 100 mls/hr IVPB DAILY [facility]; Protocol Last Admin: 12/18/17 10:21 Dose: 100 mls/hr Metronidazole (Flagyl 500mg Premixed Ivpb -) 500 mg in 100 mls @ 100 mls/hr IVPB Q8H-IV [facility] Last Admin: 12/18/17 10:06 Dose: 100 mls/hr Insulin Aspart (Novolog Vial Sliding Scale -) 1 vial SQ ACHS [facility]; Protocol Last Admin: 12/18/17 11:18 Dose: 6 unit Mupirocin (Bactroban Ointment (For Decolonization) -) 1 applic NS BID [facility] Stop: 12/22/17 09:59 Last Admin: 12/18/17 10:07 Dose: Not Given Pantoprazole Sodium (Protonix Iv) 40 mg IVPUSH DAILY [facility] Last Admin: 12/18/17 10:06 Dose: 40 mg Potassium Phos/Sodium Phos (Phos-Nak Packet -) 1 packet PO BID [facility] Last Admin: 12/18/17 10:06 Dose: 1 packet Prochlorperazine Maleate (Compazine -) 5 mg PO Q4H PRN PRN Reason: NAUSEA AND/OR VOMITING Sucralfate (Carafate Oral Suspension -) 1 gm PO BID [facility] Last Admin: 12/18/17 10:06 Dose: 1 gm Vital Signs: Vital Signs Period Temp Pulse Resp BP Sys/Ferreira Pulse Ox Last 24 Hr 98.1 F-98.8 F 66-77 13-20 122-173/49-88 96-96 Constitutional: Yes: Diaphoresis, Mild Distress Eyes: Yes: Conjunctiva Clear, EOM Intact HENT: Yes: Atraumatic, Normocephalic Neck: Yes: Supple, Trachea Midline Respiratory: Yes: Regular, CTA Bilaterally Gastrointestinal: Yes: Normal Bowel Sounds, Soft Renal/: Yes: WNL Cardiovascular: Yes: Regular Rate and Rhythm JVD: No Heart Sounds: Yes: S1, S2 Musculoskeletal: Yes: WNL Extremities: Yes: WNL Edema: No Peripheral Pulses WNL: Yes Peripheral Pulses: 2+ Left Doralis Pedis, 2+ Right Dorsalis Pedis Integumentary: Yes: WNL Neurological: Yes: Alert, Oriented ...Motor Strength: WNL Psychiatric: Yes: Alert, Oriented Assessment/Plan EKG: sinus, LAD, no ischemic changes echo: tds, grossly normal LV and RV function tele; sinus rhythm, no bradycardia episodes overnight 72M h/o HTN, HLD, vertigo, DM p/w syncope, nausea vomiting bradycardia, 2:1 block - likely in setting of increased vagal tone from nausea, abd pain, vomiting - continue monitoring on tele - prior episode of syncope with similar presentation of nausea, vomiting - avoid AV andre blocking agents - echo nl LV function - [place] Dr[place] Jose Bacon, [place] [facility] [place] no indication for PPM at this point as in setting of increased vagal tone, outpatient monitoring with event monitor - stable no episodes on tele today Syncope - history consistent with vasovagal in setting of nausea/vomiting/abd pain also dehydration - IVF and management of nausea/vomiting per primary team - carotids pending - monitoring on tele as above, antwan episodes with inc vagal tone HTN - stable on norvasc DM - manage per primary team
[2017-12-18] MEDS: PANTOPRAZOLE SODIUM 40 MG VIAL IVPUSH SCH (10:06)
[2017-12-18] MEDS: amLODIPine BESYLATE 10 MG TABLET (FP) PO SCH (10:06)
[2017-12-18] MEDS: ENOXAPARIN NA (PORCINE) 40 MG/0.4 ML DISP.SYRIN SQ SCH (10:06)
[2017-12-18] MEDS: NAPH,MB-DB/K PH,MBDB POWDER PACKET PO SCH ×2 (10:06→22:03)
[2017-12-18] MEDS: SUCRALFATE 1 GM/10 ML UNIT DOSE CUPS PO SCH ×2 (10:06→22:00)
[2017-12-18] MEDS: LACTATED RINGERS SOLUTION 1,000 ML/1,000 ML INFUS.BAG IV SCH (10:07)
[2017-12-18] MEDS: ACETAMINOPHEN 325 MG TABLET (FP) PO PRN (10:07)
[2017-12-18] MEDS: MUPIROCIN 2% TOPICAL OINTMENT FOR DECOLONIZATION NS SCH (10:07)
[2017-12-18] MEDS ORDERED: DEXTROSE 5%-WATER - 50 ML IVPB ONE (10:18)
[2017-12-18] MEDS ORDERED: cefTRIAXone SODIUM 1 GM VIAL ONE (10:18)
[2017-12-18] MEDS: CEFTRIAXONE 1 GM in DEXTROSE 5%-WATER - 50 ML IVPB SCH (10:21)
[2017-12-18] MEDS ORDERED: IBUPROFEN 400 MG TABLET (FP) PO ONE (13:32)
--- NOTE | 2017-12-18 13:55 | PN ---
Physical Exam: SUBJECTIVE: Patient seen and examined at bedside. N/V resolved. Episode of diarrhea early in AM, none since. No further syncopal episodes. No other complaints. OBJECTIVE: Vital Signs Period Temp Pulse Resp BP Sys/Ferreira Pulse Ox Last 24 Hr 98.1 F-98.8 F 66-77 13-20 122-173/60-88 96-96 GENERAL: A&Ox3, NAD HEAD: NC, bruise over right orbit EYES: PERRLA, EOMI EARS, NOSE, THROAT: MMM NECK: Normal range of motion, supple without lymphadenopathy, JVD, or masses. LUNGS: CTA b/l HEART: RRR no m/r/g ABDOMEN: +bs, soft, NT, ND EXTREMITIES: 2+ pulses, warm, well-perfused. No calf tenderness. No peripheral edema. NEUROLOGICAL: shopping investigator, motor, sensory systems without focal deficit PSYCHIATRIC: Cooperative. Good eye contact. Appropriate mood and affect. SKIN: Warm, dry, normal turgor, no rashes or lesions noted. Laboratory Results - last 24 hr 12/17/17 12/17/17 12/17/17 12:15 12:15 12:35 WBC RBC Hgb Hct MCV MCH MCHC RDW Plt Count MPV Sodium 142 Potassium 4.8 Chloride 110 H Carbon Dioxide 25 Anion Gap 8 BUN 29 H Creatinine 1.1 Creat Clearance w eGFR > 60 POC Glucometer Random Glucose 247 H Calcium 7.7 L Phosphorus 2.6 Magnesium 2.2 Creatine Kinase 200 Creatine Kinase Index 1.6 CK-MB (CK-2) 3.2 Troponin I Cancelled < 0.02 Stool Occult Blood 12/17/17 12/17/17 12/17/17 15:27 18:38 19:30 WBC RBC Hgb Hct MCV MCH MCHC RDW Plt Count MPV Sodium Potassium Chloride Carbon Dioxide Anion Gap BUN Creatinine Creat Clearance w eGFR POC Glucometer [phone] Random Glucose Calcium Phosphorus Magnesium Creatine Kinase Creatine Kinase Index CK-MB (CK-2) Troponin I Stool Occult Blood Negative 12/17/17 12/18/17 12/18/17 21:20 05:30 05:30 WBC 8.7 RBC 3.98 L Hgb 12.1 Hct 35.4 MCV 89.0 MCH 30.3 MCHC 34.0 RDW 13.5 Plt Count 203 MPV 9.1 Sodium 144 Potassium 4.0 Chloride 112 H Carbon Dioxide 25 Anion Gap 7 L BUN 20 H Creatinine 0.9 Creat Clearance w eGFR > 60 POC Glucometer [phone] Random Glucose 221 H Calcium 7.7 L Phosphorus 1.4 L Magnesium 2.0 Creatine Kinase Creatine Kinase Index CK-MB (CK-2) Troponin I Stool Occult Blood 12/18/17 05:48 WBC RBC Hgb Hct MCV MCH MCHC RDW Plt Count MPV Sodium Potassium Chloride Carbon Dioxide Anion Gap BUN Creatinine Creat Clearance w eGFR POC Glucometer [phone] Random Glucose Calcium Phosphorus Magnesium Creatine Kinase Creatine Kinase Index CK-MB (CK-2) Troponin I Stool Occult Blood Active Medications Generic Name Dose Route Start Last Admin Trade Name Freq PRN Reason Stop Dose Admin Acetaminophen 650 mg 12/17/17 19:42 12/18/17 10:07 Tylenol - PO 650 mg Q4H PRN Administration PAIN 1-3 Amlodipine Besylate 10 mg 12/17/17 10:00 12/18/17 10:06 Norvasc - PO 10 mg DAILY [facility] Administration Chlorhexidine Gluconate 1 applic 12/17/17 22:00 12/17/17 22:16 Hibiclens For Decolonization - TP 1 applic HS [facility] Administration Enoxaparin Sodium 40 mg 12/17/17 10:00 12/18/17 10:06 Lovenox - SQ 40 mg DAILY [facility] Administration Lactated Ringer's 1,000 ml in 1,000 mls @ 125 mls/hr 12/17/17 09:30 12/18/17 10:07 Lactated Ringers Solution IV Not Given ASDIR [facility] Ceftriaxone Sodium 1 gm/ 50 mls @ 100 mls/hr 12/17/17 18:15 12/18/17 10:21 Dextrose IVPB 100 mls/hr DAILY [facility] Administration Protocol Metronidazole 500 mg in 100 mls @ 100 mls/hr 12/17/17 18:15 12/18/17 10:06 Flagyl 500mg Premixed Ivpb - IVPB 100 mls/hr Q8H-IV [facility] Administration Insulin Aspart 1 vial 12/17/17 07:00 12/18/17 11:18 Novolog Vial Sliding Scale - SQ 6 unit ACHS [facility] Administration Protocol Mupirocin 1 applic 12/17/17 10:00 12/18/17 10:07 Bactroban Ointment (For Decolonization) - NS 12/22/17 09:59 Not Given BID [facility] Pantoprazole Sodium 40 mg 12/17/17 10:00 12/18/17 10:06 Protonix Iv IVPUSH 40 mg DAILY [facility] Administration Potassium Phos/Sodium Phos 1 packet 12/18/17 10:00 12/18/17 10:06 Phos-Nak Packet - PO 1 packet BID [facility] Administration Prochlorperazine Maleate 5 mg 12/17/17 05:27 Compazine - PO Q4H PRN NAUSEA AND/OR VOMITING Sucralfate 1 gm 12/17/17 10:00 12/18/17 10:06 Carafate Oral Suspension - PO 1 gm BID [facility] Administration ASSESSMENT/PLAN: 72 y/o M w/ PMHx DM, BPH, vertigo, osteomyelitis, admitted to ICU following acute onset of syncopal episodes accompanied by n/v/d and noted to have Mobitz II block and bradycardia at the time of episodes. #AV block/bradycardia -cardiology consulted -only has occurred alongside n/v, likely 2/2 to increased vagal tone -echo benign -no need for pacing at this time -holter monitor following d/c -avoid AV andre blockading agents -outpt cardiology f/u #n/v/d -CT abd benign -compazine -protonix -GI consulted -ABx per primary team -LR IVF #AMBER -resolved -monitor lytes, Cr #DM -SSI, BGM -Hba1c on 07/08/17 was 9.4% #HTN -stable -cont norvasc, hold home Valsartan and HCTZ #FEN -LR @ 125 -monitor BMP -full liquid #PPx -DVT: lovenox -GI: protonix #Dispo: -tele Visit type - Emergency Visit Emergency Visit: No - New Patient This patient is new to me today: No - Critical Care Critical Care patient: Yes Total Critical Care Time (in minutes): 40 Critical Care Statement: The care of this patient involved high complexity decision making to prevent further life threatening deterioration of the patient 's condition and/or to evaluate & treat vital organ system(s) failure or risk of failure.
--- NOTE | 2017-12-18 14:30 | PN ---
Teaching Attending Note Name of Resident: Earl Finn ATTENDING PHYSICIAN STATEMENT I saw and evaluated the patient. I reviewed the resident's note and discussed the case with the resident. I agree with the resident's findings and plan as documented. SUBJECTIVE: Patient seen and examined in the ICU. Awake and alert. Tearful due to his condition. No CP or SOB. Hemodynamics have remained stable. OBJECTIVE: Intake & Output 12/15/17 12/16/17 12/17/17 12/18/17 23:59 23:59 23:59 23:59 Intake Total 1000 2200 1475 Output Total 1000 900 500 Balance 0 1300 975 Weight 197 lb 3.2 oz Last Vital Signs Temp Pulse Resp BP Pulse Ox 98.1 F 69 16 133/71 96 12/18/17 09:00 12/18/17 13:00 12/18/17 13:00 12/18/17 13:00 12/18/17 09:00 Active Medications Acetaminophen (Tylenol -) 650 mg PO Q4H PRN PRN Reason: PAIN 1-3 Last Admin: 12/18/17 10:07 Dose: 650 mg Amlodipine Besylate (Norvasc -) 10 mg PO DAILY [facility] Last Admin: 12/18/17 10:06 Dose: 10 mg Chlorhexidine Gluconate (Hibiclens For Decolonization -) 1 applic TP HS [facility] Last Admin: 12/17/17 22:16 Dose: 1 applic Enoxaparin Sodium (Lovenox -) 40 mg SQ DAILY [facility] Last Admin: 12/18/17 10:06 Dose: 40 mg Lactated Ringer's (Lactated Ringers Solution) 1,000 ml in 1,000 mls @ 125 mls/ hr IV ASDIR [facility] Last Admin: 12/18/17 10:07 Dose: Not Given Ceftriaxone Sodium 1 gm/ (Dextrose) 50 mls @ 100 mls/hr IVPB DAILY [facility]; Protocol Last Admin: 12/18/17 10:21 Dose: 100 mls/hr Metronidazole (Flagyl 500mg Premixed Ivpb -) 500 mg in 100 mls @ 100 mls/hr IVPB Q8H-IV [facility] Last Admin: 12/18/17 10:06 Dose: 100 mls/hr Insulin Aspart (Novolog Vial Sliding Scale -) 1 vial SQ ACHS [facility]; Protocol Last Admin: 12/18/17 11:18 Dose: 6 unit Mupirocin (Bactroban Ointment (For Decolonization) -) 1 applic NS BID [facility] Stop: 12/22/17 09:59 Last Admin: 12/18/17 10:07 Dose: Not Given Pantoprazole Sodium (Protonix Iv) 40 mg IVPUSH DAILY [facility] Last Admin: 12/18/17 10:06 Dose: 40 mg Potassium Phos/Sodium Phos (Phos-Nak Packet -) 1 packet PO BID [facility] Last Admin: 12/18/17 10:06 Dose: 1 packet Prochlorperazine Maleate (Compazine -) 5 mg PO Q4H PRN PRN Reason: NAUSEA AND/OR VOMITING Sucralfate (Carafate Oral Suspension -) 1 gm PO BID [facility] Last Admin: 12/18/17 10:06 Dose: 1 gm Gen:Awake and alert, NAD Heart: RRR Lung: decreased breath sounds at the bases Abd: soft, nontender Ext: no edema Laboratory Results - last 24 hr 12/17/17 12/17/17 12/17/17 12:35 15:27 18:38 WBC RBC Hgb Hct MCV MCH MCHC RDW Plt Count MPV Sodium Potassium Chloride Carbon Dioxide Anion Gap BUN Creatinine Creat Clearance w eGFR POC Glucometer 249.99180 200.16513 Random Glucose Calcium Phosphorus Magnesium Creatine Kinase Index 1.6 CK-MB (CK-2) 3.2 Stool Occult Blood 12/17/17 12/17/17 12/18/17 19:30 21:20 05:30 WBC 8.7 RBC 3.98 L Hgb 12.1 Hct 35.4 MCV 89.0 MCH 30.3 MCHC 34.0 RDW 13.5 Plt Count 203 MPV 9.1 Sodium Potassium Chloride Carbon Dioxide Anion Gap BUN Creatinine Creat Clearance w eGFR POC Glucometer [phone] Random Glucose Calcium Phosphorus Magnesium Creatine Kinase Index CK-MB (CK-2) Stool Occult Blood Negative 12/18/17 12/18/17 05:30 05:48 WBC RBC Hgb Hct MCV MCH MCHC RDW Plt Count MPV Sodium 144 Potassium 4.0 Chloride 112 H Carbon Dioxide 25 Anion Gap 7 L BUN 20 H Creatinine 0.9 Creat Clearance w eGFR > 60 POC Glucometer [phone] Random Glucose 221 H Calcium 7.7 L Phosphorus 1.4 L Magnesium 2.0 Creatine Kinase Index CK-MB (CK-2) Stool Occult Blood ASSESSMENT AND PLAN: Syncope 2nd Degree AV Block suspected due to high vagal tone due to symptoms Nausea/Vomiting Acute Kidney Injury improving HTN DM - antiemetics - IVF - monitor urine output, creatinine - DVT prophylaxis - Cardiac telemetry monitoring Dr Vernon
[2017-12-18] MEDS ORDERED: LOPERAMIDE HCL 2 MG CAPSULE PO ONE (16:15)
[2017-12-18] MEDS ORDERED: LACTOBACILLUS ACIDOPHILUS 1 TABLET PO ONE (16:16)
--- NOTE | 2017-12-18 16:24 | PN ---
Teaching Attending Note Name of Resident: Lakshmi Esparza ATTENDING PHYSICIAN STATEMENT I saw and evaluated the patient. I reviewed the resident's note and discussed the case with the resident. I agree with the resident's findings and plan as documented. SUBJECTIVE: No fever or chills. No abd pain. had 3 episodes of diarrhea today . non bloody . no nausea . no syncope last night OBJECTIVE: NAD, comfortable in bed Cv: RRR, no MRG Lungs: CTAB. Abd: soft, NT, ND, NL BS Ext: no edema. ASSESSMENT AND PLAN: 72 y/o man with h/o HTN. HL, recent h/o R great toe OM , DM , and vertigo who presented after a syncopal episode 1- Syncope: suri vasovagal - cont to monitor on tele 2- 2nd degree Av block: Mobitz II in setting of increased vagal tone - NO need for a pacer 3- N/V: possible gastritis. - cont IVF, compazine and PPI - case d/w GI, no EGD at this point due to the heart block - HP stool Ag pending 4- Diarrhea : r/o infectious causes . - c diff neg. stool cx pending - cont abx day 2 5- CT scan findings of air in sella and cavernous sinus. - re-order MRI as no further bradycardic events were noted 4- AMBER : resolved 5- DM : SSI 6- HTN: - cont norvasc. can resume valsartan if needed . - hold HCTZ in setting of diarrhea HLOC
--- NOTE | 2017-12-18 19:29 | PN ---
Physical Exam: SUBJECTIVE: Patient seen and examined this morning in the ICU. No Nausea or vomiting over night, however did have some diarrhea this morning. Says he feels much better since admission. Denies headache, dizziness, palpitations, fevers, chills, chest pain, SOB overnight. OBJECTIVE: Vital Signs Period Temp Pulse Resp BP Sys/Ferreira Pulse Ox Last 24 Hr 98.0 F-98.8 F 66-77 13-23 128-173/60-98 96-96 GENERAL: A&Ox3, NAD HEAD: NCAT FACE: Laceration over upper lip midline and over Right eye upper lid. EYES: PERRL, EOMI ENT: Oropharynx clear without exudates, MMM NECK: Supple, No JVD, ROM intact LUNGS: Breath sounds equal, CTA B/L, no wheezes. HEART: Regular rate and rhythm, S1, S2 without murmur. ABDOMEN: Soft, nontender, nondistended, + bowel sounds, no guarding EXTREMITIES: 2+ pulses, no edema. Large, nontender bruise present over the right elbow. NEUROLOGICAL: Cranial nerves II through XII grossly intact. Normal speech. C5- T1 and L4-S1 gross sensation intact throughout. 5/5 Muscle strength to handgrip , Elbow flexion/extension, Hip flexion/extension, dorsiflexion, platarflexion. Laboratory Results - last 24 hr 12/17/17 12/17/17 12/17/17 12:15 19:30 21:20 WBC RBC Hgb Hct MCV MCH MCHC RDW Plt Count MPV Sodium Potassium Chloride Carbon Dioxide Anion Gap BUN Creatinine Creat Clearance w eGFR POC Glucometer [phone] Random Glucose Calcium Phosphorus Magnesium Stool Occult Blood Negative Lyme Screen IgG & IgM <0.91 Lyme IgM Quantitation <0.80 12/18/17 12/18/17 12/18/17 05:30 05:30 05:48 WBC 8.7 RBC 3.98 L Hgb 12.1 Hct 35.4 MCV 89.0 MCH 30.3 MCHC 34.0 RDW 13.5 Plt Count 203 MPV 9.1 Sodium 144 Potassium 4.0 Chloride 112 H Carbon Dioxide 25 Anion Gap 7 L BUN 20 H Creatinine 0.9 Creat Clearance w eGFR > 60 POC Glucometer [phone] Random Glucose 221 H Calcium 7.7 L Phosphorus 1.4 L Magnesium 2.0 Stool Occult Blood Lyme Screen IgG & IgM Lyme IgM Quantitation Active Medications Acetaminophen (Tylenol -) 650 mg PO Q4H PRN PRN Reason: PAIN 1-3 Last Admin: 12/18/17 10:07 Dose: 650 mg Amlodipine Besylate (Norvasc -) 10 mg PO DAILY [facility] Last Admin: 12/18/17 10:06 Dose: 10 mg Chlorhexidine Gluconate (Hibiclens For Decolonization -) 1 applic TP HS [facility] Last Admin: 12/17/17 22:16 Dose: 1 applic Enoxaparin Sodium (Lovenox -) 40 mg SQ DAILY [facility] Last Admin: 12/18/17 10:06 Dose: 40 mg Lactated Ringer's (Lactated Ringers Solution) 1,000 ml in 1,000 mls @ 125 mls/ hr IV ASDIR [facility] Last Admin: 12/18/17 10:07 Dose: Not Given Ceftriaxone Sodium 1 gm/ (Dextrose) 50 mls @ 100 mls/hr IVPB DAILY [facility]; Protocol Last Admin: 12/18/17 10:21 Dose: 100 mls/hr Metronidazole (Flagyl 500mg Premixed Ivpb -) 500 mg in 100 mls @ 100 mls/hr IVPB Q8H-IV [facility] Last Admin: 12/18/17 17:13 Dose: 100 mls/hr Insulin Aspart (Novolog Vial Sliding Scale -) 1 vial SQ ACHS [facility]; Protocol Last Admin: 12/18/17 17:14 Dose: 6 unit Mupirocin (Bactroban Ointment (For Decolonization) -) 1 applic NS BID [facility] Stop: 12/22/17 09:59 Last Admin: 12/18/17 10:07 Dose: Not Given Pantoprazole Sodium (Protonix Iv) 40 mg IVPUSH DAILY [facility] Last Admin: 12/18/17 10:06 Dose: 40 mg Potassium Phos/Sodium Phos (Phos-Nak Packet -) 1 packet PO BID [facility] Last Admin: 12/18/17 10:06 Dose: 1 packet Prochlorperazine Maleate (Compazine -) 5 mg PO Q4H PRN PRN Reason: NAUSEA AND/OR VOMITING Sucralfate (Carafate Oral Suspension -) 1 gm PO BID [facility] Last Admin: 12/18/17 10:06 Dose: 1 gm IMAGING: -EKG: NORMAL SINUS RHYTHM, LEFT AXIS DEVIATION -CT Head without contrast: Moderate atrophy and periventricular chronic microvascular ischemic disease changes. Air pockets in the cavernous sinuses and the anterior aspect of the sella that may be iatrogenic, related to recent intravenous injection. No skull base fracture is identified. -CT Head without contrast (Post-Fall): No CT evidence of acute intracranial pathology. -CT A/P without contrast: No definite CT findings of acute pathology are identified. There is no obvious CT evidence of enterocolitis. Colonic diverticulosis is noted. As visualized on prior CT studies of 07/10/2017 and 11/24 there is mildly increased mesenteric density centrally which may be slightly increased on the current exam. Associated mildly enlarged mesenteric lymph nodes are again noted without obvious interval change. While this appearance is usually of no clinical significance correlation with 3 month follow-up CT is suggested to document stability and lack of developing pathology. -CXR: No acute disease. -ECHO: LV Size, thickness and function are normal. LV EF 55-60%, Regional wall motion abnormalities cannot be excluded due to limited visualization ASSESSMENT/PLAN: 72 y/o M with a PMHx of HTN, DM, BPH, vertigo, and osteomyelitis of his R Toe in June 2017 presented to ED with nausea, vomiting, and syncope. 1. Syncope -Likely due to Vasovagal vs orthostatic hypotension vs bradycardia -CT Head noted above -Orthostatics: Sitting 151/52, Supine 130/56, Standing 113/74 -MRI of brain ordered to r/o posterior stroke, and to possibly further investigate the air pockets identified on CT -Echo noted above -Carotid dopplers pending 2. Second degree AV Block: Mobitz type II -Tele strip showed episodes of 2:1 block, Sinus bradycardia -EKG: NSR, LAD -Cardiology (Dr. Lopez) Consulted, Appreciate rec's, No indication for permanent pacemaker in setting of increased vagal tone, outpatient monitoring with event monitor -Monitor on tele, Atropine vial placed at bedside, Transcutaneous pacer pads placed on patient -ECHO: LV Size, thickness and function are normal. LV EF 55-60%, Regional wall motion abnormalities cannot be excluded due to limited visualization -Trop <0.02 x2 -Lyme titers noted above 3. Nausea, vomiting -Unclear etiology, possibly Gastritis -CT A/P: No definite CT findings of acute pathology are identified. There is no obvious CT evidence of enterocolitis. Colonic diverticulosis is noted. -IV LR @ 125 mls/hr -Started Protonix, Compazine, Carafate -H. Pylori stool Antigen pending -GI (Dr. Tellez) Consulted, Appreciate Rec's, Ceftriaxone 1gm x 3 days, Flagyl 500mg Q8H 4. Diarrhea -C. Diff antigen and toxin negative 5. HTN -Restarted home dose Norvasc -will hold other home meds given hx of syncope 6. DM -Hba1c on 07/08/17 was 9.4% -BGMs ISS ACHS 7. Hx of Vertigo -Will hold home dose Meclizine -Continue to monitor 8. FEN -IV LR @ 125 mls/hr -lytes wnl -Full liquid Diet 9. PPx -Lovenox held given his recent fall; On SCDs currently Dispo: Admit to tele Visit type - Emergency Visit Emergency Visit: Yes ED Registration Date: 12/17/17 Care time: The patient presented to the Emergency Department on the above date and was hospitalized for further evaluation of their emergent condition. - New Patient This patient is new to me today: No - Critical Care Critical Care patient: No - Discharge Referral Referred to [facility] Med P.C.: No
[2017-12-18] MEDS ORDERED: LACTATED RINGERS SOLUTION 1,000 ML/1,000 ML INFUS.BAG IV SCH (20:29)
[2017-12-18] MEDS ORDERED: PROCHLORPERAZINE MALEATE 5 MG TABLET PO PRN (20:29)
[2017-12-19] MEDS: INSULIN SLIDING SCALE (NOVOLOG) 1 VIAL SQ SCH ×2 (06:10→13:03)
[2017-12-19 07:42] LABS: BASO % 0.3 % (0-2.0); EOS % 3.3 % (0-4.5); HEMATOCRIT 36.3 % (35.4-49); HEMOGLOBIN 12.2 GM/dL (11.7-16.9); LYMPH % 21.8 % (8-40); MCH 29.6 pg (25.7-33.7); MCHC 33.6 g/dl (32.0-35.9); MEAN CELL VOLUME 88.2 fl (80-96); MONO % 12.7 % (3.8-10.2); NEUT % 61.9 % (42.8-82.8); PLATELET COUNT 186 K/MM3 (134-434); RBC 4.11 M/mm3 (4.00-5.60); RDW 13.3 % (11.9-15.9); WHITE BLOOD COUNT 7.3 K/mm3 (4.0-10.0)
[2017-12-19 08:18] LABS: ANION GAP 7 MMOL/L (8-16); BLOOD UREA NITROGEN 15 mg/dL (7-18); CALCIUM 7.8 mg/dL (8.5-10.1); CHLORIDE 107 mmol/L (98-107); CO2 26 mmol/L (21-32); CREATININE 0.8 mg/dL (0.55-1.3); GLUCOSE,RANDOM 162 mg/dL (74-106); PHOSPHOROUS 2.6 mg/dL (2.5-4.9); POTASSIUM 4.2 mmol/L (3.5-5.1); SODIUM 140 mmol/L (136-145)
[2017-12-19 09:34] VITALS: BP 150/56; PULSE 70; TEMP 97
[2017-12-19] MEDS ORDERED: amLODIPine BESYLATE 10 MG TABLET (FP) PO SCH (10:00)
[2017-12-19] MEDS ORDERED: PANTOPRAZOLE SODIUM 40 MG VIAL IVPUSH SCH (10:00)
[2017-12-19] MEDS ORDERED: ENOXAPARIN NA (PORCINE) 40 MG/0.4 ML DISP.SYRIN SQ SCH (10:00)
--- NOTE | 2017-12-19 10:06 | PN ---
Progress Note (short form) - Note Progress Note: cc: vomiting, syncope s: feels better today, nausea and diarrhea resolved. no chest pain, palps, dizzy , lightheaded, syncope. Current Medications Acetaminophen (Tylenol -) 650 mg PO Q4H PRN PRN Reason: PAIN 1-3 Last Admin: 12/18/17 10:07 Dose: 650 mg Amlodipine Besylate (Norvasc -) 10 mg PO DAILY [facility] Enoxaparin Sodium (Lovenox -) 40 mg SQ DAILY [facility] Ceftriaxone Sodium 1 gm/ (Dextrose) 50 mls @ 100 mls/hr IVPB DAILY [facility]; Protocol Last Admin: 12/18/17 10:21 Dose: 100 mls/hr Metronidazole (Flagyl 500mg Premixed Ivpb -) 500 mg in 100 mls @ 100 mls/hr IVPB Q8H-IV [facility] Last Admin: 12/19/17 01:02 Dose: 100 mls/hr Lactated Ringer's (Lactated Ringers Solution) 1,000 ml in 1,000 mls @ 125 mls/ hr IV ASDIR [facility] Last Admin: 12/19/17 00:56 Dose: 125 mls/hr Insulin Aspart (Novolog Vial Sliding Scale -) 1 vial SQ ACHS [facility]; Protocol Last Admin: 12/19/17 06:10 Dose: Not Given Pantoprazole Sodium (Protonix Iv) 40 mg IVPUSH DAILY [facility] Potassium Phos/Sodium Phos (Phos-Nak Packet -) 1 packet PO BID [facility] Last Admin: 12/18/17 22:03 Dose: 1 packet Prochlorperazine Maleate (Compazine -) 5 mg PO Q4H PRN PRN Reason: NAUSEA AND/OR VOMITING Sucralfate (Carafate Oral Suspension -) 1 gm PO BID [facility] Last Admin: 12/18/17 22:00 Dose: 1 gm Vital Signs: Vital Signs Period Temp Pulse Resp BP Sys/Ferreira Pulse Ox Last 24 Hr 97 F-98.4 F 62-75 16-23 106-150/52-98 96 Constitutional: NAD Eyes: Yes: Conjunctiva Clear, EOM Intact HENT: Yes: Atraumatic, Normocephalic Neck: Yes: Supple, Trachea Midline Respiratory: Yes: Regular, CTA Bilaterally Gastrointestinal: Yes: Normal Bowel Sounds, Soft Renal/: Yes: WNL Cardiovascular: Yes: Regular Rate and Rhythm JVD: No Heart Sounds: Yes: S1, S2 Musculoskeletal: Yes: WNL Extremities: Yes: WNL Edema: No Peripheral Pulses WNL: Yes Peripheral Pulses: 2+ Left Doralis Pedis, 2+ Right Dorsalis Pedis Integumentary: Yes: WNL Neurological: Yes: Alert, Oriented ...Motor Strength: WNL Psychiatric: Yes: Alert, Oriented Assessment/Plan EKG: sinus, LAD, no ischemic changes echo 12/2017: tds, grossly normal LV and RV function carotid dopplers 12/2017 no significant stenosis tele; sinus rhythm, no bradycardia episodes overnight 72M h/o HTN, HLD, vertigo, DM p/w syncope, nausea vomiting bradycardia, 2:1 block - likely in setting of increased vagal tone from nausea, abd pain, vomiting - prior episode of syncope with similar presentation of nausea, vomiting - avoid AV andre blocking agents - echo nl LV function - [place]. Jose Bacon, [place] [facility] [place] no indication for PPM at this point as in setting of increased vagal tone, outpatient monitoring with event monitor - stable no episodes on tele now he is asymptomatic - outpatient follow up, will arrange event monitor. no further cardiac workup as inpatient Syncope - history consistent with vasovagal in setting of nausea/vomiting/abd pain also dehydration - IVF and management of nausea/vomiting per primary team - carotids pending - monitoring on tele as above, antwan episodes with inc vagal tone HTN - stable on norvas DM - manage per primary team
--- NOTE | 2017-12-19 12:23 | PN ---
Teaching Attending Note Name of Resident: Lakshmi Esparza ATTENDING PHYSICIAN STATEMENT I saw and evaluated the patient. I reviewed the resident's note and discussed the case with the resident. I agree with the resident's findings and plan as documented. SUBJECTIVE: No fever or chills . No N/V or diarrhea since yesterday am .No abd pain. OBJECTIVE: NAD, comfortable in bed Cv: RRR, no MRG Lungs: CTAB. Abd: soft, NT, ND, NL BS Ext: no edema. ASSESSMENT AND PLAN: 72 y/o man with h/o HTN. HL, recent h/o R great toe OM , DM , and vertigo who presented after a syncopal episode 1- Syncope: likely vasovagal in setting of N/V no events on tele today . no recurence of syncope with resolution of his vomiting 2- 2nd degree Av block: Mobitz II in setting of increased vagal tone. no recurrence after resolution of N/V - NO need for a pacer - tele with no antwan or block. - f/u with card 3- N/V: possible gastritis. resolved . PPI at home - HP stool Ag pending 4- Diarrhea: c diff and stool cx neg. dc Abx ( day 3 today ) 5- CT scan findings of air in sella and cavernous sinus. - MRI with no acute path. d/w radiologist yesterday ( by resident) , air might have been due to IV injections 4- AMBER : resolved 5- DM : SSI . patient now says he used insulin at [facility],? type. he used 23 units in am and 40 in evening hhe gets it delivered and was not remember company name advised pt to talk half his doses for now given his GI sx and poor pointake still. but to check Sugar ACHS and report to his doctor 6- HTN: resume his home regimen at dc patient walked very steady with resident . and was felt to be safe for home dc Dc home
[2017-12-19] MEDS: SUCRALFATE 1 GM/10 ML UNIT DOSE CUPS PO SCH (12:34)
[2017-12-19] MEDS: NAPH,MB-DB/K PH,MBDB POWDER PACKET PO SCH (12:35)
[2017-12-19] MEDS ORDERED: INSULIN (NOVOLOG) ASPART 100 UNITS/ML 10ML VIAL ONE (12:59)
--- NOTE | 2017-12-19 13:33 | DS ---
Physical Exam: SUBJECTIVE: Patient seen and examined this morning. Denies any more nausea or vomiting. No recent episodes of passing out. OBJECTIVE: Vital Signs Period Temp Pulse Resp BP Sys/Ferreira Pulse Ox Last 24 Hr 97 F-98.4 F 62-75 18-23 106-150/52-98 96 PHYSICAL EXAM GENERAL: A&Ox3, NAD HEAD: NCAT FACE: Resolving Laceration over upper lip midline and over Right eye upper lid EYES: PERRL, EOMI ENT: Oropharynx clear without exudates, MMM NECK: Supple, No JVD, ROM intact LUNGS: Breath sounds equal, CTA B/L, no wheezes. HEART: Regular rate and rhythm, S1, S2 without murmur. ABDOMEN: Soft, nontender, nondistended, + bowel sounds, no guarding EXTREMITIES: 2+ pulses, no edema. Large, nontender bruise present over the right elbow. NEUROLOGICAL: Cranial nerves II through XII grossly intact. Normal speech. C5- T1 and L4-S1 gross sensation intact throughout. 5/5 Muscle strength to handgrip , Elbow flexion/extension, Hip flexion/extension, dorsiflexion, platarflexion. LABS Laboratory Results - last 24 hr 12/17/17 12/18/17 12/18/17 12:15 11:15 17:12 WBC RBC Hgb Hct MCV MCH MCHC RDW Plt Count MPV Absolute Neuts (auto) Neutrophils % Lymphocytes % Monocytes % Eosinophils % Basophils % Nucleated RBC % Sodium Potassium Chloride Carbon Dioxide Anion Gap BUN Creatinine Creat Clearance w eGFR POC Glucometer [phone] Random Glucose Calcium Phosphorus Magnesium Lyme Screen IgG & IgM <0.91 Lyme IgM Quantitation <0.80 12/18/17 12/19/17 12/19/17 20:56 05:48 06:20 WBC 7.3 RBC 4.11 Hgb 12.2 Hct 36.3 MCV 88.2 MCH 29.6 MCHC 33.6 RDW 13.3 Plt Count 186 MPV 9.0 Absolute Neuts (auto) 4.5 Neutrophils % 61.9 D Lymphocytes % 21.8 D Monocytes % 12.7 H Eosinophils % 3.3 D Basophils % 0.3 Nucleated RBC % 0 Sodium Potassium Chloride Carbon Dioxide Anion Gap BUN Creatinine Creat Clearance w eGFR POC Glucometer 337 140 Random Glucose Calcium Phosphorus Magnesium Lyme Screen IgG & IgM Lyme IgM Quantitation 12/19/17 12/19/17 06:20 12:44 WBC RBC Hgb Hct MCV MCH MCHC RDW Plt Count MPV Absolute Neuts (auto) Neutrophils % Lymphocytes % Monocytes % Eosinophils % Basophils % Nucleated RBC % Sodium 140 Potassium 4.2 Chloride 107 Carbon Dioxide 26 Anion Gap 7 L BUN 15 Creatinine 0.8 Creat Clearance w eGFR > 60 POC Glucometer 221 Random Glucose 162 H Calcium 7.8 L Phosphorus 2.6 Magnesium 2.0 Lyme Screen IgG & IgM Lyme IgM Quantitation IMAGING: -EKG: NORMAL SINUS RHYTHM, LEFT AXIS DEVIATION -CT Head without contrast: Moderate atrophy and periventricular chronic microvascular ischemic disease changes. Air pockets in the cavernous sinuses and the anterior aspect of the sella that may be iatrogenic, related to recent intravenous injection. No skull base fracture is identified. -CT Head without contrast (Post-Fall): No CT evidence of acute intracranial pathology. -CT A/P without contrast: No definite CT findings of acute pathology are identified. There is no obvious CT evidence of enterocolitis. Colonic diverticulosis is noted. As visualized on prior CT studies of 07/10/2017 and 11/24 there is mildly increased mesenteric density centrally which may be slightly increased on the current exam. Associated mildly enlarged mesenteric lymph nodes are again noted without obvious interval change. While this appearance is usually of no clinical significance correlation with 3 month follow-up CT is suggested to document stability and lack of developing pathology. -CXR: No acute disease. -ECHO: LV Size, thickness and function are normal. LV EF 55-60%, Regional wall motion abnormalities cannot be excluded due to limited visualization -Brain MRI without contrast: Moderate atrophy and chronic microvascular ischemic disease changes. No acute intracranial pathology is identified. Correlate clinically to determine further evaluation and follow-up. -Carotid Doppler US b/l: Mild intimal thickening and questionable minimal soft plaque buildup at the left common carotid bifurcation/bulb without evidence of hemodynamically significant stenosis, bilaterally. HOSPITAL COURSE: Date of Admission:12/17/17 Date of Discharge: 12/19/17 72 y/o M with a PMHx of of DM, BPH, Vertigo and R Toe osteomyelitis presented to [facility] after multiple bouts of nausea, vomiting, and an episode of syncope. A CT Head done on admission only revealed Air pockets in the cavernous sinuses and the anterior aspect of the sella. Patient syncopized after an episode of vomiting and fell to the ground resulting in a laceration over his lip and eye. A second CT Head revealed No Acute intracranial pathology. Shortly after, while sitting upright in his bed to vomit, patient syncopized again and was transferred to telemetry. A Brain MRI did not reveal any acute intracranial pathology. His tele monitor revealed 2:1 Second degree AV block. Cardiology was consulted and determined there was no indication for permanent pacemaker. An echo was done (noted above) and patients troponins were negative. Follow up tele monitoring did not reveal any further blocks or bradycardia. Patient was started on Compazine, Carafate and Protonix. GI was consulted and patient completed a 3 day course of Ceftriaxone and Flagyl. His stool culture was negative for C. Diff. His nausea and vomiting resolved and patient had no further episodes of syncope. he was able to stand and ambulate in the hallway from one end to another without any dizziness or difficulty. Patient was discharged home with strict instructions to follow up with Cardiology, GI and his PCP. Minutes to complete discharge: 50 Discharge Summary Reason For Visit: SYNCOPE NAUSEA VOMITING Current Active Problems Diarrhea (Acute) Mobitz type 2 second degree heart block (Acute) Nausea & vomiting (Acute) Syncope (Acute) Syncope and collapse (Acute) HTN (hypertension) (Chronic) Condition: Stable - Instructions Diet, Activity, Other Instructions: You were admitted to the hospital because you fainted after vomiting and multiple episodes of diarrhea. A brain MRI and a Cat Scan of your abdomen did not find any acute pathology. Your stool culture was negative. You have completed a 3 day course of Antibiotics. A heart monitor found you have an arrhythmia ( hear block ) . It is important you follow up with a library circulation clerk (Dr. Lopez) outpatient to further manage this as you may need further testing or interventions. You were seen by a GI doctor, Dr. Tellez during your stay. You may benefit from having an endoscopy and/or a colonoscopy. Please follow up with him for further management. Your blood sugar has been elevated during your stay. Additionally, your Hemoglobin A1c blood test was also high. Please take half the dose of Insulin you were taking before due to your GI symptoms and decreased oral intake.. You must check your blood sugar 4 times a day (once before each meal and once before bedtime), keep a record of these numbers and report it to your primary doctor on thursday. If you blood sugar is less than 90, please DO NOT take your insulin. If you blood sugar is less than 70 and you are having symptoms, please eat some crackers and drink some juice BRIONNA. If you blood sugar is more than 300, please take your insulin and call your primary care doctor. Please follow up with your primary care doctor to further manage your diabetes. your insulin might need to be increased to regular doses shortly . Your home dose meclizine was stopped while you were in hospital. Please do not continue this medication until you follow up with your primary care physician. It is important you follow up with your doctor on Thursday. Your Cat Scan of the Abdomen revealed some enlarged lymph nodes. Please discuss this finding with your primary care doctor as you will likely benefit from a follow up cat scan in 3 months. Please follow up with your primary care physician on Thursday. You will need to recheck your lab work (Basic metabolic panel, Magnesium, Phosphorus). Continue all your other medications as prescribed, except for those noted above. Please return to the ER if you have any signs or symptoms of chest pain, shortness of breath, uncontrollable fever, chills, nausea, vomiting, numbness, tingling, or weakness in any part of your body, changes in vision, or slurred speech. Please return to the ER if symptoms persist, worsen, or new symptoms arise. Referrals: Zulema Lpoez MD [Staff Physician] - 2 Weeks Jenn Farris MD [Primary Care Provider] - 1 Week Alvino Tellez MD [Staff Physician] - 2 Weeks Disposition: HOME - Home Medications Comprehensive Discharge Medication List: Ambulatory Orders Amlodipine Besylate [Norvasc -] 10 mg PO DAILY #30 tablet 06/12/17 Hydrochlorothiazide [Hctz -] 12.5 mg PO DAILY 12/19/17 Miscellaneous Drug Not In Syst [Outpatient Lab Test] 1 each ASDIR #1 misc 08/31 Valsartan [Diovan] 160 mg PO DAILY 12/19/17 This patient is new to me today: No Emergency Visit: No Critical Care patient: No - Discharge Referral Referred to [facility] Med P.C.: No
[2017-12-19] MEDS: CEFTRIAXONE 1 GM in DEXTROSE 5%-WATER - 50 ML IVPB SCH (13:34)
== END 2017-12-19 15:49 | disposition home or self-care (01) | DRG 312 ==
LOC: JER 01:12 → JERBED 06:14 → J5S 09:07 → JICU 12-17 05:16 → OBSVTOIN 12-17 11:15 → J4W 12-18 20:52
PROVIDERS: ADMIT Internal Medicine; ATTEND Internal Medicine
DX: R55 Syncope and collapse (principal); N17.9 Acute kidney failure, unspecified; R11.2 Nausea with vomiting, unspecified; I44.1 Atrioventricular block, second degree; K29.70 Gastritis, unspecified, without bleeding; I10 Essential (primary) hypertension; E11.9 Type 2 diabetes mellitus without complications; S01.111A Laceration without foreign body of right eyelid and periocular area, initial encounter; S01.511A Laceration without foreign body of lip, initial encounter; R19.7 Diarrhea, unspecified; T14.90XA Injury, unspecified, initial encounter; X58.XXXA Exposure to other specified factors, initial encounter; Y93.9 Activity, unspecified; Y92.89 Other specified places as the place of occurrence of the external cause; Y99.9 Unspecified external cause status; R00.1 Bradycardia, unspecified; N40.0 Benign prostatic hyperplasia without lower urinary tract symptoms; E86.0 Dehydration; W19.XXXA Unspecified fall, initial encounter; E78.5 Hyperlipidemia, unspecified
CPT/HCPCS: 36415; 70450-TC; 70551-TC; 71045-TC-FY; 74176-TC; 80048; 80053; 80307; 82272; 82550; 82553; 82947; 82962; 83690; 83735; 84100; 84443; 84484; 85025; 85027; 85610; 85730; 86618; 87045; 87046; 87205; 87324; 87338; 87449; 93005; 93010; 93306-TC; 93880-TC; 99285-25; G0378; J7030

== ENCOUNTER 2018-07-18 11:56 | Observation (INO) | payer OTHER ==
[2018-07-18 12:05] VITALS: BMI 32.5
--- NOTE | 2018-07-18 12:28 | PDOC ---
History of Present Illness - General Chief Complaint: Chest Pain Stated Complaint: CHEST PAIN Time Seen by Provider: 07/18/18 12:28 - History of Present Illness Initial Comments: 07/18/18 12:44 The patient is a 73 year old male with a history of HTN, HLD, DM who presents for evaluation of chest pain and shortness of breath. The patient reports a 3 day history of sharp sternal chest pain with associated shortness of breath at rest, dyspnea on exertion and orthopnea. The patient checked his blood pressure today at home and noted it to be in the 200s systolic prompting his presentation to the ED for further evaluation. The patient also notes that he ran out of his blood pressure medication 1 week ago and has not taken anything since then. He otherwise denies fevers, chills, nausea, vomiting, abdominal pain, or changes with urination or bowel movements. Past History - Past Medical History Allergies/Adverse Reactions: Allergies Allergy/AdvReac Type Severity Reaction Status Date / Time Sulfa (Sulfonamide Allergy Severe Vomiting Verified 07/18/18 12:04 Antibiotics) piperacillin [From Zosyn] AdvReac Intermediate Itching Verified 07/18/18 12:04 tazobactam [From Zosyn] AdvReac Intermediate Itching Verified 07/18/18 12:04 Home Medications: Ambulatory Orders Amlodipine Besylate [Norvasc -] 10 mg PO DAILY #30 tablet 06/12/17 Hydrochlorothiazide [Hctz -] 12.5 mg PO DAILY 12/19/17 Valsartan [Diovan] 160 mg PO DAILY 12/19/17 Famotidine 20 mg PO DAILY 07/18/18 Meclizine HCl 25 mg PO TID 07/18/18 Anemia: No Asthma: No Cancer: No Cardiac Disorders: No CVA: No COPD: No CHF: No Dementia: No Diabetes: Yes GI Disorders: No Disorders: Yes (Turp 2018) HTN: Yes (no meds x 1 week) Hypercholesterolemia: Yes Liver Disease: No Seizures: No Thyroid Disease: No - Surgical History Abdominal Surgery: No Appendectomy: No Cardiac Surgery: No Cholecystectomy: No Lung Surgery: No Neurologic Surgery: No Orthopedic Surgery: No - Suicide/Smoking/Psychosocial Hx Smoking History: Never smoked Have you smoked in the past 12 months: No Hx Alcohol Use: No Drug/Substance Use Hx: No Substance Use Type: None Hx Substance Use Treatment: No Review of Systems - Review of Systems Comments:: 07/18/18 12:48 Constitutional: No fevers, chills, fatigue, malaise HEENT: No Rhinorrhea, nasal congestion, visual changes Cardiovascular: Chest pain. No syncope, palpitations, lightheadedness Respiratory: SOB, Dyspnea on Exertion, Orthopnea. No Cough, Hemoptysis, Gastrointestinal: No Abdominal pain, Nausea, Vomiting, Constipation, Diarrhea, Melena Genitourinary: No Dysuria, Frequency, Urgency, Hesitancy, Hematuria, Flank pain Musculoskeletal: No Myalgia, arthralgia Skin: No rashes, itching, bruising, pallor Neurologic: No Headache, Dizziness, Numbness, Weakness, or Tingling Psychiatric: No Hallucinations. No SI or HI *Physical Exam - Vital Signs Last Vital Signs Temp Pulse Resp BP Pulse Ox 97.5 F L 73 18 201/74 H 96 07/18/18 11:57 07/18/18 11:57 07/18/18 11:57 07/18/18 11:57 07/18/18 11:57 - Physical Exam Comments: 07/18/18 12:49 General Appearance: Nourished. No Apparent Distress HEENT: EOMI, ELEUTERIO. No Pharyngeal Erythema, Tonsillar Exudate, Tonsillar Erythema Neck: No Cervical Lymphadenopathy Respiratory/Chest: Lungs Clear, Normal Breath Sounds. Bibasilar rales noted on exam. No Crackles, Rhonchi, Wheezing Cardiovascular: Regular Rhythm, Regular Rate. No Murmur, Gallops, Rubs Gastrointestinal/Abdominal: Normal Bowel Sounds, Soft. No Guarding, Rebound, Tenderness Musculoskeletal: No CVA Tenderness Extremity: Normal Capillary Refill Integumentary: Normal Color, Dry, Warm Neurologic: pre sales architect II-XII NML intact, Fully Oriented, Alert, Normal Mood/Affect, Normal Response, Heart Score/ECG Review #1 ECG reviewed & interpreted by me at: 12:51 07/18/18 12:51 Normal Sinus Rhythm Left [place] Deviation Pulmonary disease Pattern New inverted T wave in Lead V3 when compared to prior on 12/17/[address] elevations or Depressions HR 74 QRS 98 QTc 430 ED Treatment Course - LABORATORY CBC & Chemistry Diagram: 07/18/18 12:50 07/18/18 12:50 Medical Decision Making - Medical Decision Making 07/18/18 12:49 The patient is a 73 year old male with a history of HTN, HLD, DM who presents for evaluation of chest pain and shortness of breath. Differential includes but is not limited to: Hypertensive emergency, ACS, CHF, Infectious, Metabolic Derangement. Given the patient's history and physical exam, we will obtain a cbc, cmp, troponin, bnp, ekg, chest plain film, ua to evaluate further. We will treat with his home doses of hydrochlorothiazide and amlodipine as well as aspirin and continue to monitor and reassess while here in the ED. 07/18/18 14:52 CBC is unremarkable. CMP demonstrates a glucose of 308. Troponin is elevated to 0.07. BNP is elevated to 300s. Chest plain film does not demonstrate any acute process. The patient's BP has improved with home medications. Given the patient's cardiac risk factors and hypertension in the setting of chest pain and shortness of breath, he will require admission for further management and monitoring. We discussed the case with Dr. Esparza with the admitting team who accepted the patient for admission. *DC/Admit/Observation/Transfer Diagnosis at time of Disposition: Shortness of breath Chest pain Qualifiers: Chest pain type: unspecified Qualified Code(s): R07.9 - Chest pain, unspecified - Discharge Dispostion Condition at time of disposition: Stable Decision to Admit order: Yes - Referrals Referrals: Daja Esparza MD [Primary Care Provider] - - Patient Instructions - Post Discharge Activity
[2018-07-18] MEDS ORDERED: ASPIRIN 81 MG CHEWABLE TABLETS PO ONE (12:42)
[2018-07-18] MEDS ORDERED: amLODIPine BESYLATE 10 MG TABLET (FP) PO ONE (12:42)
[2018-07-18] MEDS ORDERED: HYDROCHLOROTHIAZIDE 12.5 MG CAPSULE (FP) PO ONE (12:43)
--- NOTE | 2018-07-18 12:53 | PDOC ---
Documentation entered by Earl Holland SCRIBE, acting as scribe for Arnaldo Lizarraga MD. Arnaldo Lizarraga MD: This documentation has been prepared by the Skyler mariee Daniel, SCRIBE, under my direction and personally reviewed by me in its entirety. I confirm that the documentation accurately reflects all work, treatment, procedures, and medical decision making performed by me. Attending Attestation - Resident Resident Name: Earl Abdi - ED Attending Attestation I have performed the following: I have examined & evaluated the patient, The case was reviewed & discussed with the resident, I agree w/resident's findings & plan, Exceptions are as noted - HPI HPI: 07/18/18 12:40 The patient is a 73 year old male with a past medical history of HTN, HLD, and diabetes here today for evaluation of chest pain. The patient reports that his chest pain began 3 days ago and describes it as stabbing and sternal. He also notes associated shortness of breath at rest, dyspnea on exertion, and orthopnea. Patient also reports that he ran out of his HTN meds last week and has not taken them since. Patient denies headache, lightheadedness. Denies fever, chills. Denies nausea, vomiting, diarrhea, abdominal pain. Denies lower extremity edema. Allergies: sulfa, piperacillin, tazobactam PCP: Daja Esparza - Physicial Exam PE: 07/18/18 12:48 GENERAL: Awake, alert, and fully oriented, in no acute distress HEAD: No signs of trauma EYES: EOMI, sclera anicteric, conjunctiva clear ENT: Auricles normal inspection, hearing grossly normal, nares patent, Moist mucosa NECK: Normal ROM, supple, LUNGS: Breath sounds equal, clear to auscultation bilaterally. No wheezes, and no crackles HEART: Regular rate and rhythm, normal S1 and S2, no murmurs, rubs or gallops ABDOMEN: Soft, nontender, No guarding, no rebound. No masses EXTREMITIES: Normal range of motion, no edema. No clubbing or cyanosis. No cords, erythema, or tenderness NEUROLOGICAL: Cranial nerves II through XII grossly intact. Normal speech SKIN: Warm, Dry, normal turgor, no rashes or lesions noted. - Medical Decision Making 07/18/18 12:50 A portion of this note was documented by scribe services under my direction. I have reviewed the details of the note, within reason, and agree with the documentation with the following case summary and management plan written by me. Patient treated in the ED. Nursing notes are reviewed and incorporated into the medical decision-making. Vital signs reviewed. Peripheral IV access obtained by the nurse, laboratory studies are drawn and sent, reviewed and interpreted by myself. Vital Signs Temp Pulse Resp BP Pulse Ox 97.5 F L 73 18 201/74 H 96 07/18/18 11:57 07/18/18 11:57 07/18/18 11:57 07/18/18 11:57 07/18/18 11:57 73-year-old male with hypertension, diabetes, hyperlipidemia presents with hypertension and chest pain. For one week, the patient ran out of his hypertensive medications. The last few days started feel some chest pressure in the left arm and some shortness of breath and dyspnea on exertion. Patient took his blood pressure today and noted that his systolics remained 200 so came to the ER. I suspect patient's chest pain is results of elevated blood pressure suggestive of hypertensive emergency. We'll give patient his blood pressure medications and rule out myocardial infarction. We'll given aspirin and admit the patient to the hospital for further evaluation and management. 07/18/18 14:57 CBC, BMP 07/18/18 12:50 07/18/18 12:50 CMP Sodium 137 mmol/L (136-145) 07/18/18 12:50 Potassium 4.2 mmol/L (3.5-5.1) 07/18/18 12:50 Chloride 106 mmol/L (98-107) 07/18/18 12:50 Carbon Dioxide 27 mmol/L (21-32) 07/18/18 12:50 Anion Gap 5 MMOL/L (8-16) L 07/18/18 12:50 BUN 24 mg/dL (7-18) H 07/18/18 12:50 Creatinine 1.3 mg/dL (0.55-1.3) 07/18/18 12:50 Creat Clearance w eGFR 54.11 (>60) 07/18/18 12:50 Random Glucose 308 mg/dL (74-106) H* 07/18/18 12:50 Calcium 8.8 mg/dL (8.5-10.1) 07/18/18 12:50 Total Bilirubin 0.6 mg/dL (0.2-1) 07/18/18 12:50 AST 10 U/L (15-37) L 07/18/18 12:50 ALT 15 U/L (13-61) 07/18/18 12:50 Alkaline Phosphatase 137 U/L (45-117) H 07/18/18 12:50 Creatine Kinase 186 U/L (26-308) 07/18/18 12:50 Creatine Kinase Index 2.8 % (0.0-5.0) 07/18/18 12:50 CK-MB (CK-2) 5.3 ng/mL (0.5-3.6) H 07/18/18 12:50 Troponin I 0.07 ng/ml (0.00-0.05) H 07/18/18 12:50 B-Natriuretic Peptide 326.3 pg/ml (5-125) H 07/18/18 12:50 Total Protein 7.0 g/dl (6.4-8.2) 07/18/18 12:50 Albumin 3.5 g/dl (3.4-5.0) 07/18/18 12:50 Trop is 0.07. Will give aspirin and admit. Heart Score/ECG Review #1 ECG reviewed & interpreted by me at: 11:50 07/18/18 12:49 NSR 74, left axis deviation, TWI V3-, nonspecific ST and T wave pattern, no std/ tate, QTC 430 msec
[2018-07-18] MEDS ORDERED: ASPIRIN 81 MG CHEWABLE TABLETS ONE (12:58)
[2018-07-18] MEDS ORDERED: amLODIPine BESYLATE 5 MG TABLET (FP) ONE (12:58)
[2018-07-18] MEDS ORDERED: HYDROCHLOROTHIAZIDE 25 MG TABLET (FP) ONE (12:59)
[2018-07-18 13:01] LABS: BASO % 0.9 % (0-2.0); EOS % 1.8 % (0-4.5); HEMATOCRIT 41.4 % (35.4-49); HEMOGLOBIN 13.7 GM/dL (11.7-16.9); LYMPH % 14.3 % (8-40); MCH 28.8 pg (25.7-33.7); MCHC 33.1 g/dl (32.0-35.9); MEAN PLT VOLUME 8.8 fl (7.5-11.1); MONO % 8.3 % (3.8-10.2); NEUT % 74.7 % (42.8-82.8); PLATELET COUNT 244 K/MM3 (134-434); RBC 4.75 M/mm3 (4.00-5.60); RDW 13.7 % (11.9-15.9); WHITE BLOOD COUNT 10.1 K/mm3 (4.0-10.0)
[2018-07-18 14:04] LABS: CHLORIDE 106 mmol/L (98-107); POTASSIUM 4.2 mmol/L (3.5-5.1); SODIUM 137 mmol/L (136-145)
[2018-07-18 14:42] LABS: ALBUMIN 3.5 g/dl (3.4-5.0); CO2 27 mmol/L (21-32); CREATININE 1.3 mg/dL (0.55-1.3); GLUCOSE,RANDOM 308 mg/dL (74-106)
[2018-07-18 14:48] LABS: ALK PHOS 137 U/L (45-117); ANION GAP 5 MMOL/L (8-16); BILIRUBIN,TOTAL 0.6 mg/dL (0.2-1); BLOOD UREA NITROGEN 24 mg/dL (7-18); CALCIUM 8.8 mg/dL (8.5-10.1); N-TERMINAL BNP 326.3 pg/ml (5-125); SGOT/AST 10 U/L (15-37); SGPT/ALT 15 U/L (13-61)
[2018-07-18 14:56] LABS: EPI CELLS 0.2 /HPF (0-5/HPF); URINE APPEARANCE CLEAR; URINE BACTERIA 1.7 /hpf (NEGATIVE); URINE BILIRUBIN NEGATIVE (NEGATIVE); URINE CASTS 1 /lpf (0-8); URINE COLOR YELLOW; URINE GLUCOSE (UA) 3+ (NEGATIVE); URINE KETONE NEGATIVE (NEGATIVE); URINE LEUK ESTERASE NEGATIVE (NEGATIVE); URINE NITRITE NEGATIVE (NEGATIVE); URINE PROTEIN 1+ (NEGATIVE); URINE RBC 1 /hpf (0-4); URINE UROBILINOGEN 0.2 mg/dL (0.2-1.0); URINE WBC 0 /hpf (0-5)
--- NOTE | 2018-07-18 15:01 | EKG ---
Test Reason : Blood Pressure : / mmHG Vent. Rate : 074 BPM Atrial Rate : 074 BPM P-R Int : 152 ms QRS Dur : 098 ms QT Int : 388 ms P-R-T Axes : 014 -62 005 degrees QTc Int : 430 ms POOR DATA QUALITY, INTERPRETATION MAY BE ADVERSELY AFFECTED NORMAL SINUS RHYTHM LEFT AXIS DEVIATION PULMONARY DISEASE PATTERN NONSPECIFIC ST AND T WAVE ABNORMALITY ABNORMAL ECG WHEN COMPARED WITH ECG OF 17-DEC-2017 08:01, NO SIGNIFICANT CHANGE WAS FOUND Confirmed by CONSTANTINE MANZANO, TIA ([id number]) on 07/18/2018 3:01:31 PM Referred By: Confirmed By:TIA FITCH MD
--- NOTE | 2018-07-18 15:45 | HP ---
Admitting History and Physical - Past Medical History Cardiovascular: Yes: HTN, Hyperlipdemia Infectious Disease: Yes: Other (Rt toe OM) Endocrine: Yes: Diabetes Mellitus - Smoking History Smoking history: Never smoked Have you smoked in the past 12 months: No - Alcohol/Substance Use Hx Alcohol Use: No Home Medications - Allergies Allergies/Adverse Reactions: Allergies Allergy/AdvReac Type Severity Reaction Status Date / Time Sulfa (Sulfonamide Allergy Severe Vomiting Verified 07/18/18 12:04 Antibiotics) piperacillin [From Zosyn] AdvReac Intermediate Itching Verified 07/18/18 12:04 tazobactam [From Zosyn] AdvReac Intermediate Itching Verified 07/18/18 12:04 - Home Medications Home Medications: Ambulatory Orders Amlodipine Besylate [Norvasc -] 10 mg PO DAILY #30 tablet 06/12/17 Hydrochlorothiazide [Hctz -] 12.5 mg PO DAILY 12/19/17 Valsartan [Diovan] 160 mg PO DAILY 12/19/17 Famotidine 20 mg PO DAILY 07/18/18 Meclizine HCl 25 mg PO TID 07/18/18 Physical Examination Vital Signs: Vital Signs Temperature 97.5 F L 07/18/18 11:57 Pulse Rate 74 07/18/18 14:30 Respiratory Rate 22 H 07/18/18 14:30 Blood Pressure 146/63 07/18/18 14:30 O2 Sat by Pulse Oximetry (%) 97 07/18/18 14:30 Labs: CBC, BMP 07/18/18 12:50 07/18/18 12:50
[2018-07-18] MEDS ORDERED: INSULIN REGULAR HUMAN 100 UNITS/ML *VIAL SQ ONE (17:25)
[2018-07-18] MEDS ORDERED: INSULIN REGULAR HUMAN 100 UNITS/ML *VIAL ONE (17:48)
[2018-07-18] MEDS ORDERED: INSULIN (NOVOLOG) ASPART 100 UNITS/ML 10ML VIAL SQ ONE (17:54)
[2018-07-18] MEDS ORDERED: ATORVASTATIN CA 40 MG TABLET (FP) PO SCH (22:00)
[2018-07-18] MEDS ORDERED: ATORVASTATIN CA 40 MG TABLET (FP) ONE (22:47)
[2018-07-19] MEDS ORDERED: INSULIN (NOVOLOG) ASPART 100 UNITS/ML 10ML VIAL ONE ×2 (06:22→18:01)
[2018-07-19 06:29] LABS: BASO % 0.6 % (0-2.0); EOS % 2.1 % (0-4.5); HEMATOCRIT 41.9 % (35.4-49); HEMOGLOBIN 14.3 GM/dL (11.7-16.9); LYMPH % 16.8 % (8-40); MCH 29.3 pg (25.7-33.7); MEAN CELL VOLUME 86.3 fl (80-96); MEAN PLT VOLUME 8.9 fl (7.5-11.1); MONO % 8.8 % (3.8-10.2); NEUT % 71.7 % (42.8-82.8); PLATELET COUNT 241 K/MM3 (134-434); RBC 4.86 M/mm3 (4.00-5.60); RDW 13.6 % (11.9-15.9); WHITE BLOOD COUNT 10.4 K/mm3 (4.0-10.0)
[2018-07-19] MEDS: INSULIN SLIDING SCALE (NOVOLOG) 1 VIAL SQ SCH ×2 (06:43→17:37)
[2018-07-19 07:09] LABS: CHOLESTEROL 124 mg/dL (50-200); HDL CHOLESTEROL 44 mg/dL (40-60); TRIGLYCERIDES 122 mg/dL (0-150)
[2018-07-19 07:22] LABS: ALBUMIN 3.5 g/dl (3.4-5.0); ALK PHOS 131 U/L (45-117); ANION GAP 10 MMOL/L (8-16); BILIRUBIN,TOTAL 0.8 mg/dL (0.2-1); BLOOD UREA NITROGEN 24 mg/dL (7-18); CALCIUM 8.7 mg/dL (8.5-10.1); CHLORIDE 104 mmol/L (98-107); CO2 25 mmol/L (21-32); CREATININE 1.1 mg/dL (0.55-1.3); GLUCOSE,RANDOM 224 mg/dL (74-106); POTASSIUM 4.1 mmol/L (3.5-5.1); SGOT/AST 12 U/L (15-37); SGPT/ALT 13 U/L (13-61); SODIUM 139 mmol/L (136-145); TOT PROT 6.8 g/dl (6.4-8.2)
--- NOTE | 2018-07-19 09:28 | CON.CARD ---
Consult Consult Specialty:: cardio - History of Present Illness Chief Complaint: cp, sob History of Present Illness: 73 M here with cp and systolic BP of 200s at home. pain woke him from sleep. sternal location. 12/23 severity. burning quality, not dissimilar from prior GERD sx's but never had pain anywhere near this severe. ate pizza for dinner that night, no etoh "i thought i was having a heart attack" pain did not radiation. NO ASSOCIATED SOB. no diaph/presyncope. never felt this before. resolved on its own (vs due to drank cup of tea) in 15-20 min pain returned while in synagogue later that day, again resolved in 15-20 min no assctd nausea or sour taste in mouth PMH: HTN DM FH: sister MS brother CABG - Past Medical History Cardio/Vascular: Yes: HTN, Hyperlipdemia Infectious Disease: Yes: Other (Rt toe OM) Endocrine: Yes: Diabetes Mellitus - Alcohol/Substance Use Hx Alcohol Use: No - Smoking History Smoking history: Never smoked Have you smoked in the past 12 months: No Home Medications - Allergies Allergies/Adverse Reactions: Allergies Allergy/AdvReac Type Severity Reaction Status Date / Time Sulfa (Sulfonamide Allergy Severe Vomiting Verified 07/18/18 12:04 Antibiotics) piperacillin [From Zosyn] AdvReac Intermediate Itching Verified 07/18/18 12:04 tazobactam [From Zosyn] AdvReac Intermediate Itching Verified 07/18/18 12:04 - Home Medications Home Medications: Ambulatory Orders Amlodipine Besylate [Norvasc -] 10 mg PO DAILY #30 tablet 06/12/17 Hydrochlorothiazide [Hctz -] 12.5 mg PO DAILY 12/19/17 Valsartan [Diovan] 160 mg PO DAILY 12/19/17 Famotidine 20 mg PO DAILY 07/18/18 Insulin (Novolog 70/30) [Novolog Mix 70/30 Vial] 0 units SQ DAILY 07/18/18 Meclizine HCl 25 mg PO TID 07/18/18 Review of Systems - Review of Systems Constitutional: denies: Chills, Fever Eyes: denies: Eye Pain HENT: denies: Nasal Congestion Neck: denies: Stiffness Cardiovascular: denies: Palpitations Respiratory: denies: Orthopnea, PND Gastrointestinal: denies: Diarrhea, Rectal Bleeding Genitourinary: denies: Burning, Hematuria Musculoskeletal: denies: Muscle Pain Integumentary: denies: Rash Neurological: denies: Numbness, Seizure, Syncope Endocrine: denies: Excessive Sweating Hematology/Lymphatic: denies: Excessive Bleeding Vital Signs: Vital Signs Temperature 98.3 F 07/19/18 04:56 Pulse Rate 71 07/19/18 04:56 Respiratory Rate 18 07/19/18 04:56 Blood Pressure 153/83 07/19/18 04:56 O2 Sat by Pulse Oximetry (%) 98 07/19/18 02:04 Constitutional: Yes: Well Nourished, No Distress Eyes: No: Sclera Icterus HENT: No: Nasal Congestion Neck: No: Decreased ROM Respiratory: Yes: CTA Bilaterally. No: Accessory Muscle Use, Rales, Wheezes Gastrointestinal: Yes: Normal Bowel Sounds. No: Distention, Hepatomegaly, Palpable Mass, Tenderness Cardiovascular: Yes: Regular Rate and Rhythm JVD: No Carotid Bruit: No PMI: Non-Displaced Heart Sounds: Yes: S1, S2. No: Gallop Murmur: No: Systolic Murmur, Diastolic Murmur Musculoskeletal: Yes: Other (No kyphosis) Extremities: No: Cold, Cyanosis Edema: No Peripheral Pulses: 2+ Left Carotid, 2+ Right Carotid, 2+ Left Doralis Pedis, 2+ Right Dorsalis Pedis Integumentary: No: Jaundice Neurological: Yes: Alert, Oriented (x3) Psychiatric: No: Agitated - Other Data Labs, Other Data: CBC, BMP 07/19/18 05:30 07/19/18 05:30 Troponin, BNP 07/18/18 07/18/18 07/19/18 12:50 19:39 05:30 Troponin I 0.07 H 0.04 0.02 B-Natriuretic Peptide 326.3 H Troponin, BNP 07/18/18 07/18/18 07/19/18 12:50 19:39 05:30 Troponin I 0.07 H 0.04 0.02 B-Natriuretic Peptide 326.3 H Laboratory Tests 07/18/18 07/18/18 07/19/18 12:50 19:39 05:30 WBC 10.4 H Hgb 14.3 Plt Count 241 Sodium Potassium Carbon Dioxide BUN Creatinine Hemoglobin A1c % AST ALT Creatine Kinase 200 Troponin I 0.07 H 0.04 B-Natriuretic Peptide 326.3 H Triglycerides Cholesterol Total LDL Cholesterol HDL Cholesterol 07/19/18 07/19/18 07/19/18 05:30 05:30 05:30 WBC Hgb Plt Count Sodium 139 Potassium 4.1 Carbon Dioxide 25 BUN 24 H Creatinine 1.1 Hemoglobin A1c % 8.3 H AST 12 L ALT 13 Creatine Kinase Troponin I 0.02 B-Natriuretic Peptide Triglycerides 122 Cholesterol 124 Total LDL Cholesterol 67 HDL Cholesterol 44 Assessment/Plan Echo 12/2017: tds, grossly normal LV and RV function ECG: NSR, LAFB, nonsp ST-Ts anterior > inferior leads slightly more prominent vs 12/31 CXR: clear lungs/pleura chest pain: -troponin x 3 benign -ECG with accentuation of prior ST-Ts possible sec to ischemia -may have been more severe version of prior GERD, per HPI -r/o unstable angina (? triggered by uncontrolled BP at home) -pharm MPI ordered HTN urgency - in setting of med non-adherence at home - BP well controlled now - same meds DM - on insulin pump - per primary team
[2018-07-19] MEDS ORDERED: amLODIPine BESYLATE 10 MG TABLET (FP) PO SCH (10:00)
[2018-07-19] MEDS ORDERED: VALSARTAN 160 MG TABLET (UD) PO SCH (10:00)
[2018-07-19] MEDS ORDERED: ENOXAPARIN NA (PORCINE) 40 MG/0.4 ML DISP.SYRIN SQ SCH (10:00)
[2018-07-19] MEDS ORDERED: RANITIDINE HCL 150 MG TABLET (FP) PO SCH (10:00)
[2018-07-19] MEDS ORDERED: HYDROCHLOROTHIAZIDE 12.5 MG CAPSULE (FP) PO SCH (10:00)
[2018-07-19] MEDS ORDERED: ASPIRIN 81 MG CHEWABLE TABLETS PO SCH (10:00)
[2018-07-19] MEDS ORDERED: REGADENOSON 0.4 MG/5 ML PRE-FILLED SYRINGE IVPUSH ONE ×2 (11:05→11:15)
--- NOTE | 2018-07-19 13:39 | HP ---
Admitting History and Physical - Admission History of Present Illness: The patient is a 73 year old male with a history of HTN, HLD, DM who presents for evaluation of chest pain and shortness of breath. The patient reports a 3 day history of sharp sternal chest pain with associated shortness of breath at rest, dyspnea on exertion and orthopnea. The patient checked his blood pressure today at home and noted it to be in the 200s systolic prompting his presentation to the ED for further evaluation. The patient also notes that he ran out of his blood pressure medication 1 week ago and has not taken anything since then. He otherwise denies fevers, chills, nausea, vomiting, abdominal pain, or changes with urination or bowel movements patient seen and examined Chart reviewed denies chest pain Going for stress test today Cardiology consultation noted History Source: Patient Limitations to Obtaining History: No Limitations - Past Medical History Cardiovascular: Yes: HTN, Hyperlipdemia Infectious Disease: Yes: Other (Rt toe OM) Endocrine: Yes: Diabetes Mellitus - Smoking History Smoking history: Never smoked Have you smoked in the past 12 months: No - Alcohol/Substance Use Hx Alcohol Use: No Home Medications - Allergies Allergies/Adverse Reactions: Allergies Allergy/AdvReac Type Severity Reaction Status Date / Time Sulfa (Sulfonamide Allergy Severe Vomiting Verified 07/18/18 12:04 Antibiotics) piperacillin [From Zosyn] AdvReac Intermediate Itching Verified 07/18/18 12:04 tazobactam [From Zosyn] AdvReac Intermediate Itching Verified 07/18/18 12:04 - Home Medications Home Medications: Ambulatory Orders Amlodipine Besylate [Norvasc -] 10 mg PO DAILY #30 tablet 06/12/17 Hydrochlorothiazide [Hctz -] 12.5 mg PO DAILY 12/19/17 Valsartan [Diovan] 160 mg PO DAILY 12/19/17 Famotidine 20 mg PO DAILY 07/18/18 Insulin (Novolog 70/30) [Novolog Mix 70/30 Vial] 0 units SQ DAILY 07/18/18 Meclizine HCl 25 mg PO TID 07/18/18 Review of Systems - Review of Systems Constitutional: reports: No Symptoms Eyes: reports: No Symptoms HENT: reports: No Symptoms Neck: reports: No Symptoms Cardiovascular: reports: Chest Pain, Shortness of Breath Respiratory: reports: SOB Gastrointestinal: reports: No Symptoms Genitourinary: reports: No Symptoms Neurological: reports: No Symptoms Psychiatric: reports: No Symptoms Physical Examination Vital Signs: Vital Signs Temperature 98.7 F 07/19/18 09:51 Pulse Rate 88 07/19/18 09:51 Respiratory Rate 18 07/19/18 09:51 Blood Pressure 157/90 07/19/18 09:51 O2 Sat by Pulse Oximetry (%) 95 07/19/18 09:51 Constitutional: Yes: No Distress, Calm Eyes: Yes: Conjunctiva Clear Neck: Yes: Supple Cardiovascular: Yes: Regular Rate and Rhythm Respiratory: Yes: CTA Bilaterally Gastrointestinal: Yes: Soft Edema: No Labs: CBC, BMP 07/19/18 05:30 07/19/18 05:30 Imaging - Results Chest X-ray: Report Reviewed EKG: Report Reviewed Problem List - Problems (1) Chest pain Code(s): R07.9 - CHEST PAIN, UNSPECIFIED Qualifiers: Chest pain type: unspecified Qualified Code(s): R07.9 - Chest pain, unspecified (2) Shortness of breath Code(s): R06.02 - SHORTNESS OF BREATH (3) HTN (hypertension) Code(s): I10 - ESSENTIAL (PRIMARY) HYPERTENSION Assessment/Plan Discussed with patient monitor on telemetry Stress test today Compliance stressed with patient Continue present care Will follow
--- NOTE | 2018-07-19 19:34 | DS ---
Physical Examination Vital Signs: Vital Signs Temperature 98.7 F 07/19/18 17:30 Pulse Rate 78 07/19/18 17:30 Respiratory Rate 18 07/19/18 17:30 Blood Pressure 135/85 07/19/18 17:30 O2 Sat by Pulse Oximetry (%) 99 07/19/18 17:30 Findings/Remarks: see today h/p Labs: CBC, BMP 07/19/18 05:30 07/19/18 05:30 Discharge Summary Reason For Visit: SHORTNESS OF BREATH, CHEST PAIN Current Active Problems Chest pain (Acute) Shortness of breath (Acute) Hospital Course: stress test -ve bp much better compliance stressed will d/c home today pt advised to follow with his pmd in week so. meds send to pharmacy Condition: Stable - Instructions Disposition: HOME - Home Medications Comprehensive Discharge Medication List: Ambulatory Orders Valsartan [Diovan] 160 mg PO DAILY 12/19/17 Famotidine 20 mg PO DAILY 07/18/18 Insulin (Novolog 70/30) [Novolog Mix 70/30 Vial -] 0 units SQ DAILY 07/18/18 Amlodipine Besylate [Norvasc -] 10 mg PO DAILY #30 tablet 07/19/18 Aspirin [ASA -] 81 mg PO DAILY tab.chew 07/19/18 Atorvastatin Ca [Lipitor] 40 mg PO HS #0 tablet 07/19/18 Hydrochlorothiazide [Hctz -] 12.5 mg PO DAILY #30 cap 07/19/18
[2018-07-19 19:52] VITALS: BP 116/73; PULSE 74; TEMP 97.6
== END 2018-07-19 19:43 | disposition home or self-care (01) ==
LOC: JER 11:56 → JERBED 14:40
PROVIDERS: ADMIT Internal Medicine; ATTEND Internal Medicine
PROC: 3E033GC Introduction of Other Therapeutic Substance into Peripheral Vein, Percutaneous Approach (ICD-10-PCS; principal; 2018-07-18)
PROC: 3E013VG Introduction of Insulin into Subcutaneous Tissue, Percutaneous Approach (ICD-10-PCS; 2018-07-18)
DX: R07.9 Chest pain, unspecified (principal); I16.0 Hypertensive urgency; E78.5 Hyperlipidemia, unspecified; E11.9 Type 2 diabetes mellitus without complications; Z96.41 Presence of insulin pump (external) (internal); R06.02 Shortness of breath; Z88.2 Allergy status to sulfonamides; Z88.8 Allergy status to other drugs, medicaments and biological substances
CPT/HCPCS: 36415; 71045-TC-FY; 78452-TC; 80053; 80061; 81003; 82550; 82553; 82962; 83036; 83721; 83880; 84443; 84484; 85025; 93005; 93010; 93017; 96372; 96374; 99285-25; A9502; G0378; J2785

== ENCOUNTER 2018-07-26 17:49 | Emergency (ER) | payer OTHER ==
--- NOTE | 2018-07-26 17:54 | PDOC ---
History of Present Illness - General Stated Complaint: CHEST PAIN Time Seen by Provider: 07/26/18 17:53 - History of Present Illness Initial Comments: 07/26/18 17:53 Mr. Albarran is a 73 yo male w/ pmh of HTN, HLD, DM who presents for evaluation of chest pain. Patient reports he was in his normal state of health until approximately 1 hour ago when he ate [address] [place] food. Reports pain started following this. Mr. Albarran had 4 baby aspirins and a nitro on the way to the ED and reports his pain has now subsided. Of note, patient presented to same ER 07/18 -07/19 for similar presentation with full cardiac evaluation thought to be 2/2 pizza he had had for dinner. The patient denies shortness of breath, headache and dizziness. Denies fever, chills, nausea, vomit, diarrhea and constipation. Denies dysuria, frequency, urgency and hematuria. Past History - Past Medical History Allergies/Adverse Reactions: Allergies Allergy/AdvReac Type Severity Reaction Status Date / Time Sulfa (Sulfonamide Allergy Severe Vomiting Verified 07/26/18 18:04 Antibiotics) piperacillin [From Zosyn] AdvReac Intermediate Itching Verified 07/26/18 18:04 tazobactam [From Zosyn] AdvReac Intermediate Itching Verified 07/26/18 18:04 Home Medications: Ambulatory Orders Valsartan [Diovan] 160 mg PO DAILY 12/19/17 Famotidine 20 mg PO DAILY 07/18/18 Insulin (Novolog 70/30) [Novolog Mix 70/30 Vial -] 0 units SQ DAILY 07/18/18 Amlodipine Besylate [Norvasc -] 10 mg PO DAILY #30 tablet 07/19/18 Aspirin [ASA -] 81 mg PO DAILY tab.chew 07/19/18 Atorvastatin Ca [Lipitor] 40 mg PO HS #0 tablet 07/19/18 Hydrochlorothiazide [Hctz -] 12.5 mg PO DAILY #30 cap 07/19/18 Anemia: No Asthma: No Cancer: No Cardiac Disorders: No CVA: No COPD: No CHF: No Dementia: No Diabetes: Yes GI Disorders: No Disorders: Yes (Turp 2017) HTN: Yes (no meds x 1 week) Hypercholesterolemia: Yes Liver Disease: No Seizures: No Thyroid Disease: No - Surgical History Abdominal Surgery: No Appendectomy: No Cardiac Surgery: No Cholecystectomy: No Lung Surgery: No Neurologic Surgery: No Orthopedic Surgery: No - Immunization History Immunization Up to Date: Yes - Suicide/Smoking/Psychosocial Hx Smoking History: Never smoked Have you smoked in the past 12 months: No Hx Alcohol Use: No Drug/Substance Use Hx: No Substance Use Type: None Hx Substance Use Treatment: No Review of Systems - Review of Systems Comments:: 07/26/18 17:54 GENERAL/CONSTITUTIONAL: No fever or chills. No weakness. HEAD, EYES, EARS, NOSE AND THROAT: No change in vision. No ear pain or discharge. No sore throat. CARDIOVASCULAR: +Chest pain as described. No shortness of breath RESPIRATORY: No cough, wheezing, or hemoptysis. GASTROINTESTINAL: No nausea, vomiting, diarrhea or constipation. GENITOURINARY: No dysuria, frequency, or change in urination. MUSCULOSKELETAL: No joint or muscle swelling or pain. No neck or back pain. SKIN: No rash NEUROLOGIC: No headache, vertigo, loss of consciousness, or change in strength/ sensation. ENDOCRINE: No increased thirst. No abnormal weight change HEMATOLOGIC/LYMPHATIC: No anemia, easy bleeding, or history of blood clots. ALLERGIC/IMMUNOLOGIC: No hives or skin allergy. *Physical Exam - Physical Exam Comments: 07/26/18 17:54 GENERAL: Awake, alert, and fully oriented, in no acute distress HEAD: No signs of trauma, normocephalic, atraumatic EYES: PERRLA, EOMI, sclera anicteric, conjunctiva clear ENT: Auricles normal inspection, hearing grossly normal, nares patent, oropharynx clear without exudates. Moist mucosa NECK: Normal ROM, supple, no lymphadenopathy, JVD, or masses LUNGS: No distress, speaks full sentences, clear to auscultation bilaterally HEART: Regular rate and rhythm, normal S1 and S2, no murmurs, rubs or gallops, peripheral pulses normal and equal bilaterally. ABDOMEN: +Mild Epigastric TTP. Soft, normoactive bowel sounds. No guarding, no rebound. No masses EXTREMITIES: Normal inspection, Normal range of motion, no edema. No clubbing or cyanosis. NEUROLOGICAL: Cranial nerves II through XII grossly intact. Normal speech, normal gait, no focal sensorimotor deficits SKIN: Warm, Dry, normal turgor, no rashes or lesions noted. Heart Score/ECG Review - History History: Slightly suspicious - Electrocardiogram EKG: Non specific repolarization disturbance - Age Age: >/= 65 - Risk Factors Risk Factors Heart Score: Yes Hx Hypercholesterolemia, Yes Hx Hypertension, Yes Hx Diabetes Based on the list above the patient has:: >/=3 risk factors or Hx atherosclerotic disease - Troponin Troponin: </= normal limit - Score Heart Score - Total: 5 ED Treatment Course - LABORATORY CBC & Chemistry Diagram: 07/26/18 18:26 07/26/18 18:26 Medical Decision Making - Medical Decision Making 07/26/18 21:06 Mr. Albarran is a 73 yo male w/ pmh as described who presents for evaluation of chest pain resolved prior to arrival. Patient evaluated with cardiac labs, EKG, CXR. Patient labs significant for elevated BGM as below. Patient's insulin pump noted to be malfunctioning. Patient given 10 units SQ. Patient troponins negative. EKG unchanged from previous. CXR negative. Consulted with Dr. Pritchett of cardiology; given patient's recent evaluation with echo last week in setting of resolved chest pain coinciding with GERD symptoms patient believed to be safe for outpatient follow-up. Patient has back-up insulin pump he can use when he gets home. Repeat BGM improved. Discharging patient to home. Laboratory Results - last 24 hr 07/26/18 07/26/18 07/26/18 18:26 18:26 20:07 WBC 9.8 RBC 4.77 Hgb 13.8 Hct 42.2 MCV 88.6 MCH 29.0 MCHC 32.8 RDW 13.7 Plt Count 236 MPV 9.6 Absolute Neuts (auto) 7.6 Neutrophils % 76.9 Lymphocytes % 12.3 D Monocytes % 7.9 Eosinophils % 2.3 Basophils % 0.6 Nucleated RBC % 0 Sodium 133 L Potassium 4.9 Chloride 100 Carbon Dioxide 26 Anion Gap 7 L BUN 29 H Creatinine 1.6 H Est GFR (CKD-EPI)AfAm 48.81 Est GFR (CKD-EPI)NonAf 42.11 POC Glucometer 485 Random Glucose 565 H* Calcium 7.9 L Total Bilirubin 0.5 AST 22 ALT 21 Alkaline Phosphatase 153 H Creatine Kinase 571 H Creatine Kinase Index 0.8 CK-MB (CK-2) 4.9 H Troponin I < 0.02 Total Protein 6.9 Albumin 3.6 *DC/Admit/Observation/Transfer Diagnosis at time of Disposition: Chest pain Qualifiers: Chest pain type: unspecified Qualified Code(s): R07.9 - Chest pain, unspecified - Discharge Dispostion Disposition: HOME - Referrals Referrals: Daja Esparza MD [Primary Care Provider] - - Patient Instructions Printed Discharge Instructions: DI for Chest Pain Additional Instructions: You were evaluated today in the ER for your chest pain. Your pain improved prior to arrival and your laboratory, Xray, and EKG evaluation was unchanged. Please follow-up with curriculum advisory teacher this week for further evaluation. We also noted that your blood glucose was elevated and you discovered your pump was malfunctioning. We gave you sub-cutaneous insulin with improvement of your blood glucose levels. Please use your backup pump for further control of your blood sugar. Return to ER if any further chest pain, fever, chills, or other concerning symptoms. - Post Discharge Activity
[2018-07-26] MEDS ORDERED: SODIUM CHLORIDE 1,000 ML IV STA (18:03)
[2018-07-26] MEDS ORDERED: FAMOTIDINE 20 MG/50 ML IVPB 20 MG/50 ML MG IVPB ONE ×2 (18:03→18:10)
[2018-07-26] MEDS ORDERED: MAG HYDROX/AL HYDROX/SIMETH 30 ML UNIT-DOSE CUP PO ONE (18:03)
[2018-07-26 18:04] VITALS: TEMP 97.6; BMI 30.4
[2018-07-26] MEDS ORDERED: MAG HYDROX/AL HYDROX/SIMETH 30 ML UNIT-DOSE CUP ONE (18:10)
[2018-07-26 18:40] LABS: BASO % 0.6 % (0-2.0); EOS % 2.3 % (0-4.5); HEMATOCRIT 42.2 % (35.4-49); HEMOGLOBIN 13.8 GM/dL (11.7-16.9); LYMPH % 12.3 % (8-40); MCHC 32.8 g/dl (32.0-35.9); MEAN CELL VOLUME 88.6 fl (80-96); MEAN PLT VOLUME 9.6 fl (7.5-11.1); MONO % 7.9 % (3.8-10.2); NEUT % 76.9 % (42.8-82.8); PLATELET COUNT 236 K/MM3 (134-434); RBC 4.77 M/mm3 (4.00-5.60); RDW 13.7 % (11.9-15.9); WHITE BLOOD COUNT 9.8 K/mm3 (4.0-10.0)
[2018-07-26 19:14] LABS: ALBUMIN 3.6 g/dl (3.4-5.0); ALK PHOS 153 U/L (45-117); ANION GAP 7 MMOL/L (8-16); BILIRUBIN,TOTAL 0.5 mg/dL (0.2-1); BLOOD UREA NITROGEN 29 mg/dL (7-18); CALCIUM 7.9 mg/dL (8.5-10.1); CHLORIDE 100 mmol/L (98-107); CO2 26 mmol/L (21-32); CREATININE 1.6 mg/dL (0.55-1.3); POTASSIUM 4.9 mmol/L (3.5-5.1); SGOT/AST 22 U/L (15-37); SGPT/ALT 21 U/L (13-61); SODIUM 133 mmol/L (136-145); TOT PROT 6.9 g/dl (6.4-8.2)
[2018-07-26 19:23] LABS: GLUCOSE,RANDOM 565 mg/dL (74-106)
[2018-07-26] MEDS ORDERED: INSULIN REGULAR HUMAN 100 UNITS/ML *VIAL SQ ONE (19:54)
[2018-07-26] MEDS ORDERED: SODIUM CHLORIDE 500 ML IV STA (19:55)
[2018-07-26] MEDS ORDERED: INSULIN REGULAR HUMAN 100 UNITS/ML *VIAL ONE (20:04)
--- NOTE | 2018-07-26 21:17 | PDOC ---
Documentation entered by Yudi Orona SCRIBE, acting as scribe for Nathalie Sales MD. Nathalie Sales MD: This documentation has been prepared by the Adwoa mariee Xhesika, SCRIBE, under my direction and personally reviewed by me in its entirety. I confirm that the documentation accurately reflects all work, treatment, procedures, and medical decision making performed by me. Attending Attestation - Resident Resident Name: Amos Ruiz - [facility] HPI: 07/26/18 18:14 The patient is a 73 year old male with a past medical history of HTN, HLD, and diabetes who presents to the ED via EMS for evaluation of chest pain. The patient reports he was eating Occitan food an hour ago at the onset of his chest pain. As per EMS, the patient received nitro and 4 baby aspirins and patient states he feels much better now. The patient was seen here at [facility] on 07/18/18 for similar symptoms with full cardiac evaluation. The patient denies shortness of breath or dizziness. The patient denies fever, chills, nausea, diarrhea or constipation. The patient denies dysuria, frequency, urgency or hematuria. Allergies: sulfa, piperacillin, tazobactam Surgical History: None reported Social History: None reported PCP: Daja Esparza - Physicial Exam PE: 07/26/18 18:14 GENERAL: Awake, alert, and fully oriented, in no acute distress HEAD: No signs of trauma EYES: PERRLA, EOMI, sclera anicteric, conjunctiva clear ENT: Auricles normal inspection, hearing grossly normal, nares patent, oropharynx clear without exudates. Moist mucosa NECK: Normal ROM, supple, no lymphadenopathy, JVD, or masses LUNGS: Breath sounds equal, clear to auscultation bilaterally. No wheezes, and no crackles HEART: Regular rate and rhythm, normal S1 and S2, no murmurs, rubs or gallops ABDOMEN: (+) mild tenderness to palpation on epigastric region. Soft, nontender , normoactive bowel sounds. No guarding, no rebound. No masses EXTREMITIES: Normal range of motion, no edema. No clubbing or cyanosis. No cords, erythema, or tenderness NEUROLOGICAL: Cranial nerves II through XII grossly intact. Normal speech, normal gait SKIN: Warm, Dry, normal turgor, no rashes or lesions noted. - Medical Decision Making 07/26/18 20:23 pt had pain that radiated from his back to his chest one hour after eating latvian food the pt 's insulin pump has not been working and he p/w hyperglycemia first troponin is negative 07/26/18 21:16 Recently he has been admitted for chest pain workup and did have a stress test and intact. We contacted the demurrage agent, Dr. Pritchett and he agreed that the patient will be discharged home with outpatient follow-up
[2018-07-26 21:58] VITALS: BP 150/87; PULSE 85
--- NOTE | 2018-07-27 12:09 | EKG ---
Test Reason : Blood Pressure : / mmHG Vent. Rate : 086 BPM Atrial Rate : 086 BPM P-R Int : 154 ms QRS Dur : 088 ms QT Int : 372 ms P-R-T Axes : 044 -75 079 degrees QTc Int : 445 ms NORMAL SINUS RHYTHM WITH SINUS ARRHYTHMIA PULMONARY DISEASE PATTERN LEFT ANTERIOR FASCICULAR BLOCK NONSPECIFIC ST AND T WAVE ABNORMALITY ABNORMAL ECG WHEN COMPARED WITH ECG OF 18-JUL-2018 11:50, NONSPECIFIC T WAVE ABNORMALITY NOW EVIDENT IN LATERAL LEADS Confirmed by MD Jose, Earl ([id number]) on 07/27/2018 12:08:46 PM Referred By: Confirmed By:Earl Garcia MD
== END 2018-07-26 21:30 | disposition home or self-care (01) ==
LOC: JER 17:49
PROC: 3E033GC Introduction of Other Therapeutic Substance into Peripheral Vein, Percutaneous Approach (ICD-10-PCS; principal; 2018-07-26)
PROC: 3E013VG Introduction of Insulin into Subcutaneous Tissue, Percutaneous Approach (ICD-10-PCS; 2018-07-26)
PROC: 3E0337Z Introduction of Electrolytic and Water Balance Substance into Peripheral Vein, Percutaneous Approach (ICD-10-PCS; 2018-07-26)
DX: R07.9 Chest pain, unspecified (principal); E11.9 Type 2 diabetes mellitus without complications; I10 Essential (primary) hypertension; E78.00 Pure hypercholesterolemia, unspecified
CPT/HCPCS: 36415; 71045-TC-FY; 80053; 82550; 82553; 82962; 84484; 85025; 93005; 93010; 99284-25; J7030

== ENCOUNTER 2018-09-01 17:18 | Observation (INO) | payer OTHER ==
[2018-09-01 18:04] VITALS: BMI 30.4
--- NOTE | 2018-09-01 19:12 | PDOC ---
History of Present Illness - General Chief Complaint: Chest Pain Stated Complaint: ABNORMAL LABS Time Seen by Provider: 09/01/18 19:05 History Source: Patient Exam Limitations: No Limitations - History of Present Illness Initial Comments: 73 year old male with a history of HTN, HLD, IDDM presents to the ER for evaluation of chest pain. The patient is not currently experiencing the chest pain but he experienced the pain last night when he was "Pleasuring himself." The patient states the pain was substernal and felt like something was trying to get out of his chest. He rated the pain as 9/10. He states the pain was also burning in nature. The pain comes about whenever he does physical activity and usually not at rest. He states when he moves the garbage baskets his chest also hurts him. The patient has a significant cardiac hx in his family. Both his brother and sister have had heart attacks. The patient denies associated nausea , vomiting, or diaphoresis with the chest pain. PCP: Lakshmi Esparza PSH: None reported Social Hx: Patient denies smoking, drinking, or other substance abuse Allergies: Sulfa, zosyn, ampicillin Past History - Past Medical History Allergies/Adverse Reactions: Allergies Allergy/AdvReac Type Severity Reaction Status Date / Time Sulfa (Sulfonamide Allergy Severe Vomiting Verified 07/26/18 18:04 Antibiotics) piperacillin [From Zosyn] AdvReac Intermediate Itching Verified 07/26/18 18:04 tazobactam [From Zosyn] AdvReac Intermediate Itching Verified 07/26/18 18:04 Home Medications: Ambulatory Orders Valsartan [Diovan] 160 mg PO DAILY 12/19/17 Famotidine 20 mg PO DAILY 07/18/18 Insulin (Novolog 70/30) [Novolog Mix 70/30 Vial -] 0 units SQ DAILY 07/18/18 Amlodipine Besylate [Norvasc -] 10 mg PO DAILY #30 tablet 07/19/18 Aspirin [ASA -] 81 mg PO DAILY tab.chew 07/19/18 Atorvastatin Ca [Lipitor] 40 mg PO HS #0 tablet 07/19/18 Hydrochlorothiazide [Hctz -] 12.5 mg PO DAILY #30 cap 07/19/18 Anemia: No Asthma: No Cancer: No Cardiac Disorders: No CVA: No COPD: No CHF: No Dementia: No Diabetes: Yes GI Disorders: No Disorders: Yes (Turp 2018) HTN: Yes Hypercholesterolemia: Yes Liver Disease: No Seizures: No Thyroid Disease: No - Surgical History Abdominal Surgery: No Appendectomy: No Cardiac Surgery: No Cholecystectomy: No Lung Surgery: No Neurologic Surgery: No Orthopedic Surgery: No - Immunization History Immunization Up to Date: Yes - Suicide/Smoking/Psychosocial Hx Smoking History: Never smoked Have you smoked in the past 12 months: No Information on smoking cessation initiated: No Hx Alcohol Use: No Drug/Substance Use Hx: No Substance Use Type: None Hx Substance Use Treatment: No Review of Systems - Review of Systems Able to Perform ROS?: Yes Comments:: CONSTITUTIONAL: Absent: fever, no chills, no fatigue EYES: Absent: visual changes ENT: Absent: ear pain, no sore throat CARDIOVASCULAR: Present: chest pain Absent: no palpitations RESPIRATORY: Absent: cough, no SOB GI: Absent: abdominal pain, no nausea, no vomiting, no constipation, no diarrhea GENITOURINARY: Absent: dysuria, no frequency, no hematuria MUSKULOSKELETAL: Absent: back pain, no arthralgia, no myalgia SKIN: Absent: rash NEURO: Absent: headache *Physical Exam - Vital Signs Last Vital Signs Temp Pulse Resp BP Pulse Ox 98 F 82 18 156/85 97 09/01/18 18:00 09/01/18 18:00 09/01/18 18:00 09/01/18 18:00 09/01/18 18:00 - Physical Exam Comments: GENERAL: Well-appearing, well-nourished. No apparent distress. HEENT: Normocephalic, atraumatic. PERRL, EOM intact. CARDIOVASCULAR: Normal S1, S2. Regular rate and rhythm. PULMONARY: No evidence of respiratory distress. Lungs clear to auscultation bilaterally. No wheezing, rales or rhonchi. ABDOMEN: Soft, non-distended, non-tender. EXTREMITIES: Normal ROM in all four extremities. No gross deformities. SKIN: Warm, dry. No rash NEUROLOGICAL: No focal neurological deficits. Heart Score/ECG Review - History History: Moderately suspicious - Electrocardiogram EKG: Non specific repolarization disturbance - Age Age: >/= 65 - Risk Factors Risk Factors Heart Score: Yes Hx Hypercholesterolemia, Yes Hx Hypertension, Yes Hx Diabetes, Yes Positive family hx of cardiac disease Based on the list above the patient has:: >/=3 risk factors or Hx atherosclerotic disease - Troponin Troponin: </= normal limit - Score Heart Score - Total: 6 ED Treatment Course - LABORATORY CBC & Chemistry Diagram: 09/01/18 20:00 09/01/18 20:00 Medical Decision Making - Medical Decision Making 73 year old male with a history of HTN, HLD, IDDM presents to the ER for evaluation of chest pain. The patient is not currently experiencing the chest pain but he experienced the pain last night when he was "Pleasuring himself." The patient states the pain was substernal and felt like something was trying to get out of his chest. He rated the pain as 9/10. He states the pain was also burning in nature. The pain comes about whenever he does physical activity and usually not at rest. He states when he moves the garbage baskets his chest also hurts him. The patient has a significant cardiac hx in his family. Both his brother and sister have had heart attacks. The patient denies associated nausea , vomiting, or diaphoresis with the chest pain. Vital Signs Temp Pulse Resp BP Pulse Ox 98 F 82 18 156/85 97 09/01/18 18:00 09/01/18 18:00 09/01/18 18:00 09/01/18 18:00 09/01/18 18:00 DDx IBNLT: ACS/CO, Angina, PNA, pneumothorax, electrolyte/metabolic disturbance , costochondritis MDM: Patient is coming with exertional chest pain and has a strong family hx of cardiac disease. -His HEART score is 6 Plan: Labs, EKG, analgesa, admit tele obs for chest pain *DC/Admit/Observation/Transfer Diagnosis at time of Disposition: Chest pain - Discharge Dispostion Condition at time of disposition: Stable Decision to Admit order: Yes - Referrals Referrals: Lakshmi Esparza RES [Primary Care Provider] - - Patient Instructions - Post Discharge Activity
[2018-09-01] MEDS ORDERED: ASPIRIN 81 MG CHEWABLE TABLETS PO ONE (19:24)
[2018-09-01] MEDS ORDERED: ASPIRIN 81 MG CHEWABLE TABLETS ONE (19:47)
[2018-09-01 20:20] LABS: BASO % 0.6 % (0-2.0); EOS % 1.9 % (0-4.5); HEMATOCRIT 45.4 % (35.4-49); HEMOGLOBIN 15.2 GM/dL (11.7-16.9); MCH 29.1 pg (25.7-33.7); MCHC 33.6 g/dl (32.0-35.9); MEAN CELL VOLUME 86.7 fl (80-96); MEAN PLT VOLUME 9.4 fl (7.5-11.1); MONO % 7.9 % (3.8-10.2); NEUT % 71.6 % (42.8-82.8); PLATELET COUNT 287 K/MM3 (134-434); RBC 5.24 M/mm3 (4.00-5.60); RDW 13.4 % (11.9-15.9); WHITE BLOOD COUNT 9.2 K/mm3 (4.0-10.0)
[2018-09-01 20:31] LABS: INR 0.92 (0.83-1.09); PROTHROMBIN TIME (PATIENT) 10.9 SEC (9.7-13.0)
[2018-09-01 21:04] LABS: ALBUMIN 3.7 g/dl (3.4-5.0); ALK PHOS 165 U/L (45-117); ANION GAP 7 MMOL/L (8-16); BILIRUBIN,TOTAL 0.4 mg/dL (0.2-1); BLOOD UREA NITROGEN 28.2 mg/dL (7-18); CALCIUM 9.1 mg/dL (8.5-10.1); CHLORIDE 98 mmol/L (98-107); CO2 29 mmol/L (21-32); CREATININE 1.6 mg/dL (0.55-1.3); MAGNESIUM 2.7 mg/dL (1.8-2.4); N-TERMINAL BNP 94.1 pg/ml (5-125); POTASSIUM 4.6 mmol/L (3.5-5.1); SGOT/AST 11 U/L (15-37); SGPT/ALT 17 U/L (13-61); SODIUM 134 mmol/L (136-145); TOT PROT 7.6 g/dl (6.4-8.2)
[2018-09-01 21:06] LABS: GLUCOSE,RANDOM 402 mg/dL (74-106)
[2018-09-01] MEDS ORDERED: INSULIN REGULAR HUMAN 100 UNITS/ML *VIAL IVPUSH ONE (21:09)
[2018-09-01] MEDS ORDERED: ATORVASTATIN CA 40 MG TABLET (FP) PO SCH (22:00)
--- NOTE | 2018-09-01 22:05 | HP ---
Admitting History and Physical - Primary Care Physician PCP: Daja Esparza - Admission Chief Complaint: Chest Pain History of Present Illness: 73 yrs old man non compliant H/O HTN, T2DM on Insulin (previously on Pump now 70/30 20 units BID), Dyslipedemia, GERD , recurrent chest pain recently evaluated at [facility] underwent NST on 07/20/2018 that was reported normal, subsequently revisited Ed on 09/25/2018 with retrosternal sharp pain after having heavy meals and patient was Dc Home, today present with c/o chest pain since last night, intermittent sharp retrosternal developed while comforting himself, he describes 12/23 he took BP meds that resolved the pain, subsequently noticed pain while moving garbage and walking s came to Ed for evaluation. hemodynmaically stable afebrile, normal tropinin I , EKG no acute St T changes from base line at the time of examination chest pain free, cosidering multiple CAD risk factors and presentation admitted for close observation and re evaluation by cardiology . History Source: Patient - Past Medical History Cardiovascular: Yes: HTN, Hyperlipdemia Infectious Disease: Yes: Other (Rt toe OM) Endocrine: Yes: Diabetes Mellitus - Smoking History Smoking history: Never smoked Have you smoked in the past 12 months: No - Alcohol/Substance Use Hx Alcohol Use: No Home Medications - Allergies Allergies/Adverse Reactions: Allergies Allergy/AdvReac Type Severity Reaction Status Date / Time Sulfa (Sulfonamide Allergy Severe Vomiting Verified 07/26/18 18:04 Antibiotics) piperacillin [From Zosyn] AdvReac Intermediate Itching Verified 07/26/18 18:04 tazobactam [From Zosyn] AdvReac Intermediate Itching Verified 07/26/18 18:04 - Home Medications Home Medications: Ambulatory Orders Valsartan [Diovan] 160 mg PO DAILY 12/19/17 Famotidine 20 mg PO DAILY 07/18/18 Insulin (Novolog 70/30) [Novolog Mix 70/30 Vial -] 0 units SQ DAILY 07/18/18 Amlodipine Besylate [Norvasc -] 10 mg PO DAILY #30 tablet 07/19/18 Aspirin [ASA -] 81 mg PO DAILY tab.chew 07/19/18 Atorvastatin Ca [Lipitor] 40 mg PO HS #0 tablet 07/19/18 Hydrochlorothiazide [Hctz -] 12.5 mg PO DAILY #30 cap 07/19/18 Family Disease History - Family Disease History Family Disease History: Heart Disease: Father Review of Systems - Review of Systems Constitutional: denies: Chills, Diaphoresis Eyes: denies: Blind Spots, Blurred Vision HENT: denies: Difficult Swallowing, Ear Discharge Neck: denies: Decreased ROM, Pain on Movement Cardiovascular: reports: Chest Pain. denies: Edema, Palpitations, Shortness of Breath Respiratory: denies: Cough, Exercise Intolerance, Hemoptysis, Orthopnea Gastrointestinal: denies: Abdominal Pain, Bloating, Constipation, Diarrhea Genitourinary: denies: Burning, Discharge, Dysuria Musculoskeletal: denies: Back Pain, Crepitus, Decreased ROM Neurological: denies: Change in LOC, Change in Speech Endocrine: denies: Excessive Sweating, Flushing Physical Examination Vital Signs: Vital Signs Temperature 98 F 09/01/18 18:00 Pulse Rate 82 09/01/18 18:00 Respiratory Rate 18 09/01/18 18:00 Blood Pressure 156/85 09/01/18 18:00 O2 Sat by Pulse Oximetry (%) 97 09/01/18 18:00 Constitutional: Yes: Well Nourished, No Distress HENT: Yes: Atraumatic, Normocephalic Neck: Yes: Supple, Trachea Midline Cardiovascular: Yes: Regular Rate and Rhythm, S1, S2. No: JVD, Murmur Respiratory: Yes: Regular, CTA Bilaterally Gastrointestinal: Yes: Normal Bowel Sounds, Soft, Tenderness, Epigastrium Edema: No Peripheral Pulses: Left Doralis Pedis: 2+, Right Dorsalis Pedis: 2+ Neurological: Yes: Alert, Oriented ...Motor Strength: WNL, LUE, LLE, RUE, RLE Labs: CBC, BMP 09/01/18 20:00 09/01/18 20:00 Imaging - Results Chest X-ray: Report Reviewed (No infiltrates) EKG: Report Reviewed (No interval changes) Other: Other (NST -ve 07/19/2018) Problem List - Problems (1) Chest pain Assessment/Plan: Multiple CAd risk factors 73 yrs old male,T2DM, HTN, Dyslipedemia, but recent NST -ve c/o exceptional chest pain retrosternal no EKG changes normal troponin after 18 hrs of chest pain at present chest pain free, ED admitted to R/O ACS and re evaluation by Cardiology, serial Trop I and EKG, Cardiology consult cont ASA, Sttain and BP meds addd S/L NTG PRN, possibality of GERD related retrosternal chest pain, needs GI evaluation once cleared by the Cardiology consult. Code(s): R07.9 - CHEST PAIN, UNSPECIFIED (2) Hypercholesteremia Assessment/Plan: Cont sttain Code(s): E78.00 - PURE HYPERCHOLESTEROLEMIA, UNSPECIFIED (3) GERD (gastroesophageal reflux disease) Assessment/Plan: Cont Famotidine add Maalox PRN Code(s): K21.9 - GASTRO-ESOPHAGEAL REFLUX DISEASE WITHOUT ESOPHAGITIS (4) Diabetes Assessment/Plan: non complint admitted with uncotrolled Fs recved 6 unit R Insulin in ED cont Home dos of 70/30 20 units BID, with corection dose insulin Code(s): E11.9 - TYPE 2 DIABETES MELLITUS WITHOUT COMPLICATIONS (5) HTN (hypertension) Assessment/Plan: Well controlled cont all home meds Code(s): I10 - ESSENTIAL (PRIMARY) HYPERTENSION (6) CKD stage 3 due to type 2 diabetes mellitus Assessment/Plan: Stable F?U U microalbumin as out patient. Code(s): E11.22 - TYPE 2 DIABETES MELLITUS W DIABETIC CHRONIC KIDNEY DISEASE; N18.3 - CHRONIC KIDNEY DISEASE, STAGE 3 (MODERATE)
--- NOTE | 2018-09-01 22:11 | PDOC ---
Documentation entered by Juanita Chris SCRIBE, acting as scribe for Margarita Xiong DO. Margarita Xiong DO: This documentation has been prepared by the Aries mariee Adrianna, SCRIBE, under my direction and personally reviewed by me in its entirety. I confirm that the documentation accurately reflects all work, treatment, procedures, and medical decision making performed by me. Attending Attestation - Resident Resident Name: Leopoldo Hurley - ED Attending Attestation I have performed the following: I have examined & evaluated the patient, The case was reviewed & discussed with the resident, I agree w/resident's findings & plan - HPI HPI: The patient is a 73 year old male with a past medical history of HTN, HLD, and diabetes who presents to the ED via EMS for evaluation of chest pain since last night. Patient notes the chest pain is felt substernal, began while he was masturbating, and is exacerbated with physical activity. Allergies: sulfa, piperacillin, tazobactam Surgical History: None reported Social History: None reported PCP: Dr. Daja Esparza 09/01/18 19:47 - Physicial Exam PE: Agree with resident exam. 09/01/18 19:48 - Medical Decision Making 09/01/18 22:10 72-year-old male with an episode of chest pain while masturbating Patient did have a recent stress test which normal limits Most recent echo showed a normal ejection fraction Though, in light of multiple risk factors and patient's age he will be held for serial enzymes on the hospitalist service for observation
[2018-09-01] MEDS ORDERED: ATORVASTATIN CA 40 MG TABLET (FP) ONE (22:31)
[2018-09-01] MEDS ORDERED: INSULIN (NOVOLOG MIX 70/30) 100 UNITS/ML MDV SQ ONE (22:32)
[2018-09-01] MEDS: INSULIN (NOVOLOG MIX 70/30) 100 UNITS/ML MDV SQ SCH (22:35)
[2018-09-01] MEDS ORDERED: NITROGLYCERIN SUBLINGUAL 1/150 0.4 MG TAB SL PRN (23:23)
[2018-09-01] MEDS ORDERED: MAG HYDROX/AL HYDROX/SIMETH 30 ML UNIT-DOSE CUP PO PRN (23:23)
[2018-09-02 00:19] LABS: CHOLESTEROL 265 mg/dL (50-200); HDL CHOLESTEROL 48 mg/dL (40-60); TRIGLYCERIDES 359 mg/dL (0-150)
[2018-09-02] MEDS: INSULIN SLIDING SCALE (NOVOLOG) 1 VIAL SQ SCH ×2 (06:43→12:31)
[2018-09-02] MEDS: INSULIN (NOVOLOG MIX 70/30) 100 UNITS/ML MDV SQ SCH (06:43)
--- NOTE | 2018-09-02 07:42 | PN ---
Progress Note, Physician History of Present Illness: 73 year old male with a history of HTN, HLD, IDDM presents to the ER for evaluation of chest pain. The patient is not currently experiencing the chest pain but he experienced the pain last night when he was "Pleasuring himself." The patient states the pain was substernal and felt like something was trying to get out of his chest. He rated the pain as 9/10. He states the pain was also burning in nature. The pain comes about whenever he does physical activity and usually not at rest. He states when he moves the garbage baskets his chest also hurts him. The patient has a significant cardiac hx in his family. Both his brother and sister have had heart attacks. The patient denies associated nausea , vomiting, or diaphoresis with the chest pain. PCP: Lakshmi Esparza PSH: None reported Social Hx: Patient denies smoking, drinking, or other substance abuse Allergies: Sulfa, zosyn, ampicillin - Current Medication List Current Medications: Active Medications Al Hydroxide/Mg Hydroxide (Mylanta Oral Suspension -) 30 ml PO Q6H PRN PRN Reason: DYSPEPSIA Amlodipine Besylate (Norvasc -) 10 mg PO DAILY [facility] Aspirin (Asa -) 81 mg PO DAILY [facility] Atorvastatin Calcium (Lipitor -) 40 mg PO HS [facility] Last Admin: 09/01/18 22:35 Dose: 40 mg Insulin Aspart (Novolog Mix 70/30 Vial) 20 units SQ BID@0700,2200 [facility] Last Admin: 09/02/18 06:43 Dose: 20 unit Insulin Aspart (Novolog Vial Sliding Scale -) 1 vial SQ TIDAC [facility]; Protocol Last Admin: 09/02/18 06:43 Dose: 2 units Nitroglycerin (Nitrostat -) 0.4 mg SL Q5M PRN PRN Reason: FOR CHEST PAIN Ranitidine HCl (Zantac -) 150 mg PO DAILY [facility] Valsartan (Diovan -) 160 mg PO DAILY [facility] - Objective Vital Signs: Vital Signs Temperature 97.4 F L 09/02/18 06:00 Pulse Rate 63 09/02/18 06:00 Respiratory Rate 18 09/02/18 06:00 Blood Pressure 150/77 09/02/18 06:00 O2 Sat by Pulse Oximetry (%) 97 09/02/18 05:38 Labs: CBC, BMP 09/01/18 20:00 09/01/18 20:00 INR, PTT INR 0.92 (0.83-1.09) 09/01/18 20:00 Impression/Plan Impression/Plan: Imaging - Results Chest X-ray: Report Reviewed (No infiltrates) EKG: Report Reviewed (No interval changes) Other: Other (NST -ve 07/19/2018) Problem List - Problems (1) Chest pain Assessment/Plan: Multiple CAd risk factors 73 yrs old male,T2DM, HTN, Dyslipedemia, but recent NST -ve c/o exceptional chest pain retrosternal no EKG changes normal troponin after 18 hrs of chest pain at present chest pain free, ED admitted to R/O ACS and re evaluation by Cardiology, serial Trop I and EKG, Cardiology consult cont ASA, Sttain and BP meds addd S/L NTG PRN, possibality of GERD related retrosternal chest pain, needs GI evaluation once cleared by the Cardiology consult. Code(s): R07.9 - CHEST PAIN, UNSPECIFIED (2) Hypercholesteremia Assessment/Plan: Cont sttain Code(s): E78.00 - PURE HYPERCHOLESTEROLEMIA, UNSPECIFIED (3) GERD (gastroesophageal reflux disease) Assessment/Plan: Cont Famotidine add Maalox PRN Code(s): K21.9 - GASTRO-ESOPHAGEAL REFLUX DISEASE WITHOUT ESOPHAGITIS (4) Diabetes Assessment/Plan: non complint admitted with uncotrolled Fs recved 6 unit R Insulin in ED cont Home dos of 70/30 20 units BID, with corection dose insulin Code(s): E11.9 - TYPE 2 DIABETES MELLITUS WITHOUT COMPLICATIONS (5) HTN (hypertension) Assessment/Plan: Well controlled cont all home meds Code(s): I10 - ESSENTIAL (PRIMARY) HYPERTENSION (6) CKD stage 3 due to type 2 diabetes mellitus Assessment/Plan: Stable F?U U microalbumin as out patient. Code(s): E11.22 - TYPE 2 DIABETES MELLITUS W DIABETIC CHRONIC KIDNEY DISEASE; N18.3 - CHRONIC KIDNEY DISEASE, STAGE 3 (MODERATE)
[2018-09-02 09:25] LABS: BASO % 0.6 % (0-2.0); EOS % 2.9 % (0-4.5); HEMATOCRIT 45.1 % (35.4-49); HEMOGLOBIN 15.1 GM/dL (11.7-16.9); LYMPH % 21.6 % (8-40); MCH 29.1 pg (25.7-33.7); MCHC 33.5 g/dl (32.0-35.9); MEAN PLT VOLUME 9.3 fl (7.5-11.1); MONO % 8.9 % (3.8-10.2); PLATELET COUNT 237 K/MM3 (134-434); RBC 5.19 M/mm3 (4.00-5.60); RDW 13.3 % (11.9-15.9)
--- NOTE | 2018-09-02 09:40 | EKG ---
Test Reason : Blood Pressure : / mmHG Vent. Rate : 071 BPM Atrial Rate : 071 BPM P-R Int : 156 ms QRS Dur : 102 ms QT Int : 388 ms P-R-T Axes : 013 -57 053 degrees QTc Int : 421 ms NORMAL SINUS RHYTHM LEFT AXIS DEVIATION ABNORMAL ECG WHEN COMPARED WITH ECG OF 26-JUL-2018 17:50, NO SIGNIFICANT CHANGE WAS FOUND Confirmed by MARTÍN CONNER MD ([id number]) on 09/02/2018 9:40:13 AM Referred By: Confirmed By:MARTÍN CONNER MD
[2018-09-02] MEDS ORDERED: ASPIRIN 81 MG CHEWABLE TABLETS PO SCH (10:00)
[2018-09-02] MEDS ORDERED: RANITIDINE HCL 150 MG TABLET (FP) PO SCH (10:00)
[2018-09-02] MEDS ORDERED: amLODIPine BESYLATE 10 MG TABLET (FP) PO SCH (10:00)
[2018-09-02] MEDS ORDERED: VALSARTAN 160 MG TABLET (UD) PO SCH (10:00)
[2018-09-02 10:03] LABS: ALBUMIN 3.3 g/dl (3.4-5.0); BILIRUBIN,TOTAL 0.9 mg/dL (0.2-1); BLOOD UREA NITROGEN 28.3 mg/dL (7-18); CALCIUM 9.3 mg/dL (8.5-10.1); CREATININE 1.4 mg/dL (0.55-1.3); TOT PROT 6.8 g/dl (6.4-8.2)
[2018-09-02 10:33] VITALS: BP 132/73; PULSE 65; TEMP 97.7
--- NOTE | 2018-09-02 11:38 | CON.CARD ---
Cardiology Consult (text) - Consultation Consultation Note: Chief Complaint: cp History of Present Illness: 73 M here with cp. Pt says that 2 nights ago he was masturbating and felt anxious and had central chest burning. CP resolved on own in 45 mins. No other sxs. No sob palps dizzy loc pnd orthopnea le edema. No cp since then, feels well, asking to go home. Says that when he is stressed/anxious he notices this chest burning. PMH: HTN DM FH: sister DC brother CABG - Past Medical History Cardio/Vascular: Yes: HTN, Hyperlipdemia Infectious Disease: Yes: Other (Rt toe OM) Endocrine: Yes: Diabetes Mellitus - Alcohol/Substance Use Hx Alcohol Use: No - Smoking History Smoking history: Never smoked Have you smoked in the past 12 months: No Home Medications - Allergies Allergies/Adverse Reactions: Allergies Allergy/AdvReac Type Severity Reaction Status Date / Time Sulfa (Sulfonamide Allergy Severe Vomiting Verified 07/26/18 18:04 Antibiotics) piperacillin [From Zosyn] AdvReac Intermediate Itching Verified 07/26/18 18:04 tazobactam [From Zosyn] AdvReac Intermediate Itching Verified 07/26/18 18:04 Home Medications Medication Instructions Recorded Valsartan [Diovan] 160 mg PO DAILY 12/19/17 Famotidine 20 mg PO DAILY 07/18/18 Insulin (Novolog 70/30) [Novolog 0 units SQ DAILY 07/18/18 Mix 70/30 Vial -] Amlodipine Besylate [Norvasc -] 10 mg PO DAILY #30 tablet 07/19/18 Aspirin [ASA -] 81 mg PO DAILY tab.chew 07/19/18 Atorvastatin Ca [Lipitor] 40 mg PO HS #0 tablet 07/19/18 Hydrochlorothiazide [Hctz -] 12.5 mg PO DAILY #30 cap 07/19/18 Review of Systems - Review of Systems Constitutional: denies: Chills, Fever Eyes: denies: Eye Pain HENT: denies: Nasal Congestion Neck: denies: Stiffness Cardiovascular: denies: Palpitations Respiratory: denies: Orthopnea, PND Gastrointestinal: denies: Diarrhea, Rectal Bleeding Genitourinary: denies: Burning, Hematuria Musculoskeletal: denies: Muscle Pain Integumentary: denies: Rash Neurological: denies: Numbness, Seizure, Syncope Endocrine: denies: Excessive Sweating Hematology/Lymphatic: denies: Excessive Bleeding Vital Signs: Vital Signs Period Temp Pulse Resp BP Sys/Ferreira Pulse Ox Last 24 Hr 97.4 F-98.9 F 63-82 18-20 129-156/68-85 95-97 Constitutional: Yes: Well Nourished, No Distress Eyes: No: Sclera Icterus HENT: No: Nasal Congestion Neck: No: Decreased ROM Respiratory: Yes: CTA Bilaterally. No: Accessory Muscle Use, Rales, Wheezes Gastrointestinal: Yes: Normal Bowel Sounds. No: Distention, Hepatomegaly, Palpable Mass, Tenderness Cardiovascular: Yes: Regular Rate and Rhythm JVD: No Carotid Bruit: No PMI: Non-Displaced Heart Sounds: Yes: S1, S2. No: Gallop Murmur: No: Systolic Murmur, Diastolic Murmur Extremities: No: Cold, Cyanosis Edema: No Peripheral Pulses: 2+ Left Carotid, 2+ Right Carotid, 2+ Left Doralis Pedis, 2+ Right Dorsalis Pedis Integumentary: No: Jaundice Neurological: Yes: Alert, Oriented (x3) Psychiatric: No: Agitated Laboratory Last Values WBC 10.0 K/mm3 (4.0-10.0) 09/02/18 09:00 RBC 5.19 M/mm3 (4.00-5.60) 09/02/18 09:00 Hgb 15.1 GM/dL (11.7-16.9) 09/02/18 09:00 Hct 45.1 % (35.4-49) 09/02/18 09:00 MCV 87.0 fl (80-96) 09/02/18 09:00 MCH 29.1 pg (25.7-33.7) 09/02/18 09:00 MCHC 33.5 g/dl (32.0-35.9) 09/02/18 09:00 RDW 13.3 % (11.9-15.9) 09/02/18 09:00 Plt Count 237 K/MM3 (134-434) 09/02/18 09:00 MPV 9.3 fl (7.5-11.1) 09/02/18 09:00 Absolute Neuts (auto) 6.6 K/mm3 (1.5-8.0) 09/02/18 09:00 Neutrophils % 66.0 % (42.8-82.8) 09/02/18 09:00 Lymphocytes % 21.6 % (8-40) 09/02/18 09:00 Monocytes % 8.9 % (3.8-10.2) 09/02/18 09:00 Eosinophils % 2.9 % (0-4.5) 09/02/18 09:00 Basophils % 0.6 % (0-2.0) 09/02/18 09:00 Nucleated RBC % 0 % (0-0) 09/02/18 09:00 PT with INR 10.90 SEC (9.7-13.0) 09/01/18 20:00 INR 0.92 (0.83-1.09) 09/01/18 20:00 Sodium 138 mmol/L (136-145) 09/02/18 09:00 Potassium 5.0 mmol/L (3.5-5.1) 09/02/18 09:00 Chloride 103 mmol/L (98-107) 09/02/18 09:00 Carbon Dioxide 33 mmol/L (21-32) H 09/02/18 09:00 Anion Gap 3 MMOL/L (8-16) L 09/02/18 09:00 BUN 28.3 mg/dL (7-18) H 09/02/18 09:00 Creatinine 1.4 mg/dL (0.55-1.3) H 09/02/18 09:00 Est GFR (CKD-EPI)AfAm 57.36 09/02/18 09:00 Est GFR (CKD-EPI)NonAf 49.49 09/02/18 09:00 POC Glucometer 170 UNITS (80-120) 09/02/18 06:41 Random Glucose 223 mg/dL (74-106) H 09/02/18 09:00 Hemoglobin A1c % 10.9 % (4.2-6.3) H 09/02/18 09:00 Calcium 9.3 mg/dL (8.5-10.1) 09/02/18 09:00 Magnesium 2.7 mg/dL (1.8-2.4) H 09/01/18 20:00 Total Bilirubin 0.9 mg/dL (0.2-1) 09/02/18 09:00 AST 11 U/L (15-37) L 09/02/18 09:00 ALT 16 U/L (13-61) 09/02/18 09:00 Alkaline Phosphatase 140 U/L (45-117) H 09/02/18 09:00 Creatine Kinase 123 U/L (26-308) 09/01/18 20:00 Troponin I < 0.02 ng/ml (0.00-0.05) 09/02/18 01:30 B-Natriuretic Peptide 94.1 pg/ml (5-125) 09/01/18 20:00 Total Protein 6.8 g/dl (6.4-8.2) 09/02/18 09:00 Albumin 3.3 g/dl (3.4-5.0) L 09/02/18 09:00 Triglycerides 359 mg/dL (0-150) H 09/01/18 23:20 Cholesterol 265 mg/dL (50-200) H 09/01/18 23:20 Total LDL Cholesterol 169 mg/dL (5-100) H 09/01/18 23:20 HDL Cholesterol 48 mg/dL (40-60) 09/01/18 23:20 Lipase 95 U/L (73-393) 09/02/18 09:00 Assessment/Plan Echo 12/2017: tds, grossly normal LV and RV function ECG: sr, nl intervals, no ischemic changes CXR: clear lungs/pleura mibi 07/2018: no ischemia, nl lvef tele: sr chest pain: -resolved -troponins negative -ecg unremarkable -recent nuclear stress test and echo unremarkable -?anxiety component -outpt f/u htn: -cont current meds DM - on insulin pump - per primary team cardiac pandey stable for dc
--- NOTE | 2018-09-02 12:31 | EKG ---
Test Reason : Blood Pressure : / mmHG Vent. Rate : 085 BPM Atrial Rate : 085 BPM P-R Int : 166 ms QRS Dur : 094 ms QT Int : 358 ms P-R-T Axes : 023 -63 046 degrees QTc Int : 426 ms SINUS RHYTHM WITH MARKED SINUS ARRHYTHMIA LEFT AXIS DEVIATION PULMONARY DISEASE PATTERN INCOMPLETE RIGHT BUNDLE BRANCH BLOCK NONSPECIFIC ST ABNORMALITY ABNORMAL ECG WHEN COMPARED WITH ECG OF 26-JUL-2018 17:50, NO SIGNIFICANT CHANGE WAS FOUND Confirmed by MARTÍN CONNER MD ([id number]) on 09/02/2018 12:31:23 PM Referred By: Confirmed By:MARTÍN CONNER MD
--- NOTE | 2018-09-02 14:15 | DS ---
Physical Examination Vital Signs: Vital Signs Temperature 97.7 F 09/02/18 10:00 Pulse Rate 65 09/02/18 10:00 Respiratory Rate 18 09/02/18 10:00 Blood Pressure 132/73 09/02/18 10:00 O2 Sat by Pulse Oximetry (%) 96 09/02/18 09:00 Constitutional: Yes: Well Nourished, No Distress, Calm Eyes: Yes: WNL, Conjunctiva Clear, EOM Intact HENT: Yes: WNL, Atraumatic, Normocephalic Neck: Yes: WNL, Supple, Trachea Midline Cardiovascular: Yes: WNL, Regular Rate and Rhythm Respiratory: Yes: WNL, Regular, CTA Bilaterally Gastrointestinal: Yes: WNL, Normal Bowel Sounds, Soft ...Rectal Exam: Yes: Deferred Renal/: Yes: WNL Musculoskeletal: Yes: WNL Extremities: Yes: WNL Edema: No Peripheral Pulses WNL: Yes Integumentary: Yes: WNL Neurological: Yes: WNL, Alert, Oriented ...Motor Strength: WNL Psychiatric: Yes: WNL, Alert, Oriented Labs: CBC, BMP 09/02/18 09:00 09/02/18 09:00 Discharge Summary Reason For Visit: ABNORMAL LABS Current Active Problems CKD stage 3 due to type 2 diabetes mellitus (Acute) Chest pain (Acute) GERD (gastroesophageal reflux disease) (Acute) Hypercholesteremia (Acute) Hospital Course: 73 year old male with a history of HTN, HLD, IDDM presents to the ER for evaluation of chest pain. The patient is not currently experiencing the chest pain but he experienced the pain last night when he was masturbating. Pain has not returned since. Troponins negative x 2. EKG without evidence of ischemia.Recent nuclear stress test and echo unremarkable. Seen by cardiology and most likely attributed chest pain to stress. Patient stable for dsicharge to follow up with his primary doctor Condition: Good - Instructions Diet, Activity, Other Instructions: Resume cardiac/diabetic diet. Try to keep stress level at a minimun and avoids strenuous activites. Disposition: HOME - Home Medications Comprehensive Discharge Medication List: Ambulatory Orders Valsartan [Diovan] 160 mg PO DAILY 12/19/17 Famotidine 20 mg PO DAILY 07/18/18 Insulin (Novolog 70/30) [Novolog Mix 70/30 Vial -] 0 units SQ DAILY 07/18/18 Amlodipine Besylate [Norvasc -] 10 mg PO DAILY #30 tablet 07/19/18 Aspirin [ASA -] 81 mg PO DAILY tab.chew 07/19/18 Atorvastatin Ca [Lipitor] 40 mg PO HS #0 tablet 07/19/18 Hydrochlorothiazide [Hctz -] 12.5 mg PO DAILY #30 cap 07/19/18 Insulin Sliding Scale [Novolog Vial Sliding Scale -] 1 vial SQ TIDAC units Mag Hydrox/Al Hydrox/Simeth [Mylanta Oral Suspension -] 30 ml PO Q6H PRN cup This patient is new to me today: Yes Date on this admission: 09/02/18 Emergency Visit: Yes ED Registration Date: 09/01/18 Care time: The patient presented to the Emergency Department on the above date and was hospitalized for further evaluation of their emergent condition. Critical Care patient: No - Discharge Referral Referred to [facility] Med P.C.: No
== END 2018-09-02 14:53 | disposition home or self-care (01) ==
LOC: JER 17:18 → JERBED 21:21 → J4W 09-02 05:46
PROVIDERS: ADMIT Internal Medicine; ATTEND Nurse Practitioner Acute Care
PROC: 3E033VG Introduction of Insulin into Peripheral Vein, Percutaneous Approach (ICD-10-PCS; principal; 2018-09-01)
PROC: 3E013VG Introduction of Insulin into Subcutaneous Tissue, Percutaneous Approach (ICD-10-PCS; 2018-09-01)
DX: R07.9 Chest pain, unspecified (principal); E11.22 Type 2 diabetes mellitus with diabetic chronic kidney disease; I12.9 Hypertensive chronic kidney disease with stage 1 through stage 4 chronic kidney disease, or unspecified chronic kidney disease; N18.3 Chronic kidney disease, stage 3 (moderate); Z79.4 Long term (current) use of insulin; E78.5 Hyperlipidemia, unspecified; K21.9 Gastro-esophageal reflux disease without esophagitis; Z91.19 Patient's noncompliance with other medical treatment and regimen; Z79.82 Long term (current) use of aspirin; Z82.49 Family history of ischemic heart disease and other diseases of the circulatory system; Z88.2 Allergy status to sulfonamides; Z88.0 Allergy status to penicillin; Z88.8 Allergy status to other drugs, medicaments and biological substances
CPT/HCPCS: 36415; 71046-TC-FY; 80053; 80061; 82550; 82962; 83036; 83690; 83721; 83735; 83880; 84484; 85025; 85610; 93005; 93010; 96372; 96374; 99285-25; G0378

== ENCOUNTER 2018-10-28 17:44 | Emergency (ER) | payer OTHER | END 2018-10-28 23:04 | disposition home or self-care (01) | LOC: JER 17:44 ==

== ENCOUNTER 2018-10-31 18:54 | Inpatient (IN) | payer OTHER ==
[2018-10-31] MEDS ORDERED: SODIUM CHLORIDE 1,000 ML IV STA (19:54)
[2018-10-31] MEDS ORDERED: ONDANSETRON 4 MG/2 ML VIAL IVPUSH ONE (19:55)
--- NOTE | 2018-10-31 20:03 | PDOC ---
History of Present Illness - General Chief Complaint: Altered Mental Status Stated Complaint: LETHARGIC, ALTERED MENTAL STATUS Time Seen by Provider: 10/31/18 19:31 History Source: Patient Exam Limitations: No Limitations - History of Present Illness Initial Comments: 10/31/18 19:57 Mr. Albarran is a 73 y/o man with history of DM (insulin pump), HTN p/w one day of nausea, vomiting, diarrhea, and weakness. He reports that starting this morning, he became suddenly nauseated which was constant throughout the day. He reports frequent episodes of small volume diarrhea throughout the day. He is unsure of how many episodes of diarrhea, but reports that it was "all day". He denies any blood in the stool, any change in color, or any fat in the stool. He reports two episodes of non-bloody non-bilious vomiting over the course of the day. He denies any decreased appetite. Additionally, he reports chills and mild RLQ pain. He denies any fevers, chest pain, shortness of breath, dizziness, vertigo, near-syncope. He reports feeling well yesterday, and denies any recent changes to his diet, eating anythign out of the norm, or eating any street food or leftovers. Of note , he was evaluated in the ED three days ago for a vertigo exacerbation, found to be hyperglycemic at that time. Past History - Past Medical History Allergies/Adverse Reactions: Allergies Allergy/AdvReac Type Severity Reaction Status Date / Time Sulfa (Sulfonamide Allergy Severe Vomiting Verified 10/28/18 19:00 Antibiotics) piperacillin [From Zosyn] AdvReac Intermediate Itching Verified 10/28/18 19:00 tazobactam [From Zosyn] AdvReac Intermediate Itching Verified 10/28/18 19:00 Home Medications: Ambulatory Orders Valsartan [Diovan] 160 mg PO DAILY 12/19/17 Famotidine 20 mg PO DAILY 07/18/18 Insulin (Novolog 70/30) [Novolog Mix 70/30 Vial -] 0 units SQ DAILY 07/18/18 Amlodipine Besylate [Norvasc -] 10 mg PO DAILY #30 tablet 07/19/18 Aspirin [ASA -] 81 mg PO DAILY tab.chew 07/19/18 Atorvastatin Ca [Lipitor] 40 mg PO HS #0 tablet 07/19/18 Hydrochlorothiazide [Hctz -] 12.5 mg PO DAILY #30 cap 07/19/18 Insulin Sliding Scale [Novolog Vial Sliding Scale -] 1 vial SQ TIDAC units Mag Hydrox/Al Hydrox/Simeth [Mylanta Oral Suspension -] 30 ml PO Q6H PRN cup Anemia: No Asthma: No Cancer: No Cardiac Disorders: No CVA: No COPD: No CHF: No Dementia: No Diabetes: Yes GI Disorders: Yes (gerd) Disorders: Yes (Turp 2018) HTN: Yes Hypercholesterolemia: Yes Liver Disease: No Seizures: No Thyroid Disease: No - Surgical History Abdominal Surgery: No Appendectomy: No Cardiac Surgery: No Cholecystectomy: No Lung Surgery: No Neurologic Surgery: No Orthopedic Surgery: No - Immunization History Immunization Up to Date: Yes - Suicide/Smoking/Psychosocial Hx Smoking History: Never smoked Have you smoked in the past 12 months: No Hx Alcohol Use: No Drug/Substance Use Hx: No Substance Use Type: None Hx Substance Use Treatment: No Review of Systems - Review of Systems Able to Perform ROS?: Yes Comments:: 11/01/18 05:35 ROS: GENERAL/CONSTITUTIONAL: Chills, weakness. No fever. HEAD, EYES, EARS, NOSE AND THROAT: No change in vision. No ear pain or discharge. No sore throat. CARDIOVASCULAR: No chest pain or shortness of breath RESPIRATORY: No cough, wheezing, or hemoptysis. GASTROINTESTINAL: Nausea, vomiting, diarrhea. No constipation. GENITOURINARY: No dysuria, frequency, or change in urination. MUSCULOSKELETAL: No joint or muscle swelling or pain. No neck or back pain. SKIN: No rash NEUROLOGIC: No headache, vertigo, loss of consciousness, or change in strength/ sensation. ENDOCRINE: No increased thirst. No abnormal weight change HEMATOLOGIC/LYMPHATIC: No anemia, easy bleeding, or history of blood clots. ALLERGIC/IMMUNOLOGIC: No hives or skin allergy. *Physical Exam - Vital Signs Last Vital Signs Temp Pulse Resp BP Pulse Ox 97.5 F L 67 19 115/55 L 100 10/31/18 18:55 10/31/18 18:55 10/31/18 18:55 10/31/18 18:55 10/31/18 18:55 - Physical Exam Comments: 11/01/18 05:39 PE: GENERAL: Awake, alert, and fully oriented, in no acute distress HEAD: No signs of trauma, normocephalic, atraumatic EYES: PERRLA, EOMI, sclera anicteric, conjunctiva clear ENT: Auricles normal inspection, hearing grossly normal, nares patent, oropharynx clear without exudates. Moist mucosa NECK: Normal ROM, supple, no lymphadenopathy, JVD, or masses LUNGS: No distress, speaks full sentences, clear to auscultation bilaterally HEART: Regular rate and rhythm, normal S1 and S2, no murmurs, rubs or gallops, peripheral pulses normal and equal bilaterally. ABDOMEN: Soft, nontender, normoactive bowel sounds. No guarding, no rebound. No masses EXTREMITIES : Normal inspection, Normal range of motion, no edema. No clubbing or cyanosis. NEUROLOGICAL: Cranial nerves II through XII grossly intact. Normal speech, normal gait, no focal sensorimotor deficits SKIN: Warm, Dry, normal turgor, no rashes or lesions noted ED Treatment Course - LABORATORY CBC & Chemistry Diagram: 10/31/18 19:55 10/31/18 19:55 Medical Decision Making - Medical Decision Making 10/31/18 20:10 73 y/o M with hx HTN, DM with insulin pump p/w one day of N/V/D and weakness with recent ED evaluation for hyperglycemia, most consistent with hyper/ hypoglycemia vs GI infection. Plan: - POC glucose - CBC - CMP - IV NS 1L - Zofran - Lipase Dispo: - Pending labs --- On reassessment, patient with ongoing diarrhea. --- POC glu - 220 WBC - 12.8 --- CT abd notable for mesenteric panniculitis. UA negative for acute process --- Plan for admission -- Admitted to Dr. Gilman *DC/Admit/Observation/Transfer Diagnosis at time of Disposition: Panniculitis Leukocytosis Qualifiers: Leukocytosis type: unspecified Qualified Code(s): D72.829 - Elevated white blood cell count, unspecified - Discharge Dispostion Condition at time of disposition: Stable Decision to Admit order: Yes - Referrals - Patient Instructions - Post Discharge Activity
[2018-10-31] MEDS ORDERED: ONDANSETRON 4 MG/2 ML VIAL ONE (20:07)
[2018-10-31 20:14] LABS: BASO % 0.3 % (0-2.0); EOS % 0.4 % (0-4.5); HEMATOCRIT 42.8 % (35.4-49); HEMOGLOBIN 14.3 GM/dL (11.7-16.9); LYMPH % 8.2 % (8-40); MCHC 33.3 g/dl (32.0-35.9); MEAN CELL VOLUME 87.2 fl (80-96); MEAN PLT VOLUME 9.1 fl (7.5-11.1); MONO % 6.2 % (3.8-10.2); NEUT % 84.9 % (42.8-82.8); PLATELET COUNT 263 K/MM3 (134-434); RBC 4.91 M/mm3 (4.00-5.60); RDW 13.7 % (11.9-15.9); WHITE BLOOD COUNT 12.8 K/mm3 (4.0-10.0)
[2018-10-31 20:37] LABS: ALBUMIN 3.8 g/dl (3.4-5.0); BILIRUBIN,TOTAL 0.5 mg/dL (0.2-1); BLOOD UREA NITROGEN 28.1 mg/dL (7-18); CALCIUM 9.6 mg/dL (8.5-10.1); CREATININE 1.6 mg/dL (0.55-1.3); POTASSIUM 4.5 mmol/L (3.5-5.1); TOT PROT 7.5 g/dl (6.4-8.2)
[2018-10-31 22:55] LABS: PH,URINE 5.5 (5.0-8.0); URINE APPEARANCE Clear; URINE BILIRUBIN Negative (NEGATIVE); URINE COLOR Yellow; URINE GLUCOSE (UA) 1+ (NEGATIVE); URINE KETONE Negative (NEGATIVE); URINE LEUK ESTERASE Negative (NEGATIVE); URINE NITRITE Negative (NEGATIVE); URINE PROTEIN 1+ (NEGATIVE); URINE UROBILINOGEN 0.2 mg/dL (0.2-1.0)
[2018-10-31 23:24] LABS: EPI CELLS 0.7 /HPF (0-5/HPF); HYALINE CASTS 10.9 /lpf (0-8); URINE RBC 1.7 /hpf (0-4); URINE WBC 0.3 /hpf (0-5)
[2018-10-31 23:25] LABS: URINE BACTERIA 0.2 /hpf (NEGATIVE)
--- NOTE | 2018-10-31 23:50 | PDOC ---
Documentation entered by Ifeoma Hand SCRIBE, acting as scribe for Yaneth Alberto MD. Yaneth Alberto MD: This documentation has been prepared by the Peace mariee Nirvannie, SCRIBE, under my direction and personally reviewed by me in its entirety. I confirm that the documentation accurately reflects all work, treatment, procedures, and medical decision making performed by me. Attending Attestation - Resident Resident Name: Mohan Dhillon - ED Attending Attestation I have performed the following: I have examined & evaluated the patient, The case was reviewed & discussed with the resident, I agree w/resident's findings & plan - HPI HPI: 10/31/18 22:56 The patient is a 73 year old male, with a significant past medical history of HTN, HLD, and diabetes, who presents to the emergency department with, 1 day of generalized weakness, nausea, vomiting, and diarrhea. He denies any recent chest pain or shortness of breath. Allergies: sulfa, piperacillin, tazobactam - Physicial Exam PE: 10/31/18 22:58 GENERAL: Awake, alert, and fully oriented, in no acute distress HEAD: No signs of trauma EYES: PERRLA, EOMI, sclera anicteric, conjunctiva clear ENT: Auricles normal inspection, hearing grossly normal, nares patent, oropharynx clear without exudates. Moist mucosa NECK: Normal ROM, supple, no lymphadenopathy, JVD, or masses LUNGS: Breath sounds equal, clear to auscultation bilaterally. No wheezes, and no crackles HEART: Regular rate and rhythm, normal S1 and S2, no murmurs, rubs or gallops ABDOMEN: Soft, nontender, normoactive bowel sounds. No guarding, no rebound. No masses EXTREMITIES:+Wasting of muscles. Normal range of motion, no edema. No clubbing or cyanosis. No cords, erythema, or tenderness NEUROLOGICAL: Cranial nerves II through XII grossly intact. Normal speech SKIN: Warm, Dry, normal turgor, no rashes or lesions noted. - Medical Decision Making 10/31/18 22:12 Patient Name: THAD MALDONADO THIS IS A PRELIMINARY REPORT FROM IMAGING PATIENT RESOURCE SPECIALIST DATE OF SERVICE: 2018-10-31 20:25:05 IMAGES: [id number] EXAM: ABDOMEN US -LIMITED HISTORY: Rule out cholecystitis COMPARISON: None. FINDINGS: No stones or sludge seen in the gallbladder. The gallbladder wall is normal in thickness measuring 2 mm. No pericholecystic fluid. Negative sonographic Ennis's sign reported The common bile duct is within normal limits measuring 4.6 mm The liver, right kidney and visualized portions of the pancreas and abdominal aorta are unremarkable 10/31/18 22:38 THIS IS A PRELIMINARY REPORT FROM IMAGING PATIENT RESOURCE SPECIALIST DATE OF SERVICE: 2018-10-31 21:58:48 IMAGES: [id number] EXAM: ABDOMEN \T\ PELVIS CT W/O CONTR HISTORY: Abdominal pain COMPARISON: None. FINDINGS: Cluster of small calcified nodules at the medial right lung base, possibly granulomas. The lung bases are otherwise clear Fatty changes of the pancreas. 2.9 cm right renal cyst The upper abdominal visceral organs are otherwise unremarkable allowing for lack of intravenous contrast There is well-circumscribed and he see increased attenuation of the central mesenteric fat with associated shotty mesenteric lymph nodes compatible with mesenteric panniculitis There is no bowel distention. The appendix is normal Colonic diverticulosis, predominantly sigmoid colon without evidence of acute diverticulitis The sigmoid colon appears thickened and there is mesenteric hyperemia with concern for colitis. The prostate is not enlarged. The bladder is normal in contour without thickening No intra-abdominal free air or free 11/01/18 04:07 Pt has diarrhea and he will be admitted for abx. Pt states that he is under a great deal of stress as he cares for his 100 yo mom by himself. He will be admitted for colitis
--- NOTE | 2018-11-01 00:03 | PN ---
Teaching Attending Note Name of Resident: Sabrina Diaz ATTENDING PHYSICIAN STATEMENT I saw and evaluated the patient. I reviewed the resident's note and discussed the case with the resident. I agree with the resident's findings and plan as documented. SUBJECTIVE: Patient is a 73 year old man with PMH of DM (insulin pump), HTN and HLD who presents with one day of nausea, vomiting, diarrhea, and weakness. He reports that starting this morning, he became suddenly nauseated which was constant throughout the day. He reports frequent episodes of small volume diarrhea throughout the day. He is unsure of how many episodes of diarrhea, but reports that it was "all day". He denies any blood in the stool, any change in color, or any fat in the stool. He reports two episodes of non-bloody non-bilious vomiting over the course of the day. He denies any decreased appetite. Additionally, he reports chills and mild RLQ pain. He denies any fevers, chest pain, shortness of breath, dizziness, vertigo, near-syncope. He denies any recent changes to his diet, eating any strange food, street food or leftovers. Of note, he was evaluated in the ED three days ago for a vertigo exacerbation, found to be hyperglycemic at that time. OBJECTIVE: Alert Vital Signs Period Temp Pulse Resp BP Sys/Ferreira Pulse Ox Last 24 Hr 97.5 F 67 19 115/55 100-100 HEENT: No Jaundice, eye redness or discharge, PERRLA, EOMI. Normocephalic, atraumatic. External ears are normal and hearing is grossly intact. No nasal discharge. Neck: Supple, nontender. No palpable adenopathy or thyromegaly. No JVD Chest: Good effort. Clear to auscultation and percussion. Heart: Regular. No S3, rub or murmur Abdomen: Distended, soft, nontender and no HSM. No rebound or guarding. Normal bowel sounds. Ext: Peripheral pulses intact. No leg edema. Skin: Warm and dry. No petechiae, rash or ecchymosis. Neuro: Alert. Oriented x3. CN 2-12 grossly intact. Sensation grossly intact in all four extremities and DTR are symmetric. Psych: Appropriate mood and affect. Good insight. Home Medications Medication Instructions Recorded Valsartan [Diovan] 160 mg PO DAILY 12/19/17 Famotidine 20 mg PO DAILY 07/18/18 Insulin (Novolog 70/30) [Novolog 0 units SQ DAILY 07/18/18 Mix 70/30 Vial -] Amlodipine Besylate [Norvasc -] 10 mg PO DAILY #30 tablet 07/19/18 Aspirin [ASA -] 81 mg PO DAILY tab.chew 07/19/18 Atorvastatin Ca [Lipitor] 40 mg PO HS #0 tablet 07/19/18 Hydrochlorothiazide [Hctz -] 12.5 mg PO DAILY #30 cap 07/19/18 Insulin Sliding Scale [Novolog 1 vial SQ TIDAC units 09/02/18 Vial Sliding Scale -] Mag Hydrox/Al Hydrox/Simeth 30 ml PO Q6H PRN cup 09/02/18 [Mylanta Oral Suspension -] Abnormal Lab Results 10/31/18 10/31/18 10/31/18 19:55 19:55 22:39 WBC 12.8 H Absolute Neuts (auto) 10.9 H Neutrophils % 84.9 H D BUN 28.1 H Creatinine 1.6 H Random Glucose 220 H AST 11 L Alkaline Phosphatase 142 H Urine Protein 1+ H Urine Glucose (UA) 1+ H ASSESSMENT AND PLAN: 1. Sigmoid colitis and Mesenteric Panniculitis - Noted on CA abdomen/pelvis. Being treated with IV Levofloxacin and Flagyl. Will send diarrheal stool for analyses including C.Diff, Ova and parasites and leukocytes. Will keep him NPO, continue IV NS and consult GI. EKG shows NSR with flattening of T waves. Initial troponin is negative. Will repeat EKG. 2. Uncontrolled DM For now, we will hold the home diabetes drugs and implement sliding scale insulin regimen. Provide comprehensive diabetes care with patient teaching and counseling about the importance of adherence to prescribed diabetes regimen, euglycemia, eye care and foot care. 3. CKD - Likely diabetic nephropathy with superimposed dehydration. Will monitor urine output while being hydrated. Avoid nephrotoxic agents such as NSAIDS, aminoglycosides, contrast dyes and certain Alternative medicine products. 4. Obesity Counseled on the risks associated with obesity. Will provide patient all the necessary assistance, counseling and positive reinforcement to facilitate weight loss. Consult line rider. 5. Hypertension - Restart suitable outpatient antihypertensive drugs when clinically appropriate. Revise regimen to ensure [id number] excellent BP control and enrollment counselor patient on the injurious effects of uncontrolled hypertension. Nonpharmacologic measures to control hypertension like weight loss , salt restriction and exercise discussed. Importance of adherence to treatment regimen and attainment of normotension emphasized. 6. DVT prophylaxis - Heparin 5000u sq tid. 7. Advance directives - Full code
[2018-11-01] MEDS ORDERED: ACETAMINOPHEN 325 MG TABLET (FP) PO PRN (02:05)
--- NOTE | 2018-11-01 02:32 | HP ---
CHIEF COMPLAINT: diarrhea PCP: Dr. Allen HISTORY OF PRESENT ILLNESS: 73 y/o M, pmh of HTN, DM, vertigo, HLD, presents to the ED c/o of constant episodes of nonbloody, semi-solid, brown stool of one day duration that started early in the morning while pt was asleep, associated with nausea, nbnb vomit consisting of phelgm and mild-moderate lower abdominal pain. Pt states that he has had >12/multiple episodes of diarrhea and vomiting, which has worsened since onset, w/ no improvement. Pt reports that he has had previous hx of similar symptoms a year ago for which he was treated w/ abx and sent home. He also gives hx of a parasitic stomach infxn which resolved on its own. Currently , pt reports his symptoms have improved midly w/ decreased frequency of diarrhea. Denies f/c, sob, headaches, chest pain, numbness, tingling, urinary incontinence. ER course was notable for: (1) metro 500 and levaquin 500 given (2) CT a/p- panniculitis and sigmoid colitis (3) UCx- pending Recent Travel: denies PAST MEDICAL HISTORY: HTN, DM, vertigo, HLD, PAST SURGICAL HISTORY: denies Social History: Smoking: former smoker Alcohol: denies Drugs: denies Family History: Dad: DM, Bone cancer Sister: PR Brother Stroke and PR Allergies Sulfa (Sulfonamide Antibiotics) Allergy (Severe, Verified 10/28/18 19:00) Vomiting piperacillin [From Zosyn] Adverse Reaction (Intermediate, Verified 10/28/18 19: 00) Itching 07/11/17 SUSPECTED ADR TO ZOSYN. RX: MILD: ERYTHEMA,ITCHING, NAUSEA. MODERATE: URTICARIA. BENADRYL 25 MG IV GIVEN tazobactam [From Zosyn] Adverse Reaction (Intermediate, Verified 10/28/18 19:00) Itching 07/11/17 SUSPECTED ADR TO ZOSYN. RX: MILD:ITCHING,ERYTHEMA,NAUSEA. MODERATE: URTICARIA. BENADRYL 25 MG IV GIVEN HOME MEDICATIONS: Home Medications Medication Instructions Recorded Valsartan [Diovan] 160 mg PO DAILY 12/19/17 Famotidine 20 mg PO DAILY 07/18/18 Insulin (Novolog 70/30) [Novolog 0 units SQ DAILY 07/18/18 Mix 70/30 Vial -] Amlodipine Besylate [Norvasc -] 10 mg PO DAILY #30 tablet 07/19/18 Aspirin [ASA -] 81 mg PO DAILY tab.chew 07/19/18 Atorvastatin Ca [Lipitor] 40 mg PO HS #0 tablet 07/19/18 Hydrochlorothiazide [Hctz -] 12.5 mg PO DAILY #30 cap 07/19/18 Insulin Sliding Scale [Novolog 1 vial SQ TIDAC units 09/02/18 Vial Sliding Scale -] Mag Hydrox/Al Hydrox/Simeth 30 ml PO Q6H PRN cup 09/02/18 [Mylanta Oral Suspension -] REVIEW OF SYSTEMS CONSTITUTIONAL: Absent: fever, chills, diaphoresis, generalized weakness, malaise, loss of appetite, weight change HEENT: Absent: eye pain, visual changes CARDIOVASCULAR: Absent: chest pain, syncope, palpitations, lightheadedness, peripheral edema RESPIRATORY: Absent: cough, shortness of breath, dyspnea with exertion, wheezing, stridor, hemoptysis GASTROINTESTINAL: Admits: abdominal distension, nausea, vomiting, diarrhea, Absent: abdominal pain, constipation, melena, hematochezia GENITOURINARY: Absent: dysuria, frequency, urgency, hesitancy, hematuria, flank pain, genital pain MUSCULOSKELETAL: Absent: back pain ENDOCRINE: Absent: unexplained weight gain/weight loss, NEUROLOGIC: Absent: headache, dizziness, unsteady gait, seizure, mental status changes, bladder incontinence PHYSICAL EXAMINATION Vital Signs - 24 hr Last Vital Signs Temp Pulse Resp BP Pulse Ox 98 F 83 18 138/70 96 11/01/18 03:40 11/01/18 03:40 11/01/18 03:55 11/01/18 03:40 11/01/18 03:55 GENERAL: Awake, alert, and fully oriented, in no acute distress. EYES: Pupils equal, round and reactive to light, extraocular movements intact, EARS, NOSE, THROAT: oropharynx clear without exudates. Moist mucous membranes. NECK: supple without lymphadenopathy, JVD, or masses. No bruit LUNGS: Breath sounds equal, clear to auscultation bilaterally. No wheezes, and no crackles. HEART: Irregular heart beat heard on auscultation, normal S1 and S2 without murmur, rub or gallop. ABDOMEN: Pt distended and decreased bowel sounds but Soft, nontender, no guarding, no rebound, no masses. No hepatomegaly or splenomegaly. MUSCULOSKELETAL: No CVA tenderness. UPPER EXTREMITIES: 2+ pulses, warm, well-perfused. No cyanosis. No peripheral edema. LOWER EXTREMITIES: 2+ pulses, warm, well-perfused. No peripheral edema. PSYCHIATRIC: Cooperative. Good eye contact. Appropriate mood and affect. Laboratory Results - last 24 hr CBC, BMP 10/31/18 19:55 10/31/18 19:55 ASSESSMENT/PLAN: 73 y/o M, pmh of HTN, DM, vertigo, HLD, presents to the ED c/o of constant episodes of brown stool of one day duration associated with nausea, nbnb vomit consisting of phelgm and mild-moderate lower abdominal pain. #Diarrhea 2/2 Enterocolitis NPO IVF NS 75 mls/hr Levofloxacin 500 Q24H Metronidazole 500 Q6H fecal lactoferrin Stool for ova + parasite- f/u if diarrhea worsens- sent for Stool Cx monitor white count trend WBC #A fib not on meds EKG in am #CKD likely 2/2 to DM ALP elevated Monitor BP control bp and DM #DM BGM ISS pt has Insulin pump #HTN continue home meds- amlodipine, HCTZ, Hold losartan- in case kidney function is elevated due to AMBER #HLD continue Atorvastatin, ASA #Vertigo if symptomatic, cont home med- meclizine #DVT ppx Heparin sq FEN: NPO Dispo: monitor white count, symptomatic management for now, f/u EKG Visit type - Emergency Visit Emergency Visit: Yes ED Registration Date: 10/31/18 Care time: The patient presented to the Emergency Department on the above date and was hospitalized for further evaluation of their emergent condition. - New Patient This patient is new to me today: Yes Date on this admission: 11/01/18 - Critical Care Critical Care patient: No ATTENDING PHYSICIAN STATEMENT I saw and evaluated the patient. I reviewed the resident's note and discussed the case with the resident. I agree with the resident's findings and plan as documented. SUBJECTIVE: OBJECTIVE: ASSESSMENT AND PLAN:
[2018-11-01] MEDS: SODIUM CHLORIDE 1,000 ML IV SCH (02:33)
[2018-11-01 03:45] VITALS: BMI 30.2
[2018-11-01] MEDS: INSULIN SLIDING SCALE (NOVOLOG) 1 VIAL SQ SCH ×4 (06:51→22:59)
[2018-11-01 08:01] LABS: BASO % 0.4 % (0-2.0); EOS % 1.3 % (0-4.5); HEMATOCRIT 38.1 % (35.4-49); LYMPH % 21.1 % (8-40); MCH 29.5 pg (25.7-33.7); MEAN CELL VOLUME 86.7 fl (80-96); MEAN PLT VOLUME 9.3 fl (7.5-11.1); MONO % 9.2 % (3.8-10.2); PLATELET COUNT 243 K/MM3 (134-434); RBC 4.39 M/mm3 (4.00-5.60); RDW 13.5 % (11.9-15.9); WHITE BLOOD COUNT 11.2 K/mm3 (4.0-10.0)
[2018-11-01 08:27] LABS: BILIRUBIN,TOTAL 0.5 mg/dL (0.2-1); BLOOD UREA NITROGEN 21.8 mg/dL (7-18); CALCIUM 8.5 mg/dL (8.5-10.1); CREATININE 1.3 mg/dL (0.55-1.3)
[2018-11-01] MEDS ORDERED: HYDROCHLOROTHIAZIDE 12.5 MG CAPSULE (FP) PO SCH (10:00)
--- NOTE | 2018-11-01 10:39 | EKG ---
Test Reason : Blood Pressure : / mmHG Vent. Rate : 064 BPM Atrial Rate : 064 BPM P-R Int : 158 ms QRS Dur : 104 ms QT Int : 392 ms P-R-T Axes : 009 -51 082 degrees QTc Int : 404 ms NORMAL SINUS RHYTHM LEFT AXIS DEVIATION NONSPECIFIC ST AND T WAVE ABNORMALITY ABNORMAL ECG WHEN COMPARED WITH ECG OF 28-OCT-2018 18:08, COMPARED TO EKG NO SIGNIFICANT CHANGE IS FOUND Confirmed by ISACC MANZANO, NASRA ([id number]) on 11/01/2018 10:39:05 AM Referred By: OLU COLEMAN Confirmed By:NASRA DEXTER MD
--- NOTE | 2018-11-01 11:08 | EKG ---
Test Reason : Blood Pressure : / mmHG Vent. Rate : 068 BPM Atrial Rate : 068 BPM P-R Int : 154 ms QRS Dur : 098 ms QT Int : 396 ms P-R-T Axes : 001 -47 128 degrees QTc Int : 421 ms SINUS RHYTHM WITH PREMATURE ATRIAL COMPLEXES LEFT AXIS DEVIATION PULMONARY DISEASE PATTERN NONSPECIFIC ST AND T WAVE ABNORMALITY ABNORMAL ECG WHEN COMPARED WITH ECG OF 28-OCT-2018 18:08, PREMATURE ATRIAL COMPLEXES ARE NOW PRESENT INCOMPLETE RIGHT BUNDLE BRANCH BLOCK IS NO LONGER PRESENT NONSPECIFIC T WAVE ABNORMALITY, WORSE IN LATERAL LEADS Confirmed by ISACC MANZANO, NASRA ([id number]) on 11/01/2018 11:07:58 AM Referred By: Confirmed By:NASRA DEXTER MD
[2018-11-01] MEDS: ASPIRIN 81 MG CHEWABLE TABLETS PO SCH (11:42)
[2018-11-01] MEDS: amLODIPine BESYLATE 10 MG TABLET (FP) PO SCH (11:42)
[2018-11-01] MEDS: HEPARIN NA (PORCINE) 5,000 UNITS/ML 1ML VIAL SQ SCH ×2 (11:43→18:55)
--- NOTE | 2018-11-01 15:26 | PN ---
Physical Exam: SUBJECTIVE: Patient seen and examined at bedside this AM. Pt still having diarrhea as of the AM. OBJECTIVE: Vital Signs Period Temp Pulse Resp BP Sys/Ferreira Pulse Ox Last 24 Hr 97.5 F-98.7 F 65-84 18-20 112-138/49-75 96-100 GENERAL: The patient is awake, alert, and fully oriented, in no acute distress. HEAD: Normal with no signs of trauma. NECK: supple. LUNGS: Breath sounds equal, clear to auscultation bilaterally, no wheezes, no crackles, no accessory muscle use. HEART: Regular rate and rhythm, S1, S2 without murmur, rub or gallop. ABDOMEN: Soft, nontender, distended and rigid but chronic per pt, normoactive bowel sounds, no guarding, no rebound. insulin pump on rt mid abdomen. EXTREMITIES: warm, well-perfused, no edema. NEUROLOGICAL: Cranial nerves II through XII grossly intact. Normal speech, gait not observed. PSYCH: Normal mood, normal affect. SKIN: Warm, dry, no rashes or lesions noted Laboratory Results - last 24 hr 10/31/18 10/31/18 10/31/18 19:55 19:55 19:55 WBC 12.8 H RBC 4.91 Hgb 14.3 Hct 42.8 MCV 87.2 MCH 29.0 MCHC 33.3 RDW 13.7 Plt Count 263 MPV 9.1 Absolute Neuts (auto) 10.9 H Neutrophils % 84.9 H D Lymphocytes % 8.2 D Monocytes % 6.2 Eosinophils % 0.4 Basophils % 0.3 Nucleated RBC % 0 Sodium 138 Potassium 4.5 Chloride 101 Carbon Dioxide 29 Anion Gap 8 BUN 28.1 H Creatinine 1.6 H Est GFR (CKD-EPI)AfAm 48.81 Est GFR (CKD-EPI)NonAf 42.11 POC Glucometer Random Glucose 220 H Calcium 9.6 Total Bilirubin 0.5 AST 11 L ALT 15 Alkaline Phosphatase 142 H Creatine Kinase 140 Troponin I < 0.02 Total Protein 7.5 Albumin 3.8 Lipase Urine Color Urine Appearance Urine pH Ur Specific [place] Urine Protein Urine Glucose (UA) Urine Ketones Urine Blood Urine Nitrite Urine Bilirubin Urine Urobilinogen Ur Leukocyte Esterase Urine WBC (Auto) Urine RBC (Auto) Urine Casts (Auto) U Epithel Cells (Auto) Urine Bacteria (Auto) Acetone, Qual 10/31/18 10/31/18 10/31/18 19:55 19:55 20:11 WBC RBC Hgb Hct MCV MCH MCHC RDW Plt Count MPV Absolute Neuts (auto) Neutrophils % Lymphocytes % Monocytes % Eosinophils % Basophils % Nucleated RBC % Sodium Potassium Chloride Carbon Dioxide Anion Gap BUN Creatinine Est GFR (CKD-EPI)AfAm Est GFR (CKD-EPI)NonAf POC Glucometer 214 Random Glucose Calcium Total Bilirubin AST ALT Alkaline Phosphatase Creatine Kinase Troponin I Total Protein Albumin Lipase 86 Urine Color Urine Appearance Urine pH Ur Specific [place] Urine Protein Urine Glucose (UA) Urine Ketones Urine Blood Urine Nitrite Urine Bilirubin Urine Urobilinogen Ur Leukocyte Esterase Urine WBC (Auto) Urine RBC (Auto) Urine Casts (Auto) U Epithel Cells (Auto) Urine Bacteria (Auto) Acetone, Qual Negative 10/31/18 11/01/18 11/01/18 22:39 02:30 06:18 WBC RBC Hgb Hct MCV MCH MCHC RDW Plt Count MPV Absolute Neuts (auto) Neutrophils % Lymphocytes % Monocytes % Eosinophils % Basophils % Nucleated RBC % Sodium Potassium Chloride Carbon Dioxide Anion Gap BUN Creatinine Est GFR (CKD-EPI)AfAm Est GFR (CKD-EPI)NonAf POC Glucometer 239 194 Random Glucose Calcium Total Bilirubin AST ALT Alkaline Phosphatase Creatine Kinase Troponin I Total Protein Albumin Lipase Urine Color Yellow Urine Appearance Clear Urine pH 5.5 Ur Specific [place] 1.025 Urine Protein 1+ H Urine Glucose (UA) 1+ H Urine Ketones Negative Urine Blood Negative Urine Nitrite Negative Urine Bilirubin Negative Urine Urobilinogen 0.2 Ur Leukocyte Esterase Negative Urine WBC (Auto) 0.3 Urine RBC (Auto) 1.7 Urine Casts (Auto) 10.9 U Epithel Cells (Auto) 0.7 Urine Bacteria (Auto) 0.2 Acetone, Qual 11/01/18 11/01/18 11/01/18 06:45 06:45 11:55 WBC 11.2 H RBC 4.39 Hgb 13.0 Hct 38.1 MCV 86.7 MCH 29.5 MCHC 34.0 RDW 13.5 Plt Count 243 MPV 9.3 Absolute Neuts (auto) 7.6 Neutrophils % 68.0 Lymphocytes % 21.1 D Monocytes % 9.2 Eosinophils % 1.3 D Basophils % 0.4 Nucleated RBC % 0 Sodium 140 Potassium 4.0 Chloride 104 Carbon Dioxide 29 Anion Gap 7 L BUN 21.8 H Creatinine 1.3 Est GFR (CKD-EPI)AfAm 62.74 Est GFR (CKD-EPI)NonAf 54.13 POC Glucometer 154 Random Glucose 187 H Calcium 8.5 Total Bilirubin 0.5 AST 12 L ALT 13 Alkaline Phosphatase 117 Creatine Kinase Troponin I Total Protein 6.0 L Albumin 3.0 L Lipase Urine Color Urine Appearance Urine pH Ur Specific [place] Urine Protein Urine Glucose (UA) Urine Ketones Urine Blood Urine Nitrite Urine Bilirubin Urine Urobilinogen Ur Leukocyte Esterase Urine WBC (Auto) Urine RBC (Auto) Urine Casts (Auto) U Epithel Cells (Auto) Urine Bacteria (Auto) Acetone, Qual Active Medications Generic Name Dose Route Start Last Admin Trade Name Freq PRN Reason Stop Dose Admin Acetaminophen 650 mg 11/01/18 02:05 Tylenol - PO Q4H PRN PAIN Amlodipine Besylate 10 mg 11/01/18 10:00 11/01/18 11:42 Norvasc - PO 10 mg DAILY JASMINE Administration Aspirin 81 mg 11/01/18 10:00 11/01/18 11:42 Asa - PO 81 mg DAILY JASMINE Administration Atorvastatin Calcium 40 mg 11/01/18 22:00 Lipitor - PO HS JASMINE Heparin Sodium (Porcine) 5,000 unit 11/01/18 10:00 11/01/18 11:43 Heparin - SQ 5,000 unit Q8H-IV JASMINE Administration Hydrochlorothiazide 12.5 mg 11/01/18 10:00 11/01/18 11:42 Hctz - PO 12.5 mg DAILY JASMINE Administration Sodium Chloride 1,000 mls @ 75 mls/hr 11/01/18 02:15 11/01/18 02:33 Normal Saline - IV 75 mls/hr ASDIR JASMINE Administration Metronidazole 500 mg in 100 mls @ 100 mls/hr 11/01/18 06:00 11/01/18 11:42 Flagyl 500mg Premixed Ivpb - IVPB Not Given Q6H-IV JASMINE Levofloxacin 500 mg in 100 mls @ 100 mls/hr 11/02/18 00:01 Levaquin 500 Mg Premixed Ivpb - IVPB Q24H JASMINE Protocol Insulin Aspart 0 vial 11/01/18 07:00 11/01/18 12:37 Novolog Vial Sliding Scale - SQ Not Given ACHS JASMINE Protocol ASSESSMENT/PLAN: 73 y/o M, pmh of HTN, DM, vertigo, HLD, presents to the ED c/o of constant episodes of brown stool of one day duration associated with nausea, nbnb vomit consisting of phelgm and mild-moderate lower abdominal pain. 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 - trend WBC #AMBER - likely 2/2 to hypovolemia from diarrhea - ALP normalized - continue IV fluids - holding losartan for now in case recent bump in Cr is from this, Cr is normal , but not starting bc dont want to drop BP too much. #DM BGM ISS pt has Insulin pump #HTN continue home meds- amlodipine, HCTZ, #HLD continue Atorvastatin, ASA #Vertigo if symptomatic, cont home med- meclizine #DVT ppx Heparin sq FEN: low residue diabetic diet, monitor lytes, IVF continued. Dispo: f/u EKG showing no changes from previous, Lt axis deviation nonspecific T wave changes. Visit type - Emergency Visit Emergency Visit: Yes ED Registration Date: 10/31/18 Care time: The patient presented to the Emergency Department on the above date and was hospitalized for further evaluation of their emergent condition. - New Patient This patient is new to me today: Yes Date on this admission: 11/01/18 - Critical Care Critical Care patient: No - Discharge Referral Referred to [facility] Med P.C.: No ATTENDING PHYSICIAN STATEMENT I saw and evaluated the patient. I reviewed the resident's note and discussed the case with the resident. I agree with the resident's findings and plan as documented. SUBJECTIVE: OBJECTIVE: ASSESSMENT AND PLAN:
--- NOTE | 2018-11-01 15:26 | CON.GI ---
Consult Consult Specialty:: GI Referred by:: medicine Reason for Consultation:: panniculitis, diarrhea - History of Present Illness Chief Complaint: diarrhea History of Present Illness: 73M with h/o DM, HTN, HL, vertigo admitted for evaluation of diarrhea that began over the weekend, multiple episodes, watery, nonbloody. NO fevers or chills. No extraordinary food intake. NO recent abx use. Came to ED, labs with slightly elevated WBC count and AMBER, CT with left sided colitis and panniculitis. Started on levaquin/flagyl. GI asked to consult. Patient denies abdominal or rectal pain throughout. Last bm was 10-11am this morning. Is hungry. Reports he had a colonoscopy when he was 67yo during which he had 8 "things" removed. No follow up. - History Source History Provided By: Patient Limitations to Obtaining History: No Limitations - Past Medical History Cardio/Vascular: Yes: HTN, Hyperlipdemia Infectious Disease: Yes: Other (Rt toe OM) Endocrine: Yes: Diabetes Mellitus - Alcohol/Substance Use Hx Alcohol Use: No - Smoking History Smoking history: Never smoked Have you smoked in the past 12 months: No Home Medications - Allergies Allergies/Adverse Reactions: Allergies Allergy/AdvReac Type Severity Reaction Status Date / Time Sulfa (Sulfonamide Allergy Severe Vomiting Verified 10/28/18 19:00 Antibiotics) piperacillin [From Zosyn] AdvReac Intermediate Itching Verified 10/28/18 19:00 tazobactam [From Zosyn] AdvReac Intermediate Itching Verified 10/28/18 19:00 - Home Medications Home Medications: Ambulatory Orders Amlodipine Besylate [Norvasc -] 10 mg PO DAILY #30 tablet 07/19/18 Atorvastatin Ca [Lipitor] 20 mg PO DAILY 11/01/18 Hydrochlorothiazide [Hctz -] 25 mg PO DAILY 11/01/18 Insulin (Novolog) [Novolog Vial] 100 units SQ DAILY 11/01/18 Losartan Potassium 50 mg PO DAILY 11/01/18 Family Disease History - Family Disease History Family Disease History: Heart Disease: Father Review of Systems - Review of Systems Constitutional: reports: No Symptoms Eyes: reports: No Symptoms HENT: reports: No Symptoms Neck: reports: No Symptoms Cardiovascular: reports: No Symptoms Respiratory: reports: No Symptoms Gastrointestinal: reports: Diarrhea. denies: Abdominal Pain, Bloating, Constipation, Nausea, Vomiting Musculoskeletal: reports: No Symptoms Neurological: reports: No Symptoms Endocrine: reports: No Symptoms Hematology/Lymphatic: reports: No Symptoms Psychiatric: reports: No Symptoms Physical Exam-GI Vital Signs: Vital Signs Temperature 97.8 F 11/01/18 10:00 Pulse Rate 84 11/01/18 10:00 Respiratory Rate 20 11/01/18 10:00 Blood Pressure 127/75 11/01/18 10:00 O2 Sat by Pulse Oximetry (%) 96 11/01/18 09:00 Constitutional: Yes: Well Nourished, No Distress, Calm Eyes: Yes: Conjunctiva Clear HENT: Yes: WNL, Atraumatic Cardiovascular: Yes: Regular Rate and Rhythm Respiratory: Yes: CTA Bilaterally Gastrointestinal Inspection: Yes: Distention (mild) ...Palpate: Yes: Soft. No: Tenderness ...Rectal Exam: Yes: Deferred Musculoskeletal: Yes: WNL Extremities: Yes: WNL Edema: No Neurological: Yes: Alert, Oriented Psychiatric: Yes: Alert, Oriented Labs: CBC, BMP 11/01/18 06:45 11/01/18 06:45 Imaging - Results Cat Scan: Report Reviewed (mild left sided diffuse colonic wall thickening with diverticulosis of the sigmoid; mild mesenteric panniculitis, present on prior imaging) Assessment/Plan Symptoms seem consistent with infectious gastroenteritis/colitis - ? improving given no bm during the day today - check stool cx, C. diff (mother hospitalized 4th floor), O&P - would stop abx unless there is a bacterial entity identified to treat - low residue diet - mesenteric panniculitis - patient is asx - this is likely an incidental finding. Can follow this up as an outpatient - should have surveillance colonoscopy performed when acute illness resolved, as well Discussed with primary team internal control manager
--- NOTE | 2018-11-01 18:24 | PN ---
Teaching Attending Note Name of Resident: Meng Encarnacion ATTENDING PHYSICIAN STATEMENT I saw and evaluated the patient. I reviewed the resident's note and discussed the case with the resident. I agree with the resident's findings and plan as documented. SUBJECTIVE: Patient reports having diarrhea. OBJECTIVE: Vital Signs Period Temp Pulse Resp BP Sys/Ferreira Pulse Ox Last 24 Hr 97.5 F-98.7 F 65-84 18-20 112-138/49-75 96-100 HEART: S1S2, RRR LUNGS: Clear ABDOMEN: Soft, non-tender, distended, normal BS EXTREMITIES: No edema Laboratory Results - last 24 hr 10/31/18 10/31/18 10/31/18 19:55 19:55 19:55 WBC 12.8 H RBC 4.91 Hgb 14.3 Hct 42.8 MCV 87.2 MCH 29.0 MCHC 33.3 RDW 13.7 Plt Count 263 MPV 9.1 Absolute Neuts (auto) 10.9 H Neutrophils % 84.9 H D Lymphocytes % 8.2 D Monocytes % 6.2 Eosinophils % 0.4 Basophils % 0.3 Nucleated RBC % 0 Sodium 138 Potassium 4.5 Chloride 101 Carbon Dioxide 29 Anion Gap 8 BUN 28.1 H Creatinine 1.6 H Est GFR (CKD-EPI)AfAm 48.81 Est GFR (CKD-EPI)NonAf 42.11 POC Glucometer Random Glucose 220 H Calcium 9.6 Total Bilirubin 0.5 AST 11 L ALT 15 Alkaline Phosphatase 142 H Creatine Kinase 140 Troponin I < 0.02 Total Protein 7.5 Albumin 3.8 Lipase Urine Color Urine Appearance Urine pH Ur Specific Purvis Urine Protein Urine Glucose (UA) Urine Ketones Urine Blood Urine Nitrite Urine Bilirubin Urine Urobilinogen Ur Leukocyte Esterase Urine WBC (Auto) Urine RBC (Auto) Urine Casts (Auto) U Epithel Cells (Auto) Urine Bacteria (Auto) Acetone, Qual 10/31/18 10/31/18 10/31/18 19:55 19:55 20:11 WBC RBC Hgb Hct MCV MCH MCHC RDW Plt Count MPV Absolute Neuts (auto) Neutrophils % Lymphocytes % Monocytes % Eosinophils % Basophils % Nucleated RBC % Sodium Potassium Chloride Carbon Dioxide Anion Gap BUN Creatinine Est GFR (CKD-EPI)AfAm Est GFR (CKD-EPI)NonAf POC Glucometer 214 Random Glucose Calcium Total Bilirubin AST ALT Alkaline Phosphatase Creatine Kinase Troponin I Total Protein Albumin Lipase 86 Urine Color Urine Appearance Urine pH Ur Specific Purvis Urine Protein Urine Glucose (UA) Urine Ketones Urine Blood Urine Nitrite Urine Bilirubin Urine Urobilinogen Ur Leukocyte Esterase Urine WBC (Auto) Urine RBC (Auto) Urine Casts (Auto) U Epithel Cells (Auto) Urine Bacteria (Auto) Acetone, Qual Negative 10/31/18 11/01/18 11/01/18 22:39 02:30 06:18 WBC RBC Hgb Hct MCV MCH MCHC RDW Plt Count MPV Absolute Neuts (auto) Neutrophils % Lymphocytes % Monocytes % Eosinophils % Basophils % Nucleated RBC % Sodium Potassium Chloride Carbon Dioxide Anion Gap BUN Creatinine Est GFR (CKD-EPI)AfAm Est GFR (CKD-EPI)NonAf POC Glucometer 239 194 Random Glucose Calcium Total Bilirubin AST ALT Alkaline Phosphatase Creatine Kinase Troponin I Total Protein Albumin Lipase Urine Color Yellow Urine Appearance Clear Urine pH 5.5 Ur Specific Purvis 1.025 Urine Protein 1+ H Urine Glucose (UA) 1+ H Urine Ketones Negative Urine Blood Negative Urine Nitrite Negative Urine Bilirubin Negative Urine Urobilinogen 0.2 Ur Leukocyte Esterase Negative Urine WBC (Auto) 0.3 Urine RBC (Auto) 1.7 Urine Casts (Auto) 10.9 U Epithel Cells (Auto) 0.7 Urine Bacteria (Auto) 0.2 Acetone, Qual 11/01/18 11/01/18 11/01/18 06:45 06:45 11:55 WBC 11.2 H RBC 4.39 Hgb 13.0 Hct 38.1 MCV 86.7 MCH 29.5 MCHC 34.0 RDW 13.5 Plt Count 243 MPV 9.3 Absolute Neuts (auto) 7.6 Neutrophils % 68.0 Lymphocytes % 21.1 D Monocytes % 9.2 Eosinophils % 1.3 D Basophils % 0.4 Nucleated RBC % 0 Sodium 140 Potassium 4.0 Chloride 104 Carbon Dioxide 29 Anion Gap 7 L BUN 21.8 H Creatinine 1.3 Est GFR (CKD-EPI)AfAm 62.74 Est GFR (CKD-EPI)NonAf 54.13 POC Glucometer 154 Random Glucose 187 H Calcium 8.5 Total Bilirubin 0.5 AST 12 L ALT 13 Alkaline Phosphatase 117 Creatine Kinase Troponin I Total Protein 6.0 L Albumin 3.0 L Lipase Urine Color Urine Appearance Urine pH Ur Specific Purvis Urine Protein Urine Glucose (UA) Urine Ketones Urine Blood Urine Nitrite Urine Bilirubin Urine Urobilinogen Ur Leukocyte Esterase Urine WBC (Auto) Urine RBC (Auto) Urine Casts (Auto) U Epithel Cells (Auto) Urine Bacteria (Auto) Acetone, Qual 11/01/18 17:16 WBC RBC Hgb Hct MCV MCH MCHC RDW Plt Count MPV Absolute Neuts (auto) Neutrophils % Lymphocytes % Monocytes % Eosinophils % Basophils % Nucleated RBC % Sodium Potassium Chloride Carbon Dioxide Anion Gap BUN Creatinine Est GFR (CKD-EPI)AfAm Est GFR (CKD-EPI)NonAf POC Glucometer 134 Random Glucose Calcium Total Bilirubin AST ALT Alkaline Phosphatase Creatine Kinase Troponin I Total Protein Albumin Lipase Urine Color Urine Appearance Urine pH Ur Specific Purvis Urine Protein Urine Glucose (UA) Urine Ketones Urine Blood Urine Nitrite Urine Bilirubin Urine Urobilinogen Ur Leukocyte Esterase Urine WBC (Auto) Urine RBC (Auto) Urine Casts (Auto) U Epithel Cells (Auto) Urine Bacteria (Auto) Acetone, Qual Current Medications Generic Name Dose Route Start Last Admin Trade Name Freq PRN Reason Stop Dose Admin Acetaminophen 650 mg 11/01/18 02:05 Tylenol - PO Q4H PRN PAIN Amlodipine Besylate 10 mg 11/01/18 10:00 11/01/18 11:42 Norvasc - PO 10 mg DAILY JASMINE Administration Aspirin 81 mg 11/01/18 10:00 11/01/18 11:42 Asa - PO 81 mg DAILY JASMINE Administration Atorvastatin Calcium 40 mg 11/01/18 22:00 Lipitor - PO HS JASMINE Heparin Sodium (Porcine) 5,000 unit 11/01/18 10:00 11/01/18 11:43 Heparin - SQ 5,000 unit Q8H-IV JASMINE Administration Hydrochlorothiazide 12.5 mg 11/01/18 10:00 11/01/18 11:42 Hctz - PO 12.5 mg DAILY JASMINE Administration Sodium Chloride 1,000 mls @ 75 mls/hr 11/01/18 02:15 11/01/18 02:33 Normal Saline - IV 75 mls/hr ASDIR JASMINE Administration Insulin Aspart 0 vial 11/01/18 07:00 11/01/18 12:37 Novolog Vial Sliding Scale - SQ Not Given ACHS JASMINE Protocol ASSESSMENT AND PLAN: This is a 73 year old man with a history of HTN, hyperlipidemia, type 2 DM, vertigo who presented to the ED lower abdominal pain, nausea, vomiting, diarrhea. 1. 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 difficile 2. Acute kidney injury - Secondary to hypovolemia from vomiting, diarrhea - Improving - Continue IV fluid - Continue to hold Cozaar; hold HCTZ 3. Type 2 DM - Continue Novolog sliding scale 4. HTN - Continue Norvasc - Hold Cozaar, HCTZ secondary to AMBER 5. Hyperlipidemia - Continue Lipitor 6. Vertigo
[2018-11-01] MEDS: ATORVASTATIN CA 40 MG TABLET (FP) PO SCH (22:59)
[2018-11-02] MEDS: SODIUM CHLORIDE 1,000 ML IV SCH (03:17)
[2018-11-02] MEDS: HEPARIN NA (PORCINE) 5,000 UNITS/ML 1ML VIAL SQ SCH ×3 (03:19→18:38)
[2018-11-02 08:03] LABS: BASO % 0.5 % (0-2.0); EOS % 2.4 % (0-4.5); HEMOGLOBIN 13.3 GM/dL (11.7-16.9); MCH 29.4 pg (25.7-33.7); MCHC 34.1 g/dl (32.0-35.9); MEAN CELL VOLUME 86.4 fl (80-96); MEAN PLT VOLUME 9.1 fl (7.5-11.1); MONO % 9.1 % (3.8-10.2); PLATELET COUNT 253 K/MM3 (134-434); RBC 4.51 M/mm3 (4.00-5.60); RDW 13.7 % (11.9-15.9); WHITE BLOOD COUNT 8.9 K/mm3 (4.0-10.0)
[2018-11-02] MEDS: INSULIN SLIDING SCALE (NOVOLOG) 1 VIAL SQ SCH ×2 (08:03→12:14)
[2018-11-02 08:20] LABS: BILIRUBIN,TOTAL 0.5 mg/dL (0.2-1); BLOOD UREA NITROGEN 18.9 mg/dL (7-18); CALCIUM 8.8 mg/dL (8.5-10.1); CREATININE 1.2 mg/dL (0.55-1.3); TOT PROT 6.1 g/dl (6.4-8.2)
[2018-11-02] MEDS: amLODIPine BESYLATE 10 MG TABLET (FP) PO SCH (10:30)
[2018-11-02] MEDS: ASPIRIN 81 MG CHEWABLE TABLETS PO SCH (10:30)
[2018-11-02] MEDS ORDERED: PT OWN MED DRAWER 7, Y5N ONE (14:59)
[2018-11-02] MEDS ORDERED: INSULIN PUMP - PATIENTS OWN MED NR SCH (15:45)
--- NOTE | 2018-11-02 15:55 | PN ---
Teaching Attending Note Name of Resident: Meng Encarnacion ATTENDING PHYSICIAN STATEMENT I saw and evaluated the patient. I reviewed the resident's note and discussed the case with the resident. I agree with the resident's findings and plan as documented. SUBJECTIVE: Patient has no complaints. Diarrhea has resolved. OBJECTIVE: Vital Signs Period Temp Pulse Resp BP Sys/Ferreira Pulse Ox Last 24 Hr 97.9 F-98.6 F 62-96 18-18 106-140/50-70 96-98 HEART: S1S2, RRR LUNGS: Clear ABDOMEN: Soft, non-tender, distended, normal BS EXTREMITIES: No edema Laboratory Results - last 24 hr 11/01/18 11/01/18 11/02/18 17:16 22:55 06:42 WBC RBC Hgb Hct MCV MCH MCHC RDW Plt Count MPV Absolute Neuts (auto) Neutrophils % Lymphocytes % Monocytes % Eosinophils % Basophils % Nucleated RBC % Sodium Potassium Chloride Carbon Dioxide Anion Gap BUN Creatinine Est GFR (CKD-EPI)AfAm Est GFR (CKD-EPI)NonAf POC Glucometer 134 190 104 Random Glucose Calcium Total Bilirubin AST ALT Alkaline Phosphatase Total Protein Albumin 11/02/18 11/02/18 11/02/18 07:05 07:05 11:44 WBC 8.9 RBC 4.51 Hgb 13.3 Hct 39.0 MCV 86.4 MCH 29.4 MCHC 34.1 RDW 13.7 Plt Count 253 MPV 9.1 Absolute Neuts (auto) 5.4 Neutrophils % 61.0 Lymphocytes % 27.0 D Monocytes % 9.1 Eosinophils % 2.4 D Basophils % 0.5 Nucleated RBC % 0 Sodium 142 Potassium 4.0 Chloride 108 H Carbon Dioxide 28 Anion Gap 6 L BUN 18.9 H Creatinine 1.2 Est GFR (CKD-EPI)AfAm 69.11 Est GFR (CKD-EPI)NonAf 59.63 POC Glucometer 243 Random Glucose 99 Calcium 8.8 Total Bilirubin 0.5 AST 14 L ALT 13 Alkaline Phosphatase 118 H Total Protein 6.1 L Albumin 3.0 L Current Medications Generic Name Dose Route Start Last Admin Trade Name Freq PRN Reason Stop Dose Admin Acetaminophen 650 mg 11/01/18 02:05 Tylenol - PO Q4H PRN PAIN Amlodipine Besylate 10 mg 11/01/18 10:00 11/02/18 10:30 Norvasc - PO 10 mg DAILY JASMINE Administration Aspirin 81 mg 11/01/18 10:00 11/02/18 10:30 Asa - PO 81 mg DAILY JASMINE Administration Atorvastatin Calcium 40 mg 11/01/18 22:00 11/01/18 22:59 Lipitor - PO 40 mg HS JASMINE Administration Heparin Sodium (Porcine) 5,000 unit 11/01/18 10:00 11/02/18 10:30 Heparin - SQ 5,000 unit Q8H-IV JASMINE Administration Sodium Chloride 1,000 mls @ 75 mls/hr 11/01/18 02:15 11/02/18 03:17 Normal Saline - IV 75 mls/hr ASDIR JASMINE Administration ASSESSMENT AND PLAN: This is a 73 year old man with a history of HTN, hyperlipidemia, type 2 DM, vertigo who presented to the ED lower abdominal pain, nausea, vomiting, diarrhea. 1. 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 difficile negative 2. Acute kidney injury - Secondary to hypovolemia from vomiting, diarrhea - Improved with IV fluid - Discontinue IV fluid - Continue to hold Cozaar, HCTZ 3. Type 2 DM - Continue Novolog sliding scale 4. HTN - Continue Norvasc - Hold Cozaar, HCTZ secondary to AMBER 5. Hyperlipidemia - Continue Lipitor 6. Vertigo
--- NOTE | 2018-11-02 17:45 | PN.GI ---
GI Progress Note Subjective: No abdominal pain No diarrhea Tolerating PO Denies unintentional weight loss - Objective Vital Signs: Vital Signs Temperature 98.6 F 11/02/18 15:00 Pulse Rate 96 H 11/02/18 15:00 Respiratory Rate 18 11/02/18 15:00 Blood Pressure 140/70 11/02/18 15:00 O2 Sat by Pulse Oximetry (%) 98 11/02/18 09:00 Constitutional: Calm Eyes: No: Sclera Icterus Cardiovascular: Yes: Regular Rate and Rhythm. No: Murmur Gastrointestinal Inspection: No: Ascites ...Auscultate: Yes: Normoactive Bowel Sounds ...Palpate: Yes: Soft. No: Tenderness Edema: No (No LE edema) Neurological: Yes: Alert Labs: CBC, BMP 11/02/18 07:05 11/02/18 07:05 Hepatic Panel Total Bilirubin 0.5 mg/dL (0.2-1) 11/02/18 07:05 AST 14 U/L (15-37) L 11/02/18 07:05 ALT 13 U/L (13-61) 11/02/18 07:05 Alkaline Phosphatase 118 U/L (45-117) H 11/02/18 07:05 Albumin 3.0 g/dl (3.4-5.0) L 11/02/18 07:05 Problem List - Problems (1) Panniculitis Assessment/Plan: Clinically asymptomatic. ? self limited acute enteritis. No further diarrhea and tolerating PO Stool for culture, O&P, C. Diff if diarrhea persists Outpatient follow-up to discuss colonoscopy given polyp history. gave patient my card Code(s): M79.3 - PANNICULITIS, UNSPECIFIED
--- NOTE | 2018-11-02 18:59 | PN ---
Physical Exam: SUBJECTIVE: Patient seen and examined at bedside this AM. No acute events. OBJECTIVE: Vital Signs Period Temp Pulse Resp BP Sys/Ferreira Pulse Ox Last 24 Hr 97.9 F-98.6 F 62-96 18-18 106-140/50-70 96-98 GENERAL: The patient is awake, alert, and fully oriented, in no acute distress. HEAD: Normal with no signs of trauma. NECK: supple. LUNGS: Breath sounds equal, clear to auscultation bilaterally, no wheezes, no crackles, no accessory muscle use. HEART: Regular rate and rhythm, S1, S2 without murmur, rub or gallop. ABDOMEN: Soft, nontender, nondistended, normoactive bowel sounds, no guarding, no rebound. EXTREMITIES: 2+ pulses, warm, well-perfused, no edema. NEUROLOGICAL: Cranial nerves II through XII grossly intact. Normal speech, gait not observed. PSYCH: Normal mood, normal affect. SKIN: Warm, dry, no rashes or lesions noted Laboratory Results - last 24 hr 11/01/18 11/02/18 11/02/18 22:55 06:42 07:05 WBC 8.9 RBC 4.51 Hgb 13.3 Hct 39.0 MCV 86.4 MCH 29.4 MCHC 34.1 RDW 13.7 Plt Count 253 MPV 9.1 Absolute Neuts (auto) 5.4 Neutrophils % 61.0 Lymphocytes % 27.0 D Monocytes % 9.1 Eosinophils % 2.4 D Basophils % 0.5 Nucleated RBC % 0 Sodium Potassium Chloride Carbon Dioxide Anion Gap BUN Creatinine Est GFR (CKD-EPI)AfAm Est GFR (CKD-EPI)NonAf POC Glucometer 190 104 Random Glucose Calcium Total Bilirubin AST ALT Alkaline Phosphatase Total Protein Albumin 11/02/18 11/02/18 07:05 11:44 WBC RBC Hgb Hct MCV MCH MCHC RDW Plt Count MPV Absolute Neuts (auto) Neutrophils % Lymphocytes % Monocytes % Eosinophils % Basophils % Nucleated RBC % Sodium 142 Potassium 4.0 Chloride 108 H Carbon Dioxide 28 Anion Gap 6 L BUN 18.9 H Creatinine 1.2 Est GFR (CKD-EPI)AfAm 69.11 Est GFR (CKD-EPI)NonAf 59.63 POC Glucometer 243 Random Glucose 99 Calcium 8.8 Total Bilirubin 0.5 AST 14 L ALT 13 Alkaline Phosphatase 118 H Total Protein 6.1 L Albumin 3.0 L Active Medications Generic Name Dose Route Start Last Admin Trade Name Yana PRN Reason Stop Dose Admin Acetaminophen 650 mg 11/01/18 02:05 Tylenol - PO Q4H PRN PAIN Amlodipine Besylate 10 mg 11/01/18 10:00 11/02/18 10:30 Norvasc - PO 10 mg DAILY JASMINE Administration Aspirin 81 mg 11/01/18 10:00 11/02/18 10:30 Asa - PO 81 mg DAILY JASMINE Administration Atorvastatin Calcium 40 mg 11/01/18 22:00 11/01/18 22:59 Lipitor - PO 40 mg HS JASMINE Administration Heparin Sodium (Porcine) 5,000 unit 11/01/18 10:00 11/02/18 18:38 Heparin - SQ 5,000 unit Q8H-IV JASMINE Administration Insulin Human Regular 0 each 11/02/18 15:45 Insulin Pump - (Nf) NR ASDIR [facility] Protocol ASSESSMENT/PLAN: 73 y/o M, pmh of HTN, DM, vertigo, HLD, presents to the ED c/o of constant episodes of brown stool of one day duration associated with nausea, nbnb vomit consisting of phelgm and mild-moderate lower abdominal pain. 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 - wbc normal, checking BMP #AMBER - likely 2/2 to hypovolemia from diarrhea - ALP normalized - continue IV fluids - holding losartan for now in case recent bump in Cr is from this, Cr is normal , but not starting bc dont want to drop BP too much. - pt may be d/c tm pending normal BUN/CR while off IVF. #DM BGM ISS pt has Insulin pump #HTN continue home meds- amlodipine, HCTZ, #HLD continue Atorvastatin, ASA #Vertigo if symptomatic, cont home med- meclizine #DVT ppx Heparin sq FEN: low residue diabetic diet, monitor lytes, IVF stopped. Dispo: Visit type - Emergency Visit Emergency Visit: Yes ED Registration Date: 10/31/18 Care time: The patient presented to the Emergency Department on the above date and was hospitalized for further evaluation of their emergent condition. - New Patient This patient is new to me today: No - Critical Care Critical Care patient: No - Discharge Referral Referred to [facility] No ATTENDING PHYSICIAN STATEMENT I saw and evaluated the patient. I reviewed the resident's note and discussed the case with the resident. I agree with the resident's findings and plan as documented. SUBJECTIVE: OBJECTIVE: ASSESSMENT AND PLAN:
[2018-11-02] MEDS: ATORVASTATIN CA 40 MG TABLET (FP) PO SCH (21:54)
[2018-11-02] MEDS ORDERED: INSULIN SLIDING SCALE (NOVOLOG) 1 VIAL SQ SCH (22:00)
[2018-11-03] MEDS: HEPARIN NA (PORCINE) 5,000 UNITS/ML 1ML VIAL SQ SCH ×2 (02:00→10:40)
[2018-11-03 06:07] VITALS: TEMP 97.9
[2018-11-03 09:57] LABS: BLOOD UREA NITROGEN 17.7 mg/dL (7-18); CALCIUM 8.9 mg/dL (8.5-10.1); CREATININE 1.1 mg/dL (0.55-1.3); POTASSIUM 4.5 mmol/L (3.5-5.1)
[2018-11-03] MEDS: amLODIPine BESYLATE 10 MG TABLET (FP) PO SCH (10:40)
[2018-11-03] MEDS: ASPIRIN 81 MG CHEWABLE TABLETS PO SCH (10:40)
[2018-11-03 10:45] VITALS: BP 144/75; PULSE 87
--- NOTE | 2018-11-03 14:30 | DS ---
Physical Exam: SUBJECTIVE: Patient seen and examined at bedside this AM, wishing to go home. OBJECTIVE: Vital Signs Period Temp Pulse Resp BP Sys/Ferreira Pulse Ox Last 24 Hr 97.9 F-98.6 F 65-96 18-18 115-144/62-75 98-98 PHYSICAL EXAM GENERAL: The patient is awake, alert, and fully oriented, in no acute distress. HEAD: Normal with no signs of trauma. NECK: supple. LUNGS: Breath sounds equal, clear to auscultation bilaterally, no wheezes, no crackles, no accessory muscle use. HEART: Regular rate and rhythm, S1, S2 without murmur, rub or gallop. ABDOMEN: Soft, nontender, slightly distended, normoactive bowel sounds, no guarding, no rebound. EXTREMITIES: 2+ pulses, warm, well-perfused, no edema. NEUROLOGICAL: Cranial nerves II through XII grossly intact. Normal speech, gait not observed. PSYCH: Normal mood, normal affect. SKIN: Warm, dry, no rashes or lesions noted. LABS Laboratory Results - last 24 hr 11/02/18 11/03/18 11/03/18 21:52 06:45 08:35 Sodium 143 Potassium 4.5 Chloride 109 H Carbon Dioxide 28 Anion Gap 6 L BUN 17.7 Creatinine 1.1 Est GFR (CKD-EPI)AfAm 76.78 Est GFR (CKD-EPI)NonAf 66.24 POC Glucometer 388 170 Random Glucose 166 H Calcium 8.9 11/03/18 12:45 Sodium Potassium Chloride Carbon Dioxide Anion Gap BUN Creatinine Est GFR (CKD-EPI)AfAm Est GFR (CKD-EPI)NonAf POC Glucometer 315 Random Glucose Calcium HOSPITAL COURSE: Date of Admission:10/31/18 This is a 73 y/o M with PMH of HTN, DM, vertigo, HLD, admitted for panniculitis vs infectious colitis eval on CT. Pt remained afebrile during his stay. He was initially placed on levaquin and flagyl but per GI it was stopped in the thought that this was not infectious. Stool C diff was negative. Pt is to follow up with GI as an o/p for colonoscopy and continue further w/u for the panniculitis. Pt was stable with no other abnormalities. Date of Discharge: 11/03/18 Minutes to complete discharge: 35 Discharge Summary Reason For Visit: LETHARGIC, ALTERED MENTAL STATUS Condition: Improved - Instructions Diet, Activity, Other Instructions: You were admitted after having diarrhea for a few days. We did an image (CT abdomen/pelvis) which showed inflammation of the fat around your intestines but with no acute need for intervention. You received a dose of antibiotics and we monitored your diarrhea. Stool studies confirmed that you did not have any infection. Additionally, you were evaluated by the GI doctor with recommendation for outpatient follow up. Your symptoms improved throughout your hospital stay. You are now being discharged home. Medications Please continue taking the rest of your medications as prescribed. Please continue using your insulin pump routinely. Follow Up You should follow up with your primary care doctor, Dr. Lakshmi Esparza in 1 week. You should follow up with your stomach doctor (Client Experience Specialist), Dr. Ye, in 1 week for screening colonoscopy. Return to the emergency room if you have any worsening of your current symptoms or: chest pain, shortness of breath, fevers, chills. Referrals: [facility] [place] [Provider Group] Deepa Ye MD [Staff Physician] - 1 Week Lakshmi Esparza RES [Resident] - Disposition: HOME - Home Medications Comprehensive Discharge Medication List: Ambulatory Orders Amlodipine Besylate [Norvasc -] 10 mg PO DAILY #30 tablet 07/19/18 Atorvastatin Ca [Lipitor] 20 mg PO DAILY 11/01/18 Hydrochlorothiazide [Hctz -] 25 mg PO DAILY 11/01/18 Insulin (Novolog) [Novolog Vial] 100 units SQ DAILY 11/01/18 Losartan Potassium 50 mg PO DAILY 11/01/18 This patient is new to me today: No Emergency Visit: Yes ED Registration Date: 10/31/18 Care time: The patient presented to the Emergency Department on the above date and was hospitalized for further evaluation of their emergent condition. Critical Care patient: No - Discharge Referral Referred to [facility] No ATTENDING PHYSICIAN STATEMENT I saw and evaluated the patient. I reviewed the resident's note and discussed the case with the resident. I agree with the resident's findings and plan as documented. SUBJECTIVE: OBJECTIVE: ASSESSMENT AND PLAN:
--- NOTE | 2018-11-03 18:24 | PN ---
Teaching Attending Note Name of Resident: Becky Rodriguez ATTENDING PHYSICIAN STATEMENT I saw and evaluated the patient. I reviewed the resident's note and discussed the case with the resident. I agree with the resident's findings and plan as documented. SUBJECTIVE: No fever or chills . No GAFFNEY . No abd pain, no N/V/d OBJECTIVE: NAD Cv : RRR Abd: soft, NT, ND , NL BS. Ext : no edema ASSESSMENT AND PLAN: 73 y/o man with multiple medical problems who presented with Abd pain , N/V/d 1- Abd pain, N/V, D. ? gastroenteritis - resolved Imaging reviewed. GI input noted. c diff neg , stool cx pending f/u with GI as out pt for EGD and colo 2- cont chronic home meds dc
== END 2018-11-03 13:00 | disposition home or self-care (01) | DRG 683 ==
LOC: JER 18:54 → JERBED 23:36 → J5S 11-01 02:44
PROVIDERS: ADMIT Internal Medicine; ATTEND Internal Medicine
DX: N17.9 Acute kidney failure, unspecified (principal); K65.4 Sclerosing mesenteritis; E86.0 Dehydration; E86.1 Hypovolemia; E11.65 Type 2 diabetes mellitus with hyperglycemia; E11.22 Type 2 diabetes mellitus with diabetic chronic kidney disease; E11.21 Type 2 diabetes mellitus with diabetic nephropathy; I12.9 Hypertensive chronic kidney disease with stage 1 through stage 4 chronic kidney disease, or unspecified chronic kidney disease; N18.9 Chronic kidney disease, unspecified; Z96.41 Presence of insulin pump (external) (internal); N28.1 Cyst of kidney, acquired; E66.9 Obesity, unspecified; Z68.30 Body mass index [BMI] 30.0-30.9, adult; K21.9 Gastro-esophageal reflux disease without esophagitis; D72.829 Elevated white blood cell count, unspecified; E78.5 Hyperlipidemia, unspecified; R42 Dizziness and giddiness; K76.0 Fatty (change of) liver, not elsewhere classified
CPT/HCPCS: 36415; 70450-TC; 71046-TC-FY; 74176-TC; 76705-TC; 80048; 80053; 81003; 82009; 82550; 82962; 83690; 83735; 84484; 85025; 85610; 87045; 87046; 87086; 87324; 87449; 93005; 93010; 97116-GP; 97161-GP; 99283-25; J1644; J7030; Q0162